=== PATIENT | female | born 1960 | race Caucasian/White ===

== ENCOUNTER → 2024-02-26 | Outpatient (CLI) | payer OTHER, SELFPAY ==
--- NOTE | 2024-02-26 12:34 | RAD_ITS ---
STUDY: X-RAY - RIGHT KNEE REASON FOR EXAM: Female, 63 years old. Pain following a fall. TECHNIQUE: 3 view(s) of the knee. COMPARISON: None. FINDINGS: Normal visualized distal femur. Normal visualized proximal tibia and fibula. Normal proximal tibiofibular articulation. There is moderate degenerative arthrosis of the medial femorotibial compartment with moderate joint space narrowing. Degenerative spurring along the medial femoral condyle and medial tibial plateau. Normal lateral femorotibial compartment. Normal patellofemoral articulation. The soft tissue structures are unremarkable. RAD/Knee 3 Views IMPRESSION: Degenerative arthrosis. Electronically Signed: Mendel Rico MD at 13:37 EDT ,
--- NOTE | 2024-02-26 12:34 | RAD_ITS ---
STUDY: X-RAY - LUMBAR SPINE REASON FOR EXAM: Female, 63 years old. Pain following a fall. TECHNIQUE: 2 view(s) of the lumbar spine were obtained. COMPARISON: Comparison is made with prior study of August 22, 2015. FINDINGS: There is straightening of the normal lumbar lordosis. There is a mild dextroscoliosis of the lumbar spine. There is a normal alignment of the vertebrae. There is multilevel endplate spondylosis of the lumbar vertebrae. There is multi-level degenerative disc disease with multi-level disc space narrowing. Facet joint osteoarthritis. The soft tissue structures are unremarkable. RAD/Lumbar Spine 2 or 3 Views IMPRESSION: Degenerative changes of the spine, as detailed above. Electronically Signed: Mendel Rico MD at 13:36 EDT ,
--- NOTE | 2024-02-26 12:34 | RAD_ITS ---
STUDY: X-RAY - PELVIS AND RIGHT HIP REASON FOR EXAM: Female, 63 years old. Fall TECHNIQUE: 3 views of the pelvis and hip. COMPARISON: None. FINDINGS: There is a non-specific bowel gas pattern. Normal visualized soft tissue structures. Normal bilateral iliac wings, sacroiliac joints and visualized sacrum. Normal bilateral superior and inferior pubic rami. Normal pubic symphysis. Normal bilateral ischial tuberosities. Normal visualized femoral head. Normal acetabulum. Normal hip joint. RAD/HIP, UNI W/ Pelvis 2-3 Views IMPRESSION: Normal x-ray examination of the pelvis and hip. Electronically Signed: Mendel Rico MD at 13:38 EDT ,
== END | disposition home or self-care (01) ==
LOC: MTRAD 12:32
PROVIDERS: Referring Provider Physician Assistant; Visit Provider Physician Assistant
DX: M47.816 Spondylosis without myelopathy or radiculopathy, lumbar region (principal); W19.XXXA Unspecified fall, initial encounter
CPT/HCPCS: 72100; 73502; 73562

== ENCOUNTER 2024-04-15 16:00 | Outpatient (RCR) | payer OTHER, SELFPAY | END 2024-04-15 19:00 | disposition home or self-care (01) | LOC: PT 16:00 | PROVIDERS: Referring Provider Physician Assistant; Visit Provider Physician Assistant | DX: M25.561 Pain in right knee (principal) | CPT/HCPCS: 97110; 97161 ==

== ENCOUNTER → 2024-05-16 | Outpatient (CLI) | payer OTHER, SELFPAY ==
--- OUTSIDE RECORDS SUMMARY | 2024-05-16 08:34 | XMS RPT_ITS | CCD ---
Author Organization [facility] Care Team Providers Care Field Map Editor Name Role Phone Unavailable Unavailable Unavailable Harlan Swann Unavailable Unavailable Caroline Huston Unavailable Unavailable Caroline Huston Primary Care Provider [phone] Caroline Huston Unavailable Caroline Huston Primary Care Provider Caroline Huston Unavailable Unavailable Unavailable Caroline Huston Unavailable Jaylen Ramos Unavailable Unavailabl e Harlan Swann M Unavailable Sav Jane Unavailable Caroline Huston MD Primary Care Provider Benjamin Benton MD Unavailable [phone] No, Physician Primary Care Provider UnavailCAROLINE Brooks Admitting Unavailab le CAROLINE HUSTON Primary Care Unavailab le CAROLINE HUSTON Primary Care Unavailab le BENJAMIN SUAZO Attending Unavailable BENJAMIN SUAZO Referring Unavailable NO, PHYSICIAN Primary Care Unavailable ROSE THOMAS Admitting Unavailable NO, PHYSICIAN Primary Care Unavailable Caroline Huston MD Primary Care Provider Benjamin Benton MD Unavailable Caroline Huston MD Primary Care Provider Mame Gray Unavailable Benjamin Benton MD Unavailable Oberhauser DO, Mame Primary Care Provider [phone] Betzaida, Dr. Caroline Cole Primary Care Unava ilable Oberhauser, Dr. Mame Liu Attending Unava ilable Oberhauser, Dr. Mame Liu Referring Unava ilable OBERHAUSER, MAME Primary Care Unavailable TRUDY JR., FELIPE Attending Unavailable TRUDY JR., FELIPE Referring Unavailable OBERHAUSER, MAME Primary Care Unavailable TRUDY JR., FELIPE Attending Unavailable TRUDY JR., FELIPE Referring Unavailable Oberhauser DO, Mame L Primary Care Provider [phone] Oberhauser DO, Mame L Unavailable Shree, Dr. Harlan Wilson Attending Unav ailable Zumbar, Dr. Harlan Wilson Referring Unav ailable Zumbar, Dr. Harlan Wilson Admitting Unav ailable Oberhauser, Mame Primary Care Unavailable Zumbant, Dr. Harlan Wilson Attending Unav ailable Zumbar, Dr. Harlan Wilson Referring Unav ailable Zumbar, Dr. Harlan Wilson Admitting Unav ailable Oberhauser, Mame Primary Care Unavailable Zumbar, Dr. Harlan Wilson Attending Unav ailable Oberhauser, Mame Primary Care Unavailable Zumbar, Dr. Harlan Wilson Attending Unav ailable Oberhauser, Mame Primary Care Unavailable Zumbar, Dr. Harlan Wilson Attending Unav ailable Oberhauser, Mame Primary Care Unavailable Oberhauser, Mame Primary Care Unavailable Zumbar, Dr. Harlan Wilson Attending Unav ailable Rizvi, Ms. Amy Cole Attending U navailable Oberhauser, Mame Primary Care Unavailable Huston, Dr. Caroline Cole Primary Care Unava ilable Zumbar, Dr. Harlan Wilson Attending Unav ailable Zumbar, Dr. Harlan Wilson Attending Unav ailable Oberhauser, Mame Primary Care Unavailable Zumbar, Dr. Harlan Wilson Referring Unav ailable Zumbar, Dr. Harlan Wilson Admitting Unav ailable Oberhauser, Mame Primary Care Unavailable Zumbar, Dr. Harlan Wilson Attending Unav ailable Trudy Jr, Dr. Wang Attending Unavaila ble Oberhauser, Mame Primary Care Unavailable Zumbar, Dr. Harlan Wilson Attending Unav ailable Zumbar, Dr. Harlan Wilson Referring Unav ailable Oberhauser, Mame Primary Care Unavailable Zumbar, Dr. Harlan Wilson Attending Unav ailable Oberhauser, Mame Primary Care Unavailable Huston, Dr. Caroline Cole Primary Care Unava ilable Zumbar, Dr. Harlan Wilson Attending Unav ailable Oberhauser, Mame Primary Care Unavailable Oberhauser, Mame Attending Unavailable Zumbar, Dr. Harlan Wilson Referring Unav ailable Zumbar, Dr. Harlan Wilson Admitting Unav ailable Zumbar, Dr. Harlan Wilson Attending Unav ailable Oberhauser, Mame Primary Care Unavailable OBERHAUSER, MAME Primary Care Unavailable TRUDY JR., FELIPE Attending Unavailable TRUDY JR., FELIPE Admitting Unavailable OBERHAUSER, MAME Primary Care Unavailable TRUDY JR., FELIPE Referring Unavailable TRUDY JR., FELIPE Attending Unavailable OBERHAUSER, MAME Primary Care Unavailable TRUDY JR., FELIPE Admitting Unavailable OBERHAUSER, MAME Primary Care Unavailable TRUDY JR., FELIPE Referring Unavailable TRUDY JR., FELIPE Attending Unavailable OBERHAUSER, MAME Primary Care Unavailable TRUDY JR., FELIPE Referring Unavailable TRUDY JR., FELIPE Admitting Unavailable OBERHAUSER, MAME Primary Care Unavailable OBERHAUSER, MAME Primary Care Unavailable TRUDY JR., FELIPE Attending Unavailable OBERHAUSER, MAME Primary Care Unavailable TRUDY JR., FELIPE Attending Unavailable TRUDY JR., FELIPE Admitting Unavailable OBERHAUSER, MAME Primary Care Unavailable TRUDY JR., FELIPE Referring Unavailable OBERHAUSER, MAME Primary Care Unavailable TRUDY JR., FELIPE Attending Unavailable TRUDY JR., FELIPE Admitting Unavailable OBERHAUSER, MAME Primary Care Unavailable TRUDY JR., FELIPE Referring Unavailable SANDEEP MILLIGAN Attending Unavailable OBERHAUSER, MAME L Primary Care Unavailable OBERHAUSER, MAME L Attending Unavailable OBERHAUSER, MAME L Referring Unavailable OBERHAUSER, MAME L Primary Care Unavailable OBERHAUSER, MAME L Primary Care Unavailable ARIELLA CAREY Attending Unavailable OBERHAUSER, MAME L Primary Care Unavailable MARISELA CORONADO Attending Unavailable RIZVI, AMY C Referring Unavailable OBERHAUSER, MAME L Primary Care Unavailable RIZVI, AMY C Attending Unavailable OBERHAUSER, MAME L Primary Care Unavailable DAVON KOLB Referring Unavailable OBERHAUSER, MAME L Primary Care Unavailable DAVON KOLB Referring Unavailable OBERHAUSER, MAME L Primary Care Unavailable DAVON KOLB Referring Unavailable OBERHAUSER, MAME L Primary Care Unavailable DAVON KOLB Referring Unavailable OBERHAUSER, MAME L Primary Care Unavailable DAVON KOLB Referring Unavailable OBERHAUSER, MAME L Primary Care Unavailable OBERHAUSER, MAME L Referring Unavailable OBERHAUSER, MAME L Primary Care Unavailable DAVON KOLB Referring Unavailable OBERHAUSER, MAME L Primary Care Unavailable DAVON KOLB Referring Unavailable OBERHAUSER, MAME L Primary Care Unavailable RIZVI, AMY C Attending Unavailable OBERHAUSER, MAME L Referring Unavailable OBERHAUSER, MAME L Primary Care Unavailable RIZVI, AMY C Attending Unavailable OBERHAUSER, MAME L Primary Care Unavailable OBERHAUSER, MAME L Primary Care Unavailable MAME FARIAS Attending Unavailable RIZVI, AMY C Attending Unavailable OBERHAUSER, MAME L Primary Care Unavailable RIZVI, AMY C Referring Unavailable OBERHAUSER, MAME L Primary Care Unavailable RIZVI, AMY C Attending Unavailable OBERHAUSER, MAME L Primary Care Unavailable RIZVI, AMY C Referring Unavailable OBERHAUSER, MAME L Primary Care Unavailable RIZVI, AMY C Referring Unavailable OBERHAUSER, MAME L Primary Care Unavailable RIZVI, AMY C Referring Unavailable OBERHAUSER, MAME L Primary Care Unavailable MARISELA CORONADO Referring Unavailable OBERHAUSER, MAME L Primary Care Unavailable ARIELLA CAREY Referring Unavailable OBERHAUSER, MAME L Primary Care Unavailable OBERHAUSER, MAME L Primary Care Unavailable MAME GRAY Primary Care Unavailable Allergies Allergy Classification Reported Allergen(s) Allergy Type Date of Onset Reaction(s) Facility (20 sources) traMADol; Translations: [TRAMADOL] Drug Allergy 11-09-2022 Nausea and vomiting, Nausea/vomiting [facility] Medications Current Medications Medication Drug Class(es) Dates Sig (Normalized) Sig (Original) acetaminophen 325 mg / HYDROcodone bitartrate 5 mg oral tablet (3 sources) Opioid Agonist Start: 06-01-2019 take 1 tablet by mouth every four hours as needed HYDROcodone-aceta minophen (NORCO) 5-325 mg per tablet Take 1 tablet by mouth every 4 to 6 hours as needed . 0 06/01/2019 Active amLODIPine 5 mg oral tablet (20 sources) Dihydropyridine Calcium Channel [place] Start: 06-19-2017 End: 11-05-2023 take 1 tablet by mouth once daily amLODIPine (Norvasc) 5 mg tablet Indications: Primary hypertension Take 1 tablet (5 mg) by mouth once daily. 90 tablet 3 11/05/2023 Active amoxicillin 875 mg / clavulanate 125 mg oral tablet (2 sources) Penicillin-class Antibacterial Start: 05-02-2023 End: 05-12-2023 take 1 tablet by mouth twice daily amoxicillin-pot clavulanate (Augmentin) 875-125 mg tablet Indications: Non-recurrent acute serous otitis media of right ear Take 1 tablet (875 mg) by mouth 2 times Other ear and sense organ disorders (2 sources) Unspecified acute noninfective otitis externa, right ear; Translations: [Unspecified acute noninfective otitis externa, right ear] Onset: 4 Episodic Other gastrointestinal disorders (2 sources) Full incontinence of feces; Translations: [Full incontinence of feces] Onset: 4 Episodic Other hereditary and degenerative nervous system conditions (20 sources) Restless legs; Translations: [Restless legs syndrome (RLS)] Onset: 3 05-02-2023 Chronic Other hereditary and degenerative nervous system conditions (2 sources) Restless legs syndrome; Translations: [Restless legs syndrome] Onset: 3 Chronic Other injuries and conditions due to external causes (1 source) Cat bite - wound; Translations: [Cat bite of hand, left, initial encounter] Episodic Other injuries and conditions due to external causes (6 sources) Injury of left ankle; Translations: [Unspecified injury of left ankle, initial encounter] Onset: 4 04-20-2024 Episodic Other injuries and conditions due to external causes (4 sources) Unspecified injury of left ankle, sequela; Translations: [Unspecified injury of left ankle, sequela] Onset: 4 Episodic Other injuries and conditions due to external causes (2 sources) Unspecified injury of left ankle, initial encounter; Translations: [Unspecified injury of left ankle, initial encounter] Onset: 4 Episodic Other lower respiratory disease (1 source) Dyspnea 04-07-2021 Episodic Comment on above: SOB Other lower respiratory disease (1 source) Dyspnea at rest; Translations: [Shortness of breath] Onset: 1 04-09-2021 Episodic Other lower respiratory disease (1 source) Dyspnea on exertion; Translations: [Dyspnea, unspecified] Episodic Other nervous system disorders (2 sources) Other chronic pain; Translations: [Other chronic pain] Onset: 3 Chronic Other non-traumatic joint disorders (2 sources) Pain in left ankle and joints of left foot; Translations: [Pain in left ankle and joints of left foot] Onset: 4 Episodic Other nutritional; endocrine; and metabolic disorders (10 sources) Obesity; Translations: [Obesity, unspecified] Chronic Other nutritional; endocrine; and metabolic disorders (10 sources) Body mass index 30+ - obesity; Translations: [Body Mass Index 36.0-36.9, adult] Chronic Otitis media and related conditions (5 sources) Acute non-suppurative otitis media - serous; Translations: [Acute serous otitis media, right ear] Onset: 3 05-02-2023 Episodic Pneumonia (except that caused by tuberculosis or sexually transmitted disease) (1 source) Pneumonia due to other virus not elsewhere classified 04-07-2021 Episodic Pneumonia (except that caused by tuberculosis or sexually transmitted disease) (1 source) Pneumonia (except that caused by tuberculosis or sexually transmitted disease) 04-07-2021 Pulmonary heart disease (20 sources) Pulmonary embolism; Translations: [Other pulmonary embolism and infarction] Onset: 1 04-07-2021 Episodic Comment on above: OTHER PULMONARY EMBO LISM WITHOUT ACUTE COR PULMONALE Diagnosed 04/07/2021 at time of COVID-19 infection.; Residual codes; unclassified (20 sources) Obstructive sleep apnea syndrome; Translations: [Obstructive sleep apnea (adult) (pediatric)] Onset: 6 02-04-2017 Chronic Residual codes; unclassified (20 sources) Sleep apnea; Translations: [Unspecified sleep apnea] Onset: 3 11-06-2022 Chronic Residual codes; unclassified (1 source) Difficulty sleeping ; Translations: [Sleep disorder, unspecified] Episodic Spondylosis; intervertebral disc disorders; other back problems (20 sources) Degeneration of lumbar intervertebral disc; Translations: [Lumbosacral spondylosis] Onset: 0 Resolved: 3 02-04-2017 Chronic Spondylosis; intervertebral disc disorders; other back problems (20 sources) Spinal stenosis of lumbar region; Translations: [Lumbosacral stenosis] Onset: 8 Resolved: 3 02-04-2017 Episodic Thyroid disorders (20 sources) Hypothyroidism; Translations: [Unspecified acquired hypothyroidism] Onset: 8 02-04-2017 Chronic Unclassified (2 sources) Patient encounter status; Translations: [Annual physical exam] Unclassified (1 source) FUV 3 MONTHS 01-16-2021 Comment on above: FUV 3 MONTHS Unclassified (1 source) COVID-19 03-29-2021 Unclassified (1 source) Pulmonary emboli 04-07-2021 Unclassified (1 source) Viremia due to severe acute respiratory syndrome coronavirus 2 (SARS-CoV-2) 04-07-2021 Unclassified (1 source) Multiple pulmonary emboli 04-07-2021 Unclassified (1 source) Shortness of breath at rest 04-09-2021 Unclassified (2 sources) Injury of left ankle 05-06-2024 Unclassified (1 source) Low back pain, unspecified; Translations: [Low back pain, unspecified] Onset: 3 Past or Other Problems Problem Classification Problem Date Documented Date Episodic/Chronic Acquired foot deformities (7 sources) Metatarsophalangeal joint stiff; Translations: [Other deformities of toe(s) (acquired), left foot] Onset: 3 11-09-2022 Episodic Diabetes mellitus without complication (20 sources) Prediabetes; Translations: [Prediabetes] Onset: 1 04-28-2021 Episodic Fracture of lower limb (16 sources) Closed fracture of first metatarsal bone ; Translations: [Nondisplaced fracture of first metatarsal bone, left foot, initial encounter for closed fracture] Onset: 3 02-01-2023 Episodic Malaise and fatigue (20 sources) Tired; Translations: [Fatigue] Onset: 3 Resolved: 3 03-29-2021 Episodic Comment on above: TIRED Nutritional deficiencies (3 sources) Cobalamin deficiency; Translations: [Deficiency of other specified B group vitamins] Onset: 4 11-05-2023 Episodic Osteoarthritis (20 sources) Arthropathy of right knee joint; Translations: [Other specified arthropathy, lower leg] Onset: 2 Resolved: 3 11-09-2022 Chronic Other acquired deformities (20 sources) Spondylolisthesis; Translations: [Acquired spondylolisthesis] Onset: 3 11-06-2022 Episodic Other acquired deformities (4 sources) Spondylolisthesis, lumbosacral region; Translations: [Spondylolisthesis, lumbosacral region] Onset: 3 Episodic Other acquired deformities (1 source) Spondylolisthesis, lumbar region; Translations: [Spondylolisthesis, lumbar region] Onset: 3 Episodic Other acquired deformities (1 source) Spondylolysis, lumbar region; Translations: [Spondylolysis, lumbar region] Onset: 2 Episodic Other connective tissue disease (13 sources) Pain in left foot; Translations: [Pain in left foot] Onset: 3 11-09-2022 Episodic Other connective tissue disease (11 sources) Other symptoms and signs involving the musculoskeletal system; Translations: [Other musculoskeletal symptoms referable to limbs] Onset: 3 Resolved: 3 11-06-2022 Episodic Other connective tissue disease (5 sources) Pain in left foot; Translations: [Pain in left foot] Onset: 3 Episodic Other nervous system disorders (20 sources) Paresthesia of foot ; Translations: [Paresthesia of skin] Onset: 8 04-09-2018 Episodic Other screening for suspected conditions (not mental disorders or infectious disease) (20 sources) Patient encounter status; Translations: [Special screening for malignant neoplasms of colon] Onset: 3 Episodic Residual codes; unclassified (20 sources) Insomnia; Translations: [Insomnia, unspecified] Onset: 8 03-21-2017 Episodic Spondylosis; intervertebral disc disorders; other back problems (1 source) Radiculopathy of lumbosacral spine due to disc disorder; Translations: [Intervertebral disc disorders with radiculopathy, lumbosacral region] Sprains and strains (20 sources) Low back strain; Translations: [Sprain of lumbar] Onset: 3 Resolved: 3 11-06-2022 Episodic Unclassified (11 sources) Onset: 3 Resolved: 3 11-06-2022 Unclassified (1 source) Low back pain, unspecified; Translations: [Low back pain, unspecified] Onset: 3 Viral infection (20 sources) Varicella; Translations: [Disease caused by 2019-nCoV] Onset: 8 02-04-2017 Episodic Results Test Name Value Interpretation Reference Range Facility CT ANGIO CHEST FOR PULMONARY EMBOLISMon 05-07-2024 CT ANGIO CHEST FOR PULMONARY EMBOLISM Interpreted By: Madhavi Keita, STUDY: CT ANGIO CHEST FOR PULMONARY EMBOLISM; 05/07/2024 4:33 pm INDICATION: Signs/Symptoms:history of PE. COMPARISON: 04/07/2021 ACCESSION NUMBER(S): [id number] ORDERING CLINICIAN: ARIELLA CAREY TECHNIQUE: Axial CT images of the chest obtained after intravenous administration of contrast. Maximum intensity projection images were created and reviewed. FINDINGS: VESSELS: No aortic aneurysm. No pulmonary embolism. HEART: Normal size. No pericardial effusion. MEDIASTINUM AND MAG: Stable enlarged left lower paratracheal lymph node measuring 1.2 x 2.1 cm. LUNG, PLEURA, AND LARGE AIRWAYS: No pleural effusion or pneumothorax. No pulmonary consolidation or suspicious pulmonary nodule. CHEST WALL AND LOWER NECK: Within normal limits. UPPER ABDOMEN: No acute abnormality of the visualized abdomen. BONES: No acute osseous abnormality. IMPRESSION: No pulmonary embolism or acute cardiopulmonary process. MACRO: None Signed by: Madhavi Keita 05/07/2024 5:22 PM Dictation workstation: [id number] [facility] CT Chest W contrast IV and C T angiogram Pulmonary arteries for pulmonary embolus W contrast Gray 05-07-2024 No pulmonary embolis m or acute cardiopulmonary process. MACRO: None Signed by: Madhavi Keita 05/07/2024 5:22 PM Dictation workstation: [id number] MMODAL Interpreted By: Madhavi Cortes, STUDY: CT ANGIO CHEST FOR PULMONARY EMBOLISM; 05/07/2024 4:33 pm INDICATION: Signs/Symptoms:history of PE. COMPARISON: 04/07/2021 ACCESSION NUMBER(S): [id number] ORDERING CLINICIAN: ARIELLA CAREY TECHNIQUE: Axial CT images of the chest obtained after intravenous administration of contrast. Maximum intensity projection images were created and reviewed. FINDINGS: VESSELS: No aortic aneurysm. No pulmonary embolism. HEART: Normal size. No pericardial effusion. MEDIASTINUM AND MAG: Stable enlarged left lower paratracheal lymph node measuring 1.2 x 2.1 cm. LUNG, PLEURA, AND LARGE AIRWAYS: No pleural effusion or pneumothorax. No pulmonary consolidation or suspicious pulmonary nodule. CHEST WALL AND LOWER NECK: Within normal limits. UPPER ABDOMEN: No acute abnormality of the visualized abdomen. BONES: No acute osseous abnormality. [facility] MMODAL Madhavi Keita MD - 05/07/2024 Interpreted By: Madhavi Keita, STUDY: CT ANGIO CHEST FOR PULMONARY EMBOLISM; 05/07/2024 4:33 pm INDICATION: Signs/Symptoms:history of PE. COMPARISON: 04/07/2021 ACCESSION NUMBER(S): [id number] ORDERING CLINICIAN: ARIELLA CAREY TECHNIQUE: Axial CT images of the chest obtained after intravenous administration of contrast. Maximum intensity projection images were created and reviewed. FINDINGS: VESSELS: No aortic aneurysm. No pulmonary embolism. HEART: Normal size. No pericardial effusion. MEDIASTINUM AND MAG: Stable enlarged left lower paratracheal lymph node measuring 1.2 x 2.1 cm. LUNG, PLEURA, AND LARGE AIRWAYS: No pleural effusion or pneumothorax. No pulmonary consolidation or suspicious pulmonary nodule. CHEST WALL AND LOWER NECK: Within normal limits. UPPER ABDOMEN: No acute abnormality of the visualized abdomen. BONES: No acute osseous abnormality. IMPRESSION: No pulmonary embolism or acute cardiopulmonary process. MACRO: None Signed by: Madhavi Keita 05/07/2024 5:22 PM Dictation workstation: [id number] [facility] Work Phone: Radiology Study observation (narrative) [facility] Work Phone: CT Chest W contrast IV and C T angiogram Pulmonary arteries for pulmonary embolus W contrast IVOrdered By: Madhavi Keita on 05-07-2024 [facility] Work Phone: Comprehensive metabolic 2000 panelon 05-07-2024 Albumin BCP dye [Mass/Vol] 4.3 g/dL Normal 3.4-5.0 [facility] Comment on above: Performed By: #### 2 4323-8 #### INNA SANDS ([id number]) [facility] ([facility]) [address] [place] [address] 02765 ALP [Catalytic activity/Vol] 115 U/L Normal 33-136 [facility] Comment on above: Performed By: #### 2 4323-8 #### INNA SANDS ([id number]) [facility] ([facility]) [address] [place] [address] 85937 ALT With P-5'-P [Catalytic activity/Vol] 47 U/L High 7-45 [facility] Comment on above: Result Comment: Vangie ents treated with Sulfasalazine may generate falsely decreased results for ALT. Performed By: #### 2 4323-8 #### INNA SANDS ([id number]) [facility] ([facility]) [address] [place] [address] 11021 Anion gap [Moles/Vol] 11 mmol/L Normal 10-20 [facility] Comment on above: Performed By: #### 2 4323-8 #### INNA SANDS ([id number]) [facility] ([facility]) [address] [place] [address] 24208 AST With P-5'-P [Catalytic activity/Vol] 30 U/L Normal 9-39 [facility] Comment on above: Performed By: #### 2 4323-8 #### INNA SANDS ([id number]) [facility] ([facility]) [address] [place] [address] Bilirubin [Mass/Vol] 0.5 mg/dL Normal 0.0-1.2 [facility] Comment on above: Performed By: #### 2 4323-8 #### INNA SANDS ([id number]) [facility] ([facility]) [address] [place] [address] 61743 Calcium [Mass/Vol] 9.0 mg/dL Normal 8.6-10.3 [facility] Comment on above: Performed By: #### 2 4322-8 #### INNA SANDS ([id number]) [facility] ([facility]) [address] [place] [address] 99323 Chloride [Moles/Vol] 105 mmol/L Normal 98-107 [facility] Comment on above: Performed By: #### 2 432-8 #### INNA SANDS ([id number]) [facility] ([facility]) [address] [place] [address] 35771 CO2 [Moles/Vol] 27 mmol/L Normal 21-32 [facility] Comment on above: Performed By: #### 2 4323-8 #### INNA SANDS ([id number]) [facility] ([facility]) [address] [place] [address] 69928 Creatinine [Mass/Vol] 0.85 mg/dL Normal 0.50-1.05 [facility] Comment on above: Performed By: #### 2 4323-8 #### INNA SANDS ([id number]) [facility] ([facility]) [address] [place] [address] 66483 Glomerular filtration rate/1.73 sq M.predicted 76 mL/min/1.73m*2 Normal >60 [facility] Comment on above: Result Comment: Calc ulations of estimated GFR are performed using the 2020 CKD-EPI Study Refit equation without the race variable for the IDMS-Traceable creatinine methods. https://jasn.asnjournals.org/content/early/ASN.25841 17887 Performed By: #### 2 4323-8 #### INNA SANDS ([id number]) [facility] ([facility]) [address] [place] [address] 46258 Glucose [Mass/Vol] 89 mg/dL Normal 74-99 [facility] Comment on above: Performed By: #### 2 4323-8 #### INNA SANDS ([id number]) [facility] ([facility]) [address] [place] [address] 50712 Potassium [Moles/Vol] 3.2 mmol/L Low 3.5-5.3 [facility] Comment on above: Performed By: #### 2 4323-8 #### INNA SANDS ([id number]) [facility] ([facility]) [address] [place] [address] 46753 Protein [Mass/Vol] 6.8 g/dL Normal 6.4-8.2 [facility] Comment on above: Performed By: #### 2 4323-8 #### INNA SANDS ([id number]) [facility] ([facility]) [address] [place] [address] 68796 Sodium [Moles/Vol] 140 mmol/L Normal 136-145 [facility] Comment on above: Performed By: #### 2 4323-8 #### INNA SANDS ([id number]) [facility] ([facility]) [address] [place] [address] 71830 Urea nitrogen [Mass/Vol] 15 mg/dL Normal 6-23 [facility] Comment on above: Performed By: #### 2 4323-8 #### INNA SANDS ([id number]) [facility] ([facility]) [address] [place] [address] 89414 XR Ankle - left 3 Viewson Mild osteoarthritis. Soft tissue edema MACRO: None Signed by: Justyn Mary 05/07/2024 7:55 PM Dictation workstation: [id number] MMODAL Interpreted By: Justyn Palma, STUDY: XR ANKLE LEFT 3+ VIEWS; ; 05/06/2024 4:00 pm INDICATION: Signs/Symptoms:FRACTURE FOLLOW UP. ,S99.912S Unspecified injury of left ankle, sequela COMPARISON: 04/16/2024 ACCESSION NUMBER(S): [id number] ORDERING CLINICIAN: MARISELA CORONADO FINDINGS: Left ankle, three views There is bimalleolar soft tissue edema. There is mild osteophytosis in the ankle without joint space narrowing. There is no fracture or dislocation [facility] MMODAL Justyn Mary MD - 05/07/2024 Interpreted By: Justyn Mary, STUDY: XR ANKLE LEFT 3+ VIEWS; ; 05/06/2024 4:00 pm INDICATION: Signs/Symptoms:FRACTURE FOLLOW UP. ,S99.912S Unspecified injury of left ankle, sequela COMPARISON: 04/16/2024 ACCESSION NUMBER(S): [id number] ORDERING CLINICIAN: MARISELA CORONADO FINDINGS: Left ankle, three views There is bimalleolar soft tissue edema. There is mild osteophytosis in the ankle without joint space narrowing. There is no fracture or dislocation IMPRESSION: Mild osteoarthritis. Soft tissue edema MACRO: None Signed by: Justyn Mary 05/07/2024 7:55 PM Dictation workstation: [id number] [facility] Work Phone: XR Ankle - left 3 ViewsOrder ed By: Justyn Mary on 05-07-2024 [facility] Work Phone: XR ANKLE LEFT 3+ VIEWSon XR ANKLE LEFT 3+ VIEWS Interpreted By: Justyn Hall, STUDY: XR ANKLE LEFT 3+ VIEWS; ; 05/06/2024 4:00 pm INDICATION: Signs/Symptoms:FRACTURE FOLLOW UP. ,S99.912S Unspecified injury of left ankle, sequela COMPARISON: 04/16/2024 ACCESSION NUMBER(S): [id number] ORDERING CLINICIAN: MARISELA CORONADO FINDINGS: Left ankle, three views There is bimalleolar soft tissue edema. There is mild osteophytosis in the ankle without joint space narrowing. There is no fracture or dislocation IMPRESSION: Mild osteoarthritis. Soft tissue edema MACRO: None Signed by: Justyn Mary 05/07/2024 7:55 PM Dictation workstation: [id number] [facility] Comment on above: Order Comment: DATE OF INJURY 04-11-2024. XR Ankle - left 3 Viewson Radiology Study observation (narrative) [facility] Work Phone: XR ANKLE LEFT 3+ VIEWSon XR ANKLE LEFT 3+ VIEWS Interpreted By: Justyn Hall, STUDY: XR ANKLE LEFT 3+ VIEWS; ; 04/16/2024 4:42 pm INDICATION: Signs/Symptoms:s/p fall. left foot pain. ,W19.XXXA Unspecified fall, initial encounter,Y92.[address] in unspecified non-institutional (private) residence as the place of occurrence of the external cause COMPARISON: None. ACCESSION NUMBER(S): [id number] ORDERING CLINICIAN: AMY RIZVI FINDINGS: Left ankle, three views There is a small avulsion fracture at the medial aspect of the talus likely arising from the talar dome. Remote avulsion injury at the tip of the lateral malleolus as well. No other fracture seen. Mild degenerative changes in the ankle. Bimalleolar soft tissue edema. IMPRESSION: Small avulsion fracture at the medial aspect of the talus adjacent to the talar dome. This is of unknown chronicity. Remote avulsion injury of the tip of the lateral malleolus. Mild degenerative changes in the ankle. MACRO: Critical Finding: See findings. Notification was initiated on 04/17/2024 at 7:10 pm by Justyn Mary. (-YCF-) Signed by: Justyn Mary 04/17/2024 7:10 PM Dictation workstation: [id number] [facility] XR FOOT LEFT 3+ VIEWSon 03-23 XR FOOT LEFT 3+ VIEWS Interpreted By: Justyn Euceda, STUDY: XR FOOT LEFT 3+ VIEWS; ; 04/16/2024 4:41 pm INDICATION: Signs/Symptoms:s/p fall. left foot pain. ,W19.XXXA Unspecified fall, initial encounter,Y92.[address] in unspecified non-institutional (private) residence as the place of occurrence of the external cause COMPARISON: 11/06/2022 ACCESSION NUMBER(S): [id number] ORDERING CLINICIAN: AMY RIZVI FINDINGS: Left foot, three views There is severe joint space narrowing with advanced 1st MTP joint. The remaining articulations are within normal limits. There is a remote healed fracture through the 2nd and 3rd metatarsal diaphysis. 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 No acute abnormality seen. MACRO: None Signed by: Justyn Mary 04/17/2024 7:07 PM Dictation workstation: [id number] [facility] XR THORACIC SPINE 3 VIEWSon 04-16-2024 XR THORACIC SPINE 3 VIEWS Interpreted By: Justyn Mary, STUDY: XR THORACIC SPINE 3 VIEWS; ; 04/16/2024 4:41 pm INDICATION: Signs/Symptoms:S/P fall. upper back pain. ,W19.XXXA Unspecified fall, initial encounter,Y92.[address] in unspecified non-institutional (private) residence as the place of occurrence of the external cause COMPARISON: None. ACCESSION NUMBER(S): [id number] ORDERING CLINICIAN: AMY RIZVI FINDINGS: Thoracic spine, three views There is mild scoliosis of the thoracolumbar spine. There is no fracture. There is no spondylolisthesis. There is no disc space narrowing or osteophytosis. The prevertebral soft tissues are within normal limits. IMPRESSION: Mild scoliosis. No other abnormality MACRO: None Signed by: Justyn Mary 04/17/2024 7:02 PM Dictation workstation: [id number] [facility] MR LUMBAR SPINE WO IV CONTRA STon 03-19-2024 MR LUMBAR SPINE WO IV CONTRAST Interpreted By: Young Sotelo, STUDY: MR LUMBAR SPINE WO IV CONTRAST performed 03/19/2024 4:23 pm INDICATION: Signs/Symptoms:lower back and leg paim, bowel leakage. ,M48.062 Spinal stenosis, lumbar region with neurogenic claudication,M43.17 Spondylolisthesis, lumbosacral region,M54.17 Radiculopathy, lumbosacral region,M51.17 Intervertebral disc disorders with radiculopathy, lumbosacral region,R15.9 Full incontinence of feces COMPARISON: MRI lumbar spine dated 02/11/2023. ACCESSION NUMBER(S): [id number] ORDERING CLINICIAN: AMY RIZVI TECHNIQUE: Multiplanar multisequence MR imaging of the lumbar spine performed without intravenous contrast. Sagittal T1, T2, STIR, axial T1 and T2 weighted images of the lumbar spine were acquired. FINDINGS: Segmentation: Normal. Conus: The lower thoracic cord appears unremarkable. The conus terminates at the L1-L2 interspace level. Cauda equina are unremarkable. Epidural fluid: None. Alignment: Dextroscoliosis of the thoracolumbar region. Estimated 4 mm anterolisthesis of L5 on S1. Vertebral bodies: Trace anterior wedging of L1 and trace posterior wedging of the L5. Lumbar vertebral body heights are otherwise maintained. Marrow signal: Multilevel type 1 Modic endplate signal change, most pronounced at L2-L3 and L4-L5 and worsened in the interim. There is also multilevel type 2 Modic endplate signal change such as at L1-L2 and L5-S1. Intervertebral discs: Moderate multilevel degenerative disc height loss, unchanged in the interim. Degenerative change: T12-L1: Mild bilateral facet arthropathy and ligamentum flavum hypertrophy. No spinal canal stenosis or neural foraminal narrowing. L1-2: Disc bulge and hypertrophic endplate spurring, worse along the leftward aspect. There is jjzd-altdfdo-husc-right lateral recess narrowing and ventral thecal sac indentation with no additional spinal canal stenosis. Minimal right and tdmg-qp-ddkxrstk left neural foraminal narrowing. L2-3: Mild ligamentum flavum hypertrophy. Mild disc bulge and hypertrophic endplate spurring. As compared with previous examination the central disc extrusion component has significantly decreased in size with small residual components extending 8 mm caudally from the superior endplate of L3. Narrowing of the lateral recesses with no additional spinal canal stenosis. No substantial right and mild left neural foraminal narrowing. L3-4: Slight ligamentum flavum hypertrophy. Mild disc bulge and hypertrophic endplate spurring, slightly worse along the rightward aspect. Previous disc protrusion component has largely resolved in the interim. Narrowing of the lzrct-qahkjdh-hgfu-left lateral recesses with ventral thecal sac indentation and no additional spinal canal stenosis. Minimal neural foraminal narrowing. L4-5: Mild bilateral facet arthropathy with ligamentum flavum hypertrophy. Disc bulge and hypertrophic endplate spurring, worse along the rightward aspect. Mild central posterior fissuring of the disc. There is narrowing of the lateral recesses with ventral thecal sac indentation no additional spinal canal stenosis. Moderate right and mild left neural foraminal narrowing. L5-S1: Bilateral L5 spondylolysis. Additional mild bilateral facet arthropathy. Disc bulge/uncovering with hypertrophic endplate spurring. No spinal canal stenosis. Severe bilateral neural foraminal narrowing, right worse than left. Soft tissues: Mild fatty atrophy/infiltration of the inferior posterior paraspinal musculature. Incompletely visualized exophytic cystic appearing lesion arising from the superior pole of the right kidney. IMPRESSION: As compared with previous MRI examination the L2-L3 disc extrusion and the L3-L4 disc protrusion have decreased in size/partially resorbed. Previous spinal canal stenosis at these levels has essentially resolved with residual lateral recess narrowing and ventral thecal sac indentation. Remaining degenerative change is otherwise similar in appearance with L5 spondylolysis and grade 1 anterolisthesis with severe mspto-xayuexj-tfed-left L5 neural foraminal narrowing at this level. MACRO: None Signed by: Young Sotelo 03/20/2024 11:04 AM Dictation workstation: [id number] [facility] XR ANKLE LEFT 3+ VIEWS (ZEE DARD)on 01-15-2024 XR ANKLE LEFT 3+ VIEWS (STANDARD) Mild anterior ankle joint space loss and lateral joint space loss. No new fractures dislocations or subluxations appreciated. Dictated by: FELIPE YATES on SatJan 15, 2024 11:52:18 AM EDT Transcribed by: FELIPE YATES on SatJan 15, 2024 11:52:18 AM EDT Finalized by: FELIPE YATES on SatJan 15, 2024 11:52:18 AM EDT Normal [facility] Comment on above: Order Comment: Injur y/Trauma or Illness?:Illness/Other How long have you had these symptoms (acute/chronic)?:Chronic Reason for exam?:instability History of cancer?:unknown Surgeries, chemotherapy, or radiation?:unknown Type of Exam?:Initial Additional signs and symptoms?:no Cobalaminson 11-01-2023 Cobalamin (Vitamin B12) [Mass/Vol] 637 pg/mL Normal 211-911 [facility] Comment on above: Performed By: #### 2 132-9 #### INNA SANDS ([id number]) [facility] ([facility]) [address] [place] [address] Comprehensive metabolic 2000 panelon 11-01-2023 Albumin BCP dye [Mass/Vol] 4.2 g/dL Normal 3.4-5.0 [facility] Comment on above: Performed By: #### 2 4323-8 #### INNA SANDS ([id number]) [facility] ([facility]) [address] [place] [address]607 ALP [Catalytic activity/Vol] 102 U/L Normal 33-136 [facility] Comment on above: Performed By: #### 2 4323-8 #### INNA SANDS ([id number]) [facility] ([facility]) [address] [place] [address] 57964 ALT With P-5'-P [Catalytic activity/Vol] 23 U/L Normal 7-45 [facility] Comment on above: Result Comment: Vangie ents treated with Sulfasalazine may generate falsely decreased results for ALT. Performed By: #### 2 4323-8 #### INNA SANDS ([id number]) [facility] ([facility]) [address] [place] [address] Anion gap [Moles/Vol] 11 mmol/L Normal 10-20 [facility] Comment on above: Performed By: #### 2 4323-8 #### INNA SANDS ([id number]) [facility] ([facility]) [address] [place] [address] AST With P-5'-P [Catalytic activity/Vol] 24 U/L Normal 9-39 [facility] Comment on above: Performed By: #### 2 4323-8 #### INNA SANDS ([id number]) [facility] ([facility]) [facility] [place] [address] Bilirubin [Mass/Vol] 0.5 mg/dL Normal 0.0-1.2 [facility] Comment on above: Performed By: #### 2 4323-8 #### INNA SANDS ([id number]) [facility] ([facility]) [facility] [place] [address] Calcium [Mass/Vol] 9.0 mg/dL Normal 8.6-10.3 [facility] Comment on above: Performed By: #### 2 4323-8 #### INNA SANDS ([id number]) [facility] ([facility]) [address] [place] [address]990 Chloride [Moles/Vol] 108 mmol/L High 98-107 [facility] Comment on above: Performed By: #### 2 4323-8 #### INNA SANDS ([id number]) [facility] ([facility]) [address] [place] [address] 09422 CO2 [Moles/Vol] 27 mmol/L Normal 21-32 [facility] Comment on above: Performed By: #### 2 4323-8 #### INNA SANDS ([id number]) [facility] ([facility]) [facility] [place] [address] Creatinine [Mass/Vol] 0.75 mg/dL Normal 0.50-1.05 [facility] Comment on above: Performed By: #### 2 4323-8 #### INNA SANDS ([id number]) [facility] ([facility]) [address] [place] [address]250 Glomerular filtration rate/1.73 sq M.predicted 89 mL/min/1.73m*2 Normal >60 [facility] Comment on above: Result Comment: Calc ulations of estimated GFR are performed using the 2020 CKD-EPI Study Refit equation without the race variable for the IDMS-Traceable creatinine methods. https://jasn.asnjournals.org/content/early//ASN.40176 53970 Performed By: #### 2 4323-8 #### INNA SANDS ([id number]) [facility] ([facility]) [facility] [place] [address] Glucose [Mass/Vol] 101 mg/dL High 74-99 [facility] Comment on above: Performed By: #### 2 4323-8 #### INNA SANDS ([id number]) [facility] ([facility]) [address] [place] [address] Potassium [Moles/Vol] 4.3 mmol/L Normal 3.5-5.3 [facility] Comment on above: Performed By: #### 2 4323-8 #### INNA SANDS ([id number]) [facility] ([facility]) [address] [place] [address] Protein [Mass/Vol] 6.3 g/dL Low 6.4-8.2 [facility] Comment on above: Performed By: #### 2 4323-8 #### INNA SANDS ([id number]) [facility] ([facility]) [address] [place] [address] 68626 Sodium [Moles/Vol] 142 mmol/L Normal 136-145 [facility] Comment on above: Performed By: #### 2 4323-8 #### INNA SANDS ([id number]) [facility] ([facility]) [address] [place] [address] 23447 Urea nitrogen [Mass/Vol] 16 mg/dL Normal 6-23 [facility] Comment on above: Performed By: #### 2 4323-8 #### INNA SANDS ([id number]) [facility] ([facility]) [address] [place] [address] 17960 Lipid 1996 panelon 4 Cholesterol [Mass/Vol] 188 mg/dL Normal 0-199 [facility] Comment on above: Result Comment: Age Desirable Borderline High High 0-19 Y 0 - 169 170 - 199 >/= 200 20-24 Y 0 - 189 190 - 224 >/= 225 >24 Y 0 - 199 200 - 239 >/= 240 All ranges are based on fasting samples. Specific therapeutic targets will vary based on patient-specific cardiac risk. Pediatric guidelines reference:Pediatrics 2011, 128(S5).Adult guidelines reference: NCEP ATPIII Guidelines,AFSHAN 2001, 258:2486-97 Venipuncture immediately after or during the administration of Metamizole may lead to falsely low results. Testing should be performed immediately prior to Metamizole dosing. Performed By: #### 2 4331-1 #### INNA SANDS ([id number]) [facility] ([facility]) [facility] [place] [address] Cholesterol in HDL [Mass/Vol] 54.0 mg/dL Normal [facility] Comment on above: Result Comment: Age Very Low Low Normal High 0-19 Y < 35 < 40 40-45 ---- 20-24 Y ---- < 40 >45 ---- >24 Y ---- < 40 40-60 >60 Performed By: #### 2 4331-1 #### INNA SANDS ([id number]) [facility] ([facility]) [address] [place] [address] 58933 Cholesterol in LDL [Mass/Vol] 113 mg/dL High <=99 [facility] Comment on above: Result Comment: Near Borderline AGE Desirable Optimal High High Very High 0-19 Y 0 - 109 --- 110-129 >/= 130 ---- 20-24 Y 0 - 119 --- 120-159 >/= 160 ---- >24 Y 0 - 99 100-129 130-159 160-189 >/=190 Performed By: #### 2 4331-1 #### INNA SANDS ([id number]) [facility] ([facility]) [address] [place] [address]3541 Cholesterol in VLDL [Mass/Vol] 21 mg/dL Normal 0-40 [facility] Comment on above: Performed By: #### 2 4331-1 #### INNA SANDS ([id number]) [facility] ([facility]) [address] [place] [address] 37[address] CHOLESTEROL/HDL RATIO 3.5 Normal [facility] Comment on above: Result Comment: Ref Values Desirable < 3.4 High Risk > 5.0 Performed By: #### 2 4331-1 #### INNA SANDS ([id number]) [facility] ([facility]) [address] [place] [address] 63554 NON HDL CHOLESTEROL 134 mg/dL Normal 0-149 [facility] Comment on above: Result Comment: Age Desirable Borderline High High Very High 0-19 Y 0 - 119 120 - 144 >/= 145 >/= 160 20-24 Y 0 - 149 150 - 189 >/= 190 ---- >24 Y 30 mg/dL above LDL Cholesterol goal Performed By: #### 2 4331-1 #### INNA SANDS ([id number]) [facility] ([facility]) [address] [place], [place] [address] Triglyceride [Mass/Vol] 104 mg/dL Normal 0-149 [facility] Comment on above: Result Comment: Age Desirable Borderline High High Very High 0 D-90 D 19 - 174 ---- ---- ---- 91 D- 9 Y 0 - 74 75 - 99 >/= 100 ---- 10-19 Y 0 - 89 90 - 129 >/= 130 ---- 20-24 Y 0 - 114 115 - 149 >/= 150 ---- >24 Y 0 - 149 150 - 199 200- 499 >/= 500 Venipuncture immediately after or during the administration of Metamizole may lead to falsely low results. Testing should be performed immediately prior to Metamizole dosing. Performed By: #### 2 4331-1 #### INNA SANDS ([id number]) [facility] ([facility]) [address] [place], [place] [address] TSH WITH REFLEX TO FREE T4 I F ABNORMALon 11-01-2023 TSH Qn 1.80 m[IU]/L Normal 0.44-3.98 [facility] Comment on above: Order Comment: TSH t esting is performed using different testing methodology at [facility] than at other [facility]. Direct result comparisons should only be made within the same method. Performed By: #### T HYDS #### INNA SANDS ([id number]) [facility] ([facility]) [address] [place], [place] [address] XR FOOT LEFT 3+ VIEWS (STAND MARTHA)on 06-28-2023 XR FOOT LEFT 3+ VIEWS (STANDARD) Improved trabeculation across the third metatarsal stress fracture. First and second at this point appear fully resolved though there is obvious dorsiflexion across the first metatarsal shaft seen. Dictated by: FELIPE YATES on SatJun 28, 2023 11:43:48 AM EST Transcribed by: FELIPE YATES on SatJun 28, 2023 11:43:48 AM EST Finalized by: FELIPE YATES on SatJun 28, 2023 11:43:48 AM EST Normal [facility] Comment on above: Order Comment: Injur y/Trauma or Illness?:Illness/Other How long have you had these symptoms (acute/chronic)?:Acute Reason for exam?:stress fracture History of cancer?:unknown Surgeries, chemotherapy, or radiation?:unknown Type of Exam?:Subsequent/Follow-up Additional signs and symptoms?:no XR FOOT LEFT 3+ VIEWS (STAND MARTHA)on 05-24-2023 XR FOOT LEFT 3+ VIEWS (STANDARD) Appropriate maturation of the first and second metatarsal shaft fractures with remodeling. Since her prior radiographs of March, she is with a new onset stress fracture left third metatarsal with minimal angulation. Dictated by: FELIPE YATES on SatMay 24, 2023 1:06:59 PM EDT Transcribed by: FELIPE YATES on SatMay 24, 2023 1:06:59 PM EDT Finalized by: FELIPE YATES on SatMay 24, 2023 1:06:59 PM EDT [facility] Comment on above: Order Comment: Injur y/Trauma or Illness?:Illness/Other How long have you had these symptoms (acute/chronic)?:Acute Reason for exam?:metatarsal fracture History of cancer?:unknown Surgeries, chemotherapy, or radiation?:unknown Type of Exam?:Subsequent/Follow-up Additional signs and symptoms?:no BI MAMMO BILATERAL SCREENING TOMOSYNTHESISon 05-23-2023 BI MAMMO BILATERAL SCREENING TOMOSYNTHESIS Interpreted By: Bartolome Livingston, STUDY: BI MAMMO BILATERAL SCREENING TOMOSYNTHESIS; 05/23/2023 3:12 pm ACCESSION NUMBER(S): [id number] ORDERING CLINICIAN: MAME GRAY INDICATION: Screening. COMPARISON: Digital mammograms dated 05/08/2021 FINDINGS: CC and MLO 2D digital mammograms and digital breast tomosynthesis images were obtained of the bilateral breasts. 3-D volume images were reconstructed in 4 views at an independent workstation as 1 mm slices through the breasts in both the CC and MLO projections. Density: There are areas of scattered fibroglandular tissue. Mild architectural distortion is seen in the lateral aspect of the right breast, similar to the prior study, consistent with scarring. No discrete mass or focal asymmetry is identified. No suspicious microcalcifications or new foci of architectural distortion are seen. There has been no significant change. This study was interpreted with CAD. IMPRESSION: No mammographic evidence of malignancy. BI-RADS CATEGORY: BI-RADS Category: 2 Benign. Recommendation: Routine Screening Mammogram in 1 Year. Recommended Date: 1 Year. Laterality: Bilateral. MACRO: None Signed by: Bartolome Livingston 05/24/2023 9:57 AM Dictation workstation: [id number] [facility] Established Visit (Pain Medi cine)on 04-02-2023 Established Visit (Pain Medicine) Diagnoses/Problems Lumbosacral radiculitis (724.4) (M54.17) Lumbosacral spondylolysis (738.4) (M43.07) Lumbosacral spondylosis (721.3) (M47.817) Neurogenic claudication due to lumbar spinal stenosis (724.03) (M48.062) NSAID long-term use (V58.64) (Z79.1) Spondylolisthesis, lumbosacral region (738.4) (M43.17) Orders Lumbosacral radiculitis, Lumbosacral spondylosis Renew: Pregabalin 200 MG Oral Capsule; TAKE 1 CAPSULE 3 times daily Renew: Zonisamide 50 MG Oral Capsule; TAKE 2 CAPSULE Twice daily Lumbosacral radiculitis, Sacroiliitis Renew: Diclofenac Sodium 25 MG Oral Tablet Delayed Release; Take 1 tablet po five times daily prn Lumbosacral radiculitis, Sacroiliitis, Spondylolisthesis, lumbosacral region Renew: Baclofen 10 MG Oral Tablet; take 1-2 tablets three times daily prn Provider Impressions Patient is a 62-year-old female with a past medical history significant for lumbar stenosis, lumbar neuritis, lumbar spondylosis, lumbar spondylolisthesis, and lumbar spondylolysis. Recent injection did give her some improvement. Not quite enough but it did help her. She has a spine surgeon appointment next month. She is eager to see what her options are. In regards to her medication she is going to continue on her baclofen?10 mg 1 to 2 tablets 3 times a day as needed pain, pregabalin 200 mg 3 times a day and Zonegran 50 mg twice daily but due to her high kidney function and the recent high kidney function she had at work I would recommend her to discontinue the diclofenac. We had a long discussion about this. She is going to try the other medications and see how she does with pain control. At this time, she is going to follow-up in 3 months for reevaluation of her medications and discussion of repeating an injection should it be necessary. She will call our office sooner if necessary. OARRS reviewed Chief Complaint Pain FUV for L4-5 DEMI 03-08-2023; 75% relief. Patient states the numbness in R upper leg has improved. daniel low back pain 09/28 today. Refill for baclofen, diclofenac, pregabalin needed. Patient would like to know if she can get a 90 day refill of the zonisamide. Depression, smoking screening negative; BMI education provided; 04-02-23 Adult Risk Screening Living Will. Living Will: No living will on file. Healthcare POA: No healthcare proxy on file. Tobacco Screening: Has not used tobacco in the past 6 months. Domestic Violence Screen: Does not feel threatened or abused physically, emotionally or sexually. Do you feel UNSAFE? The patient feels safe in the home. Depression/Suicide Screening: During the past 2 weeks, the patient has not felt down, depressed or hopeless. During the past 2 weeks, the patient has not felt little interest or pleasure in doing things. She does not have a risk of suicide. She has not had thoughts of harming others. History of Present Illness On a scale of 0 to 10, the patient rates the pain at 3. Pain Location: Low Back Pain. Pain Quality: Aching. Sensory/ Motor: Numbness, Pins and [place] and R upper leg;. Timing/Duration: Constant and > 12 weeks duration. Goals for Pain Management: Oswestry Disability Index = 20. Patient is a 62-year-old female. She has a past medical history significant for lumbar stenosis, lumbar neuritis, lumbar spondylosis, lumbar spondylolisthesis and lumbar spondylolisthesis. She presents today for follow-up after undergoing an L4-5 epidural steroid injection. This was done on 03/08/2023 that has given her 75% relief. At this time, she feels that this has helped her but she is still noticing lower back pain with some leg discomfort that she rates a 3/10. In regards to her medications she is using baclofen 10 mg 1 to 2 tablets 3 times a day, diclofenac 25 mg 1 tablet up to 5 times daily as needed pain, pregabalin 200 mg 3 times a day and Zonegran 50 mg twice daily. She is tolerating these well. She did share with me that she had recent blood work through work that showed a high kidney function and upon review of her records she had 1 done in December that showed a high kidney function. Otherwise, she tolerates the medications well. No side effects when she takes as prescribed. She is requesting refills. She would like 90-day supplies to be sent to her pharmacy. Review of Systems 13 systems all normal except noted in HP. Active Problems Arthropathy of right knee (716.86) (M17.11) BMI 36.0-36.9,adult (V85.36) (Z68.36) Class 2 obesity with body mass index (BMI) of 36.0 to 36.9 in adult (278.00,V85.36) (E66.9,Z68.36) Colon cancer screening (V76.51) (Z12.11) Depression (311) (F32.A) Fatigue (780.79) (R53.83) Foraminal stenosis of lumbosacral region (724.02) (M48.07) GERD (gastroesophageal reflux disease) (530.81) (K21.9) HTN (hypertension) (401.9) (I10) Hypothyroid (244.9) (E03.9) Insomnia (780.52) (G47.00) Intervertebral disc disorders with radiculopathy, lumbosacral region (724.4) (M51.17) Lumbar strain (847.2) (S39.012A) Lumbosacral (more content not included)... Normal [facility] XR FOOT LEFT 3+ VIEWS (STAND MARTHA)on 03-22-2023 XR FOOT LEFT 3+ VIEWS (STANDARD) Appropriate trabeculation across the first and second metatarsal shaft fractures with maturation. Additionally both are extra-articular fractures. Dictated by: FELIPE YATES on SatMar 22, 2023 9:02:11 AM EDT Transcribed by: FELIPE YATES on SatMar 22, 2023 9:02:11 AM EDT Finalized by: FELIPE YATES on SatMar 22, 2023 9:02:11 AM EDT Normal [facility] Ambulatory Comment on above: Order Comment: Injur y/Trauma or Illness?:Illness/Other How long have you had these symptoms (acute/chronic)?:Chronic Reason for exam?:metatarsal fractures History of cancer?:unknown Surgeries, chemotherapy, or radiation?:unknown Type of Exam?:Subsequent/Follow-up Additional signs and symptoms?:no No Panel Informationon 03-08 Please click on the link to view the study images Normal [facility] Work Phone: RFA Unspecified body region Limited Views for therapy or embolization or infusion W contrast via existing catheteron 03-08-2023 [employer] Conversion, [employer] - 04/19/2023 [facility] Work Phone: Radiology Study observation (narrative) [facility] Work Phone: RFA Unspecified body region Limited Views for therapy or embolization or infusion W contrast via existing catheterOrdered By: Ge Conversion on 03-08-2023 [facility] XR FOOT LEFT 3+ VIEWS (STAND MARTHA)on 03-01-2023 XR FOOT LEFT 3+ VIEWS (STANDARD) Appropriate bone callus and trabeculation across the first and second metatarsal fractures. Generally good alignment without any widening or gapping. Still consistent with first MPJ osteoarthritis and joint space loss with enthesophytes. Dictated by: FELIPE YATES on SatMar 01, 2023 3:54:35 PM EDT Transcribed by: FELIPE YATES on SatMar 01, 2023 3:54:35 PM EDT Finalized by: FELIPE YATES on SatMar 01, 2023 3:54:35 PM EDT Normal [facility] Ambulatory Comment on above: Order Comment: Injur y/Trauma or Illness?:Injury/Trauma How long have you had these symptoms (acute/chronic)?:Chronic Reason for exam?:pain to left foot History of cancer?:unknown Surgeries, chemotherapy, or radiation?:unknown Type of Exam?:Subsequent/Follow-up Mechanism of injury?:pain to left foot Established Visit (Pain Medi cine)on 02-26-2023 Established Visit (Pain Medicine) Diagnoses/Problems Lumbosacral radiculitis (724.4) (M54.17) Lumbosacral spondylolysis (738.4) (M43.07) Lumbosacral spondylosis (721.3) (M47.817) Spondylolisthesis, lumbosacral region (738.4) (M43.17) Neurogenic claudication due to lumbar spinal stenosis (724.03) (M48.062) Orders Lumbosacral radiculitis, Lumbosacral spondylolysis Neurosurgery Referral Evaluation and Treatment Evaluate AND Treat Status: Hold For - Scheduling Requested for: [id number] Lumbosacral radiculitis, Lumbosacral spondylosis Renew: Zonisamide 50 MG Oral Capsule; start 1 cap PO QHS, increase by 1 cap q5days till dose is 2 caps BID Patient Discussion/Summary I discussed with the patient the likely etiology of her symptoms, as well as potential treatment options We reviewed her MRI. She has a persistent grade 1 anterolisthesis of L5 on S1 due to bilateral pars fractures with right greater than left neuroforaminal stenosis. What is new is that she has worsening central spinal stenosis at L3-L4 and a right-sided herniation at L1-L2 resulting in recess stenosis. I think these latter 2 lesions are the cause of her current symptoms. We discussed options and since she has not had sufficient benefit with exercise therapy and is having pain that is significantly limiting her function we will proceed with an L4-L5 interlaminar epidural steroid injection under fluoroscopy at her next visit. At the same time, given the weakness in her right leg I am going to refer her for surgical consultation. We discussed the potential risks and benefits of this plan and she was in agreement to proceed. I instructed her to continue with her home exercises and I will continue the diclofenac, baclofen, and Lyrica but we will also add Zonegran back in to be titrated to 100 mg twice a day. She will follow-up 3 to 4 weeks after the procedure for a repeat evaluation or sooner if needed. Chief Complaint FUV MRI results. Today she reports her back pain is not too bad but yesterday her bilat lower back rated 6/10 with bending and standing too long, describes as sharp and stabbing and numbness in her rt lateral thigh front and back. She reports the pain affects her ADLs including lifting, sleeping, sex and social life, traveling, sitting, she can stand as long as she wants and walking 1/2 mile all cause increased pain. Oswestry Disability Index evaluation tool completed by patient score 22/100 This is a 62-year-old female here for a follow-up appointment for chief complaint of right-sided low back and leg pain. She reports that since her last visit her symptoms have been persistent and largely unchanged. She reports that it will start in the right side of her lower back and radiate into the right thigh. The pain does not go past her knee. She denies any significant left-sided pain. She is using Lyrica, baclofen, and diclofenac. She reports medications are helpful to an extent but the pain is limiting her function at home and at work. Her right leg still feels weak. She denies any new neurologic symptoms. She got the imaging we had ordered and is here to go over the results. The patient denies any additional numbness, tingling, weakness, or any loss of bladder or bowel control. The patient's past medical, social, and family history along with medications and allergies are available and were reviewed. Adult Risk Screening Living Will. Living Will: No living will on file. Healthcare POA: No healthcare proxy on file. Domestic Violence Screen: Does not feel threatened or abused physically, emotionally or sexually. Do you feel UNSAFE? The patient feels safe in the home. Depression/Suicide Screening: She does not have a risk of suicide. She has not had thoughts of harming others. Reference Documentation See scanned note Oswestry Disability Index evaluation tool completed by patient . History of Present Illness On a scale of 0 to 10, the patient rates the pain at not bad today yesterday 6/10. Pain Location: Low Back Pain and bilat lower back. Pain Quality: Sharp and Stabbing. Sensory/ Motor: Numbness and rt lateral thigh front and back. Timing/Duration: Constant and > 12 weeks duration. Controlled Substance: I have personally reviewed the OARRS report for PALMER JIN. I have considered the risks of abuse, dependence, addiction and diversion. Exacerbating Factors: motion, lifting, repetitive motion, sitting, standing, stairs, walking and benign over . Alleviating Factors: Exercise, Medications, Repositioning. Review of Systems 13 systems all normal except noted in HP. Active Problems Arthropathy of right knee (716.86) (M17.11) BMI 36.0-36.9,adult (V85.36) (Z68.36) Class 2 obesity with body mass index (BMI) of 36.0 to 36.9 in adult (278.00,V85.36) (E66.9,Z68.36) Colon cancer screening (V76.51) (Z12.11) Depression (311) (F32.A) Fatigue (780.79) (R53.83) Foraminal stenosis of lumbosacral region (724.02) (M48.07) GERD (gastroesophageal reflux disease) (530.81) (K2 (more content not included)... Normal [facility] MRI L Spine without Contrast on 02-11-2023 MR Lumbar spine WO contrast Normal [facility] Work Phone: NR MRI L-SPINE WOon 02-12-20 23 NR MRI L-SPINE WO Patient Name: PALMER JIN STUDY: MRI L-SPINE WO; 02/11/2023 6:50 pm INDICATION: pain M48.07: Foraminal stenosis of lumbosacral region M43.17: Spondylolisthesis, lumbosacral region M43.07: Lumbosacral spondylolysis. COMPARISON: 03/21/2020 ACCESSION NUMBER(S): [id number] ORDERING CLINICIAN: HARLAN SWANN TECHNIQUE: Sagittal T1, T2, STIR, axial T1 and T2 weighted images of the lumbar spine were acquired. FINDINGS: Alignment: There is again grade 1 anterolisthesis of L5 on S1. There is also again grade 1 retrolisthesis of L1 on L2 and to a lesser extent of L2 on L3. Vertebrae/Intervertebral Discs: There are again Schmorl's nodes along the endplates most prominent at L3 and L4, similar from the previous examination. The lumbar vertebral body heights are otherwise preserved. There is again loss of disc height and endplate spurring most severe at L5-S1 and L1-2. There is multilevel disc desiccation and degenerative endplate signal change. Conus: The lower thoracic cord appears unremarkable. The conus terminates at L2. T12-L1: Minimal disc bulging and degenerative facet arthropathy do not narrow the central canal or neuroforamina. L1-2: There is again circumferential disc bulging and endplate spurring asymmetrically worse to the left with flattening of the ventral thecal sac and narrowing of the left lateral recess. There is mild, left greater than right facet and ligamentum flavum hypertrophy. Small amount of fluid in the facets, left greater than right is nonspecific but favored to be degenerative in nature. There is no significant overall central canal stenosis. There is at least moderate left and minimal right-sided neuroforaminal stenosis due to asymmetric endplate spurring and disc on the left. These findings are similar from the prior exam. L2-3: Facet and ligamentum flavum hypertrophy and mildly prominent posterior epidural fat are again seen impressing on the dorsal thecal sac. There is circumferential disc bulging and endplate spurring with new superimposed central inferior disc extrusion measuring approximately 5 mm in AP dimension by 2 cm in craniocaudal dimension. There is mass effect on the ventral thecal sac with narrowing of the lateral recesses. There is at least moderate overall narrowing of the thecal sac with crowding of nerve roots of the cauda equina. There is mild neuroforaminal narrowing, left greater than right. L3-4: Facet and ligamentum flavum hypertrophy and mildly prominent posterior epidural fat are again seen impressing on the dorsal thecal sac. There is circumferential disc bulging and endplate spurring with superimposed central disc protrusion which is more pronounced than seen previously currently measuring 7 mm in AP dimension. There is mass effect on the ventral thecal sac and effacement of the lateral recesses. There is at least moderate narrowing of the spinal canal and crowding of nerve roots of the cauda equina. There is at most minimal neuroforaminal encroachment. L4-5: Facet and ligamentum flavum hypertrophy are again demonstrated, right greater than left. There is circumferential disc bulging and endplate spurring with small superimposed central disc protrusion contributing to effacement of the lateral recesses and impression on the ventral thecal sac with mild overall narrowing of the spinal canal. There is moderate right and mild left-sided neuroforaminal stenosis. The findings are relatively similar from the previous exam. L5-S1: There is again left greater than right degenerative facet arthropathy. Circumferential disc bulging and endplate spurring remain and contribute to narrowing of the lateral recesses, left greater than right with flattening of the ventral thecal sac but no significant overall central canal stenosis. There is severe right and moderate left-sided neuroforaminal stenosis with mass effect on the exiting L5 nerve roots. These findings are similar from the previous examination. There is again abnormal linear hypointense signal projecting across the pars interarticularis of L5 suggestive of spondylolysis. There are degenerative changes of the sacroiliac joints. There is again a lesion arising from the upper pole of the right kidney which is incompletely evaluated but favored to represent a cyst, similar from the previous exam. IMPRESSION: 1. New inferior disc extrusion at L2-3 contributing to at least moderate spinal canal stenosis and crowding of nerve roots of the cauda equina within the thecal sac. 2. Interval increase in size of central disc protrusion at L3-4 with increased central canal stenosis and mass effect on the thecal sac. 3. Grade 1 anterolisthesis of L5 on S1 with suspected spondylolysis of L5, similar from the previous study. Degenerative changes and associated neuroforaminal and lateral recess stenosis at this level a (more content not included)... Normal [facility] Established Visit (Pain Medi cine)on 02-04-2023 Established Visit (Pain Medicine) Diagnoses/Problems Lumbosacral spondylolysis (738.4) (M43.07) Foraminal stenosis of lumbosacral region (724.02) (M48.07) Lumbosacral radiculitis (724.4) (M54.17) Spondylolisthesis, lumbosacral region (738.4) (M43.17) Orders Foraminal stenosis of lumbosacral region, Lumbosacral radiculitis, Lumbosacral spondylolysis, Spondylolisthesis, lumbosacral region MRI L Spine without Contrast; Status:Hold For - Scheduling; Requested for:[id number]; Radiologist to Determine Optimal Study : Y Does the patient have a Cochlear Implant, Pacemaker, Defibrilator, Pacing Wire, Brain Aneurysm Clip, Implanted Nerve or Bone Graft Simulator, Implanted Breast Tissue Restoration Ecologist, Glucose Monitor, or Neulasta Device? : No Is the patient or breast feeding? : No What are the patient's signs and symptoms? : pain Xray Lumbosacral Spine Complete (Bending); Status:Resulted - Preliminary; Done: [id number] 04:34PM Radiologist to Determine Optimal Study : Y What are the patient's signs and symptoms? : pain Patient Discussion/Summary I discussed with the patient the likely etiology of her symptoms, as well as potential treatment options I addressed options with her. She will continue her current medications as they are with the exception that she will hold the diclofenac while she is on prednisone for her foot. Her radicular pain is improved but she has significant weakness in the legs and warrants a new lumbar MRI to evaluate for worsening stenosis. Her lumbar x-ray from today showed no acute changes. We discussed the pros and cons of this and she was in agreement with it. She will follow-up after the MRI for repeat evaluation. Chief Complaint Back Pain F/U BILATERAL L5 TFESI 50%, SHE HASN'T HAD PAIN DOWN HER LEGS, PAIN ACROSS THE LOWER BACK BURNING, STABBING, ACHING, ALL THE TIME FOR THE PAST WEEKS, SITTING, STANDING, WALKING, BENDING, REST, ADL, SHE IS ON A MEDROL DOSE PACK FOR HER LEFT FOOT SHE WOULD LIKE TO DISCUSS WHAT MEDICATIONS SHE SHOULD BE TAKING, SHE CANNOT DUE VERY MUCH ACTIVITY DUE TO WEARING THE CAMWALKER ON HER LEFT FOOT, SCORE 7/10 OSWESETRY DISABILITY INDEX=18% This is a 62-year-old female here for a follow-up appointment for chief complaint of low back and bilateral leg pain. At her last visit she underwent a bilateral L5 transforaminal epidural steroid injection. She reports about 50% symptom relief overall. In particular the pain going down her legs has improved substantially but she still has significant back pain that limits her function. She is also having weakness in the legs. She states the left is worse than the right. She does have a fracture in a few of the metatarsals on her left foot so she wonders if that might be part of it but her proximal legs do feel weak as well. She denies any arm weakness. She is using Lyrica, diclofenac, and baclofen which have been helpful. She denies side effects. She denies additional neurologic symptoms or issues. The patient denies any additional numbness, tingling, weakness, or any loss of bladder or bowel control. The patient's past medical, social, and family history along with medications and allergies are available and were reviewed. History of Present Illness On a scale of 0 to 10, the patient rates the pain at 7. Controlled Substance: I have personally reviewed the OARRS report for PALMER JIN. I have considered the risks of abuse, dependence, addiction and diversion. Active Problems Arthropathy of right knee (716.86) (M17.11) BMI 36.0-36.9,adult (V85.36) (Z68.36) Class 2 obesity with body mass index (BMI) of 36.0 to 36.9 in adult (278.00,V85.36) (E66.9,Z68.36) Colon cancer screening (V76.51) (Z12.11) Depression (311) (F32.A) Fatigue (780.79) (R53.83) Foraminal stenosis of lumbosacral region (724.02) (M48.07) GERD (gastroesophageal reflux disease) (530.81) (K21.9) HTN (hypertension) (401.9) (I10) Hypothyroid (244.9) (E03.9) Insomnia (780.52) (G47.00) Intervertebral disc disorders with radiculopathy, lumbosacral region (724.4) (M51.17) Lumbar strain (847.2) (S39.012A) Lumbosacral radiculitis (724.4) (M54.17) Lumbosacral spondylosis (721.3) (M47.817) NSAID long-term use (V58.64) (Z79.1) Prolapsed lumbar disc (722.10) (M51.26) RLS (restless legs syndrome) (333.94) (G25.81) Sacroiliitis (720.2) (M46.1) Screening for lipid disorders (V77.91) (Z13.220) Sleep apnea (780.57) (G47.30) Spondylolisthesis, lumbosacral region (738.4) (M43.17) Weakness of right lower extremity (729.89) (R29.898) Past Medical History GERD (gastroesophageal reflux disease) (530.81) (K21.9) History of pulmonary embolism (V12.55) (Z86.711) Diagnosed 04/07/2021 at time of COVID-19 infection. HTN (hypertension) (401.9) (I10) Hypothyroid (244.9) (E03.9) Intervertebral disc disorders with radiculopathy, lumbosacral region (724.4) (M51.17) Sleep apnea (780.57) (G47.30) Surgical History History of Epidural steroid injection Managed By: Harlan Swann (Pain Medicine) (more content not included)... Normal [facility] Panel Informationon 02-04 Please click on the link to view the study images [facility] Work Phone: [phone] Normal [facility] Work Phone: SPINE, LUMBOSACRAL CMPLT(COLLEEN DING)on 02-04-2023 SPINE, LUMBOSACRAL CMPLT(BENDING) Patient Name: PALMER JIN STUDY: SPINE, LUMBOSACRAL CMPLT(BENDING) INDICATION: pain M48.07: Foraminal stenosis of lumbosacral region M43.17: Spondylolisthesis, lumbosacral region M43.07: Lumbosacral spondylolysis. COMPARISON: June 12, 2022 ACCESSION NUMBER(S): [id number] ORDERING CLINICIAN: HARLAN SWANN FINDINGS: Moderate to advanced multilevel diffuse lumbar degenerative changes greatest L4-S1 but involving all levels. Likely bilateral pars defects at L5 with a 8 mm anterolisthesis unchanged Mild scoliosis unchanged. No evidence of subluxation or pathologic motion. IMPRESSION: Moderate to advanced multilevel diffuse lumbar degenerative changes greatest L4-S1 but involving all levels. Likely bilateral pars defects at L5 with a 8 mm anterolisthesis unchanged Mild scoliosis unchanged. Electronically signed by: JOSE ROQUE MD [facility] MRI FOOT W/O CONTRASTon 0 01-29-2023 MRI FOOT W/O CONTRAST Patient Name: PALMER JIN STUDY: MRI of the Left ankle with out IV contrast INDICATION: LEFT FOOT AND ANKLE OSTEOARTHRITIS LEFT FOOT PAIN. COMPARISON: Foot radiographs 11/06/2022. ACCESSION NUMBER(S): [id number] ORDERING CLINICIAN: FELIPE YATES TECHNIQUE: Multiplanar multisequence MRI of the Left foot and ankle was performed with out IV contrast. FINDINGS: Ligaments: There is signal attenuation and indistinctness of the anterior talofibular ligament and calcaneal talofibular ligaments without associated T2 hyperintensity. This is consistent with chronic sprain. The posterior talofibular ligament is intact. Deltoid and spring ligaments are intact. Lisfranc ligament is intact. The anterior, posterior, and transverse tibiofibular ligaments are intact. Tendons: There is moderate tenosynovitis of the flexor hallucis longus tendon. The posterior tibial, and flexor digitorum longus tendons are intact. The tibialis anterior, extensor hallucis longus, and extensor digitorum longus tendons are intact. There is a segmental split tear of the peroneus brevis longus with mild associated tendinitis. The Achilles tendon is intact. Joints: Chronic appearing osteochondral lesion within the medial talar dome, without imaging evidence of instability. [id number] degenerative changes of the tarsometatarsal articulations. There is severe 1st metatarsophalangeal osteoarthrosis. Muscles: Intact. No evidence of muscular atrophy or edema. Bones: A subacute and nondisplaced transverse fracture of the mid 1st metatarsal diaphysis is visualized with surrounding callus formation and associated marrow edema. An acute and nondisplaced transverse fracture is also visualized of the 2nd metatarsal neck, with associated marrow edema and soft tissue swelling. 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 IMPRESSION: 1. Subacute nondisplaced fracture of the 1st metatarsal midshaft with corresponding marrow edema and callus formation. There is a stress fracture of the 2nd metatarsal neck which may be related to altered weight-bearing from the subacute 1st metatarsal fracture. 2. 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 3. [id number] degenerative changes of the ankle and midfoot. 4. Segmental split tear of the peroneus brevis tendon. I personally reviewed the images/study and I agree with the findings as stated. This study was interpreted at [place], [place]. Electronically signed by: SIGRID HAMM MD [facility] MRI Foot without Contraston 01-29-2023 MR Foot WO contrast Normal MP[facility] in [facility] Work Phone: CBC AND DIFFERENTIALon 01-04 % AUTOMATED IMMATURE GRAN 0.3 % Normal 0.0 - 0.9 [facility] Comment on above: Result Comment: Gemini ture Granulocyte Count (IG) includes promyelocytes, myelocytes and metamyelocytes but does not include bands. Percent differential counts (%) should be interpreted in the context of the absolute cell counts (cells/L). Performed By: #### C BCDF #### [address] [address] Basophils (Bld) [#/Vol] 0.05 10*3/uL Normal 0.00 - 0.10 [facility] Comment on above: Performed By: #### C BCDF #### [address] [address] Basophils/100 WBC (Bld) 0.7 % Normal 0.0 - 2.0 [facility] Comment on above: Performed By: #### C BCDF #### [address] [address] Eosinophils (Bld) [#/Vol] 0.29 10*3/uL Normal 0.00 - 0.70 [facility] Comment on above: Performed By: #### C BCDF #### [address] [address] Eosinophils/100 WBC (Bld) 3.8 % Normal 0.0 - 6.0 [facility] Comment on above: Performed By: #### C BCDF #### [address] [address] Erythrocyte distribution width (RBC) [Ratio] 13.2 % Normal 11.5 - 14.5 [facility] Comment on above: Performed By: #### C BCDF #### [address] [address] Hematocrit (Bld) [Volume fraction] 42.9 % Normal 36.0 - 46.0 [facility] Comment on above: Performed By: #### C BCDF #### [address] [address] Hemoglobin (Bld) [Mass/Vol] 13.9 g/dL Normal 12.0 - 16.0 [facility] Comment on above: Performed By: #### C BCDF #### [address] [address] Lymphocytes (Bld) [#/Vol] 1.58 10*3/uL Normal 1.20 - 4.80 [facility] Comment on above: Performed By: #### C BCDF #### [address] [address] Lymphocytes/100 WBC (Bld) 20.8 % Normal 13.0 - 44.0 [facility] Comment on above: Performed By: #### C BCDF #### [address] [address] MCHC (RBC) [Mass/Vol] 32.4 g/dL Normal 32.0 - 36.0 [facility] Comment on above: Performed By: #### C BCDF #### [address] [address] MCV (RBC) [Entitic vol] 89 fL Normal 80 - 100 [facility] Comment on above: Performed By: #### C BCDF #### [address] [address] Monocytes (Bld) [#/Vol] 0.70 10*3/uL Normal 0.10 - 1.00 [facility] Comment on above: Performed By: #### C BCDF #### [address] [address] Monocytes/100 WBC (Bld) 9.2 % Normal 2.0 - 10.0 [facility] Comment on above: Performed By: #### C BCDF #### [address] [address] Neutrophils (Bld) [#/Vol] 4.94 10*3/uL Normal 1.20 - 7.70 [facility] Comment on above: Result Comment: Perc ent differential counts (%) should be interpreted in the context of the absolute cell counts (cells/L). Performed By: #### C BCDF #### [address] [address] Neutrophils/100 WBC (Bld) 65.2 % Normal 40.0 - 80.0 [facility] Comment on above: Performed By: #### C BCDF #### [address] [address] Platelets (Bld) [#/Vol] 298 10*3/uL Normal 150 - 450 [facility] Comment on above: Performed By: #### C BCDF #### [address] [address] RBC 4.83 x10E12/L Normal 4.00 - 5.20 [facility] Comment on above: Performed By: #### C BCDF #### [address] [address] WBC (Bld) [#/Vol] 7.6 10*3/uL Normal 4.4 - 11.3 [facility] Comment on above: Performed By: #### C BCDF #### [address] [address] COMPREHENSIVE PANELon 2022 Albumin [Mass/Vol] 4.3 g/dL Normal 3.4 - 5.0 [facility] Comment on above: Performed By: #### C MP #### [address] [address] ALP [Catalytic activity/Vol] 110 U/L Normal 33 - 136 [facility] Comment on above: Performed By: #### C MP #### [address] [address] ALT [Catalytic activity/Vol] 36 U/L Normal 7 - 45 [facility] Comment on above: Result Comment: Vangie ents treated with Sulfasalazine may generate falsely decreased results for ALT. Performed By: #### C MP #### [address] [address] Anion gap [Moles/Vol] 9 mmol/L Low 10 - 20 [facility] Comment on above: Performed By: #### C MP #### [address] [address] AST [Catalytic activity/Vol] 22 U/L Normal 9 - 39 [facility] Comment on above: Performed By: #### C MP #### [address] [address] Bilirubin [Mass/Vol] 0.5 mg/dL Normal 0.0 - 1.2 [facility] Comment on above: Performed By: #### C MP #### [address] [address] Calcium [Mass/Vol] 9.1 mg/dL Normal 8.6 - 10.3 [facility] Comment on above: Performed By: #### C MP #### [address] [address] Chloride [Moles/Vol] 107 mmol/L Normal 98 - 107 [facility] Comment on above: Performed By: #### C MP #### [address] [address] Creatinine [Mass/Vol] 1.11 mg/dL High 0.50 - 1.05 [facility] Comment on above: Performed By: #### C MP #### [address] [address] GFR/1.73 sq M.predicted among non-blacks MDRD (S/P/Bld) [Vol rate/Area] 56 mL/min/{1.73_m2} Abnormal >90 [facility] Comment on above: Result Comment: CALC ULATIONS OF ESTIMATED GFR ARE PERFORMED USING THE 2020 CKD-EPI STUDY REFIT EQUATION WITHOUT THE RACE VARIABLE FOR THE IDMS-TRACEABLE CREATININE METHODS. https://jasn.asnjournals.org/content/early//ASN.55077 20898 Performed By: #### C MP #### [address] [address] Glucose [Mass/Vol] 91 mg/dL Normal 74 - 99 [facility] Comment on above: Performed By: #### C MP #### [address] [address] HCO3 (Bld) [Moles/Vol] 29 mmol/L Normal 21 - 32 [facility] Comment on above: Performed By: #### C MP #### [address] [address] Potassium [Moles/Vol] 4.1 mmol/L Normal 3.5 - 5.3 [facility] Comment on above: Performed By: #### C MP #### [address] [address] Protein [Mass/Vol] 6.9 g/dL Normal 6.4 - 8.2 [facility] Comment on above: Performed By: #### C MP #### [address] [address] Sodium [Moles/Vol] 141 mmol/L Normal 136 - 145 [facility] Comment on above: Performed By: #### C MP #### [address] [address] Urea nitrogen [Mass/Vol] 28 mg/dL High 6 - 23 [facility] Comment on above: Performed By: #### C MP #### [address] [address] LIPID PANEL (CORONARY RISK 2 )on 01-04-2023 Cholesterol [Mass/Vol] 209 mg/dL High 0 - 199 [facility] Comment on above: Result Comment: . AGE DESIRABLE BORDERLINE HIGH HIGH 0-19 Y 0 - 169 170 - 199 >/= 200 20-24 Y 0 - 189 190 - 224 >/= 225 >24 Y 0 - 199 200 - 239 >/= 240 All ranges are based on fasting samples. Specific therapeutic targets will vary based on patient-specific cardiac risk. . Pediatric guidelines reference:Pediatrics 2011, 128(S5). Adult guidelines reference: NCEP ATPIII Guidelines, AFSHAN 2001, 258:2486-97 . Venipuncture immediately after or during the administration of Metamizole may lead to falsely low results. Testing should be performed immediately prior to Metamizole dosing. Performed By: #### L IPID #### [address] [address] Cholesterol in HDL [Mass/Vol] 50.0 mg/dL Normal [facility] Comment on above: Result Comment: . AGE VERY LOW LOW NORMAL HIGH 0-19 Y < 35 < 40 40-45 ---- 20-24 Y ---- < 40 >45 ---- >24 Y ---- < 40 40-60 >60 . Performed By: #### L IPID #### [address] [address] Cholesterol in LDL [Mass/Vol] 131 mg/dL High 0 - 99 [facility] Comment on above: Result Comment: . NEAR BORD AGE DESIRABLE OPTIMAL HIGH HIGH VERY HIGH 0-19 Y 0 - 109 --- 110-129 >/= 130 ---- 20-24 Y 0 - 119 --- 120-159 >/= 160 ---- >24 Y 0 - 99 100-129 130-159 160-189 >/=190 . Performed By: #### L IPID #### [address] [address] Cholesterol in VLDL [Mass/Vol] 28 mg/dL Normal 0 - 40 [facility] Comment on above: Performed By: #### L IPID #### [address] [address] Cholesterol.total/Chol esterol in HDL [Mass ratio] 4.2 {ratio} Normal [facility] Comment on above: Result Comment: REF VALUES DESIRABLE < 3.4 HIGH RISK > 5.0 Performed By: #### L IPID #### [address] [address] Triglyceride [Mass/Vol] 141 mg/dL Normal 0 - 149 [facility] Comment on above: Result Comment: . AGE DESIRABLE BORDERLINE HIGH HIGH VERY HIGH 0 D-90 D 19 - 174 ---- ---- ---- 91 D- 9 Y 0 - 74 75 - 99 >/= 100 ---- 10-19 Y 0 - 89 90 - 129 >/= 130 ---- 20-24 Y 0 - 114 115 - 149 >/= 150 ---- >24 Y 0 - 149 150 - 199 200- 499 >/= 500 . Venipuncture immediately after or during the administration of Metamizole may lead to falsely low results. Testing should be performed immediately prior to Metamizole dosing. Performed By: #### L IPID #### [address] [address] RFA Unspecified body region Limited Views for therapy or embolization or infusion W contrast via existing catheteron 01-04-2023 [employer] Conversion, [employer] - 03/20/2023 [facility] Work Phone: Radiology Study observation (narrative) [facility] Work Phone: RFA Unspecified body region Limited Views for therapy or embolization or infusion W contrast via existing catheterOrdered By: [employer] Conversion on 01-04-2023 [facility] TSH WITH REFLEX TO FREE T4 I F ABNORMALon 01-04-2023 TSH Qn 2.56 m[IU]/L Normal 0.44 - 3.98 [facility] Comment on above: Result Comment: TSH testing is performed using different testing methodology at [facility] than at other [facility]. Direct result comparisons should only be made within the same method. Performed By: #### T HYDS #### [address] [address] VITAMIN B12on 01-04-2023 Cobalamin (Vitamin B12) [Mass/Vol] 361 pg/mL Normal 211 - 911 [facility] Comment on above: Performed By: #### V TB12 #### [address] [address] Established Visit (Pain Medi cine)on 12-24-2022 Established Visit (Pain Medicine) Diagnoses/Problems Lumbosacral radiculitis (724.4) (M54.17) Lumbosacral spondylosis (721.3) (M47.817) Prolapsed lumbar disc (722.10) (M51.26) Spondylolisthesis, lumbosacral region (738.4) (M43.17) Orders Lumbosacral radiculitis, Lumbosacral spondylosis Renew: Pregabalin 200 MG Oral Capsule; TAKE 1 CAPSULE 3 times daily Lumbosacral radiculitis, Sacroiliitis Renew: Diclofenac Sodium 25 MG Oral Tablet Delayed Release; Take 1 tablet po five times daily prn Lumbosacral radiculitis, Sacroiliitis, Spondylolisthesis, lumbosacral region Renew: Baclofen 10 MG Oral Tablet; take 1-2 tablets three times daily prn Patient Discussion/Summary I discussed with the patient the likely etiology of her symptoms, as well as potential treatment options I reviewed her imaging again which is notable for bilateral L5 pars fractures with a significant anterior listhesis at the L5-S1 level which in conjunction with unroofing of the disc is resulting in severe bilateral neuroforaminal stenosis with compression of both L5 nerve roots which correlates very well with her symptoms. I addressed options with her. Since she has had a recurrence of the severe radicular pain over the past 6 weeks and obtained over 4 months of greater than 60% pain relief and functional improvement following the previous injection we will proceed with a bilateral L5 transforaminal epidural steroid injection under fluoroscopy at her next visit. I went over the potential risks and benefits of this procedure and she would like to proceed. With regard to her medications I will continue them at their current doses although instructed her to hold the diclofenac while she is using meloxicam. I advised her to continue with her home exercises for her back and legs and I will see her for follow-up 4 weeks after the procedure Chief Complaint Pain F/U LOWER BACK PAIN WITH THROBBING BURNING PAIN DOWN THE RIGHT LEG TO HER KNEE, IT COMES AND GOES, SHE REPOSITIONS FOR RELIEF, TAKING MEDICATIONS DIRECTED, HOME EXERCISES/STRETCHING, PAIN INCREASED THROUGHOUT TH DAY WITH ACTIVITY, GETS RELIEF WITH REST BUT STILL HAS TO REPOSITION, SCORE 6/10 OSWESETRY DISABILITY INDEX=48% SHE CAN WALK 1 BLOCK, STANDING UP TO 2 HRS, SHE CAN SIT LESS THAN 5 MIN This is a 62-year-old female here for a follow-up appointment for chief complaint of bilateral lower back pain. She reports that following the last injection in July she continued to do well up until about a month ago. Around that time she started having more severe pain starting in the middle of her lumbar spine that would radiate outward and go down the outside of both legs. She states that will go down all the way to the outsides of the feet but on the right side she notices more pain proximally and on the left side the distal leg is the more painful issue. She states the pain is constant to an extent but it is worst with prolonged sitting. She can sit less than 5 minutes before she gets significant pain and cannot sit for 60 minutes before she has to get up. She also reports that she cannot walk 1/4 mile or stand for an hour due to the pain. The pain also keeps her from sleeping longer than 6 hours.. She reports that she had followed with Dr. Yates and he did a cortisone injection in her left foot which helped part of the issue but not all of it. She has been wearing a boot on the foot as well and wonders if her abnormal gait is setting things off. She has maintained the home exercises for her spine and they do help to an extent. She still using Lyrica, diclofenac, and baclofen. She reports Dr. Yates also put her on meloxicam. She denies new neurologic symptoms or issues with bladder or bowel control. The patient denies any additional numbness, tingling, weakness, or any loss of bladder or bowel control. The patient's past medical, social, and family history along with medications and allergies are available and were reviewed. Adult Risk Screening Living Will. Living Will: Living will on file. Healthcare POA: Health care proxy on file. Domestic Violence Screen: Does not feel threatened or abused physically, emotionally or sexually. Do you feel UNSAFE? The patient feels safe in the home. Depression/Suicide Screening: During the past 2 weeks, the patient has not felt down, depressed or hopeless. During the past 2 weeks, the patient has not felt little interest or pleasure in doing things. She does not have a risk of suicide. She has not had thoughts of harming others. History of Present Illness On a scale of 0 to 10, the patient rates the pain at 6. Pain Location: Low Back Pain. Pain Quality: Burning and Throbbing. Sensory/ Motor: RIGHT LEG. Timing/Duration: Intermittent and > 12 weeks duration. Exacerbating Factors: motion, standing, stairs, walking and ADL. Alleviating Factors: Exercise, Medications, Repositioning. 24 Hour Behavior: Symptoms are the same in the am. Symptoms are worse as the day progresses. Symptoms are worse in the (more content not included)... [facility] Nursing communicationon 10-21 Rafaela fitted patient with medium short boot [facility] Nursing communicationOrdered By: Viji Ramires on 11-09-2022 [facility] FOOT COMPLETE, MIN 3 VIEWSon 11-06-2022 FOOT COMPLETE, MIN 3 VIEWS Patient Name: PALMER JIN STUDY: FOOT; COMPLETE, MIN 3 VIEWS INDICATION: foot pain. 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 Electronically signed by: JOSE ROQUE MD [facility] Established Visit (Pain Medi cine)on 09-24-2022 Established Visit (Pain Medicine) Diagnoses/Problems Lumbosacral radiculitis (724.4) (M54.17) Lumbosacral spondylosis (721.3) (M47.817) Lumbar strain (847.2) (S39.012A) Orders Lumbar strain Start: Diclofenac Epolamine 1.3 % External Patch; APPLY PATCH TO AFFECTED AREA TWICE DAILY as needed Lumbosacral radiculitis, Lumbosacral spondylosis Start: Zonisamide 50 MG Oral Capsule; start 1 cap PO QHS, increase by 1 cap q5days till dose is 2 caps BID Renew: Pregabalin 200 MG Oral Capsule; TAKE 1 CAPSULE 3 times daily Lumbosacral radiculitis, Sacroiliitis Renew: Diclofenac Sodium 25 MG Oral Tablet Delayed Release; Take 1 tablet po five times daily prn Lumbosacral radiculitis, Sacroiliitis, Spondylolisthesis, lumbosacral region Renew: Baclofen 10 MG Oral Tablet; take 1-2 tablets three times daily prn Patient Discussion/Summary I discussed with the patient the likely etiology of her symptoms, as well as potential treatment options I addressed options with her. She is doing much better in terms of reduced pain and improved function following the injection. I advised her that if needed we can repeat on an every 3 months. At the same time if we can push them further apart that would not be a bad thing either. I will continue the oral diclofenac along with the Lyrica and baclofen and we will have her retry the diclofenac patches and I will also retry her on Zonegran to be titrated to 100 mg twice a day. I advised her to continue with her home exercises for her back and legs and I will see her for follow-up in 3 months or sooner if needed. Chief Complaint Back Pain F/U BILATERAL L5 TFESI 80% RELIEF, THE SPASMS WENT AWAY AFTER THE INJECTION,SHE STATES SHE IS ON HER FEET ALL THE TIME AND IT IS BETTER TO STAY MOVING, HER PAIN RETURNED THE DAY BEFORE HER FALL ON Saturday09/21/22 GOING DOWN THE STAIRS HAD PAIN AFTER STAYED HOME FROM WORK , SHE HAS THE MOST DISCOMFORT NOW WITH WALKING ,SHE HAS A BURNING DISCOMFORT WITH SITTING, ACHING PAIN WITH LIFTING, BENDING CAUSES DISCOMFORT, TAKING HER MEDICATIONS DIRECTED, REPOSITIONING,HOME STRETCHES FOR RELIEF FROM PHYSICAL THERAPY, USED THE DICLOFENAC PATCH THE SATURDAY BEFORE HER FALL FOR RELIEF, HEAT PRN FOR RELIEF, This is a 62-year-old female here for a follow-up appointment for chief complaint of low back and leg pain. At her last visit she underwent a bilateral L5 transforaminal epidural steroid injection. She reports 80% pain relief and functional improvement. She reports that for the first 2 months her symptoms were basically gone but over the past week she has had some recurrence of pain. She reports things are still manageable. She notes that the diclofenac patches were helpful while she was on them and she wonders if those could be used in conjunction with her other medications. She also asked if there is anything else she can try for the leg pain to try and put off her next injection as long as she can. She denies new neurologic symptoms or issues with bladder or bowel control. She does not want to have back surgery if she can help it. The patient's past medical, social, and family history along with medications and allergies are available and were reviewed. Adult Risk Screening Living Will. Living Will: Living will on file. Healthcare POA: Health care proxy on file. Domestic Violence Screen: Does not feel threatened or abused physically, emotionally or sexually. Do you feel UNSAFE? The patient feels safe in the home. Depression/Suicide Screening: During the past 2 weeks, the patient has not felt down, depressed or hopeless. During the past 2 weeks, the patient has not felt little interest or pleasure in doing things. History of Present Illness On a scale of 0 to 10, the patient rates the pain at 4. Pain Location: Low Back Pain. Pain Quality: Aching and Burning. Timing/Duration: > 12 weeks duration . BUT THEN FELL ON 09/21/22. Improved Controlled Substance: I have personally reviewed the [place] report for PALMER JIN. I have considered the risks of abuse, dependence, addiction and diversion. Exacerbating Factors: motion, lifting, repetitive motion, sitting, standing, stairs, walking and ADL. Alleviating Factors: Exercise, Medications, Moist Heat. 24 Hour Behavior: Symptoms are the same in the am. Symptoms are the same as the day progresses. Symptoms are the same in the pm. Symptoms are the same when lying down. Goals for Pain Management: OSWESETRY DISABILITY INDEX=18. Review of Systems 13 systems all normal except noted in HP. Active Problems Arthropathy of right knee (716.86) (M17.11) BMI 36.0-36.9,adult (V85.36) (Z68.36) Class 2 obesity with body mass index (BMI) of 36.0 to 36.9 in adult (278.00,V85.36) (E66.9,Z68.36) Colon cancer screening (V76.51) (Z12.11) Depression (311) (F32.A) Fatigue (780.79) (R53.83) Foraminal stenosis of lumbosacral region (724.02) (M48.07) GERD (gastroesophageal reflux disease) (530.81) (K21.9) HTN (hypertension) (401.9) (I10) Hypothyroid (more content not included)... Normal [employer] No Panel Informationon 08-03 Please click on the link to view the study images [facility] [place] Work Phone: Established Visit (Pain Medi cine)on 07-31-2022 Established Visit (Pain Medicine) Diagnoses/Problems Lumbosacral radiculitis (724.4) (M54.17) Lumbosacral spondylosis (721.3) (M47.817) Prolapsed lumbar disc (722.10) (M51.26) Patient Discussion/Summary I discussed with the patient the likely etiology of her symptoms, as well as potential treatment options I reviewed her most recent imaging. She has bilateral L5 pars fractures with an anterior listhesis of L5 on S1 with severe narrowing of the disc space as well. On MRI there is significant compression of both L5 nerve roots at the L5-S1 foramen. This correlates well with her symptoms. Looking back she last underwent a bilateral L5 transforaminal epidural steroid injection almost 2 years ago and has obtained over 12 months of greater than 60% pain relief and functional improvement up until now. We discussed options and since his symptoms are exactly the same and she does not have any severe weakness we will proceed with a bilateral L5 transforaminal epidural steroid injection under fluoroscopy at her next visit. I went over the pros and cons of this plan and she was in agreement proceed. I advised her to continue with her home exercise program for her back in the interim and I will continue her current medication regimen as it is since it is providing her with some additional relief. I will see her for follow-up 4 weeks after the procedure for repeat evaluation. Chief Complaint FUV for Bilat SIJ on 07-06-22. reports having pain in her lower back across both sides and will get radiation up her back mostly on the Rt side when she is at work she is slightly bent over, standing and twisting her entire shift rates 5/10 now and 7-8/10 at work or with activity, describes as dull nagging pain. when the pain shoots u her back it feels like a spasm. This is a 62-year-old female here for a follow-up for chief complaint of low back and bilateral leg pain. At her last visit she underwent a bilateral sacroiliac injection. She reports that the sacral pain has improved significantly but she is now having radiating pain from the lower back down both extremities. This is similar to previous episodes of radiculopathy. She states this has been going on for over 6 weeks. She is using Lyrica, diclofenac, and baclofen which do help moderately but the pain is interrupting her function during the day and her sleep at night. She reports the pain will radiate down the sides of both legs past the knee. She will get cramping in the legs at night. She reports the pain is interrupting her function at work. She does not want to have surgery unless there is no other choice. She denies new neurologic symptoms or issues with bladder or bowel control. She does have some numbness in the side of the right leg. The patient's past medical, social, and family history along with medications and allergies are available and were reviewed. Adult Risk Screening Living Will. Living Will: Living will on file. Healthcare POA: No healthcare proxy on file. Domestic Violence Screen: Does not feel threatened or abused physically, emotionally or sexually. Do you feel UNSAFE? The patient feels safe in the home. Depression/Suicide Screening: She does not have a risk of suicide. She has not had thoughts of harming others. Reference Documentation See scanned note MAYI evaluation tool completed by patient . History of Present Illness On a scale of 0 to 10, the patient rates the pain at 5. now and 7-8/10 worst. Pain Location: Low Back Pain and across both sides. Pain Quality: Dull, Spasm and nagging pain. Pain Radiation: up rt side of her back. Sensory/ Motor: Numbness and rt lateral thigh intermittently. Timing/Duration: Constant and > 12 weeks duration. Controlled Substance: I have personally reviewed the OARRS report for PALMER JIN. I have considered the risks of abuse, dependence, addiction and diversion. Exacerbating Factors: motion, lifting, standing and twisting, or bent over . Alleviating Factors: Medications, Repositioning, Other: ___. Goals for Pain Management: MAYI evaluation tool completed by patient score 18. Review of Systems 13 systems all normal except noted in HP. Active Problems Arthropathy of right knee (716.86) (M17.11) BMI 36.0-36.9,adult (V85.36) (Z68.36) Class 2 obesity with body mass index (BMI) of 36.0 to 36.9 in adult (278.00,V85.36) (E66.9,Z68.36) Colon cancer screening (V76.51) (Z12.11) Depression (311) (F32.A) Fatigue (780.79) (R53.83) Foraminal stenosis of lumbosacral region (724.02) (M48.07) GERD (gastroesophageal reflux disease) (530.81) (K21.9) HTN (hypertension) (401.9) (I10) Hypothyroid (244.9) (E03.9) Insomnia (780.52) (G47.00) Intervertebral disc disorders with radiculopathy, lumbosacral region (724.4) (M51.17) Lumbar strain (847.2) (S39.012A) Lumbosacral radiculitis (724.4) (M54.17) Lumbosacral spondylosis (721.3) (M47.817) NSAID long-term use (V58.64) (Z79.1) Prolapsed lumbar disc (722.10) (M51.26) RLS (restless legs syndrome) (333. (more content not included)... Normal [employer] Established Visit (Pain Medicine) No report was sent Normal [employer] No Panel Informationon 07-06 Please click on the link to view the study images Normal [facility] Work Phone: Blood Pressure Cuff Sizeon 1 09-03-2021 Adult depression screening assessment No [facility] Work Phone: Fall risk assessment a) No falls within the last year [facility] Work Phone: Tobacco use status [facility] b) No [facility] Work Phone: Blood Pressure Cuff Size Adult [facility] Work Phone: Office Visit (Internal Medic ine)on 07-03-2022 Follow-up visit Diagnoses/Problems Health Maintenance/Risks Encounter for preventive health examination (V70.0) (Z00.00) Assessed Screening for lipid disorders (V77.91) (Z13.220) Hypothyroid (244.9) (E03.9) Fatigue (780.79) (R53.83) Class 2 obesity with body mass index (BMI) of 36.0 to 36.9 in adult (278.00,V85.36) (E66.9,Z68.36) BMI 36.0-36.9,adult (V85.36) (Z68.36) Depression (311) (F32.A) GERD (gastroesophageal reflux disease) (530.81) (K21.9) HTN (hypertension) (401.9) (I10) RLS (restless legs syndrome) (333.94) (G25.81) Lumbosacral spondylosis (721.3) (M47.817) Orders Fatigue Vitamin B12, Serum; Status:Active; Requested for:[id number]; Perform:Lab Services - Lab To Draw (Blood Test); Due:01Oct2022;Ordered; For:Fatigue; Ordered By:Mame Gray; Health Maintenance Complete Blood Count + Differential; Status:Active; Requested for:[id number]; Perform:Lab Services - Lab To Draw (Blood Test); Due:01Oct2022;Ordered; For:Health Maintenance; Ordered By:Mame Gray; Comprehensive Metabolic Panel; Status:Active; Requested for:[id number]; Perform:Lab Services - Lab To Draw (Blood Test); Due:01Oct2022;Ordered; For:Health Maintenance; Ordered By:Mame Gray; HTN (hypertension) Renew: amLODIPine Besylate 5 MG Oral Tablet; TAKE 1 TABLET DAILY Rx By: Mame Gray; Dispense: 90 Days ; #:90 Tablet; Refill: 3;For: HTN (hypertension); GIANNI = N; Verified Transmission to [facility]; Last Updated By: Process Data Control; 07/03/2022 3:15:59 PM Hypothyroid Renew: Levothyroxine Sodium 125 MCG Oral Tablet; TAKE 1 TABLET DAILY Rx By: Mame Gray; Dispense: 90 Days ; #:90 Tablet; Refill: 3;For: Hypothyroid; GIANNI = N; Verified Transmission to [facility]; Last Updated By: Process Data Control; 07/03/2022 3:16:01 PM TSH WITH REFLEX TO FREE T4 IF ABNORMAL; Status:Active; Requested for:[id number]; Perform:Lab Services - Lab To Draw (Blood Test); Due:01Oct2022;Ordered; For:Hypothyroid; Ordered By:Mame Gray; Screening for lipid disorders Lipid Panel; Status:Active; Requested for:[id number]; Perform:Lab Services - Lab To Draw (Blood Test); Due:01Oct2022;Ordered; For:Screening for lipid disorders; Ordered By:Mame Gray; Provider Impressions Immunizations: Influenza Vaccine: 2020 Prevnar 13 Vaccine -- Pneumovax 23 Vaccine -- Shingrix Vaccine: received COVID: lara Health Maintenance: Breast Cancer screenin04/2021 Bone Density: -- Cervical Cancer Screenin Colon Cancer Screening 2012, will be due to in 2022 1. HTN , controlled - continue Norvasc 5mg po daily 2. Chronic back pain - follows with Dr swann, gets injections - on Lyrica 200mg po tid - on diclofenac 25mg 5x a day - on baclofen 10mg po tid 3. Depression, stable - continue Lexapro 20mg po daily - continue trazodone 100mg po daily 4. Hypothyroidism - on Synthroid (has been off for a month) - will check tsh 5. Will check cbc, cmp, lipid 6. 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 female Patient who is here to today to establish care. Patient has a PMHx of of htn, depression, RLS, chronic back pain, hypothyroidism, gerd. Chronic back pain, sees Dr Swann, gets injections, has once scheduled for this Saturday, on Lyrica 200mg po tid, diclofenac 25mg po 5x daily. HTN -on Norvasc Depression - stable on Lexapro, trazodone GERD - on omeprazole daily Review of Systems Constitutional: not feeling poorly, no fever, no recent weight gain and no recent weight loss. Eyes: no blurred vision and no diplopia. ENT: no hearing loss, no tinnitus, no earache, no sore throat, no hoarseness and no swollen glands in the neck. Cardiovascular: no chest pain, no tightness or heavy pressure, no shortness of breath, no palpitations and no lower extremity edema. Respiratory: no cough, not coughing up sputum and no wheezing that is consistent with asthma. Gastrointestinal: no change in bowel habits, no diarrhea, no constipation, no bloody stools, no nausea, no vomiting, no abdominal pain, no signs and symptoms of ulcer disease, no steven colored stools and no intolerance to fatty foods. Genitourinary: no urinary frequency, no dysuria, no burning sensation during urination and no hematuria. Musculoskeletal: no arthralgias, no joint stiffness, no muscle weakness, no back pain and no difficulty walking. Skin: no rashes, no change in skin color and pigmentation, no skin lesions and no skin lumps. Neurological: no headaches, no dizziness, no seizures, no tingling, no numbness, no signs and symptoms of stroke and no limb weakness. Psychiatric: no confusion, no memory lapses or loss, no depression and no sleep disturbances. Endocrine: no goiter, no thyroid disorder, no diabetes mellitus, no excessive thirst, no dry skin, no cold intolerance, no heat intolerance and no increased urinary frequency (more content not included)... Normal [facility] Established Visit (Pain Medi cine)on 06-12-2022 Established Visit (Pain Medicine) Diagnoses/Problems Lumbosacral radiculitis (724.4) (M54.17) Spondylolisthesis, lumbosacral region (738.4) (M43.17) Sacroiliitis (720.2) (M46.1) Arthropathy of right knee (716.86) (M17.11) Lumbosacral spondylosis (721.3) (M47.817) Orders Lumbosacral radiculitis, Lumbosacral spondylosis Renew: Pregabalin 200 MG Oral Capsule; TAKE 1 CAPSULE 3 times daily Lumbosacral radiculitis, Sacroiliitis Renew: Diclofenac Sodium 25 MG Oral Tablet Delayed Release; Take 1 tablet po five times daily prn Lumbosacral radiculitis, Sacroiliitis, Spondylolisthesis, lumbosacral region Renew: Baclofen 10 MG Oral Tablet; take 1-2 tablets three times daily prn Lumbosacral radiculitis, Spondylolisthesis, lumbosacral region Xray Lumbosacral Spine Complete (Bending); Status:Resulted - Preliminary; Done: 12Jun2022 05:13PM Radiologist to Determine Optimal Study : Y What are the patient's signs and symptoms? : pain Patient Discussion/Summary I discussed with the patient the likely etiology of her symptoms, as well as potential treatment options I addressed options with her and since she had long-term relief from the previous injections and the symptoms have returned in the same manner and are significantly impacting her physical function we will r proceed with a set of bilateral sacroiliac injections. I advised her to continue with her home exercises. I will continue her current medication regimen since it has provided her with significant symptom relief without side effects. With regard to her right knee we reviewed her x-ray which showed some moderate degenerative changes particularly in the medial compartment. Since that issue is manageable we will just monitor it for now. I will see her for follow-up 4 weeks after her procedure for repeat evaluation. Chief Complaint FUV meds and xray. today reports she is having stiffness across her lower back both sides rates 2/10 now. she needs a RF on Lyrica 200mg TID, Diclofenac 25mg, Baclofen 10mg 1-2 tabs send to [facility]. This is a 62-year-old female here for a follow-up appointment for chief complaint of low back and leg pain. She reports that since her last visit her symptoms have been more intense. The combination of baclofen, diclofenac, and Lyrica has remained helpful and she denies side effects, but she reports that her back and bilateral hip pain has gotten worse over the past 2 months and is impacting her function. The 2 sides are equal. She underwent bilateral sacroiliac injection 7 months ago and had 5 months of greater than 60% pain relief and functional improvement. She would like to repeat that procedure. She has maintain her home exercises and stretching. She still has some right knee pain but its been intermittent and typically not that bothersome. The back pain is what impacts her function at work. She denies radicular pain down the legs. She denies new neurologic symptoms or issues with bladder or bowel control. The patient's past medical, social, and family history along with medications and allergies are available and were reviewed. Adult Risk Screening Living Will. Living Will: No living will on file. Healthcare POA: No healthcare proxy on file. Domestic Violence Screen: Does not feel threatened or abused physically, emotionally or sexually. Do you feel UNSAFE? The patient feels safe in the home. Depression/Suicide Screening: She does not have a risk of suicide. She has not had thoughts of harming others. Reference Documentation See scanned note Opioid Risk Tool . History of Present Illness On a scale of 0 to 10, the patient rates the pain at 2. Pain Location: Low Back Pain and bilat lower back. Pain Quality: stiffness. Timing/Duration: Constant and > 12 weeks duration. Controlled Substance: I have personally reviewed the OARRS report for PALMER JIN. I have considered the risks of abuse, dependence, addiction and diversion. Exacerbating Factors: rest, lifting, repetitive motion, sitting and working bending and pulling . Alleviating Factors: Exercise, Medications, Repositioning. Goals for Pain Management: Opioid Risk score 1. Review of Systems 13 systems all normal except noted in HP. Active Problems Arthropathy of right knee (716.86) (M17.11) Colon cancer screening (V76.51) (Z12.11) Foraminal stenosis of lumbosacral region (724.02) (M48.07) GERD (gastroesophageal reflux disease) (530.81) (K21.9) HTN (hypertension) (401.9) (I10) Hypothyroid (244.9) (E03.9) Intervertebral disc disorders with radiculopathy, lumbosacral region (724.4) (M51.17) Lumbar strain (847.2) (S39.012A) Lumbosacral radiculitis (724.4) (M54.17) Lumbosacral spondylosis (721.3) (M47.817) NSAID long-term use (V58.64) (Z79.1) Prolapsed lumbar disc (722.10) (M51.26) Sacroiliitis (720.2) (M46.1) Sleep apnea (780.57) (G47.30) Spondylolisthesis, lumbosacral region (738.4) (M43.17) Weakness of right lower extremity (729.89) (R29.898) Past Medical History GERD (gastro (more content not included)... Normal [facility] Panel Informationon 06-12 Please click on the link to view the study images Normal [facility] Work Phone: [phone] Normal [facility] Work Phone: [phone] SPINE, LUMBOSACRAL CMPLT(COLLEEN DING)on 06-12-2022 SPINE, LUMBOSACRAL CMPLT(BENDING) Patient Name: PALMER JIN STUDY: SPINE, LUMBOSACRAL CMPLT(BENDING) INDICATION: pain M43.17: Spondylolisthesis, lumbosacral region M54.17: Lumbosacral radiculitis. COMPARISON: June 05, 2021 ACCESSION NUMBER(S): [id number] ORDERING CLINICIAN: HARLAN SWANN FINDINGS: Bilateral pars defects at L5 with a mild anterolisthesis of L5 on S1 similar prior exam. Fairly advanced diffuse lumbar degenerative change at all levels with a mild scoliosis unchanged. No evidence of fracture or lesion. No pathologic motion. IMPRESSION: Bilateral pars defects at L5 with a mild anterolisthesis of L5 on S1 similar prior exam. Fairly advanced diffuse lumbar degenerative change at all levels with a mild scoliosis unchanged. Electronically signed by: JOSE ROQUE MD [facility] Radiologyon 04-02-2022 XR Knee 3 Views Normal [facility] Work Phone: [phone] Blood Urea Nitrogen, Serumon 01-01-2022 Urea nitrogen [Mass/Vol] 10 mg/dL 6 - 23 [facility] Work Phone: [phone] Creatinine, Serumon 01-02-20 Creatinine [Mass/Vol] 0.69 mg/dL See Below [facility] Work Phone: [phone] Comment on above: Reference Range: 0.5 0 - 1.05 Creatinine, Serum >90 >90 [facility] Work Phone: [phone] Comment on above: CALCULATIONS OF ADRIENNE MATED GFR ARE PERFORMED USING THE 2020 CKD-EPI STUDY REFIT EQUATION WITHOUT THE RACE VARIABLE FOR THE IDMS-TRACEABLE CREATININE METHODS.https://jasn.asnjournals.org/content/early/A SN.9861956415 No Panel Informationon 06-19 Please click on the link to view the study images Normal [facility] Work Phone: Tobacco Screening.on 021 Fall risk assessment a) No falls within the last year -[facility] Work Phone: Tobacco use status CP b) No -[facility] Work Phone: No Panel Informationon 06-05 Normal [facility] Work Phone: [phone] Please click on the link to view the study images Normal [facility] Work Phone: [phone] MINUTE WALKon 05-15-2021 6 minute walk test performed. Patients beginning heart rate was 72 and beginning pulse ox was 96%. At 3 minutes heart rate was 85 and pulse ox at 95%. At the end of the 6 min walk with 0L of o2 her heart rate was 94 with a pulse ox of 93%. 30 seconds of rest and her pulse ox was at 96%. Patient did note a little out of breath, but stated she could breathe and was ok. No noted wheezing or gasping. CAREFUSION PFT LAB 6 MINUTE WALKOrdered By: Leandro Gibbons on 05-15-2021 [facility] Mamm - Screening Mammogram w / Tomosynthesison 05-08-2021 MG Breast Screening Normal [facility] Work Phone: [phone] Laboratory - Hematology and Cell countson 04-10-2021 Erythrocyte distribution width (RBC) [Ratio] 13.4 % See Below [facility] Work Phone: [phone] Comment on above: Reference Range: 11. 5 - 14.5 Hematocrit (Bld) [Volume fraction] 35.1 % below low threshold See Below [facility] Work Phone: [phone] Comment on above: Reference Range: 36. 0 - 46.0 Hemoglobin (Bld) [Mass/Vol] 11.3 g/dL below low threshold See Below [facility] Work Phone: [phone] Comment on above: Reference Range: 12. 0 - 16.0 MCHC (RBC) [Mass/Vol] 32.1 g/dL See Below [facility] Work Phone: [phone] Comment on above: Reference Range: 32. 0 - 36.0 MCV (RBC) [Entitic vol] 89 fL 80 - 100 [facility] Work Phone: [phone] Platelets (Bld) [#/Vol] 668 10*3/uL above high threshold 150 - 450 [facility] Work Phone: [phone] RBC (Bld) [#/Vol] 3.97 {x10E12/L} below low threshold See Below [facility] Work Phone: [phone] Comment on above: Reference Range: 4.0 0 - 5.20 WBC (Bld) [#/Vol] 24.6 10*3/uL above high threshold 4.4 - 11.3 [facility] Work Phone: [phone] Complete Blood Count + Diffe alejandroon 04-09-2021 Erythrocyte distribution width (RBC) [Ratio] 13.3 % See Below [facility] Work Phone: [phone] Comment on above: Reference Range: 11. 5 - 14.5 Hematocrit (Bld) [Volume fraction] 35.8 % below low threshold See Below [facility] Work Phone: [phone] Comment on above: Reference Range: 36. 0 - 46.0 Hemoglobin (Bld) [Mass/Vol] 11.5 g/dL below low threshold See Below [facility] Work Phone: [phone] Comment on above: Reference Range: 12. 0 - 16.0 MCHC (RBC) [Mass/Vol] 32.1 g/dL See Below [facility] Work Phone: [phone] Comment on above: Reference Range: 32. 0 - 36.0 MCV (RBC) [Entitic vol] 89 fL 80 - 100 [facility] Work Phone: Platelets (Bld) [#/Vol] 706 10*3/uL above high threshold 150 - 450 [facility] Work Phone: [phone] RBC (Bld) [#/Vol] 4.03 {x10E12/L} See Below [facility] Work Phone: [phone] Comment on above: Reference Range: 4.0 0 - 5.20 WBC (Bld) [#/Vol] 27.4 10*3/uL above high threshold 4.4 - 11.3 [facility] Work Phone: [phone] Complete Blood Count + Differential SEE MANUAL DIFF [facility] Work Phone: [phone] Laboratory - Chemistry and C hemistry - challengeon 04-09-2021 Anion gap [Moles/Vol] 13 mmol/L 10 - 20 [facility] Work Phone: [phone] Calcium [Mass/Vol] 9.4 mg/dL 8.6 - 10.3 [facility] Work Phone: [phone] Chloride [Moles/Vol] 104 mmol/L 98 - 107 [facility] Work Phone: [phone] CO2 [Moles/Vol] 25 mmol/L 21 - 32 [facility] Work Phone: [phone] Creatinine [Mass/Vol] 0.69 mg/dL See Below [facility] Work Phone: [phone] Comment on above: Reference Range: 0.5 0 - 1.05 Glucose [Mass/Vol] 171 mg/dL above high threshold 74 - 99 [facility] Work Phone: [phone] Potassium [Moles/Vol] 4.5 mmol/L 3.5 - 5.3 [facility] Work Phone: [phone] Sodium [Moles/Vol] 137 mmol/L 136 - 145 [facility] Work Phone: Urea nitrogen [Mass/Vol] 14 mg/dL 6 - 23 [facility] Work Phone: [phone] Laboratory - Hematology and Cell countson 04-09-2021 Basophils/100 WBC (Bld) 0.0 % 0.0 - 2.0 [facility] Work Phone: [phone] Lymphocytes/100 WBC (Bld) 5.0 % See Below [facility] Work Phone: [phone] Comment on above: Reference Range: 13. 0 - 44.0 Monocytes/100 WBC (Bld) 3.0 % 2.0 - 10.0 [facility] Work Phone: [phone] Panel Informationon 04-09 0.00 {x10E9/L} See Below [facility] Work Phone: [phone] Comment on above: Reference Range: 0.0 0 - 0.10 Reference Range: 0.0 0 - 0.70 0.82 {x10E9/L} See Below [facility] Work Phone: [phone] Comment on above: Reference Range: 0.1 0 - 1.00 1.37 {x10E9/L} See Below [facility] Work Phone: [phone] Comment on above: Reference Range: 1.2 0 - 4.80 25.21 {x10E9/L} above high threshold See Below [facility] Work Phone: [phone] Comment on above: Reference Range: 1.2 0 - 7.00 Reference Range: 1.2 0 - 7.70 0.0 % 0.0 - 6.0 [facility] Work Phone: [phone] 92.0 % See Below [facility] Work Phone: [phone] Comment on above: Reference Range: 40. 0 - 80.0 Percent differential counts (%) should be interpreted in the context of the absolute cell counts (cells/L). NORMAL [facility] Work Phone: [phone] 21 >60 >60 [facility] Work Phone: [phone] Comment on above: CALCULATIONS OF ADRIENNE MATED GFR ARE PERFORMED USING THE MDRD STUDY EQUATION FOR THE IDMS-TRACEABLE CREATININE METHODS. CLIN CHEM 2007;53:766-72 Complete Blood Count + Diffe alejandroon 04-08-2021 Erythrocyte distribution width (RBC) [Ratio] 13.3 % See Below [facility] Work Phone: [phone] Comment on above: Reference Range: 11. 5 - 14.5 Hematocrit (Bld) [Volume fraction] 38.9 % See Below [facility] Work Phone: [phone] Comment on above: Reference Range: 36. 0 - 46.0 Hemoglobin (Bld) [Mass/Vol] 12.8 g/dL See Below [facility] Work Phone: [phone] Comment on above: Reference Range: 12. 0 - 16.0 MCHC (RBC) [Mass/Vol] 32.9 g/dL See Below [facility] Work Phone: [phone] Comment on above: Reference Range: 32. 0 - 36.0 MCV (RBC) [Entitic vol] 88 fL 80 - 100 [facility] Work Phone: [phone] Platelets (Bld) [#/Vol] 750 10*3/uL above high threshold 150 - 450 [facility] Work Phone: [phone] RBC (Bld) [#/Vol] 4.41 {x10E12/L} See Below [facility] Work Phone: [phone] Comment on above: Reference Range: 4.0 0 - 5.20 WBC (Bld) [#/Vol] 16.7 10*3/uL above high threshold 4.4 - 11.3 [facility] Work Phone: [phone] Complete Blood Count + Differential SEE MANUAL DIFF [facility] Work Phone: [phone] Complete Blood Count + Differential 0.1 {/100_WBC} [facility] Work Phone: [phone] Laboratory - Chemistry and C hemistry - challengeon 04-08-2021 Anion gap [Moles/Vol] 12 mmol/L 10 - 20 [facility] Work Phone: [phone] Calcium [Mass/Vol] 9.1 mg/dL 8.6 - 10.3 [facility] Work Phone: [phone] Chloride [Moles/Vol] 107 mmol/L 98 - 107 [facility] Work Phone: [phone] CO2 [Moles/Vol] 24 mmol/L 21 - 32 [facility] Work Phone: [phone] Creatinine [Mass/Vol] 0.72 mg/dL See Below [facility] Work Phone: [phone] Comment on above: Reference Range: 0.5 0 - 1.05 Glucose [Mass/Vol] 205 mg/dL above high threshold 74 - 99 [facility] Work Phone: [phone] Potassium [Moles/Vol] 4.2 mmol/L 3.5 - 5.3 [facility] Work Phone: [phone] Sodium [Moles/Vol] 139 mmol/L 136 - 145 [facility] Work Phone: [phone] Urea nitrogen [Mass/Vol] 13 mg/dL 6 - 23 [facility] Work Phone: [phone] Laboratory - Hematology and Cell countson 04-08-2021 Band form neutrophils/100 WBC (Bld) 1.0 % 0.0 - 5.0 [facility] Work Phone: [phone] Basophils/100 WBC (Bld) 0.0 % 0.0 - 2.0 [facility] Work Phone: [phone] Lymphocytes/100 WBC (Bld) 5.0 % See Below [facility] Work Phone: [phone] Comment on above: Reference Range: 13. 0 - 44.0 Monocytes/100 WBC (Bld) 2.0 % 2.0 - 10.0 [facility] Work Phone: [phone] Magnesium, Serumon Magnesium [Mass/Vol] 1.75 mg/dL See Below [facility] Work Phone: [phone] Comment on above: Reference Range: 1.6 0 - 2.40 No Panel Informationon 04-08 >60 >60 [facility] Work Phone: [phone] Comment on above: CALCULATIONS OF ADRIENNE MATED GFR ARE PERFORMED USING THE MDRD STUDY EQUATION FOR THE IDMS-TRACEABLE CREATININE METHODS. CLIN CHEM 2007;53:766-72 0.00 {x10E9/L} See Below [facility] Work Phone: [phone] Comment on above: Reference Range: 0.0 0 - 0.10 Reference Range: 0.0 0 - 0.70 0.33 {x10E9/L} See Below [facility] Work Phone: [phone] Comment on above: Reference Range: 0.1 0 - 1.00 0.84 {x10E9/L} below low threshold See Below [facility] Work Phone: [phone] Comment on above: Reference Range: 1.2 0 - 4.80 0.17 {x10E9/L} See Below [facility] Work Phone: [phone] Comment on above: Reference Range: 0.0 0 - 0.70 15.36 {x10E9/L} above high threshold See Below [facility] Work Phone: [phone] Comment on above: Reference Range: 1.2 0 - 7.00 15.53 {x10E9/L} above high threshold See Below [facility] Work Phone: [phone] Comment on above: Reference Range: 1.2 0 - 7.70 0.0 % 0.0 - 6.0 [facility] [facility] Work Phone: [phone] See Below [facility] Work Phone: [phone] Comment on above: Reference Range: 40. 0 - 80.0 Percent differential counts (%) should be interpreted in the context of the absolute cell counts (cells/L). NORMAL [facility] Work Phone: [phone] Activated Partial Thrombopla stin Timeon 04-07-2021 aPTT Coag (PPP) [Time] 122 s Critically high 25 - 35 [facility] Work Phone: [phone] Comment on above: THE APTT IS NO LONGE R USED FOR MONITORING UNFRACTIONATED HEPARIN THERAPY. FOR MONITORING HEPARIN THERAPY, USE THE HEPARIN ASSAY..Patient is on Heparin drip per Annie in ERM. Called- RB to Annie Salgado, 04/07/2021 16:30 Called- RB to Annie Salgado, 04/07/2021 15:22 Complete Blood Count + Diffe rentialon 04-07-2021 Basophils/100 WBC (Bld) 0.7 % 0.0 - 2.0 [facility] Work Phone: [phone] Erythrocyte distribution width (RBC) [Ratio] 13.3 % See Below [facility] Work Phone: [phone] Comment on above: Reference Range: 11. 5 - 14.5 Hematocrit (Bld) [Volume fraction] 38.4 % See Below [facility] Work Phone: [phone] Comment on above: Reference Range: 36. 0 - 46.0 Hemoglobin (Bld) [Mass/Vol] 12.7 g/dL See Below [facility] Work Phone: [phone] Comment on above: Reference Range: 12. 0 - 16.0 Lymphocytes/100 WBC (Bld) 8.2 % See Below [facility] Work Phone: [phone] Comment on above: Reference Range: 13. 0 - 44.0 MCHC (RBC) [Mass/Vol] 33.1 g/dL See Below [facility] Work Phone: [phone] Comment on above: Reference Range: 32. 0 - 36.0 MCV (RBC) [Entitic vol] 88 fL 80 - 100 [facility] Work Phone: [phone] Monocytes/100 WBC (Bld) 9.0 % 2.0 - 10.0 [facility] Work Phone: [phone] Neutrophils/100 WBC (Bld) 81.4 % See Below [facility] Work Phone: [phone] Comment on above: Reference Range: 40. 0 - 80.0 Platelets (Bld) [#/Vol] 706 10*3/uL above high threshold 150 - 450 [facility] Work Phone: [phone] RBC (Bld) [#/Vol] 4.38 {x10E12/L} See Below [facility] Work Phone: [phone] Comment on above: Reference Range: 4.0 0 - 5.20 WBC (Bld) [#/Vol] 15.9 10*3/uL above high threshold 4.4 - 11.3 [facility] Work Phone: [phone] Complete Blood Count + Differential 0.10 {x10E9/L} See Below [facility] Work Phone: [phone] Comment on above: Reference Range: 0.0 0 - 0.10 Reference Range: 0.0 0 - 0.70 Complete Blood Count + Differential 1.40 {x10E9/L} above high threshold See Below [facility] Work Phone: [phone] Comment on above: Reference Range: 0.1 0 - 1.00 Complete Blood Count + Differential 1.30 {x10E9/L} See Below [facility] Work Phone: [phone] Comment on above: Reference Range: 1.2 0 - 4.80 Complete Blood Count + Differential 12.90 {x10E9/L} above high threshold See Below [facility] Work Phone: [phone] Comment on above: Reference Range: 1.2 0 - 7.70 Percent differential counts (%) should be interpreted in the context of the absolute cell counts (cells/L). Complete Blood Count + Differential 0.7 % 0.0 - 6.0 [facility] Work Phone: [phone] Complete Blood Count + Differential 0.1 {/100_WBC} [facility] Work Phone: [phone] Cult, Bloodon 04-07-2021 Bacteria identified Cx Nom (Bld) [facility] Work Phone: [phone] Laboratory - Chemistry and C hemistry - challengeon 04-07-2021 Albumin BCP dye [Mass/Vol] 3.4 g/dL 3.4 - 5.0 [facility] Work Phone: [phone] ALP [Catalytic activity/Vol] 78 U/L 33 - 136 [facility] Work Phone: [phone] ALT With P-5'-P [Catalytic activity/Vol] 56 U/L above high threshold 7 - 45 [facility] Work Phone: [phone] Comment on above: Patients treated wit h Sulfasalazine may generate falsely decreased results for ALT. Anion gap [Moles/Vol] 13 mmol/L 10 - 20 [facility] Work Phone: [phone] AST With P-5'-P [Catalytic activity/Vol] 42 U/L above high threshold 9 - 39 [facility] Work Phone: [phone] Bilirubin [Mass/Vol] 0.6 mg/dL 0.0 - 1.2 [facility] Work Phone: [phone] Calcium [Mass/Vol] 9.1 mg/dL 8.6 - 10.3 [facility] Work Phone: [phone] Chloride [Moles/Vol] 104 mmol/L 98 - 107 [facility] Work Phone: [phone] CO2 [Moles/Vol] 26 mmol/L 21 - 32 [facility] Work Phone: [phone] Creatinine [Mass/Vol] 0.68 mg/dL See Below [facility] Work Phone: [phone] Comment on above: Reference Range: 0.5 0 - 1.05 Glucose [Mass/Vol] 112 mg/dL above high threshold 74 - 99 [facility] Work Phone: [phone] Potassium [Moles/Vol] 2.9 mmol/L Critically low 3.5 - 5.3 [facility] Work Phone: [phone] Comment on above: repeated and verifie d Called- RB toTim in ERM, 04/07/2021 11:07 Protein [Mass/Vol] 7.4 g/dL 6.4 - 8.2 [facility] Work Phone: [phone]) Sodium [Moles/Vol] 140 mmol/L 136 - 145 [facility] Work Phone: [phone] Urea nitrogen [Mass/Vol] 9 mg/dL 6 - 23 [facility] Work Phone: [phone] Laboratory - Coagulationon 0 04-07-2021 INR Coag (PPP) [Relative time] 1.3 {INR} above high threshold 0.9 - 1.1 [facility] Work Phone: [phone] PT Coag (PPP) [Time] 15.6 s above high threshold See Below [facility] Work Phone: [phone] Comment on above: Reference Range: 10. 1 - 13.3 Lactate, Levelon 04-07-2021 Lactate [Moles/Vol] 1.3 mmol/L 0.4 - 2.0 [facility] Work Phone: [phone] Comment on above: Venipuncture immedia tely after or during the administration of Metamizole may lead to falsely low results. Testing should be performed immediately prior to Metamizole dosing. No Panel Informationon 04-07 1830 {ng/mL_FEU} Abnormal < or = 500 [facility] Work Phone: [phone] Comment on above: The VTE Exclusion D- Dimer assay is reported in ng/mL Fibrinogen Equivalent Units (FEU). Per manufacturers instructions for use, a value of less than 500 ng/mL (FEU) may help to exclude DVT or PE in outpatients when the assay is used with a clinical pretest probability assessment. ([facility] must utilize and document eCalc Wells Score Deep Vein Thrombosis Risk for DVT exclusion only; Emergency Department should utilize Guidelines for Emergency Department Use of the VTE Exclusion D-Dimer and Clinical Pretest probability assessment model for DVT or PE exclusion.) >60 >60 [facility] Work Phone: [phone] Comment on above: CALCULATIONS OF ADRIENNE MATED GFR ARE PERFORMED USING THE MDRD STUDY EQUATION FOR THE IDMS-TRACEABLE CREATININE METHODS. CLIN CHEM 2007;53:766-72 [email or web address] [email or web address] ?RetrieveTestByDateTime?P okyfltYW=[id number]&Date=01-27-2021&Time=09%3a25%3a 46%3a00&TestType=ECG&Site =14&OutputType=PDF&Ext=PD F [facility] Work Phone: [phone] Please see physicia n note for formal interpretation confirmed by Scribe [facility] Work Phone: [phone] Normal [facility] Work Phone: [phone] [facility] Work Phone: [phone] 1 [facility] Work Phone: [phone] 21 198 1 [facility] Work Phone: [phone] 21 140 1 [facility] Work Phone: [phone] 1 [facility] Work Phone: [phone] 13 1 [facility] Work Phone: [phone] 21 1 [facility] Work Phone: [phone] 21 -5 1 [facility] Work Phone: [phone] 21 27 1 [facility] Work Phone: [phone] 1 [facility] Work Phone: [phone] 21 374 1 [facility] Work Phone: [phone] 21 94 1 [facility] Work Phone: [phone] 21 152 1 [facility] Work Phone: [phone] 1 [facility] Work Phone: [phone] Radiologyon 04-07-2021 XR Chest Single view Normal [facility] Work Phone: [phone] CT Angio Chest For PEon 0 04-07-[address] Angio Chest For PE Normal [facility] Work Phone: [phone] Coronavirus 2019 RNA by PCR, Symptomaticon 03-29-2021 Date and time of symptom onset [id number] [facility] Work Phone: [phone] Coronavirus 2019 RNA by PCR, Symptomatic Detected Abnormal See Below [facility] Work Phone: [phone] Comment on above: SOURCE: Nasal, Nasop haryngealReference Range: Not Detected.This test has received FDA Emergency Use Authorization (EUA) and has been verified by [facility]. This test is only authorized for the duration of time that circumstances exist to justify the authorization of the emergency use of in vitro diagnostic tests for the detection of SARS-CoV-2 virus and/or diagnosis of COVID-19 infection under section 564(b)(1) of the Act, 21 U.S.C. 360bbb-3(b)(1), unless the authorization is terminated or revoked sooner. [facility] is certified under CLIA-88 as qualified to perform high complexity testing. Testing is performed in the [facility] laboratory located at [address] [place] [address].SARS-CoV-2/Flu/RSV Multiplex Test: Fact sheet for providers: https://www.fda.gov/media/949864/downloadFact sheet for patients: https://www.fda.gov/media/679444/download Called- RB el evans, 03/29/2021 15:36 Laboratory - Chemistry and C hemistry - challengeon 03-29-2021 Anion gap [Moles/Vol] 12 mmol/L 10 - 20 [facility] Work Phone: [phone] Calcium [Mass/Vol] 8.5 mg/dL below low threshold 8.6 - 10.3 [facility] Work Phone: [phone] Chloride [Moles/Vol] 104 mmol/L 98 - 107 [facility] Work Phone: [phone] CO2 [Moles/Vol] 26 mmol/L 21 - 32 [facility] Work Phone: [phone] Creatinine [Mass/Vol] 1.04 mg/dL See Below [facility] Work Phone: [phone] Comment on above: Reference Range: 0.5 0 - 1.05 Glucose [Mass/Vol] 108 mg/dL above high threshold 74 - 99 [facility] Work Phone: [phone] Potassium [Moles/Vol] 3.8 mmol/L 3.5 - 5.3 [facility] Work Phone: [phone] Sodium [Moles/Vol] 138 mmol/L 136 - 145 [facility] Work Phone: [phone] Urea nitrogen [Mass/Vol] 17 mg/dL 6 - 23 [facility] Work Phone: No Panel Informationon 03-29 65 {mL/min/1.73m2} >60 [facility] Work Phone: Comment on above: CALCULATIONS OF ADRIENNE MATED GFR ARE PERFORMED USING THE MDRD STUDY EQUATION FOR THE IDMS-TRACEABLE CREATININE METHODS. CLIN CHEM 2007;53:766-72 54 {mL/min/1.73m2} Abnormal >60 [facility] Work Phone: XR LUMBAR SPINE LESS THAN 4 VWSon 01-10-2021 XR LUMBAR SPINE LESS THAN 4 VWS XR LUMBAR SPINE 5 VIEWS CLINICAL STATEMENT: BACK PAIN. TECHNOLOGIST NOTES: WHAT SYMPTOMS ARE YOU EXPERIENCING? - LOWER BACK PAIN FOR YEARS WITH THE PAIN GOING DOWN BOTH OF HER LEGS COMPARISON: None FINDINGS: There are five lumbar type vertebral bodies with a S-shaped curvature. Dextrocurvature centered at L1-L2 and compensatory levocurvature centered at L4-L5. Mild grade 1 anterolisthesis L5 on S1 with mild accentuation on flexion and decreases on extension. Mild retrolisthesis L1 on L2 does not change between flexion and extension. Multilevel disc height loss with osteophyte formation and facet arthropathy. Vertebral body heights are maintained. IMPRESSION: 1. Multilevel degenerative changes. 2. Mild change in alignment at L5-S1 on flexion/extension imaging may be projectional or related to mild instability. Electronically signed by: Tami Gambino MD 01/10/2021 4:17 PM CDT Technologist: MS Dictated By: TAMI GAMBINO MD Signed By: TAMI GAMBINO MD Signed Out: 01/10/21 17:17:34 Normal [facility] Tobacco Screening.on 021 Fall risk assessment a) No falls within the last year [facility] Work Phone: Tobacco use status CPHS b) No [facility] Work Phone: [phone] VITAMIN D LEVELon 02-20 25 0H VITAMIN D LEVEL 49.7 NG/ML Normal >30 [facility] Comment on above: Result Comment: DEFICIENT <20 NG/ML INSUFFICIENT 20-<30 NG/ML SUFFICIENT 30-100 NG/ML POTENTIAL TOXICITY >100 NG/ML Performed By: #### C MPF, LIP2, TSH2, T42, VITD #### Testing performed at [address] [address] CMP FASTINGon 03-18-2020 A:G RATIO 1.2 RATIO Low 1.3-2.2 [facility] Comment on above: Performed By: #### C MPF, LIP2, TSH2, T42, VITD #### Testing performed at [address] [address] Albumin [Mass/Vol] 3.9 G/dl Normal 3.5-5.0 [facility] Comment on above: Performed By: #### C MPF, LIP2, TSH2, T42, VITD #### Testing performed at [address] [address] ALP [Catalytic activity/Vol] 84 U/L Normal 38-126 [facility] Comment on above: Performed By: #### C MPF, LIP2, TSH2, T42, VITD #### Testing performed at [address] [address] ALT [Catalytic activity/Vol] 23 U/L Normal 14-54 [facility] Comment on above: Performed By: #### C MPF, LIP2, TSH2, T42, VITD #### Testing performed at [address] [address] AST [Catalytic activity/Vol] 21 U/L Normal 15-41 [facility] Comment on above: Performed By: #### C MPF, LIP2, TSH2, T42, VITD #### Testing performed at [address] [address] Bilirubin [Mass/Vol] 0.7 mg/dL Normal 0.2-1.2 [facility] Comment on above: Performed By: #### C MPF, LIP2, TSH2, T42, VITD #### Testing performed at [address] [address] Creatinine [Mass/Vol] 0.65 mg/dL Normal 0.52-1.04 [facility] Comment on above: Performed By: #### C MPF, LIP2, TSH2, T42, VITD #### Testing performed at [address] [address] EST. GFR, >60 Normal [facility] Comment on above: Performed By: #### C MPF, LIP2, TSH2, T42, VITD #### Testing performed at [address] [address] EST. GFR,Non >60 Normal [facility] Comment on above: Performed By: #### C MPF, LIP2, TSH2, T42, VITD #### Testing performed at [address] [address] GFR/1.73 sq M predicted among non-blacks MDRD (S/P/Bld) [Vol rate/Area] Average GFR for 60-69 years old = 85. 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 Kidney failure, GFR = <15. The GFR estimate is not adjusted for extreme body surface area or acute process, nor has it been validated for women or ethnic groups other than and . Performed By: #### C MPF, LIP2, TSH2, T42, VITD #### Testing performed at [address] [address] Protein [Mass/Vol] 7.2 g/dL Normal 6.3-8.2 [facility] Comment on above: Performed By: #### C MPF, LIP2, TSH2, T42, VITD #### Testing performed at [address] [address] Urea nitrogen [Mass/Vol] 16 mg/dL Normal 7-20 [facility] Comment on above: Performed By: #### C MPF, LIP2, TSH2, T42, VITD #### Testing performed at [address] [address] Calcium [Mass/Vol] 8.9 mg/dL Normal 8.4-10.2 [facility] Comment on above: Performed By: #### C MPF, LIP2, TSH2, T42, VITD #### Testing performed at [address] [address] Chloride [Moles/Vol] 103 mmol/L Normal 98-107 [facility] Comment on above: Performed By: #### C MPF, LIP2, TSH2, T42, VITD #### Testing performed at [address] [address] CO2 [Moles/Vol] 28 mmol/L Normal 22-30 [facility] Comment on above: Performed By: #### C MPF, LIP2, TSH2, T42, VITD #### Testing performed at [address] [address] Glucose [Mass/Vol] 93 mg/dL Normal 70-100 [facility] Comment on above: Result Comment: NORMAL <100 mg/dL PREDIABETES 101-126 mg/dL DIABETES 126 mg/dL or higher Performed By: #### C MPF, LIP2, TSH2, T42, VITD #### Testing performed at [address] [address] Potassium [Moles/Vol] 4.0 mmol/L Normal 3.5-5.1 [facility] Comment on above: Performed By: #### C MPF, LIP2, TSH2, T42, VITD #### Testing performed at [address] [address] Sodium [Moles/Vol] 139 mmol/L Normal 136-145 [facility] Comment on above: Performed By: #### C MPF, LIP2, TSH2, T42, VITD #### Testing performed at [address] [address] FREE T4on 03-18-2020 Free T4 [Mass/Vol] 1.23 ng/dL High 0.61-1.12 [facility] Comment on above: Performed By: #### C MPF, LIP2, TSH2, T42, VITD #### Testing performed at [address] [place] [address] LIPID PROFILEon 03-18-2020 Cholesterol [Mass/Vol] 207 mg/dL High 100-199 [facility] Comment on above: Performed By: #### C MPF, LIP2, TSH2, T42, VITD #### Testing performed at [address] [address] Cholesterol in HDL [Mass/Vol] 61 mg/dL High 40-60 [facility] Comment on above: Performed By: #### C MPF, LIP2, TSH2, T42, VITD #### Testing performed at [address] [address] Cholesterol in LDL [Mass/Vol] 132 mg/dL High 0-100 [facility] Comment on above: Performed By: #### C MPF, LIP2, TSH2, T42, VITD #### Testing performed at [address] [address] Cholesterol in VLDL [Mass/Vol] 14 mg/dL Normal 5.0-25.0 [facility] Comment on above: Performed By: #### C MPF, LIP2, TSH2, T42, VITD #### Testing performed at [address] [address] Cholesterol.total/Chol esterol in HDL [Mass ratio] 3.39 {ratio} Normal [facility] Comment on above: Result Comment: RISK TOTAL/HDL RATIO MEN WOMEN 1/2 AVERAGE 3.43 3.27 AVERAGE 4.97 4.44 2X AVERAGE 9.55 7.05 3X AVERAGE 23.99 11.04 Performed By: #### C MPF, LIP2, TSH2, T42, VITD #### Testing performed at [address] [address] Triglyceride [Mass/Vol] 70 mg/dL Normal [facility] Comment on above: Performed By: #### C MPF, LIP2, TSH2, T42, VITD #### Testing performed at [address] [address] TSHon 03-18-2020 TSH Qn 1.315 uIU/ML Normal 0.45-5.33 [facility] Comment on above: Performed By: #### C MPF, LIP2, TSH2, T42, VITD #### Testing performed at [address] [place] [address] [place] Mamm Screen w/CAD if perf ormed bilaton 01-05-2019 MA Mamm Screen w/CAD if performed bilat Exam Date/Time: 01/05/2019 08:51 EDT Reason for Exam: SCREENING Report STUDY: Digital mammography screening; 01/05/2019 8:51 am ACCESSION NUMBER(S): [id number] ORDERING CLINICIAN: Caroline Huston INDICATION: Screening. COMPARISON: Comparison is made to prior digital mammograms dated 07/12/2017 and 06/25/2016 FINDINGS: CC and MLO 2D digital mammographic images of the bilateral breasts were obtained. There are areas of scattered fibroglandular tissue. Mild architectural distortion is seen in the 11 o'clock position of the right breast, unchanged from prior studies, consistent with scarring.No discrete mass or focal asymmetry is identified. No suspicious microcalcifications or new foci of architectural distortion are seen. There has been no significant change. This study was interpreted with CAD. IMPRESSION: No mammographic evidence of malignancy. BI-RADS CATEGORY: Category: 2 - Benign Finding. Recommendation: Normal Interval Follow-up, Over Age 40. Recall Interval: 12 Months. Breast Density: Scattered Fibroglandular Density. FINAL REPORT Dictated: 01/05/2019 11:41 am Bartolome Livingston MD Signed (Electronic Signature): 01/05/2019 11:41 am Signed by: Bartolome Livingston MD Technologist: KDRianna Assessment: BI-RADS Category 2-Benign finding Recommendation: Normal interval follow-up Normal [facility] CMPon 11-28-2018 Albumin [Mass/Vol] 4.1 g/dL Normal 3.4-5.0 [facility] Comment on above: Performed By: #### 2 [id number] #### LOUISA RemHemo [facility] [place] [address] Albumin/Globulin [Mass ratio] 1.5 {ratio} Normal 1.1-1.9 [facility] Comment on above: Performed By: #### 2 [id number] #### LOUISA RemHemo [address] [place] [address] Alk Phos 90 Int._Unit/L Normal 33-110 [facility] Comment on above: Performed By: #### 2 [id number] #### LOUISA RemHemo [address] [place] [address] ALT [Catalytic activity/Vol] 23 Int._Unit/L Normal 7-45 [facility] Comment on above: Performed By: #### 2 [id number] #### LOUISA RemHemo [address] [place] [address] Anion gap [Moles/Vol] 10 mmol/L Normal 10-20 [facility] Comment on above: Performed By: #### 2 [id number] #### LOUISA RemHemo [address] [place] [address] AST [Catalytic activity/Vol] 18 Int._Unit/L Normal 9-39 [facility] Comment on above: Performed By: #### 2 [id number] #### LOUISA RemHemo [address] [place] [address] Bili Total 0.70 mg/dL Normal 0.00-1.20 [facility] Comment on above: Performed By: #### 2 [id number] #### LOUISA RemHemo [address] [place] [address] Calcium [Mass/Vol] 9.4 mg/dL Normal 8.6-10.3 [facility] Comment on above: Performed By: #### 2 213143 #### LOUISA RemHemo [address] [place] [address] Chloride [Moles/Vol] 105 mmol/L Normal 98-107 [facility] Comment on above: Performed By: #### 2 [id number] #### LOUISA RemHemo [address] [place] [address] CO2 [Moles/Vol] 29.0 mmol/L Normal 21.0-32.0 [facility] Comment on above: Performed By: #### 2 [id number] #### LOUISA RemHemo [address] [place] [address] Creatinine [Mass/Vol] 0.7 mg/dL Normal 0.5-1.1 [facility] Comment on above: Performed By: #### 2 [id number] #### LOUISA RemHemo [address] [place] [address] Globulin (S) [Mass/Vol] 3.0 g/dL Normal 2.0-4.0 [facility] Comment on above: Performed By: #### 2 780509 #### LOUISA Pike[employer]emo [address] [place] [address] Glucose [Mass/Vol] 98 mg/dL Normal 70-99 [facility] Comment on above: Performed By: #### 2 [id number] #### LOUISA GlendyHemo [facility] [place] [address] Potassium [Moles/Vol] 4.2 mmol/L Normal 3.5-5.3 [facility] Comment on above: Performed By: #### 2 [id number] #### LOUISA GlendyHemo [facility] [place] [address] Protein [Mass/Vol] 6.8 g/dL Normal 6.4-8.2 [facility] Comment on above: Performed By: #### 2 [id number] #### LOUISA GlendyHemo [facility] [place] [address] Sodium [Moles/Vol] 140 mmol/L Normal 136-145 [facility] Comment on above: Performed By: #### 2 [id number] #### LOUISA GlendyHemo [facility] [place] [address] Urea nitrogen [Mass/Vol] 20 mg/dL Normal 6-23 [facility] Comment on above: Performed By: #### 2 [id number] #### LOUISA GlendyHemo [facility] [place] [address] Urea nitrogen/Creatinine [Mass ratio] 28.6 ratio Normal 5.4-30.0 [facility] Comment on above: Performed By: #### 2 [id number] #### LOUISA GlendyHemo [address] [place] [address] Free T4on 11-28-2018 Free T4 [Mass/Vol] 0.98 ng/dL Normal 0.58-1.64 [facility] Comment on above: Result Comment: Vangie ents receiving more than 5mg/day of biotin may have interference in test results. A sample should be taken no sooner than eight hours after previous dose. Performed By: #### 2 [id number] #### LOUISA [employer] [address] [place] [address] TSHon 11-28-2018 TSH Qn 0.37 mcIU/mL Normal 0.30-5.60 [facility] Comment on above: Performed By: #### 2 [id number] #### LOUISA PikeHemo [address] [place] [address] Vitamin D 25 Hydroxyon 11-28 Vitamin D 25 Hydroxy 55.0 ng/mL Normal 30.0-100.0 [facility] Comment on above: Performed By: #### 2 [id number] #### LOUISA PikeHemo [facility] [place] [address] eGFRon 11-28-2018 GFR/1.73 sq M predicted among non-blacks MDRD (S/P/Bld) [Vol rate/Area] mL/min/{1.73_m2} Normal [facility] Comment on above: Order Comment: Order added by Discern Expert. Performed By: #### 2 [id number] #### LOUISA [address] [address] MRI Spine Lumbar w/o Contras ton 06-24-2018 MRI Spine Lumbar w/o Contrast Exam Date/Time: 06/24/2018 12:10 EST Reason for Exam: LUMBAR RADICULOPATHY Report STUDY: MRI Spine Lumbar w/o Contrast; 06/24/2018 12:10 pm INDICATION: LUMBAR RADICULOPATHY. COMPARISON: None. ACCESSION NUMBER(S): [id number] ORDERING CLINICIAN: Harlan Swann TECHNIQUE: Multiplanar, multisequence imaging of the lumbar spine was performed without intravenous contrast administration. FINDINGS: Conus medullaris terminates at the level of L1 vertebral body, visualized portions of the conus and spinal cord shows normal signal intensity and caliber. Trace retrolisthesis of L1 on L2., bilateral spondylolysis at L5, with 4.5 mm anterolisthesis of L5 on S1. Subacute endplate degenerative changes at L1-L2, L4-L5, L5-S1. Chronic Schmorl's nodule in the superior aspect of the L3 vertebral body, mild endplate changes in the superior aspect of the L4 vertebral body. 1.4 cm cyst in the posterior aspect of the right kidney upper pole, another 4 mm cyst in the right kidney interpolar region. At T12-L1 no disc bulge, spinal canal or neural foramina stenosis. At L1-L2 minimal retrolisthesis, degenerated disc osteophyte noted causing mild indentation of the anterior thecal sac, mild encroachment of the left neural foramina. At L2-L3 mild broad-based disc bulge indenting the anterior thecal sac without any spinal canal or neural foramina stenosis. At L3-L4 focal right paracentral disc herniation noted measuring at least 7 x 4 x 9 mm, abutting the intracanalicular portion of the right L4 nerve root. No neural foramina narrowing. At L4-L5 degenerated disc bulge were noted with central annular tear, minimal facet joint arthropathy in combination noted causing mild bilateral lateral recess stenosis and right neural foraminal encroachment. Exam Date/Time: 06/24/2018 12:10 EST Report At L5-S1 broad-based degenerated disc bulge, mild facet joint arthropathy in combination noted causing ermz-ir-lzjxalql left lateral recess,, mild right lateral recess, moderate bilateral neural foramina narrowing. IMPRESSION: At L3-L4 focal right paracentral disc herniation noted abutting the intracanalicular portion of the right L4 nerve root. There is suggestion of bilateral spondylolysis at L5, with 4.5 mm anterolisthesis of L5 on S1. Degenerative changes at L5-S1 noted causing moderate bilateral neural foramina, ytdy-nz-kwlhxaiz left lateral recess and mild right lateral recess stenosis. Mild other areas of degenerative changes as described above. FINAL REPORT Dictated: 06/24/2018 1:43 pm Donny Sanon MD Signed (Electronic Signature): 06/24/2018 1:43 pm Signed by: Donny Sanon MD Technologist: CFF Normal [facility] Auto Diffon 04-10-2018 Basophils (Bld) [#/Vol] 0.1 E3/mcL Normal 0.0-0.2 [facility] Comment on above: Order Comment: Order Added by Discern Expert. Performed By: #### 2 [id number] #### LOUISA [facility] [address] [place] [address] Basophils/100 WBC (Bld) 1.2 % Normal 0.0-2.0 [facility] Comment on above: Order Comment: Order Added by Discern Expert. Performed By: #### 2 [id number] #### LOUISA [facility] [address] [place] [address] Eos Absolute 0.2 E3/mcL Normal 0.0-0.7 [facility] Comment on above: Order Comment: Order Added by Discern Expert. Performed By: #### 2 [id number] #### LOUISA [facility] [address] [place] [address] Eosinophils/100 WBC (Bld) 3.0 % Normal 0.0-11.0 [facility] Comment on above: Order Comment: Order Added by Discern Expert. Performed By: #### 2 [id number] #### LOUISA [facility] [address] [place] [address] Lymphocytes (Bld) [#/Vol] 1.6 E3/mcL Normal 1.2-3.4 [facility] Comment on above: Order Comment: Order Added by Discern Expert. Performed By: #### 2 [id number] #### LOUISA [facility] [address] [place] [address] Lymphocytes/100 WBC (Bld) 19.9 % Low 20.0-55.0 [facility] Comment on above: Order Comment: Order Added by Discern Expert. Performed By: #### 2 [id number] #### LOUISA [facility] [address] [place] [address] Rock Absolute 0.7 E3/mcL Normal 0.0-0.7 [facility] Comment on above: Order Comment: Order Added by Discern Expert. Performed By: #### 2 [id number] #### LOUISA [facility] [address] [place] [address] Monocytes/100 WBC (Bld) 9.0 % Normal 0.0-10.0 [facility] Comment on above: Order Comment: Order Added by Discern Expert. Performed By: #### 2 [id number] #### LOUISA [facility] [address] [place] [address] Neutro Absolute 5.5 E3/mcL Normal 1.4-6.5 [facility] Comment on above: Order Comment: Order Added by Discern Expert. Performed By: #### 2 [id number] #### LOUISA [facility] [address] [place] [address] Neutro Auto 66.9 % Normal 37.0-75.0 [facility] Comment on above: Order Comment: Order Added by Discern Expert. Performed By: #### 2 [id number] #### LOUISA [facility] [address] [place] [address] CBC w/ Auto Diffon 8 Erythrocyte distribution width (RBC) [Ratio] 13.4 % Normal 11.5-14.5 [facility] Comment on above: Performed By: #### 2 [id number] #### LOUISA [facility] [address] [place] [address] Hematocrit (Bld) [Volume fraction] 41.5 % Normal 36.0-48.0 [facility] Comment on above: Performed By: #### 2 [id number] #### LOUISA [facility] [address] [place] [address] Hemoglobin (Bld) [Mass/Vol] 13.7 g/dL Normal 12.0-16.0 [facility] Comment on above: Performed By: #### 2 [id number] #### LOUISA [facility] [address] [place] [address] MCH (RBC) [Entitic mass] 29.4 pg Normal 27.0-31.0 [facility] Comment on above: Performed By: #### 2 [id number] #### LOUISA [facility] [address] [place] [address] MCHC (RBC) [Mass/Vol] 32.9 g/dL Low 33.0-37.0 [facility] Comment on above: Performed By: #### 2 [id number] #### LOUISA Rem[facility] [address] [place] [address] MCV (RBC) [Entitic vol] 89.4 fL Normal 78.0-100.0 [facility] Comment on above: Performed By: #### 2 [id number] #### LOUISA Rem[facility] [address] [place] [address] Platelet mean volume (Bld) [Entitic vol] 9.4 fL Normal 7.4-11.0 [facility] Comment on above: Performed By: #### 2 [id number] #### LOUISA Rem[facility] [address] [place] [address] Platelets (Bld) [#/Vol] 340 E3/mcL Normal 130-400 [facility] Comment on above: Performed By: #### 2 [id number] #### LOUISA [facility] [address] [place] [address] RBC (Bld) [#/Vol] 4.64 E6/mcL Normal 3.90-5.40 [facility] Comment on above: Performed By: #### 2 [id number] #### LOUISA Rem[facility]emo [address] [place] [address] WBC (Bld) [#/Vol] 8.3 E3/mcL Normal 3.6-11.0 [facility] Comment on above: Performed By: #### 2 [id number] #### LOUISA [facility] [address] [place] [address] CMPon 04-10-2018 Albumin [Mass/Vol] 3.6 g/dL Normal 3.2-5.0 [facility] Comment on above: Performed By: #### 2 [id number] #### LOUISA [facility] [address] [place] [address] Albumin/Globulin [Mass ratio] 1.1 {ratio} Normal 1.1-1.9 [facility] Comment on above: Performed By: #### 2 [id number] #### LOUISA [facility] [address] [place] [address] Alk Phos 83 Int._Unit/L Normal 42-121 [facility] Comment on above: Performed By: #### 2 [id number] #### LOUISA [facility] [address] [place] [address] ALT [Catalytic activity/Vol] 25 Int._Unit/L Normal 10-40 [facility] Comment on above: Performed By: #### 2 [id number] #### LOUISA [facility] [address] [place] [address] AST [Catalytic activity/Vol] 27 Int._Unit/L Normal 10-42 [facility] Comment on above: Performed By: #### 2 [id number] #### LOUISA [facility] [address] [place] [address] Bili Total 0.9 mg/dL Normal 0.2-1.0 [facility] Comment on above: Performed By: #### 2 [id number] #### LOUISA [facility] [address] [place] [address] Calcium [Mass/Vol] 8.9 mg/dL Normal 8.4-10.2 [facility] Comment on above: Performed By: #### 2 [id number] #### LOUISA [facility] [address] [place] [address] Chloride [Moles/Vol] 103 mmol/L Normal 98-107 [facility] Comment on above: Performed By: #### 2 [id number] #### LOUISA [facility] [address] [place] [address] CO2 [Moles/Vol] 26.0 mmol/L Normal 24.0-30.0 [facility] Comment on above: Performed By: #### 2 [id number] #### LOUISA [facility] [address] [place] [address] Creatinine [Mass/Vol] 0.7 mg/dL Normal 0.6-1.3 [facility] Comment on above: Performed By: #### 2 [id number] #### [facility]IS[facility] [address] [place] [address] Globulin (S) [Mass/Vol] 3.2 g/dL Normal 2.0-4.0 [facility] Comment on above: Performed By: #### 2 [id number] #### LOUISA [facility] [address] [place] [address] Glucose [Mass/Vol] 101 mg/dL High 70-99 [facility] Comment on above: Performed By: #### 2 [id number] #### LOUISA [facility] [address] [place] [address] Potassium [Moles/Vol] 4.0 mmol/L Normal 3.5-5.1 [facility] Comment on above: Performed By: #### 2 [id number] #### [facility] [address] [place] [address] Protein [Mass/Vol] 6.8 g/dL Normal 6.4-8.3 [facility] Comment on above: Performed By: #### 2 [id number] #### LOUISA [facility] [place] [address] Sodium [Moles/Vol] 140 mmol/L Normal 136-145 [facility] Comment on above: Performed By: #### 2 750254 #### LOUISA [facility] [address] [place] [address] Urea nitrogen [Mass/Vol] 12 mg/dL Normal 7-18 [facility] Comment on above: Performed By: #### 2 [id number] #### LOUISA [facility] [address] [place] [address] Urea nitrogen/Creatinine [Mass ratio] 17.1 ratio Normal 5.4-30.0 [facility] Comment on above: Performed By: #### 2 [id number] #### LOUISA [facility] [address] [place] [address] Folateon 04-10-2018 Folate Lvl 15.90 ng/mL Normal >=5.00 [facility] Comment on above: Result Comment: The WHO Technical Consultation on folate and vitamin B12 deficiencies has determined that deficient folate concentrations are considered to be less than 4ng/ml. Performed By: #### 2 [id number] #### LOUISA [employer] [address] [place] [address] Free T4on 04-10-2018 Free T4 [Mass/Vol] 1.02 ng/dL Normal 0.58-1.64 [facility] Comment on above: Performed By: #### 2 [id number] #### LOUISA [facility] [address] [place] [address] TSHon 04-10-2018 TSH Qn 0.63 mIU/m Normal 0.30-5.60 [facility] Comment on above: Performed By: #### 2 [id number] #### LOUISA [facility] [address] [place] [address] Vit B12on 04-10-2018 Cobalamin (Vitamin B12) [Mass/Vol] 654 pg/mL Normal 180-914 [facility] Comment on above: Performed By: #### 2 [id number] #### LOUISA [employer] [address] [place] [address] Vitamin D 25 Hydroxyon 04-10 Vitamin D 25 Hydroxy 45.6 ng/mL Normal 30.0-100.0 [facility] Comment on above: Performed By: #### 5 [id number] #### LOUISA [employer] [address] [place] [address] eGFRon 04-10-2018 GFR/1.73 sq M predicted among non-blacks MDRD (S/P/Bld) [Vol rate/Area] mL/min/{1.73_m2} Normal [facility] Comment on above: Order Comment: Order added by Discern Expert. Performed By: #### 1 [id number] #### LOUISA [facility] [address] [place] [address] XR Spine Lumbosacral Complet e w/ Bendingon 04-07-2018 XR Spine Lumbosacral Complete w/ Bending Exam Date/Time: 04/07/2018 12:28 EDT Reason for Exam: LSDD Report STUDY: XR Spine Lumbosacral Complete w/ Bending; 04/07/2018 12:28 pm INDICATION: LSDD. COMPARISON: 06/04/2017 ACCESSION NUMBER(S): [id number] ORDERING CLINICIAN: Harlan Swann FINDINGS: 7 views of the lumbar spine including AP, lateral, lateral cone-down, lateral flexion and extension and bilateral oblique views were obtained. There is no acute fracture identified. Mild S-shaped scoliosis of the thoracolumbar spine is present. There is mild anterolisthesis of L5 on S1 and mild retrolisthesis of L1 on L2. Moderate disc space narrowing and small to moderate marginal osteophytes are present at the L1-2 and L5-S1 levels. Mild discogenic degenerative changes are seen at the L4-5 level. Qskz-vm-tqgoicke facet degenerative changes are seen throughout the lumbar spine. There is no evidence of pars interarticularis defect. No abnormal motion is seen on the flexion and extension views. IMPRESSION: 1. No evidence of acute fracture. 2. Degenerative changes throughout the lumbar spine, as described above. FINAL REPORT Dictated: 04/07/2018 12:56 pm Bartolome Livingston MD Signed (Electronic Signature): 04/07/2018 12:56 pm Signed by: Bartolome Livingston MD Technologist: JOSR [facility] Vital Signs Date Time Vital Sign Value Performing Clinician Facility 05-06-2024 09:52-0400 Body height 170.2 cm Ariella Carey 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 NET MAKING Work Phone: [facility] 05-06-2024 09:52-0400 Body mass index (BMI) [Ratio] 29.44 kg/m2 Ariella Parhamman 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 [employer] MAKING Work Phone: [facility] 05-06-2024 09:52-0400 Body temperature 97.5 [degF] Ariella Parhamman 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 [employer] MAKING Work Phone: [facility] 05-06-2024 09:52-0400 Body weight 85.28 kg Ariella Parhamman 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 [employer] MAKING Work Phone: [facility] 05-06-2024 09:52-0400 Diastolic blood pressure 88 mm[Hg] Ariella Parhamman 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 [employer] MAKING Work Phone: [facility] 05-06-2024 09:52-0400 Heart rate 66 /min Ariella Parhamman 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 [employer] MAKING Work Phone: [facility] 05-06-2024 09:52-0400 Systolic blood pressure 136 mm[Hg] Ariella Aurelio 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 [employer] MAKING Work Phone: [facility] 01-15-2024 08:43-0400 Body temperature 98.4 [degF] Felipe Yates Jr., DPM Work Phone: [facility] 01-15-2024 08:43-0400 Diastolic blood pressure 80 mm[Hg] Felipe Yates Jr., DPM Work Phone: [facility] 01-15-2024 08:43-0400 Heart rate 53 /min Felipe Yates Jr., DPM Work Phone: [facility] 01-15-2024 08:43-0400 Systolic blood pressure 156 mm[Hg] Felipe Yates Jr., DPM Work Phone: [facility] 12-24-2023 07:58-0400 Body mass index (BMI) [Ratio] 30.68 kg/m2 Amy Rizvi PA-C Work Phone: [facility] 12-24-2023 07:58-0400 Body weight 87.54 kg Amy Rizvi PA-C Work Phone: [facility] 12-24-2023 07:58-0400 Diastolic blood pressure 90 mm[Hg] Amy Rizvi PA-C Work Phone: [facility] 12-24-2023 07:58-0400 Heart rate 65 /min Amy Rizvi PA-C Work Phone: [facility] 12-24-2023 07:58-0400 Respiratory rate 14 /min Amy Rizvi PA-C Work Phone: [facility] 12-24-2023 07:58-0400 Systolic blood pressure 142 mm[Hg] Amy Rizvi PA-C Work Phone: [facility] 11-05-2023 16:03-0400 Body height 168.9 cm Mame Oberhauser DO Work Phone: [facility] 11-05-2023 16:03-0400 Body mass index (BMI) [Ratio] 30.84 kg/m2 Mame Oberhauser DO Work Phone: [facility] 11-05-2023 16:03-0400 Body weight 88 kg Mame Oberhauser DO Work Phone: [facility] 10-01-2023 08:19-0400 Body mass index (BMI) [Ratio] 31.96 kg/m2 Amy Rizvi PA-C Work Phone: [facility] 10-01-2023 08:19-0400 Body weight 91.17 kg Amy Rizvi PA-C Work Phone: [facility] 10-01-2023 08:19-0400 Diastolic blood pressure 86 mm[Hg] Amy Rizvi PA-C Work Phone: [facility] 10-01-2023 08:19-0400 Heart rate 60 /min Amy Rizvi PA-C Work Phone: [facility] 10-01-2023 08:19-0400 Respiratory rate 14 /min Amy Rizvi PA-C Work Phone: [facility] 10-01-2023 08:19-0400 Systolic blood pressure 135 mm[Hg] Amy Rizvi PA-C Work Phone: [facility] 07-02-2023 12:43-0500 Body height 168.9 cm Amy Rizvi PA-C Work Phone: [facility] 07-02-2023 12:43-0500 Body mass index (BMI) [Ratio] 31.96 kg/m2 Amy Rizvi PA-C Work Phone: [facility] 07-02-2023 12:43-0500 Body weight 91.17 kg Amy Rizvi PA-C Work Phone: [facility] 07-02-2023 12:43-0500 Diastolic blood pressure 79 mm[Hg] Amy Rizvi PA-C Work Phone: [facility] 07-02-2023 12:43-0500 Heart rate 63 /min Amy Rizvi PA-C Work Phone: [facility] 07-02-2023 12:43-0500 Respiratory rate 16 /min Amy Rizvi PA-C Work Phone: [facility] 07-02-2023 12:43-0500 Systolic blood pressure 129 mm[Hg] Amy Rizvi PA-C Work Phone: [facility] 06-28-2023 08:27-0500 Body temperature 98.2 [degF] Felipe Yates Jr., DPM Work Phone: [facility] 06-28-2023 08:27-0500 Diastolic blood pressure 89 mm[Hg] Felipe Trudy Jr., DPM Work Phone: [facility] 06-28-2023 08:27-0500 Heart rate 71 /min Felipe Trudy Jr., DPM Work Phone: [facility] 06-28-2023 08:27-0500 Systolic blood pressure 131 mm[Hg] Felipe Trudy Jr., DPM Work Phone: [facility] 05-24-2023 08:50-0400 Diastolic blood pressure 89 mm[Hg] Felipe Trudy Jr., DPM Work Phone: [facility] 05-24-2023 08:50-0400 Heart rate 60 /min Felipe Trudy Jr., DPM Work Phone: [facility] 05-24-2023 08:50-0400 Systolic blood pressure 146 mm[Hg] Felipe Trudy Jr., DPM Work Phone: [facility] 05-24-2023 08:45-0400 Body temperature 98.49 [degF] Felipe Trudy Jr., DPM Work Phone: [facility] 05-02-2023 16:11-0400 Body height 170.1 cm Mame Oberhauser DO Work Phone: [facility] 05-02-2023 16:11-0400 Body mass index (BMI) [Ratio] 32.29 kg/m2 Mame Oberhauser DO Work Phone: [facility] 05-02-2023 16:11-0400 Body weight 93.44 kg Mame Oberhauser DO Work Phone: [facility] 05-02-2023 16:11-0400 Diastolic blood pressure 84 mm[Hg] Mame Oberhauser DO Work Phone: [facility] 05-02-2023 16:11-0400 Heart rate 67 /min Mame Oberhauser DO Work Phone: [facility] 05-02-2023 16:11-0400 Systolic blood pressure 139 mm[Hg] Mame Oberhauser DO Work Phone: [facility] 04-02-2023 13:42-0400 Body mass index (BMI) [Ratio] 34.86 kg/m2 Mame L Oberhauser Work Phone: [facility] Work Phone: 04-02-2023 13:42-0400 Body surface area Derived from formula 2.07 m2 Mame L Oberhauser Work Phone: [facility] Work Phone: 04-02-2023 13:42-0400 Body weight 97.98 kg Mame L Oberhauser Work Phone: [facility] Work Phone: 04-02-2023 13:42-0400 Diastolic blood pressure 73 mm[Hg] Mame L Oberhauser Work Phone: [facility] Work Phone: 04-02-2023 13:42-0400 Heart rate 72 /min Mame L Oberhauser Work Phone: [facility] Work Phone: 04-02-2023 13:42-0400 Respiratory rate 16 /min Maem L Oberhauser Work Phone: [facility] Work Phone: 04-02-2023 13:42-0400 Systolic blood pressure 116 mm[Hg] Mame L Oberhauser Work Phone: [facility] Work Phone: 03-22-2023 08:49-0400 Body temperature 97.9 [degF] Felipe Yates Jr., DPM Work Phone: [facility] 03-22-2023 08:49-0400 Diastolic blood pressure 69 mm[Hg] Felipe Trudy Jr., DPM Work Phone: [facility] 03-22-2023 08:49-0400 Heart rate 59 /min Felipe Trudy Jr., DPM Work Phone: [facility] 03-22-2023 08:49-0400 Systolic blood pressure 104 mm[Hg] Felipe Trudy Jr., DPM Work Phone: [facility] 03-08-2023 10:15-0400 Body height 170.1 cm Harlan Swann MD Work Phone: [facility] 03-08-2023 10:15-0400 Body mass index (BMI) [Ratio] 34.8 kg/m2 Harlan Swann MD Work Phone: [facility] 03-08-2023 10:15-0400 Body weight 100.7 kg Harlan Swann MD Work Phone: [facility] 03-01-2023 15:20-0400 Body temperature 98.2 [degF] Felipe Yates Jr., DPM Work Phone: [facility] 03-01-2023 15:20-0400 Diastolic blood pressure 87 mm[Hg] Felipe Yates Jr., DPM Work Phone: [facility] 03-01-2023 15:20-0400 Heart rate 67 /min Felipe Yates Jr., DPM Work Phone: [facility] 03-01-2023 15:20-0400 Systolic blood pressure 135 mm[Hg] Felipe Trudy Jr., DPM Work Phone: [facility] 02-26-2023 09:07-0400 Body mass index (BMI) [Ratio] 35.83 kg/m2 Mame Gray Work Phone: [facility] Work Phone: 02-26-2023 09:07-0400 Body surface area Derived from formula 2.09 m2 Mame L Oberhauser Work Phone: [facility] Work Phone: 02-26-2023 09:07-0400 Body weight 100.7 kg Mame L Oberhauser Work Phone: [facility] Work Phone: 02-26-2023 09:07-0400 Diastolic blood pressure 83 mm[Hg] Mame L Oberhauser Work Phone: [facility] Work Phone: 02-26-2023 09:07-0400 Heart rate 71 /min Mame L Oberhauser Work Phone: [facility] Work Phone: 02-26-2023 09:07-0400 Respiratory rate 16 /min Mame L Oberhauser Work Phone: [facility] Work Phone: 02-26-2023 09:07-0400 Systolic blood pressure 144 mm[Hg] Mame L Oberhauser Work Phone: [facility] Work Phone: 02-04-2023 15:33-0400 Diastolic blood pressure 79 mm[Hg] Mame L Oberhauser Work Phone: [facility] Work Phone: 02-04-2023 15:33-0400 Heart rate 73 /min Mame L Oberhauser Work Phone: [facility] Work Phone: 02-04-2023 15:33-0400 Respiratory rate 16 /min Mame L Oberhauser Work Phone: [facility] Work Phone: 02-04-2023 15:33-0400 Systolic blood pressure 125 mm[Hg] Mame Gray Work Phone: [facility] Work Phone: 02-01-2023 15:09-0400 Body temperature 98.2 [degF] Felipe Trudy Jr., DPM Work Phone: [facility] 02-01-2023 15:09-0400 Diastolic blood pressure 82 mm[Hg] Felipe Trudy Jr., DPM Work Phone: [facility] 02-01-2023 15:09-0400 Heart rate 75 /min Felipe Trudy Jr., DPM Work Phone: [facility] 02-01-2023 15:09-0400 Systolic blood pressure 135 mm[Hg] Felipe Trudy Jr., DPM Work Phone: [facility] 01-11-2023 16:16-0400 Body temperature 98.4 [degF] Felipe Trudy Jr., DPM Work Phone: [facility] 01-11-2023 16:16-0400 Diastolic blood pressure 78 mm[Hg] Felipe Trudy Jr., DPM Work Phone: [facility] 01-11-2023 16:16-0400 Heart rate 60 /min Felipe Trudy Jr., DPM Work Phone: [facility] 01-11-2023 16:16-0400 Systolic blood pressure 136 mm[Hg] Felipe Trudy Jr., DPM Work Phone: [facility] 01-04-2023 11:22-0400 Body height 167.4 cm Harlan Swann MD Work Phone: [facility] 01-04-2023 11:22-0400 Body mass index (BMI) [Ratio] 35.29 kg/m2 Harlan Swann MD Work Phone: [facility] 01-04-2023 11:22-0400 Body weight 98.9 kg Harlan Swann MD Work Phone: [facility] 11-09-2022 15:41-0400 Body temperature 98.4 [degF] Felipe Yates Jr., DPM Work Phone: [facility] 11-09-2022 15:41-0400 Diastolic blood pressure 87 mm[Hg] Felipe Yates Jr., DPM Work Phone: [facility] 11-09-2022 15:41-0400 Heart rate 70 /min eFlipe Yates Jr., DPM Work Phone: [facility] 11-09-2022 15:41-0400 Systolic blood pressure 137 mm[Hg] Felipe Yates Jr., DPM Work Phone: [facility] 09-24-2022 15:29-0500 Body height 167.64 cm Mame L Oberhauser Work Phone: [facility] Work Phone: 09-24-2022 15:29-0500 Body mass index (BMI) [Ratio] 37.45 kg/m2 Mame L Oberhauser Work Phone: [facility] Work Phone: 09-24-2022 15:29-0500 Body surface area Derived from formula 2.13 m2 Mame L Oberhauser Work Phone: [facility] Work Phone: 09-24-2022 15:29-0500 Body weight 105.24 kg Mame L Oberhauser Work Phone: [facility] Work Phone: 09-24-2022 15:29-0500 Diastolic blood pressure 82 mm[Hg] Mame L Oberhauser Work Phone: [facility] Work Phone: 09-24-2022 15:29-0500 Heart rate 76 /min Mame L Oberhauser Work Phone: [facility] Work Phone: 09-24-2022 15:29-0500 Respiratory rate 16 /min Mame L Oberhauser Work Phone: [facility] Work Phone: 09-24-2022 15:29-0500 Systolic blood pressure 160 mm[Hg] Mame L Oberhauser Work Phone: [facility] Work Phone: 07-31-2022 14:45-0500 Body mass index (BMI) [Ratio] 36.32 kg/m2 Mame L Oberhauser Work Phone: [facility] Work Phone: 07-31-2022 14:45-0500 Body surface area Derived from formula 2.1 m2 Mame L Oberhauser Work Phone: [facility] Work Phone: 07-31-2022 14:45-0500 Body weight 102.06 kg Mame L Oberhauser Work Phone: [facility] Work Phone: 07-31-2022 14:45-0500 Diastolic blood pressure 77 mm[Hg] Mame L Oberhauser Work Phone: [facility] Work Phone: 07-31-2022 14:45-0500 Heart rate 73 /min Mame L Oberhauser Work Phone: [facility] Work Phone: 07-31-2022 14:45-0500 Respiratory rate 16 /min Mame L Oberhauser [facility] Phone[facility] Work Phone: 07-31-2022 14:45-0500 Systolic blood pressure 129 mm[Hg] Mame L Oberhauser Work Phone[facility] Work Phone: 07-03-2022 14:57-0500 Body height 167.64 cm Mame L Oberhauser Work Phone: [facility] Work Phone: 07-03-2022 14:57-0500 Body mass index (BMI) [Ratio] 36.64 kg/m2 Mame L Oberhauser Work Phone: [facility] Work Phone: 07-03-2022 14:57-0500 Body surface area Derived from formula 2.11 m2 Mame L Oberhauser Work Phone: [facility] Work Phone: 07-03-2022 14:57-0500 Body weight 102.97 kg Mame L Oberhauser Work Phone: [facility] Work Phone: 07-03-2022 14:57-0500 Diastolic blood pressure 66 mm[Hg] Mame L Oberhauser Work Phone: [facility] Work Phone: 07-03-2022 14:57-0500 Heart rate 65 /min Mame L Oberhauser Work Phone: [facility] Work Phone: 07-03-2022 14:57-0500 Systolic blood pressure 151 mm[Hg] Mame L Oberhauser Work Phone: [facility] Work Phone: 06-12-2022 16:19-0500 Diastolic blood pressure 77 mm[Hg] Caroline Stewardd Work Phone: [facility] Work Phone: 06-12-2022 16:19-0500 Heart rate 73 /min Caroline Cantu H[place]on Work Phone: [facility] Work Phone: 06-12-2022 16:19-0500 Respiratory rate 16 /min Caroline Cantu Huston Work Phone: [facility] Work Phone: 06-12-2022 16:19-0500 Systolic blood pressure 123 mm[Hg] Caroline Stewardd Work Phone: [facility] Work Phone: 04-02-2022 15:39-0400 Body height 167.64 cm Caroline Stewardd Work Phone: [facility] Work Phone: 04-02-2022 15:39-0400 Body mass index (BMI) [Ratio] 37.7 kg/m2 Caroline Stewardd Work Phone: [facility] Work Phone: 04-02-2022 15:39-0400 Body surface area Derived from formula 2.14 m2 Caroline Stewardd Work Phone: [facility] Work Phone: 04-02-2022 15:39-0400 Body weight 105.96 kg Caroline Stewardd Work Phone: [facility] Work Phone: 04-02-2022 15:39-0400 Diastolic blood pressure 87 mm[Hg] Caroline Cantu Huston Work Phone: [facility] Work Phone: 04-02-2022 15:39-0400 Heart rate 74 /min Caroline Stewardd Work Phone: [facility] Work Phone: 04-02-2022 15:39-0400 Respiratory rate 16 /min Caroline C Huston Work Phone: [facility] Work Phone: 04-02-2022 15:39-0400 Systolic blood pressure 158 mm[Hg] Caroline C Huston Work Phone: [facility] Work Phone: 01-01-2022 15:17-0400 Body height 167.64 cm Caroline C Huston Work Phone: [facility] Work Phone: 01-01-2022 15:17-0400 Body mass index (BMI) [Ratio] 36.48 kg/m2 Caroline C Huston Work Phone: [facility] Work Phone: 01-01-2022 15:17-0400 Body surface area Derived from formula 2.11 m2 Caroline C Huston Work Phone: [facility] Work Phone: 01-01-2022 15:17-0400 Body weight 102.51 kg Caroline Cantu Huston Work Phone: [facility] Work Phone: 01-01-2022 15:17-0400 Diastolic blood pressure 90 mm[Hg] Caroline C Huston Work Phone: [facility] Work Phone: 01-01-2022 15:17-0400 Heart rate 56 /min Caroline C Huston Work Phone: [facility] Work Phone: 01-01-2022 15:17-0400 Respiratory rate 16 /min Caroline Huston Work Phone: [facility] Work Phone: 01-01-2022 15:17-0400 Systolic blood pressure 156 mm[Hg] Caroline Huston Work Phone: [facility] Work Phone: 12-11-2021 07:11-0400 Body height 168.3 cm Caroline Huston MD Work Phone: [facility] 12-11-2021 07:11-0400 Body mass index (BMI) [Ratio] 36.22 kg/m2 Caroline Huston MD Work Phone: [facility] 12-11-2021 07:11-0400 Body temperature 97.3 [degF] Caroline Huston MD Work Phone: [facility] 12-11-2021 07:11-0400 Body weight 102.56 kg Caroline Huston MD Work Phone: [facility] 12-11-2021 07:11-0400 Diastolic blood pressure 84 mm[Hg] Caroline Hutson MD Work Phone: [facility] 12-11-2021 07:11-0400 Heart rate 64 /min Caroline Huston MD Work Phone: [facility] 12-11-2021 07:11-0400 Respiratory rate 16 /min Caroline Huston MD Work Phone: [facility] 12-11-2021 07:11-0400 SaO2% (BldA) [Mass fraction] 95 % Caroline Huston MD Work Phone: [facility] 12-11-2021 07:11-0400 Systolic blood pressure 134 mm[Hg] Caroline Huston MD Work Phone: [facility] 10-02-2021 15:59-0400 Body mass index (BMI) [Ratio] 37.61 kg/m2 Caroline Stewardd Work Phone: [facility] Work Phone: 10-02-2021 15:59-0400 Body surface area Derived from formula 2.13 m2 Caroline Stewardd Work Phone: [facility] Work Phone: 10-02-2021 15:59-0400 Body weight 105.69 kg Caroline Stewardd Work Phone: [facility] Work Phone: 10-02-2021 15:59-0400 Diastolic blood pressure 79 mm[Hg] Caroline Stewardd Work Phone: [facility] Work Phone: 10-02-2021 15:59-0400 Heart rate 53 /min Caroline Stewardd Work Phone: [facility] Work Phone: 10-02-2021 15:59-0400 Respiratory rate 14 /min Caroline Stewardd Work Phone: [facility] Work Phone: 10-02-2021 15:59-0400 Systolic blood pressure 153 mm[Hg] Caroline Stewardd Work Phone: [facility] Work Phone: 09-26-2021 08:50-0500 SaO2% (BldA) [Mass fraction] 95 % Benjamin Benton MD Work Phone: [facility] Comment on above: with rest on room air 09-26-2021 08:47-0500 Body mass index (BMI) [Ratio] 37.13 kg/m2 Benjamin Benton MD Work Phone: [facility] 09-26-2021 08:47-0500 Body temperature 96.3 [degF] Benjamin Benton MD Work Phone: [facility] 09-26-2021 08:47-0500 Body weight 105.14 kg Benjamin Benton MD Work Phone: [facility] 09-26-2021 08:47-0500 Diastolic blood pressure 82 mm[Hg] Benjamin Benton MD Work Phone: [facility] 09-26-2021 08:47-0500 Heart rate 67 /min Benjamin Benton MD Work Phone: [facility] 09-26-2021 08:47-0500 Systolic blood pressure 149 mm[Hg] Benjamin Benton MD Work Phone: [facility] 07-18-2021 10:41-0500 Body height 168.3 cm Rose Thomas MD Work Phone: [facility] 07-18-2021 10:41-0500 Body mass index (BMI) [Ratio] 35.32 kg/m2 Rose Thomas MD Work Phone: [facility] 07-18-2021 10:41-0500 Body temperature 98.29 [degF] Rose Thomas MD Work Phone: [facility] 07-18-2021 10:41-0500 Body weight 100.02 kg Rose Thomas MD Work Phone: [facility] 07-18-2021 10:41-0500 Diastolic blood pressure 93 mm[Hg] Rose Thomas MD Work Phone: [facility] 07-18-2021 10:41-0500 Heart rate 65 /min Rose Thomas MD Work Phone: [facility] 07-18-2021 10:41-0500 SaO2% (BldA) [Mass fraction] 94 % Rose Thomas MD Work Phone: [facility] 07-18-2021 10:41-0500 Systolic blood pressure 156 mm[Hg] Rose Thomas MD Work Phone: [facility] 07-04-2021 08:48-0500 Body mass index (BMI) [Ratio] 35.99 kg/m2 Caroline C Huston Work Phone: [facility] Work Phone: 07-04-2021 08:48-0500 Body surface area Derived from formula 2.09 m2 Caroline C Huston Work Phone: [facility] Work Phone: 07-04-2021 08:48-0500 Body temperature 97.7 [degF] Caroline C Huston Work Phone: [facility] Work Phone: 07-04-2021 08:48-0500 Body weight 101.15 kg Caroline C Huston Work Phone: [facility] Work Phone: 07-04-2021 08:48-0500 Diastolic blood pressure 73 mm[Hg] Caroline C Huston Work Phone: [facility] Work Phone: 07-04-2021 08:48-0500 Heart rate 64 /min Caroline C Huston Work Phone: [facility] Work Phone: 07-04-2021 08:48-0500 Respiratory rate 14 /min Caroline Cantu Huston Work Phone: [facility] Work Phone: 07-04-2021 08:48-0500 Systolic blood pressure 156 mm[Hg] Caroline C Huston Work Phone: [facility] Work Phone: 06-27-2021 09:42-0500 Body mass index (BMI) [Ratio] 34.91 kg/m2 Benjamin Benton MD Work Phone: [facility] 06-27-2021 09:42-0500 Body temperature 98.2 [degF] Benjamin Benton MD Work Phone: [facility] 06-27-2021 09:42-0500 Body weight 98.84 kg Benjamin Benton MD Work Phone: [facility] 06-27-2021 09:42-0500 Diastolic blood pressure 78 mm[Hg] Benjamin Benton MD Work Phone: [facility] 06-27-2021 09:42-0500 Heart rate 71 /min Benjamin Benton MD Work Phone: [facility] 06-27-2021 09:42-0500 SaO2% (BldA) [Mass fraction] 98 % Benjamin Benton MD Work Phone: [facility] Comment on above: room air 06-27-2021 09:42-0500 Systolic blood pressure 126 mm[Hg] Benjamin Benton MD Work Phone: [facility] 06-12-2021 15:04-0500 Body height 168.3 cm Caroline Huston MD Work Phone: [facility] 06-12-2021 15:04-0500 Body mass index (BMI) [Ratio] 35.56 kg/m2 Caroline Huston MD Work Phone: [facility] 06-12-2021 15:04-0500 Body temperature 97.11 [degF] Caroline Huston MD Work Phone: [facility] 06-12-2021 15:04-0500 Body weight 100.7 kg Caroline Huston MD Work Phone: [facility] 06-12-2021 15:04-0500 Diastolic blood pressure 85 mm[Hg] Caroline Huston MD Work Phone: [facility] 06-12-2021 15:04-0500 Heart rate 63 /min Caroline Huston MD Work Phone: [facility] 06-12-2021 15:04-0500 Respiratory rate 16 /min Caroline Huston MD Work Phone: [facility] 06-12-2021 15:04-0500 SaO2% (BldA) [Mass fraction] 95 % Caroline Huston MD Work Phone: [facility] 06-12-2021 15:04-0500 Systolic blood pressure 137 mm[Hg] Caroline Huston MD Work Phone: [facility] 06-08-2021 10:43-0500 Body height 167.64 cm Carolinexavier Huston Work Phone: [facility] Work Phone: 06-08-2021 10:43-0500 Body mass index (BMI) [Ratio] 35.51 kg/m2 Caroline Huston Work Phone: [facility] Work Phone: 06-08-2021 10:43-0500 Body surface area Derived from formula 2.08 m2 Caroline Huston Work Phone: [facility] Work Phone: 06-08-2021 10:43-0500 Body weight 99.79 kg Caroline Huston Work Phone: [facility] Work Phone: 06-08-2021 10:43-0500 Diastolic blood pressure 78 mm[Hg] Carolinexavier Huston Work Phone: [facility] Work Phone: 06-08-2021 10:43-0500 Heart rate 60 /min Caorlinexavier Huston Work Phone: [facility] Work Phone: 06-08-2021 10:43-0500 Systolic blood pressure 130 mm[Hg] Carolinexavier Huston Work Phone: [facility] Work Phone: 06-05-2021 11:29-0500 Body mass index (BMI) [Ratio] 35.61 kg/m2 Caroline Huston Work Phone: [facility] Work Phone: 06-05-2021 11:29-0500 Body surface area Derived from formula 2.09 m2 Caroline Huston Work Phone: [facility] Work Phone: 06-05-2021 11:29-0500 Body temperature 98.1 [degF] Caroline Huston Work Phone: [facility] Work Phone: 06-05-2021 11:29-0500 Body weight 100.06 kg Caroline Huston Work Phone: [facility] Work Phone: 06-05-2021 11:29-0500 Diastolic blood pressure 83 mm[Hg] Caroline Huston Work Phone: [facility] Work Phone: 06-05-2021 11:29-0500 Heart rate 65 /min Caroline Huston Work Phone: [facility] Work Phone: 06-05-2021 11:29-0500 Respiratory rate 16 /min Caroline Huston Work Phone: [facility] Work Phone: 06-05-2021 11:29-0500 Systolic blood pressure 144 mm[Hg] Caroline Huston Work Phone: [facility] Work Phone: 05-31-2021 08:35-0500 Body height 168.3 cm Maximus Westbrook MD Work Phone: [facility] 05-31-2021 08:35-0500 Body mass index (BMI) [Ratio] 35.53 kg/m2 Maximus Westbrook MD Work Phone: [facility] 05-31-2021 08:35-0500 Body weight 100.61 kg Maximus Westbrook MD Work Phone: [facility] 05-31-2021 08:35-0500 Diastolic blood pressure 78 mm[Hg] Maximus Westbrook MD Work Phone: [facility] 05-31-2021 08:35-0500 Heart rate 69 /min Maximus Westbrook MD Work Phone: [facility] 05-31-2021 08:35-0500 Systolic blood pressure 124 mm[Hg] Maximus Westbrook MD Work Phone: [facility] 05-23-2021 09:40-0400 Body mass index (BMI) [Ratio] 35.29 kg/m2 Maximus Westbrook MD Work Phone: [facility] 05-23-2021 09:40-0400 Body weight 99.93 kg Maximus Westbrook MD Work Phone: [facility] 05-23-2021 09:40-0400 Diastolic blood pressure 84 mm[Hg] Maximus Westbrook MD Work Phone: [facility] 05-23-2021 09:40-0400 Heart rate 65 /min Maximus Westbrook MD Work Phone: [facility] 05-23-2021 09:40-0400 Systolic blood pressure 134 mm[Hg] Maximus Westbrook MD Work Phone: [facility] 05-15-2021 12:52-0400 Body height 168.3 cm Benjamin Benton MD Work Phone: [facility] 05-15-2021 12:52-0400 Body mass index (BMI) [Ratio] 35.88 kg/m2 Benjamin Benton MD Work Phone: [facility] 05-15-2021 12:52-0400 Body temperature 98.91 [degF] Benjamin Benton MD Work Phone: [facility] 05-15-2021 12:52-0400 Body weight 101.61 kg Benjamin Benton MD Work Phone: [facility] 05-15-2021 12:52-0400 Diastolic blood pressure 82 mm[Hg] Benjamin Benton MD Work Phone: [facility] 05-15-2021 12:52-0400 Heart rate 72 /min Benjamin Benton MD Work Phone: [facility] 05-15-2021 12:52-0400 SaO2% (BldA) [Mass fraction] 94 % Benjamin Benton MD Work Phone: [facility] 05-15-2021 12:52-0400 Systolic blood pressure 127 mm[Hg] Benjamin Benton MD Work Phone: [facility] 04-24-2021 15:04-0400 Body temperature 98.6 [degF] Caroline C Huston Work Phone: [facility] Work Phone: 04-24-2021 15:04-0400 Diastolic blood pressure 80 mm[Hg] Caroline C Huston Work Phone: [facility] Work Phone: 04-24-2021 15:04-0400 Heart rate 82 /min Caroline C Hustno Work Phone: [facility] Work Phone: 04-24-2021 15:04-0400 Respiratory rate 20 /min Caroline C Huston Work Phone: [facility] Work Phone: 04-24-2021 15:04-0400 Systolic blood pressure 143 mm[Hg] Caroline C Huston Work Phone: [facility] Work Phone: 04-10-2021 18:51-0400 Body temperature 97.16 [degF] Caroline Huston Other Phone: [facility] 04-10-2021 18:51-0400 Diastolic blood pressure 80 mm[Hg] Caroline Huston Other Phone: [facility] 04-10-2021 18:51-0400 Heart rate 70 /min Caroline Huston Other Phone: [facility] 04-10-2021 18:51-0400 Respiratory rate 18 /min Caroline Huston Other Phone: [facility] 04-10-2021 18:51-0400 SaO2% (BldA) [Mass fraction] 93 % Caroline Huston Other Phone: [facility] 04-10-2021 18:51-0400 Systolic blood pressure 130 mm[Hg] Caroline Huston Other Phone: [facility] 03-29-2021 18:00-0400 Body temperature 98.96 [degF] Caroline Huston Other Phone: [facility] 03-29-2021 18:00-0400 Diastolic blood pressure 72 mm[Hg] Caroline Huston Other Phone: [facility] 03-29-2021 18:00-0400 Heart rate 75 /min Caroline Huston Other Phone: [facility] 03-29-2021 18:00-0400 Respiratory rate 18 /min Caroline Huston Other Phone: [facility] 03-29-2021 18:00-0400 SaO2% (BldA) [Mass fraction] 94 % Caroline Huston Other Phone: [facility] 03-29-2021 18:00-0400 Systolic blood pressure 124 mm[Hg] Caroline Huston Other Phone: [facility] 03-29-2021 16:38-0400 Body height 170.1 cm Caroline Huston Other Phone: [facility] 03-29-2021 16:38-0400 Body weight 100 kg Caroline Stewardd Other Phone: [facility] 01-16-2021 15:16-0400 Body mass index (BMI) [Ratio] 35.86 kg/m2 Caroline C Huston Work Phone: [facility] Work Phone: 01-16-2021 15:16-0400 Body surface area Derived from formula 2.09 m2 Caroline C Huston Work Phone: [facility] Work Phone: 01-16-2021 15:16-0400 Body temperature 98.3 [degF] Caroline Cantu Huston Work Phone: [facility] [employer] Work Phone: 01-16-2021 15:16-0400 Body weight 100.79 kg Caroline Cantu Huston Work Phone: [facility] [employer] Work Phone: 01-16-2021 15:16-0400 Diastolic blood pressure 79 mm[Hg] Caroline C Huston Work Phone: [facility] Work Phone: 01-16-2021 15:16-0400 Heart rate 65 /min Caroline C Huston Work Phone: [facility] Work Phone: 01-16-2021 15:16-0400 Respiratory rate 16 /min Caroline C Huston Work Phone: [facility] Work Phone: 01-16-2021 15:16-0400 Systolic blood pressure 130 mm[Hg] Caroline C Huston Work Phone: [facility] Work Phone: 01-09-2021 11:02-0400 Body height 167.64 cm Caroline C Huston Work Phone: [facility] Work Phone: 01-09-2021 11:02-0400 Body mass index (BMI) [Ratio] 35.39 kg/m2 Caroline Huston Work Phone: [facility] Work Phone: 01-09-2021 11:02-0400 Body surface area Derived from formula 2.08 m2 Caroline Huston Work Phone: [facility] Work Phone: 01-09-2021 11:02-0400 Body temperature 98.6 [degF] Caroline Huston Work Phone: [facility] Work Phone: 01-09-2021 11:02-0400 Body weight 99.45 kg Caroline Huston Work Phone: [facility] Work Phone: 01-09-2021 11:02-0400 3.5 1 Caroline Huston Work Phone: [facility] [facility] [address] Work Phone: Comment on above: [facility] 03-18-2020 07:11-0400 BMI (Body Mass Index) 33.96 kg/m2 Caroline Huston [facility] 03-18-2020 07:11-0400 Body Temperature 97.81 [degF] Caroline Huston [facility] 03-18-2020 07:11-0400 Body weight 96.16 kg Caroline Huston [facility] 03-18-2020 07:11-0400 BP Diastolic 84 mm[Hg] Caroline Huston [facility] 03-18-2020 07:11-0400 BP Systolic 128 mm[Hg] Caroline Huston [facility] 03-18-2020 07:11-0400 Height 168.3 cm Caroline Huston [facility] 03-18-2020 07:11-0400 Pulse (Heart Rate) 61 /min Carolinexavier Huston [facility] 03-18-2020 07:11-0400 Pulse Oximetry 97 % Caroline Huston [facility] 03-18-2020 07:11-0400 Respiratory Rate 14 /min Carolinexavier Huston [facility] 10-05-2019 13:56-0400 BMI (Body Mass Index) 35.72 kg/m2 Carolinexavier Huston [facility] 10-05-2019 13:56-0400 Body Temperature 97.81 [degF] Carolinexavier Huston [facility] 10-05-2019 13:56-0400 Body weight 101.15 kg Carolinexavier Huston [facility] 10-05-2019 13:56-0400 BP Diastolic 81 mm[Hg] Carolinexavier Huston [facility] 10-05-2019 13:56-0400 BP Systolic 150 mm[Hg] Caroline Huston [facility] 10-05-2019 13:56-0400 Height 168.3 cm [facility] 10-05-2019 13:56-0400 Pulse (Heart Rate) 64 /min Carolinexavier Huston [facility] 10-05-2019 13:56-0400 Pulse Oximetry 98 % Carolinexavier Huston [facility] 10-05-2019 13:56-0400 Respiratory Rate 16 /min Carolinexavier Huston [facility] 07-07-2019 10:16-0500 BMI (Body Mass Index) 34.78 kg/m2 Harlan Swann [facility] Work Phone: 07-07-2019 10:16-0500 Body weight 97.75 kg Harlan Swann [facility] Work Phone: 07-07-2019 10:16-0500 BP Diastolic 83 mm[Hg] Harlan Lambertumbar [facility] Work Phone: 07-07-2019 10:16-0500 BP Systolic 120 mm[Hg] Harlan Lambertumbar [facility] Work Phone: 07-07-2019 10:16-0500 BSA (Body Surface Area) 2.06 m2 Harlan Bansalar [facility] Work Phone: 07-07-2019 10:16-0500 Height 167.64 cm Harlan Lambertumbar [facility] Work Phone: 07-07-2019 10:16-0500 Pulse (Heart Rate) 80 /min Harlan Lambertumbar [facility] Work Phone: 07-07-2019 10:16-0500 Respiratory Rate 16 /min Harlan Lambertumbar [facility] Work Phone: 11-28-2018 07:47-0400 BMI (Body Mass Index) 35.63 kg/m2 Carolinexavier Huston [facility] 11-28-2018 07:47-0400 Body Temperature 97.9 [degF] Carolinexavier Huston [facility] 11-28-2018 07:47-0400 Body weight 100.88 kg Carolinexavier Huston [facility] 11-28-2018 07:47-0400 BP Diastolic 80 mm[Hg] Caroline Huston [facility] 11-28-2018 07:47-0400 BP Systolic 123 mm[Hg] Carolinexavier Huston [facility] 11-28-2018 07:47-0400 Height 168.3 cm Caroline Huston [facility] 11-28-2018 07:47-0400 Pulse (Heart Rate) 67 /min Caroline Huston [facility] 11-28-2018 07:47-0400 Pulse Oximetry 93 % Carolinexavier Huston [facility] 11-28-2018 07:47-0400 Respiratory Rate 16 /min Caroline Huston [facility] Encounters Encounter Date Encounter Type Care Provider Facility Start: 05-07-2024 End: 05-07-2024 Subsequent hospital visit by physician [address] Comment on above: History of pulmonary embolus (PE) Start: 05-07-2024 End: 05-07-2024 ambulatory ARIELLA B [facility] Start: 05-06-2024 End: 05-06-2024 Office outpatient visit 15 minutes 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 APRN-SUPERVISOR [employer] Work Phone: [facility] Comment on above: Ankle injury, left, sequela; Neurogenic claudication due to lumbar spinal stenosis Start: 05-06-2024 End: 05-06-2024 Subsequent hospital visit by physician Victoriano [id number] [facility] Comment on above: Ankle injury, left, sequela Start: 05-06-2024 End: 05-06-2024 ambulatory MARISELA M [facility] Start: 05-06-2024 End: 05-06-2024 Office outpatient visit 25 minutes Ariella Parhamman 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 [employer] Work Phone: [facility] Comment on above: Intercostal pain (Pr imary Dx); History of pulmonary embolus (PE) Start: 05-06-2024 End: 05-06-2024 ambulatory [facility] Start: 04-20-[address] [facility] Start: 04-16-2024 End: 04-16-2024 ambulatory AMY Cantu [facility] Start: 04-14-2024 End: 04-14-2024 ambulatory AMY Cantu [facility] Start: 03-19-2024 End: 03-19-2024 ambulatory AMY C [facility] Start: 03-17-2024 End: 03-17-2024 ambulatory AMY C [facility] Start: 03-07-2024 End: 03-07-2024 ambulatory MAME [facility] Start: 01-15-2024 End: 01-15-2024 Office outpatient visit 15 minutes Felipe Yates DPM Work Phone: [facility] Comment on above: Primary osteoarthrit is of left foot (Primary Dx) Start: 01-15-2024 End: 01-19-2024 ambulatory [facility] Start: 12-24-2023 End: 12-24-2023 Office outpatient visit 15 minutes Amy Rizvi PA-C Work Phone: [facility] Comment on above: Neurogenic claudicat ion due to lumbar spinal stenosis (Primary Dx); Chronic bilateral low back pain without sciatica; Spondylolisthesis, lumbosacral region; Lumbosacral radiculitis; Intervertebral disc disorders with radiculopathy, lumbosacral region Start: 12-24-2023 End: 12-24-2023 ambulatory AMY Cantu [facility] Start: 11-05-2023 End: 11-05-2023 Office outpatient visit 25 minutes Mame Gray Work Phone: [facility] Comment on above: B12 deficiency (Prim abby Dx); Acquired hypothyroidism; Primary hypertension; Gastroesophageal reflux disease without esophagitis; RLS (restless legs syndrome); Elevated blood sugar Start: 11-05-2023 End: 11-05-2023 ambulatory [facility] Ambulatory Start: 11-01-2023 End: 11-01-[address] [facility] Start: 10-01-2023 End: 10-01-2023 Office outpatient visit 15 minutes Amy Rizvi PA-C Work Phone: [facility] Comment on above: Neurogenic claudicat ion due to lumbar spinal stenosis; Spondylolisthesis, lumbosacral region; Intervertebral disc disorders with radiculopathy, lumbosacral region; Lumbosacral radiculitis Start: 10-01-2023 End: 10-01-2023 ambulatory AMY Cantu [facility] Start: 09-24-2023 End: 09-24-2023 ambulatory DAVON Jo [facility] Start: 09-10-2023 End: 09-10-2023 ambulatory DAVON A [facility] Start: 09-03-2023 End: 09-03-2023 ambulatory DAVON A [facility] Start: 08-27-2023 End: 08-27-2023 ambulatory DAVON A [facility] Start: 08-20-2023 End: 08-20-2023 ambulatory DAVON A [facility] Start: 08-06-2023 End: 08-06-2023 ambulatory DAVON A [facility] Start: 07-18-2023 End: 07-18-2023 ambulatory DAVON KOLB [facility] Start: 07-02-2023 End: 07-02-2023 Office outpatient visit 15 minutes Amy Rizvi PA-C Work Phone: [facility] Comment on above: Neurogenic claudicat ion due to lumbar spinal stenosis (Primary Dx); Spondylolisthesis, lumbosacral region; Intervertebral disc disorders with radiculopathy, lumbosacral region; Lumbosacral radiculitis Start: 07-02-2023 End: 07-02-2023 ambulatory AMY RIZVI [facility] Start: 06-28-2023 End: 06-28-2023 Office outpatient visit 25 minutes Felipe Yates DPM Work Phone: [facility] Comment on above: Hallux limitus of le ft foot (Primary Dx); Pes valgus of left foot Start: 06-28-2023 End: 07-02-2023 ambulatory FELIPE YATES JR[facility] Ambulatory Start: 06-04-2023 End: 06-04-2023 ambulatory [facility] Ambulatory Start: 05-24-2023 End: 05-24-2023 Office outpatient visit 15 minutes Felipe Yates DPM Work Phone: [facility] Comment on above: Hallux limitus of le ft foot (Primary Dx); Stress fracture of left foot, initial encounter Start: 05-24-2023 End: 05-28-2023 ambulatory FELIPE YATES JR. [facility] Ambulatory Start: 05-23-2023 End: 05-23-2023 ambulatory MAME GRAY [facility] Start: 05-02-2023 End: 05-02-2023 Office outpatient visit 25 minutes Mame Gray DO Work Phone: [facility] Comment on above: Gastroesophageal ref lux disease without esophagitis (Primary Dx); RLS (restless legs syndrome); Primary hypertension; Non-recurrent acute serous otitis media of right ear; Vitamin D deficiency; Diarrhea of infectious origin; Screening mammogram for breast cancer Start: 04-25-2023 Documentation procedure Carmen polk MA [facility] Start: 04-02-2023 Patient encounter procedure viky Gray Work Phone: [facility] Work Phone: Start: 04-02-2023 ambulatory Ms. Amy Rizvi Facility:[id number] Start: 03-22-2023 End: 03-22-2023 Office outpatient visit 15 minutes Felipe Yates DPM Work Phone: [facility] Comment on above: Closed nondisplaced fracture of first metatarsal bone of left foot, initial encounter (Primary Dx); Closed nondisplaced fracture of second metatarsal bone of left foot, initial encounter Start: 03-22-2023 End: 03-26-2023 ambulatory FELIPE YATES JR. [facility] Ambulatory Start: 03-08-2023 End: 03-08-[address] Harlan Swann Facility:[id number] Start: 03-08-2023 End: 03-08-2023 Subsequent hospital visit by physician Harlan Swann MD Work Phone: [facility] Comment on above: Spinal stenosis, lum bar region with neurogenic claudication Start: 03-01-2023 End: 03-01-2023 Office outpatient visit 15 minutes Felipe Yates DPM Work Phone: [facility] Comment on above: Closed nondisplaced fracture of first metatarsal bone of left foot, initial encounter (Primary Dx); Closed nondisplaced fracture of second metatarsal bone of left foot, initial encounter Start: 03-01-2023 End: 03-05-2023 ambulatory FELIPE YATES JR[facility] Ambulatory Start: 02-26-2023 Patient encounter procedure Me salmon Skyler Gray Work Phone: [facility] Work Phone: Start: 02-26-2023 ambulatory Mame Gray Facili ty:[id number] Start: 02-11-[address] Harlan Swann Facility:[id number] Start: 02-06-2023 Chart Update Mame Singh user Work Phone: [facility] Work Phone: Start: 02-04-[address] Harlan Swann Facility:[id number] Start: 02-04-2023 Patient encounter procedure Me viky Gray Work Phone: [facility] Work Phone: Start: 02-04-[address] Harlan Swann Facility:[id number] Start: 02-01-2023 End: 02-01-2023 Office outpatient visit 15 minutes Felipe Yates DPM Work Phone: [facility] Comment on above: Closed nondisplaced fracture of first metatarsal bone of left foot, initial encounter (Primary Dx); Closed nondisplaced fracture of second metatarsal bone of left foot, initial encounter Start: 02-01-2023 End: 02-01-2023 ambulatory MAMEJenna GRAY [facility] Ambulatory Start: 02-01-2023 End: 02-02-2023 ambulatory MAMEJenna GRAY [facility] Start: 01-29-[address] Felipe gaitan Jr Facility:[id number] Start: 01-11-2023 End: 01-11-2023 Office outpatient visit 15 minutes Felipe Yates DPM Work Phone: [facility] Comment on above: Hallux limitus of le ft foot (Primary Dx); Left foot pain; Primary osteoarthritis of left foot Start: 01-04-2023 End: 01-04-[address] Harlan Swann Facility:[id number] Start: 01-04-2023 End: 01-04-2023 Subsequent hospital visit by physician Harlan Swann MD Work Phone: [facility] Comment on above: Radiculopathy, lumbo sacral region; Spinal stenosis, lumbosacral region Start: 12-24-2022 Patient encounter procedure Me viky Gray Work Phone: [facility] Work Phone: Start: 12-24-[address] Harlan Swann Facility:[id number] Start: 11-09-2022 End: 11-10-2022 ambulatory MAME GRAY [facility] Start: 11-09-2022 End: 11-09-2022 Office outpatient new 30 minutes Felipe Yates DPM Work Phone: [facility] Comment on above: Hallux limitus of le ft foot (Primary Dx); Left foot pain; Primary osteoarthritis of left foot Start: 11-06-2022 ambulatory Mame Gray [facility] ty:[id number] Start: 09-28-2022 AUDIT Mame Whitneycornel user Work Phone: [facility] Work Phone: Start: 09-24-[address] Harlan Swann Facility:[id number] Start: 08-20-2022 AUDIT Mame Singh user Work Phone: [facility] Work Phone: Start: 08-03-2022 End: 08-03-[address] Harlan Swann Facility:[id number] Start: 07-31-2022 Patient encounter procedure Me viky Holland Donalbarbara Work Phone: [facility] Work Phone: Start: 07-31-[address] Harlan Swann Facility:[id number] Start: 07-06-2022 End: 07-06-[address] Harlan Swann Facility:[id number] Start: 07-03-2022 Office outpatient ne w 45 minutes Mame Gray Work Phone: [facility] Work Phone: Start: 07-03-[address] Caroline Huston Facility:[id number] Start: 06-15-2022 Chart Update Caroline Huston Work Phone: [facility] Work Phone: Start: 06-12-[address] Caroline Huston Facility:[id number] Start: 06-12-2022 Patient encounter procedure Shanika Huston Work Phone: [facility] Work Phone: Start: 06-12-[address] Caroline Huston Facility:[id number] Start: 2022 Chart Update Caroline Huston Work Phone: [facility] Work Phone: Start: 01-30-2022 AUDIT Caroline Huston Work Phone: [facility] Work Phone: Start: 01-01-2022 Patient encounter procedure Shanika Huston Work Phone: [facility] Work Phone: Start: 12-11-2021 End: 12-11-2021 Office outpatient visit 25 minutes Caroline Huston MD Work Phone: [facility] Comment on above: Hypothyroidism, unsp ecified type (Primary Dx); Depression, unspecified depression type; Hypertension, essential, benign; Encounter for administration of vaccine Start: 10-03-2021 AUDIT Caroline Huston Work Phone: [facility] Work Phone: Start: 10-02-2021 Patient encounter procedure Shanika wilder Pepe Huston Work Phone: [facility] Work Phone: Start: 09-26-2021 End: 09-26-2021 Office outpatient visit 10 minutes Benjamin Benton MD Work Phone: [facility] Comment on above: PE (physical exam), annual (Primary Dx); Pulmonary embolism, unspecified chronicity, unspecified pulmonary embolism type, unspecified whether acute cor pulmonale present (HCC) Start: 09-26-2021 End: 09-26-2021 Patient encounter procedure Benjamin Benton MD Work Phone: [facility] Start: 08-30-2021 Documentation procedure Caroline Huston MD Work Phone: [facility] Start: 07-19-2021 AUDIT Caroline Huston Work Phone: [facility] Work Phone: Start: 07-18-2021 End: 07-18-2021 Office outpatient visit 25 minutes Rose Thomas MD Work Phone: [facility] Comment on above: Bilateral pulmonary embolism (HCC) (Primary Dx); 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 Start: 07-10-2021 End: 07-14-2021 ambulatory [facility] Start: 07-04-2021 Patient encounter procedure Shanika Huston Work Phone: [facility] Work Phone: Start: 06-29-2021 End: 06-30-2021 ambulatory [facility] Start: 06-27-2021 End: 06-27-2021 Office outpatient visit 10 minutes Benjamin Benton MD Work Phone: [facility] Comment on above: Dyspnea on exertion (Primary Dx) Start: 06-12-2021 End: 06-12-2021 Office outpatient visit 25 minutes Caroline Huston MD Work Phone: [facility] Comment on above: Hypothyroidism, unsp ecified type (Primary Dx); Gastroesophageal reflux disease; Sleep difficulties Start: 06-08-2021 NPV, Provider: Mame Cooley, Status: Pen, Time: 10:30 AM Caroline Huston Work Phone: [facility] Work Phone: Start: 06-08-2021 Office consultation new/estab patient 40 min Caroline Huston Work Phone: [facility] Work Phone: Start: 06-08-2021 Patient encounter procedure Shanika Huston Work Phone: [facility] Work Phone: Start: 06-05-2021 Chart Update Caroline Huston Work Phone: [facility] Work Phone: Start: 06-05-2021 Patient encounter procedure Shanika Huston Work Phone: [facility] Work Phone: Start: 05-31-2021 End: 05-31-2021 Office outpatient visit 15 minutes Maximus Westbrook MD Work Phone: [facility] Comment on above: Female stress incont inence (Primary Dx) Start: 05-30-2021 AUDIT Caroline Huston Work Phone: [facility] Work Phone: Start: 05-30-2021 [facility]ation [facility] Start: 05-23-2021 End: 05-23-2021 Office outpatient new 30 minutes Maximus Westbrook MD Work Phone: [facility] Comment on above: Stress incontinence in female Start: 05-15-2021 End: 05-19-2021 ambulatory CAROLINE [facility] Start: 05-15-2021 End: 05-15-2021 Office outpatient new 45 minutes Benjamin Benton MD Work Phone: [facility] Comment on above: Bilateral pulmonary embolism (HCC) Start: 04-27-2021 End: 05-01-2021 ambulatory CAROLINE HUSTON [facility] Start: 04-24-2021 Patient encounter procedure Shanika Huston Work Phone: [facility] Work Phone: Start: 04-18-2021 AUDIT Caroline Huston Work Phone: [facility] Work Phone: Start: 04-10-2021 AUDIT Caroline Huston Work Phone: [facility] Work Phone: Start: 04-07-2021 End: 04-10-2021 Evaluation and management of inpatient Sav Mezachem [facility] 3 Med Surg [place] [id number] 01 Start: 03-29-2021 End: 03-29-2021 Emergency department patient visit Jaylen Ramos [facility] Emergency 06 Start: 01-09-2021 Office outpatient ne w 60 minutes Caroline Stewardd Work Phone: [facility] [place] [facility] Work Phone: Start: 01-09-2021 Patient encounter procedure Shanika Huston Work Phone: [facility] [facility] Work Phone: Start: 09-22-2020 End: 09-22-2020 Orders Only Bettie Fong Work Phone: [facility] Start: 03-18-2020 End: 03-18-2020 Periodic preventive med est patient 40-64yrs Caroline Huston Work Phone: [facility] Comment on above: Annual physical exam (Primary Dx); Hypothyroidism, unspecified type; Hypertension, essential, benign; Insomnia, unspecified type; Depression, unspecified depression type; Gastroesophageal reflux disease, esophagitis presence not specified; Vitamin D deficiency Start: 10-05-2019 End: 10-05-2019 Office outpatient visit 15 minutes Caroline Huston Work Phone: [facility] Comment on above: Cat bite of hand, le ft, initial encounter (Primary Dx) Start: 11-28-2018 End: 11-28-2018 Periodic preventive med est patient 40-64yrs Caroline Huston Work Phone: [facility] Comment on above: Annual physical exam (Primary Dx); Hypertension, essential, benign; Hypothyroidism, unspecified type; Vitamin D deficiency; Depression, unspecified depression type; Insomnia, unspecified type Start: 06-27-2018 End: 06-27-2018 Refill Caroline Huston Work Phone: [facility] Medicine Procedures Date Procedure Procedure Detail Performing Clinician Start: 05-07-2024 Ct angiography chest w/contrast/noncontrast Ariella COLORADO Work Phone: Start: 11-05-2023 FOLLOW UP IN FAMILY MEDICINE SANDEEP MILLIGAN Start: 11-01-2023 Comprehensive metabo lic 2000 panel - Serum or Plasma MAME GRAY Start: 11-01-2023 Cyanocobalamin vitamin b-12 MAME ELISA Start: 11-01-2023 Lipid panel MAME DEVONTE MALGORZATA Start: 11-01-2023 TSH WITH REFLEX TO F REE T4 IF ABNORMAL MAME GRAY Start: 11-01-2023 Lipid 1996 panel - S eli or Plasma Mame Gray DO Work Phone: Start: 11-01-2023 Thyrotropin [Units/v olume] in Serum or Plasma Mame Gray DO Work Phone: Start: 10-01-2023 DISABILITY JUSTYNA BERMUDEZ Start: 09-24-2023 FOLLOW UP IN PHYSICA L THERAPY AMY RIZVI Start: 09-10-2023 FOLLOW UP IN PHYSICA L THERAPY AMY RIZVI Start: 09-03-2023 FOLLOW UP IN PHYSICA L THERAPY AMY RIZVI Start: 08-27-2023 FOLLOW UP IN PHYSICA L THERAPY AMY RIZVI Start: 08-20-2023 FOLLOW UP IN PHYSICA L THERAPY AMY RIZVI Start: 08-06-2023 FOLLOW UP IN PHYSICA L THERAPY AMY RIZVI Start: 07-18-2023 AMB REFERRAL TO PHYS ICAL THERAPY AMY RIZVI Start: 06-28-2023 Follow-up visit Follow-up MAYANK YATES JR. Start: 05-23-2023 BI MAMMO BILATERAL S CREENING TOMOSYNTHESIS AMY RIZVI Start: 05-23-2023 Mammography Harlan Novak MD Work Phone: Start: 03-08-2023 Fluor needle/cath spine/paraspinal dx/ther addon Harlan Swann MD Work Phone: Start: 03-08-2023 Epidural steroid injection Mame L Oberhauser Work Phone: Comment on above: L4-5 DEMI; Start: 01-04-2023 RFA Unspecified body region Limited Views for therapy or embolization or infusion W contrast via existing catheter Harlan Swann MD Work Phone: Start: 01-04-2023 Lipid 1996 panel - S eli or Plasma Mame Oberhauser DO Work Phone: Start: 01-04-2023 Thyrotropin [Units/v olume] in Serum or Plasma Mame Oberhauser DO Work Phone: Start: 01-04-2023 Epidural steroid injection Mame L Oberhauser Work Phone: Comment on above: Bilat L5 TFESI; Start: 11-09-2022 NURSING COMMUNICATIO N - DO NOT USE IN ORDER SETS Felipe Yates DPM Work Phone: Start: 07-06-2022 Injection of steroid into joint Mame L Oberhauser Work Phone: Comment on above: Bilat SIJ; Start: 11-03-2021 Intra-articular injection Caroline C Huston Work Phone: Comment on above: Bilat SIJ Injection; Start: 06-19-2021 Injection of steroid into joint Caroline C Huston Work Phone: Comment on above: Bilat SIJ; Start: 06-08-2021 Colonoscopy Mame Devonte malgorzata DO Work Phone: Start: 05-15-2021 6-minute walk test Yanni Benton MD Work Phone: Start: 05-08-2021 Mammography Mame ferrell DO Work Phone: Start: 04-10-2021 Echocardiography Caroline Huston Work Phone: Start: 04-07-2021 aPTT in Platelet poo r plasma by Coagulation assay Akira Rodríguez Start: 04-07-2021 Blood coagulation panel Akira Rodríguez Start: 04-07-2021 End: 04-07-2021 EKG impression Akira Rodríguez Start: 10-21-2020 Epidural steroid injection Caroline Huston Work Phone: Comment on above: Bilat L5 TFESI; Start: 04-01-2020 Mammography Caroline polk MD Work Phone: Start: 03-18-2020 Microscopic observat ion [Identifier] in Cervix by Cyto stain Bettie Robertsonana Start: 02-26-2020 Epidural steroid injection Caroline Huston Work Phone: Comment on above: Bilat L5 TFESI; Start: 07-17-2019 Epidural steroid injection Caroline Huston Work Phone: Comment on above: Bilat L5 TFESI; Start: 01-05-2019 Mammography Caroline polk Start: 07-12-2017 Mammography Caroline polk Start: 01-24-2017 Lipid 1996 panel - S eli or Plasma Caroline Huston Start: 06-19-2016 Microscopic observat ion [Identifier] in Cervix by Cyto stain Caroline Huston Start: 05-27-2013 Colonoscopy Caroline polk Lumpectomy of breast Harlan Swann Comment on above: Breast; Operation on mouth Caroline kimbrough Work Phone: Comment on above: upper and lower impl ants in mouth to hold plates, 03/2019; Procedure on neck Harlan Novak Plan of Treatment Date Care Activity Detail Author Start: 2034 RSV High Risk: (Elde rly (60+) or Population) (1 - 1-dose 75+ series) RSV High Risk: (Elderly (60+) or Population) (1 - 1-dose 75+ series) [facility] Start: 06-08-2031 Screening for malign ant neoplasm of colon [facility] Start: 06-04-2029 DTaP/Tdap/Td Vaccine s (3 - Td or Tdap) DTaP/Tdap/Td Vaccines (3 - Td or Tdap) [facility] Start: 06-04-2029 Tetanus vaccination Tetanus: Every 1 0yrs [facility] Start: 10-31-2028 Lipid panel Lipid Panel [facility] Start: 01-05-2028 Lipid panel Lipid Panel [facility] Start: 03-18-2025 Screening for malign ant neoplasm of cervix [facility] Start: 11-03-2024 End: 11-03-2024 Patient encounter procedure 11/03/2024 4:20 PM EDT [facility] [address] [place] [phone] Mame Gray, [address] [facility] [place] [address] [facility] Start: 11-03-2024 End: 11-03-2024 Patient encounter procedure 11/03/2024 8:20 AM EDT [facility] [address] [place] [address] Mame Gray DO [address] [facility] [place] [address] [facility] Start: 10-31-2024 Thyroid stimulating hormone measurement TSH Level [facility] Start: 05-23-2024 Screening for malign ant neoplasm of breast Mammogram [facility] Start: 05-20-2024 End: 05-20-2024 Patient encounter procedure 05/20/2024 4:30 PM EDT Office Visit [facility] [address] [place] [phone] 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, 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 [employer] [address] [facility], [address] [place] [address] [facility] Start: 05-19-2024 End: 05-19-2024 Patient encounter procedure 05/19/2024 9:15 AM EDT Appointment [place] [id number] [place] [phone] [facility] Start: 05-07-2024 Subsequent hospital visit by physician 05/07/2024 3:30 PM EDT Hospital Encounter [address] [phone] [facility] Start: 05-06-2024 End: 05-06-2024 Patient encounter procedure 05/06/2024 4:30 PM EDT Office Visit [facility] [address] [place] [phone] 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, 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 [employer] [address] [facility], [address] [place] [id number] Ankle injury, left, sequela [facility] Comment on above: Ankle injury, left, sequela Start: 05-06-2024 End: 05-06-2025 CTA Chest vessels WO and W contrast IV CT angio chest w and wo IV contrast Imaging Routine Intercostal pain History of pulmonary embolus (PE) Expected: 05/06/2024, Expires: 05/06/2025 [facility] Service Area Work Phone: Comment on above: Expected: 05/06/2024 , Expires: 05/06/2025 Start: 04-27-2024 Diabetes mellitus screening Diabetes Screening [facility] Start: 2024 Pneumococcal Vaccine : 65+ Years (1 - PCV) Pneumococcal Vaccine: 65+ Years (1 - PCV) [facility] Start: 2024 Pneumococcal Vaccine : 65+ Years (1 of 1 - PCV) Pneumococcal Vaccine: 65+ Years (1 of 1 - PCV) [facility] Start: 03-22-2024 COVID-19 Vaccine ( season) COVID-19 Vaccine () [facility] Start: 03-22-2024 Influenza vaccination [facility] Start: 03-17-2024 End: 03-17-2024 Patient encounter procedure 03/17/2024 8:15 AM EDT Office Visit [facility] [place] [address] [address] [place] [phone] Amy Rizvi PA-C [address] [place], [place] [address] [place] [phone] [facility] Office [facility] Start: 01-05-2024 Thyroid stimulating hormone measurement TSH Level [facility] Start: 12-24-2023 End: 12-24-2023 Patient encounter procedure 12/24/2023 8:15 AM EDT Office Visit [facility] [address] [place] [phone] Amy Rizvi PALeC [address] [place] [address] [place] [address] [facility] Start: 11-05-2023 End: 11-05-2023 Patient encounter procedure 11/05/2023 4:20 PM EDT Office Visit [facility] [address] [place] [phone] Mame Gray DO [address] [facility] [place] [address] [facility] Start: 11-05-2023 End: 11-04-2024 Cobalamin (Vitamin B12) [Mass/volume] in Serum or Plasma Vitamin B12 Lab Routine B12 deficiency Expected: 11/05/2023 (Approximate), Expires: 11/04/2024 [facility] Work Phone: Comment on above: Expected: 11/05/2023 (Approximate), Expires: 11/04/2024 Start: 11-05-2023 End: 11-04-2024 Comprehensive metabolic 2000 panel - Serum or Plasma Comprehensive Metabolic Panel Lab Routine Primary hypertension Expected: 11/05/2023 (Approximate), Expires: 11/04/2024 [facility] Work Phone: Comment on above: Expected: 11/05/2023 (Approximate), Expires: 11/04/2024 Start: 11-05-2023 End: 11-04-2024 Hemoglobin A1c/Hemoglobin.total in Blood Hemoglobin A1C Lab Routine Elevated blood sugar Expected: 11/05/2023 (Approximate), Expires: 11/04/2024 [facility] Work Phone: Comment on above: Expected: 11/05/2023 (Approximate), Expires: 11/04/2024 Start: 11-05-2023 End: 11-04-2024 Lipid 1996 panel - Serum or Plasma Lipid Panel Lab Routine Primary hypertension Expected: 11/05/2023 (Approximate), Expires: 11/04/2024 [facility] Work Phone: Comment on above: Expected: 11/05/2023 (Approximate), Expires: 11/04/2024 Start: 11-05-2023 End: 11-04-2024 TSH with reflex to Free T4 if abnormal TSH with reflex to Free T4 if abnormal Lab Routine Acquired hypothyroidism Expected: 11/05/2023 (Approximate), Expires: 11/04/2024 [facility] Service Area Work Phone: Comment on above: Expected: 11/05/2023 (Approximate), Expires: 11/04/2024 Start: 10-01-2023 End: 10-01-2023 Patient encounter procedure 10/01/2023 8:30 AM EDT Office Visit [facility] Medical Office Building [address] [place] [address] Amy Rizvi, PA-C [address] [place] [address] [facility] Office [facility] Start: 07-18-2023 End: 07-18-2023 ambulatory 07/18/2023 4:15 PM EST Evaluation [facility] [address] [facility] [place] [address] Josette Odell, PT [address] [facility] [place] [address] [facility] Start: 07-02-2023 FUV, Provider: Amy Rizvi, Status: Pen, Time: 3:00 PM FUV, Provider: Amy Rizvi, Status: Pen, Time: 3:00 PM [facility] Work [facility]: Start: 07-02-2023 End: 07-02-2023 Patient encounter procedure 07/02/2023 3:00 PM EST Office Visit [facility] [address] [place] [address] Amy Rizvi, PA-C [address] [place] [address] [place] [address] [facility] Start: 06-28-2023 End: 06-28-2023 Patient encounter procedure 06/28/2023 8:30 AM EST Office Visit [facility] [address] [place] [phone] Felipe Yates Jr., DPM [address] [place] [address] [facility] Start: 05-27-2023 Colonoscopy COLONOSCOPY [facility] Work Phone: Start: 05-24-2023 End: 05-24-2023 Patient encounter procedure 05/24/2023 8:45 AM EDT Office Visit [facility] [address] [place] [phone] Felipe Yates Jr., DPM [address] [place] [address] [facility] Start: 05-06-2023 NPV, Provider: Davon Kolb, Status: Pen, Time: 11:40 AM NPV, Provider: Davon Kolb, Status: Pen, Time: 11:40 AM [facility] Work Phone: Start: 05-06-2023 End: 05-06-2023 Patient encounter procedure 05/06/2023 11:40 AM EDT Office Visit [facility] [address] [facility] [address] [place] [address] [place] [address] [facility] [facility], [address] [place], [place] [id number] [facility] Start: 05-02-2023 End: 07-02-2024 DBT Breast - bilateral BI mammo bilateral screening tomosynthesis Imaging Routine Screening mammogram for breast cancer Expected: 05/02/2023, Expires: 07/02/2024 [facility] Service Area Work Phone: Comment on above: Expected: 05/02/2023 , Expires: 07/02/2024 Start: 04-02-2023 FUV, Provider: Amy Rizvi, Status: Pen, Time: 2:00 PM FUV, Provider: Amy Rizvi, Status: Pen, Time: 2:00 PM [facility] Work Phone: Start: 03-22-2023 COVID-19 Vaccine ( season) COVID-19 Vaccine ( season) [facility] Start: 03-22-2023 Influenza vaccination [facility] Start: 03-22-2023 End: 03-22-2023 Patient encounter procedure 03/22/2023 8:45 AM EDT Office Visit [facility] [address] [place] [phone] Felipe Yates Jr., DPM [address] [facility] [place] [address] [facility] Start: 03-18-2023 Screening for malign ant neoplasm of cervix [facility] Start: 03-08-2023 [facility], Provider: Harlan Swann, Status: Pen, Time: 9:30 AM [facility], Provider: Harlan Swann, Status: Pen, Time: 9:30 AM [facility] Work Phone: Start: 03-01-2023 End: 03-01-2023 Patient encounter procedure 03/01/2023 3:30 PM EDT Office Visit [facility] [address] [facility] [place] [address] Felipe Yates Jr., DPM [address] [address] [facility] Start: 02-04-2023 FUV, Provider: Harlan Swann, Status: Pen, Time: 3:15 PM [facility]UV, Provider: Harlan Swann, Status: Pen, Time: 3:15 PM [facility] Work Phone: Start: 01-01-2023 FUV, Provider: Mame Gray, Status: Pen, Time: 4:20 PM FUV, Provider: Mame Gray, Status: Pen, Time: 4:20 PM [facility] Work Phone: Start: 12-24-2022 FUV, Provider: Harlan Swann, Status: Pen, Time: 3:30 PM [facility]UV, Provider: Harlan Swann, Status: Pen, Time: 3:30 PM [facility] Work Phone: Start: 12-12-2022 End: 12-12-2022 Patient encounter procedure 12/12/2022 4:15 PM EDT Office Visit [facility] [address] [place] [phone] Felipe Yates Jr., DPM [address] [place] [address] [facility] Start: 09-24-2022 FUV, Provider: Harlan Swann, Status: Pen, Time: 3:15 PM [facility]UV, Provider: Harlan Swann, Status: Pen, Time: 3:15 PM [facility] Work Phone: Start: 07-31-2022 FUV, Provider: Harlan Swann, Status: Pen, Time: 2:45 PM [facility]UV, Provider: Harlan Swann, Status: Pen, Time: 2:45 PM [facility] Work Phone: Start: 07-06-2022 [facility], Provider: Harlan Swann, Status: Pen, Time: 3:00 PM [facility], Provider: Harlan Swann, Status: Pen, Time: 3:00 PM [facility] Work Phone: Start: 07-02-2022 FUV, Provider: Harlan Swann, Status: Pen, Time: 3:00 PM [facility]UV, Provider: Harlan Swann, Status: Pen, Time: 3:00 PM [facility] Work Phone: Start: 05-08-2022 Screening for malign ant neoplasm of breast Mammogram [facility] Start: 04-02-2022 FUV, Provider: Harlan Swann, Status: Pen, Time: 3:00 PM FUV, Provider: Harlan Swann, Status: Pen, Time: 3:00 PM [facility] Work Phone: Start: 03-22-2022 Influenza vaccination Sequenti al Influenza Vaccine (Season Ended) [facility] Start: 01-24-2022 Fasting lipid profile LIPID SCREENIN G [facility] Work Phone: Start: 01-18-2022 Influenza vaccination Sequenti al Influenza Vaccine (#1) [facility] Comment on above: Postponed from 03/22 (Patient Refused) Start: 01-01-2022 FUV, Provider: Harlan Swann, Status: Pen, Time: 3:30 PM [facility]UV, Provider: Harlan Swann, Status: Pen, Time: 3:30 PM [facility] Work Phone: Start: 12-11-2021 End: 12-11-2021 Patient encounter procedure 12/11/2021 Office Visit [place] [address] [place] [address] [facility] Start: 10-02-2021 FUV, Provider: Harlan Swann, Status: Pen, Time: 3:15 PM [facility], Provider: Harlan Swann, Status: Pen, Time: 3:15 PM [facility] Work Phone: Start: 09-26-2021 End: 09-26-2021 Patient encounter procedure 09/26/2021 Office Visit Pulmonology Benjamin Benton MD [address] [place], [place] [address] [place] [address] [facility] Start: 07-18-2021 End: 07-18-2021 Patient encounter procedure 07/18/2021 Office Visit Oncology Rose Thomas MD [address] [place] [address] [facility] Start: 07-04-2021 FUV, Provider: Harlan Swann, Status: Pen, Time: 8:00 AM [facility]UV, Provider: Harlan Swann, Status: Pen, Time: 8:00 AM [facility] Work Phone: Start: 07-03-2021 End: 07-03-2021 Patient encounter procedure [facility] Start: 06-29-2021 End: 06-29-2021 Patient encounter procedure 06/29/2021 Appointment Pulmonology Benjamin Benton MD [facility] [address] [address] [facility] Start: 06-19-2021 [facility], Provider: Harlan Swann, Status: Pen, Time: 11:00 AM [facility], Provider: Harlan Swann, Status: Pen, Time: 11:00 AM [facility] Work Phone: Start: 06-12-2021 End: 06-12-2021 Patient encounter procedure 06/12/2021 Office Visit Primary Care Caroline Huston MD [address] [place] [address] [facility] Start: 06-08-2021 NPV, Provider: Mame Cooley, Status: Pen, Time: 10:30 AM NPV, Provider: Mame Cooley, Status: Pen, Time: 10:30 AM [facility] Work Phone: Start: 06-05-2021 FUV, Provider: Harlan Swann, Status: Pen, Time: 11:00 AM [facility], Provider: Harlan Swann, Status: Pen, Time: 11:00 AM [facility] Work Phone: Start: 05-31-2021 End: 05-31-2021 Patient encounter procedure 05/31/2021 Office Visit Obstetrics and Gynecology Maximus Westbrook MD [facility] Michael Walter [address] [place] [address] [facility] Start: 04-11-2021 FUV, Provider: Harlan Swann, Status: Pen, Time: 8:00 AM [facility]UV, Provider: Harlan Swann, Status: Pen, Time: 8:00 AM [facility] [employer] Work Phone: Start: 04-11-2021 Patient encounter procedure [facility] Start: 04-07-2021 End: 04-07-2021 Office Visit 04/07/2021 Office Visit Primary Care Caroline Huston MD [address] [place] [address] [phone] [facility] Start: 04-01-2021 Screening for malign ant neoplasm of breast Mammogram [facility] Start: 03-18-2021 History and physical examination, annual for health maintenance Wellness Visit [facility] Start: 01-16-2021 FUV, Provider: Harlan Swann, Status: Pen, Time: 3:15 PM FUV, Provider: Harlan Swann, Status: Pen, Time: 3:15 PM [facility] Work Phone: Start: 07-17-2020 Administration of he rpes zoster vaccine Zoster Vaccines (2 of 2) [facility] Start: 06-30-2020 History of surgical procedure on mouth History of oral surgery Date: 30-Jun-2020 Comments: upper and lower implants in mouth to hold plates [facility] Comment on above: upper and lower impl ants in mouth to hold plates Start: 03-22-2020 Influenza vaccinatio n given Sequential Influenza Vaccine (#1) [facility] Start: 01-06-2020 Screening for malign ant neoplasm of breast Mammogram [facility] Start: 01-06-2020 Screening mammography Mammogram [facility] Start: 12-04-2019 End: 12-04-2019 Office Visit 12/04/2019 Office Visit Primary Care Caroline Huston MD [address] [place] [address] [phone] [facility] Start: 11-29-2019 History and physical examination, annual for health maintenance Wellness Visit [facility] Start: 06-19-2019 Microscopic observat ion Cyto stain Nom (Cvx) PAP SMEAR [facility] Work Phone: Start: 06-19-2019 Screening for malign ant neoplasm of cervix Pap Smear [facility] Start: 06-01-2019 End: 06-01-2019 Office Visit 06/01/2019 Office Visit Primary Care Caroline Huston MD [address] [place] [address] [phone] [facility] Start: 04-20-2019 Tetanus vaccination [facility] Work Phone: Start: 2019 RSV patient s and/or patients aged 60+ years (1 - 1-dose 60+ series) RSV patients and/or patients aged 60+ years (1 - 1-dose 60+ series) [facility] Start: 03-22-2019 Influenza vaccinatio n given SEQUENTIAL INFLUENZA VACCINE (Season Ended) [facility] Start: 07-12-[address] [facility] Work Phone: Start: 06-19-2018 Thyrotropin Qn TSH [facility] Work Phone: Start: 03-22-2018 Influenza vaccination INFLUENZA VACC INE (#1) [facility] Work Phone: Start: 2009 Administration of he rpes zoster vaccine Zoster Vaccines (1 of 2) [facility] Start: 2009 Screening for malign ant neoplasm of colon [facility] Start: 1980 Screening for malign ant neoplasm of cervix [facility] Start: 1977 Hepatitis C antibody , confirmatory test Hepatitis C Screening [facility] Start: 1977 Hepatitis C screening Hepatitis C Sc reening [facility] Start: 1975 COVID-19 Vaccine (1 of 2) COVID-19 Vaccine (1 of 2) [facility] Start: 1974 HIV screening HIV Screening [facility] Start: 1971 COVID-19 Vaccine (1) COVID-19 Vaccin e (1) [facility] Start: 1964 COVID-19 Vaccine (#1) COVID-19 Vacci ne (#1) [facility] Start: 1964 COVID-19 Vaccine (1) COVID-19 Vaccin e (1) [facility] Start: 1960 MMR Vaccines (1 of 1 - Standard series) MMR Vaccines (1 of 1 - Standard series) [facility] Start: 1959 COVID-19 Vaccine (#1) COVID-19 Vacci ne (#1) [facility] Start: 1959 Hepatitis C antibody , confirmatory test Hepatitis C Screening [facility] Start: 1959 HIV screening HIV Screening [facility] Start: 1959 Screening for malign ant neoplasm of colon [facility] Start: 1959 Screening for osteoporosis Bone Density Scan [facility] Start: 1959 Screening mammography Mammogram [facility] Start: 1959 Yearly Adult Physical Yearly Adult P hycal [facility] CHEILECTOMY CHEILECTOMY [place] ux limitus of left foot Pes valgus of left foot [facility] End: 06-28-2024 Complete blood count with white cell differential, manual CBC and differential Lab Routine Hallux limitus of left foot Pes valgus of left foot 1 Occurrences starting 06/28/2023 until 06/28/2024 [facility] Work Phone: Comment on above: 1 Occurrences starti ng 06/28/2023 until 06/28/2024 End: 05-15-2022 Complete PFT with Pre and Post Bronchodilator Complete PFT with Pre and Post Bronchodilator PFT Routine Bilateral pulmonary embolism (HCC) 1 Occurrences starting 05/15/2021 until 05/15/2022 [facility] Comment on above: 1 Occurrences starti ng 05/15/2021 until 05/15/2022 End: 06-27-2022 Complete PFT with Pre and Post Bronchodilator Complete PFT with Pre and Post Bronchodilator PFT Routine Dyspnea on exertion 1 Occurrences starting 06/27/2021 until 06/27/2022 [facility] Work Phone: Comment on above: 1 Occurrences starti ng 06/27/2021 until 06/27/2022 End: 08-28-2021 Comprehensive metabolic 2000 panel Comprehensive Metabolic Panel Lab Routine Hypertension, essential, benign 1 Occurrences starting 03/18/2020 until 03/18/2021 [facility] Comment on above: 1 Occurrences starti ng 03/18/2020 until 03/18/2021 End: 11-29-2019 Comprehensive metabolic 2000 panel Comprehensive Metabolic Panel Routine Hypertension, essential, benign 1 Occurrences starting 11/28/2018 until 11/29/2019 [facility] Comment on above: 1 Occurrences starti ng 11/28/2018 until 11/29/2019 End: 03-18-2021 Free T4 [Mass/Vol] T4, Free Lab Routine Hypothyroidism, unspecified type 1 Occurrences starting 03/18/2020 until 03/18/2021 [facility] Comment on above: 1 Occurrences starti ng 03/18/2020 until 03/18/2021 H/O: surgery H/O neck surgery [facility] History of mastectomy Status pos t breast lumpectomy [facility] End: 03-18-2021 Lipid 1996 panel Lipid Panel Lab Routine Hypertension, essential, benign 1 Occurrences starting 03/18/2020 until 03/18/2021 [facility] Comment on above: 1 Occurrences starti ng 03/18/2020 until 03/18/2021 End: 05-18-2021 MG Breast - bilateral screening Mammography Screening Bilateral Imaging Routine Annual physical exam 1 Occurrences starting 03/18/2020 until 05/18/2021 [facility] Comment on above: 1 Occurrences starti ng 03/18/2020 until 05/18/2021 End: 01-29-2020 MG Breast - bilateral screening Mammography Screening Bilateral Routine Annual physical exam 1 Occurrences starting 11/28/2018 until 01/29/2020 [facility] Comment on above: 1 Occurrences starti ng 11/28/2018 until 01/29/2020 Microscopic examinat ion of vaginal Papanicolaou smear Thinprep Pap Smear Pathology and Cytology Routine Annual physical exam Ordered: 03/18/2020 [facility] Comment on above: Ordered: 03/18/2020 End: 01-12-2024 MR Foot Left Without Contrast MR Foot Left Without Contrast Imaging Routine Hallux limitus of left foot Left foot pain Primary osteoarthritis of left foot 1 Occurrences starting 01/11/2023 until 01/12/2024 [facility] Work Phone: Comment on above: 1 Occurrences starti ng 01/11/2023 until 01/12/2024 End: 05-15-2022 Natriuretic peptide.B prohormone N-Terminal [Mass/volume] in Serum or Plasma NT Pro BNP Lab Routine Bilateral pulmonary embolism (HCC) 1 Occurrences starting 05/15/2021 until 05/15/2022 [facility] Comment on above: 1 Occurrences starti ng 05/15/2021 until 05/15/2022 Natriuretic peptide. B prohormone N-Terminal [Mass/volume] in Serum or Plasma NT Pro BNP Lab Routine Bilateral pulmonary embolism (HCC) 05/15/2021 2:04 PM EDT [facility] End: 05-15-2022 Nocturnal pulse oximetry Nocturnal pulse oximetry [facility] Routine Bilateral pulmonary embolism (HCC) 1 Occurrences starting 05/15/2021 until 05/15/2022 [facility] Work Phone: Comment on above: 1 Occurrences starti ng 05/15/2021 until 05/15/2022 End: 09-26-2022 Nocturnal pulse oximetry Nocturnal pulse oximetry [facility] Routine Pulmonary embolism, unspecified chronicity, unspecified pulmonary embolism type, unspecified whether acute cor pulmonale present (HCC) 1 Occurrences starting 09/26/2021 until 09/26/2022 [facility] Work Phone: Comment on above: 1 Occurrences starti ng 09/26/2021 until 09/26/2022 OSTEOTOMY METATARSAL OSTEOTOMY M ETATARSAL Hallux limitus of left foot Pes valgus of left foot [facility] End: 06-12-2022 Thyrotropin [Units/volume] in Serum or Plasma TSH Lab Routine Hypothyroidism, unspecified type 1 Occurrences starting 06/12/2021 until 06/12/2022 [facility] Comment on above: 1 Occurrences starti ng 06/12/2021 until 06/12/2022 End: 06-12-2022 Thyroxine (T4) free [Mass/volume] in Serum or Plasma T4, Free Lab Routine Hypothyroidism, unspecified type 1 Occurrences starting 06/12/2021 until 06/12/2022 [facility] Work Phone: Comment on above: 1 Occurrences starti ng 06/12/2021 until 06/12/2022 End: 03-18-2021 TSH Qn TSH Lab Routine Hypothyroidism, unspecified type 1 Occurrences starting 03/18/2020 until 03/18/2021 [facility] Comment on above: 1 Occurrences starti ng 03/18/2020 until 03/18/2021 End: 11-29-2019 TSH Qn TSH with Reflex Free T4 Routine Hypothyroidism, unspecified type 1 Occurrences starting 11/28/2018 until 11/29/2019 [facility] Comment on above: 1 Occurrences starti ng 11/28/2018 until 11/29/2019 End: 03-18-2021 Vitamin D, 25-hydroxy measurement Vitamin D, Total, 25-OH Lab Routine Vitamin D deficiency 1 Occurrences starting 03/18/2020 until 03/18/2021 [facility] Comment on above: 1 Occurrences starti ng 03/18/2020 until 03/18/2021 End: 11-29-2019 Vitamin D, 25-hydroxy measurement Vitamin D, Total, 25-OH Routine Vitamin D deficiency 1 Occurrences starting 11/28/2018 until 11/29/2019 [facility] Comment on above: 1 Occurrences starti ng 11/28/2018 until 11/29/2019 End: 05-06-2024 XR Ankle - left 3 Views [facility] Service Are a Work Phone: Comment on above: Once for 1 Occurrenc es starting 05/06/2024 until 05/06/2024 Immunizations Immunization Date Immunization Notes Care Provider Fa [facility] 12-11-2021 zoster vaccine recombinant Caroline Huston MD Work Phone: [facility] 12-11-2021 varicella-zoster gE, diluent + powder, (SHINGRIX KIT) 50 mcg/0.5 mL injection Caroline Huston MD Work Phone: [facility] 09-16-2020 zoster vaccine recombinant Mame Gray Work Phone: [facility] Work Phone: 05-22-2020 zoster vaccine recombinant Benjamin Benton MD Work Phone: [facility] 06-04-2019 tetanus toxoid, reduced diphtheria toxoid, and acellular pertussis vaccine, adsorbed Caroline Huston [facility] 05-18-2019 influenza virus vaccine, unspecified formulation Felipe Yates Jr., DPM Work Phone: [facility] 03-05-2017 influenza virus vaccine, whole virus Caroline Huston [facility] Work Phone: 03-05-2017 influenza virus vaccine, unspecified formulation Caroline Huston [facility] Work Phone: 04-20-2009 tetanus toxoid, reduced diphtheria toxoid, and acellular pertussis vaccine, adsorbed Caroline Huston [facility] Work Phone: Payers Date Payer Category Payer [employer] [facility] [id number] 2021 Unknown [id number] 2020 Unknown 2020 Unknown [facility] [id number] 2020- [phone] [address] [place] [id number]. [id number] 2020 Unknown [id number] 2020 Unknown [id number] 2011 Unknown LATHAEM MICHELLE [employer]HE[employer]/PREF/HMO/PPO xxxxxxxxxxxx 2011-Present [id number]. [id number] 2011 Unknown LATHAEM MICHELLE [employer]HE[employer]/PREF/HMO/PPO [id number] 2011-Present [id number] [id number]. 7.3.031478.315 1959 Unknown [id number] 2.16.840.1.720207.3.579.2. 903 1959 Unknown [id number] 2.16.840.1.373161.3.579.2. 1959 Unknown [id number] 2.16.840.1.219799.3.579.2. 903 1959 Unknown [id number] 2.16.840.1.023666.3.579.2. 1959 Unknown [id number] 2.16.840.1.779599.3.579.2. 356 1959 Unknown [id number] 2.16.840.1.435034.3.579.2. 900 1959 Unknown [id number] 2.16.840.1.586922.3.579.2. 900 1959 Unknown [id number] 2.16.840.1.105480.3.579.2. 1068 1959 Unknown [id number] 2.16.840.1.559284.3.579.2. 1068 1959 Unknown [id number] 2.16.840.1.314641.3.579.2. 1068 1959 Unknown [id number] 2.16.840.1.652802.3.579.2. 1068 1959 Unknown [id number] 2.16.840.1.664639.3.579.2. 1068 1959 Unknown [id number] 2.16.840.1.606868.3.579.2. 1068 1959 Unknown [id number] 2.16.840.1.214033.3.579.2. 1068 1959 Unknown [id number] 2.16.840.1.995885.3.579.2. 1068 1959 Unknown [id number] 2.16.840.1.811771.3.579.2. 1068 1959 Unknown [id number] 2.16.840.1.243198.3.579.2. 1068 1959 Unknown [id number] 2.16.840.1.067577.3.579.2. 1068 1959 Unknown [id number] 2.16.840.1.452622.3.579.2. 1068 1959 Unknown [id number] 2.16.840.1.550907.3.579.2. 1068 1959 Unknown [id number] 2.840.1.882842.3.579.2. 1068 1959 Unknown [id number] 2.16.840.1.934857.3.579.2. 1068 1959 Unknown [id number] 2.16.840.1.936999.3.579.2. 1068 1959 Unknown [id number] 2.16.840.1.275389.3.579.2. 1959 Unknown [id number] 2.840.1.962167.3.579.2. 1959 Unknown [id number] 2.16.840.1.043010.3.579.2. 1959 Unknown [id number] 2.16.840.1.241251.3.579.2. 1959 Unknown [id number] 2.16.840.1.443287.3.579.2. 1959 Unknown [id number] 2.16.840.1.868672.3.579.2 1959 Unknown [id number] 2.16.840.1.407961.3.579.2. 3 1959 Unknown [id number] 2.16.840.1.977422.3.579.2. 1959 Unknown [id number] 2.16.840.1.793208.3.579.2. 1959 Unknown [id number] 2.16.840.1.775625.3.579.2. 1959 Unknown [id number] 2.16.840.1.772258.3.579.2. 1959 Unknown [id number] 2.16.840.1.689035.3.579.2. 1243 1959 Unknown [id number] 2.16.840.1.093504.3.579.2. 1243 1959 Unknown [id number] 2.16.840.1.953838.3.579.2. 1243 1959 Unknown [id number] 2.16.840.1.276149.3.579.2. 1243 1959 Unknown [id number] 2.16.840.1.427203.3.579.2. 1243 1959 Unknown [id number] 2.16.840.1.654031.3.579.2. 1242 1959 Unknown [id number] 2.16.840.1.864064.3.579.2. 1242 1959 Unknown [id number] 2.16.840.1.327926.3.579.2. 1242 1959 Unknown [id number] 2.16.840.1.021253.3.579.2. 1242 1959 Unknown [id number] 2.16.840.1.339412.3.579.2. 1242 1959 Unknown [id number] 2.16.840.1.265977.3.579.2. 1242 1959 Unknown [id number] 2.16.840.1.826917.3.579.2. 1242 1959 Unknown [id number] [id number]. 1242 1959 Unknown [id number] 2.16.840.1.802323.3.579.2. 1242 1959 Unknown [id number] 2.16.840.1.289315.3.579.2. 1242 1959 Unknown [id number] 2.16.840.1.266953.3.579.2. 1242 1959 Unknown [id number] 2.16.840.1.380680.3.579.2. 1242 1959 Unknown [id number] 2.16.840.1.760979.3.579.2. 1242 1959 Unknown [id number] 2.16.840.1.058175.3.579.2. 1242 1959 Unknown [id number] 2.16.840.1.644992.3.579.2. 1242 1959 Unknown [id number] 2.16.840.1.839575.3.579.2. 1242 1959 Unknown [id number] 2.16.840.1.067142.3.579.2. 1242 1959 Unknown [id number] 2.16.840.1.476754.3.579.2. 1242 1959 Unknown [id number] 2.16.840.1.974317.3.579.2. 1242 1959 Unknown [id number] 2.16.840.1.708567.3.579.2. 1242 1959 Unknown [id number] 2.16.840.1.320249.3.579.2. 12441959 Unknown [id number] 2.16.840.1.836760.3.579.2. 1245 Social History Date Type Detail Facility Start: 11-20-2017 End: 11-06-2022 Tobacco smoking status NHIS Never smoker [facility] Work Phone: Start: 1960 Sex Assigned At Not on file O [facility] Work Phone: Start: 10-05-2019 End: 06-12-2021 Alcohol intake Current non-drinker of alcohol (finding) [facility] Start: 03-18-2020 End: 11-06-2022 Tobacco use and exposure Never used [facility] Start: 09-16-2021 End: 05-07-2024 Exposure to SARS-CoV-2 (event) Not sure [facility] Start: 12-11-2021 End: 10-01-2023 No advance directives No advance directives [facility] Tobacco smoking consumption unknown [facility] Start: 06-27-2021 End: 05-06-2024 Alcohol intake Current drinker of alcohol (finding) [facility] Start: 06-27-2021 History SDOH Alcohol Comment occ [facility] Start: 11-09-2022 End: 10-01-2023 Tobacco use panel [facility] Adult Depression Screening Assessment 7 [facility] Start: 04-09-2018 Gender identity Identifies as female gender (finding) [facility] Start: 04-09-2018 Sexual orientation Heterosexual (fin ding) [facility] Start: 05-06-2023 Alcohol Comment Occasionally [facility] Work Phone: NEGATED: Highlighted row - - [facility] Work Phone: Functional Status Date Assessment Result Facility Functional observable [facility] NEGATED: Highlighted row Functional performance Functional status health issues are not documented Disease [facility] Work Phone: Mental Status Date Assessment Result Facility 04-10-2021 Cognitive functi ons [id number] [facility] NEGATED: Highlighted row Cognitive function [Interpretation] Cognitive status health issues are not documented Disease [facility] Work Phone: Clinical Notes 01-11-2016 to 05-06-2024 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, [employer] - 05/06/2024 4:30 PM Josey Carey, ESPINO[employer] - 05/06/2024 10:10 AM Felipe Matt Jr., BETTE - 01/15/2024 9:47 AM Andreia Rizvi PA-C - 12/24/2023 8:15 AM EDT Note Date & Type Note Facility 05-06-2024 History of Present illness Narrative Subjective Patient ID: Geovanna Jin is a 64 y.o. female. Chief Complaint: Follow-up and Fracture of the Left Ankle (DATE OF INJURY 04/11/2024/LAST XRAY-TODAY) Left Ankle Geovanna is a 64-year-old female presenting for FUV left ankle injury and fracture Fell off ladder 04/11/2024, and also fell 1 1/2 months ago tripped over skid stopper and landed on R knee Lateral L ankle pain Wrapped with kym wrap last couple dys Sx aggravated with walking on it, step use, no sx aggravation with motion On light duty and not currently lifting No prior injury or surgery Mild swelling remains No oral OTC meds attempted No ice or heat, elevated over weekend Sx improve with rest and elevation Review of Systems Constitutional: Negative. HENT: Negative. Respiratory: Negative. Cardiovascular: Negative. Endocrine: Negative. Musculoskeletal: Positive for arthralgias. Skin: Negative. Neurological: Negative. Hematological: Negative. Psychiatric/Behavioral: Negative. Objective Left Ankle Exam Tenderness The patient is experiencing tenderness in the ATF and lateral malleolus. Swelling: mild Range of Motion The patient has normal left ankle ROM. Tests Anterior drawer: negative Varus tilt: negative Other Erythema: absent Sensation: normal Pulse: present Comments: Mild symptom aggravation with eversion greater than inversion Mild swelling at the lateral ankle, over ATFL Full range of motion of foot and toes with distal motor or sensory intact, cap refill at 2 seconds Denies any medial or navicular pain, no swelling Ankle joint is stable No pain over the Achilles tendon, Delgado test negative Image Results: XR ankle left 3+ views Narrative: Interpreted By: Justyn Mary, STUDY: XR ANKLE LEFT 3+ VIEWS; ; 04/16/2024 4:42 pm INDICATION: Signs/Symptoms:s/p fall. left foot pain. ,W19.XXXA Unspecified fall, initial encounter,Y92.[address] in unspecified non-institutional (private) residence as the place of occurrence of the external cause COMPARISON: None. ACCESSION NUMBER(S): [id number] ORDERING CLINICIAN: AMY RIZVI FINDINGS: Left ankle, three views There is a small avulsion fracture at the medial aspect of the talus likely arising from the talar dome. Remote avulsion injury at the tip of the lateral malleolus as well. No other fracture seen. Mild degenerative changes in the ankle. Bimalleolar soft tissue edema. Impression: Small avulsion fracture at the medial aspect of the talus adjacent to the talar dome. This is of unknown chronicity. Remote avulsion injury of the tip of the lateral malleolus. Mild degenerative changes in the ankle. MACRO: Critical Finding: See findings. Notification was initiated on 04/17/2024 at 7:10 pm by Justyn Mary. (-YCF-) Signed by: Justyn Mary 04/17/2024 7:10 PM Dictation workstation: [id number] XR foot left 3+ views Narrative: Interpreted By: Justyn Mary, STUDY: XR FOOT LEFT 3+ VIEWS; ; 04/16/2024 4:41 pm INDICATION: Signs/Symptoms:s/p fall. left foot pain. ,W19.XXXA Unspecified fall, initial encounter,Y92.[address] in unspecified non-institutional (private) residence as the place of occurrence of the external cause COMPARISON: 11/06/2022 ACCESSION NUMBER(S): [id number] ORDERING CLINICIAN: AMY RIZVI FINDINGS: Left foot, three views There is severe joint space narrowing with advanced 1st MTP joint. The remaining articulations are within normal limits. There is a remote healed fracture through the 2nd and 3rd metatarsal diaphysis. 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 No acute abnormality seen. MACRO: None Signed by: Justyn Mary 04/17/2024 7:07 PM Dictation workstation: [id number] XR thoracic spine 3 views Narrative: Interpreted By: Justyn Mary, STUDY: XR THORACIC SPINE 3 VIEWS; ; 04/16/2024 4:41 pm INDICATION: Signs/Symptoms:S/P fall. upper back pain. ,W19.XXXA Unspecified fall, initial encounter,Y92.[address] in unspecified non-institutional (private) residence as the place of occurrence of the external cause COMPARISON: None. ACCESSION NUMBER(S): [id number] ORDERING CLINICIAN: AMY RIZVI FINDINGS: Thoracic spine, three views There is mild scoliosis of the thoracolumbar spine. There is no fracture. There is no spondylolisthesis. There is no disc space narrowing or osteophytosis. The prevertebral soft tissues are within normal limits. Impression: Mild scoliosis. No other abnormality MACRO: None Signed by: Justyn Mary 04/17/2024 7:02 PM Dictation workstation: [id number] Assessment/Plan Encounter Diagnoses: documented in this encounter [facility] Work Phone: 05-06-2024 History of Present illness Narrative Subjective Patient ID: Geovanna Jin is a 64 y.o. female who presents for Flu Symptoms, Diarrhea, and Back Pain. HPI Here today for fever and chills and diarrhea, reports some back pain especially when she lays down, it is thoracic level. Reports 2-3 weeks ago she fell off a ladder and landed on her back, she did have a thoracic xray and chest xray that were negative. She is nervous because this pain reminds her of her pain from her PE in 2019, Diarrhea is 3-4 times a day, reports she has fevers and chills, no n/v, cough, SOB or chest pain. Denies any urinary symptoms. Review of Systems Constitutional: Positive for chills and fever. Negative for fatigue. Respiratory: Negative for cough and shortness of breath. Cardiovascular: Negative for chest pain, palpitations and leg swelling. Gastrointestinal: Positive for abdominal pain and diarrhea. Negative for constipation, nausea and vomiting. Genitourinary: Negative for dysuria. Neurological: Negative for light-headedness and headaches. Objective BP 136/88 (Patient Position: Sitting) Pulse 66 Temp 36.4 C (97.5 F) Ht 1.702 m (5' 7 ) Wt 85.3 kg (188 lb) BMI 29.44 kg/m Physical Exam Cardiovascular: Rate and Rhythm: Normal rate and regular rhythm. Heart sounds: Normal heart sounds. Pulmonary: Breath sounds: Normal breath sounds. Abdominal: General: Bowel sounds are normal. Neurological: Mental Status: She is alert and oriented to person, place, and time. Assessment/Plan Problem List Items Addressed This Visit None Visit Diagnoses Codes Intercostal pain - Primary R07.[address] angio chest w and wo IV contrast History of pulmonary embolus (PE) Z86.[address] angio chest w and wo IV contrast CTA chest -Low suspicion for PE, however, does have a history of PE Gastroenteritis -Recommend to stay hydrated -Eat a bland diet -Call if symptoms worsened -Pt denied wanting a stool pathogen test documented in this encounter [facility] Work Phone: 01-15-2024 Note Left foot giving out Patient is a pleasant 63-year-old female who comes in today stating that for the last months she felt like her left ankle is giving out or perhaps landing awkwardly. States that when she is walking on flat surfaces normally things are pretty well or quite well. Occasionally feels odd like she needs to fall down. She does not fall however she normally catches herself this is exaggerated if she is turning: Twisting. Additionally states that steps going up are pretty good however descending the stairs is a bit sore and. In light of her previous fractures to her metatarsals, she comes in today just to make sure nothing is worse and that still things are right. Physical Vascular: DP PT pulses are easily palpable 2-4. CFT is fair no edema. Derm: No erythema no open wounds no ulcers no rashes no deep nodules. Neuro: Light touch is normal. Musculoskeletal: Muscle strength is 5 out of 5 fair tone. Today there is no pain to the ankle itself or fibula. Ankle range of motion is generally full and pain-free, there is no heart mechanical clicking or stopping as is the subtalar. Additionally no pain with compression to the second third and fourth metatarsal shaft at the previous stress fracture locations. Radiographs reviewed: Does have a degree of anterior ankle joint space loss consistent with early osteoarthritis however no fractures dislocations or subluxations seen. Additionally still with the now resolved stress fractures despite the dorsiflexion and dorsal dislocation of the first met shaft. Assessment plan: Patient is a pleasant 63-year-old female with arthritis style pain. -This is technically separate than her foot trauma from previously with the fracturing present though it does contribute. Did go over option including adding PT for general strength training to help with fall prevention though she is not interested. Additionally did briefly discuss a custom AFO though likely this is going to be poorly tolerated in a young adult that is still working full-time. Therefore can continue to see how things go and follow-up as needed for this or any new issues. AUTHENTICATED BY FELIPE YATES JR., ON 01/15/2024 09:50:19 [facility] 01-15-2024 History of Present illness Narrative Left foot giving out Patient is a pleasant 63-year-old female who comes in today stating that for the last months she felt like her left ankle is giving out or perhaps landing awkwardly. States that when she is walking on flat surfaces normally things are pretty well or quite well. Occasionally feels odd like she needs to fall down. She does not fall however she normally catches herself this is exaggerated if she is turning: Twisting. Additionally states that steps going up are pretty good however descending the stairs is a bit sore and. In light of her previous fractures to her metatarsals, she comes in today just to make sure nothing is worse and that still things are right. Physical Vascular: DP PT pulses are easily palpable 2-4. CFT is fair no edema. Derm: No erythema no open wounds no ulcers no rashes no deep nodules. Neuro: Light touch is normal. Musculoskeletal: Muscle strength is 5 out of 5 fair tone. Today there is no pain to the ankle itself or fibula. Ankle range of motion is generally full and pain-free, there is no heart mechanical clicking or stopping as is the subtalar. Additionally no pain with compression to the second third and fourth metatarsal shaft at the previous stress fracture locations. Radiographs reviewed: Does have a degree of anterior ankle joint space loss consistent with early osteoarthritis however no fractures dislocations or subluxations seen. Additionally still with the now resolved stress fractures despite the dorsiflexion and dorsal dislocation of the first met shaft. Assessment plan: Patient is a pleasant 63-year-old female with arthritis style pain. -This is technically separate than her foot trauma from previously with the fracturing present though it does contribute. Did go over option including adding PT for general strength training to help with fall prevention though she is not interested. Additionally did briefly discuss a custom AFO though likely this is going to be poorly tolerated in a young adult that is still working full-time. Therefore can continue to see how things go and follow-up as needed for this or any new issues. documented in this encounter [facility] 12-24-2023 History of Present illness Narrative Subjective Patient ID: Palmer Austin is a 63 y.o. female who presents for Back Pain (FUV baclofen increase at last OV she did not notice a change with this. Today reports having pain in bilat lower back occasionally in to her rt leg, rates her pain score 4/10 now and 8/10 at worst with activity, describes as sharp, stabbing. She takes Baclofen, Lyrica, tylenol and Zonegran this helps her pain some but she is still having a lot of pain, she is considering surgery but trying to hold off until she can retire later this year. /) MAYI score 28, Alcohol screen negative, SOAPP score 0, COMM score 3 She will need RF on baclofen, Lyrica and zonegran send to [facility]. Estephania Cornelius RN 12/24/23 8:00 AM Patient is a 63-year-old female. She has a past medical history significant for lumbar stenosis, lumbar neuritis, lumbar spondylosis, lumbar spondylolisthesis and lumbar spondylolisthesis. She has previously seen a surgeon who has talked to her about surgery. She is hoping to try to hold off until the end of the year as she is thinking she might retire. She presents today for follow-up for medication management. she is using baclofen 20 mg 3 times a day, pregabalin 200 mg 3 times a day and Zonegran 100 mg twice daily. She underwent previous L4-5 epidural steroid injection. This was done on 03/08/2023 and gave her 75% relief. Unfortunately, it did not give her any significant long-term relief. She is here today to just get a refill of her medications. She rates her discomfort a 4-8/10. It is worse with certain activities but at this time, she does not have any more injections. She is wants to continue on her medication. She is just trying to make it through that year to then retire and have surgery. Review of Systems Constitutional: Negative. HENT: Negative. Eyes: Negative. Respiratory: Negative. Cardiovascular: Negative. Gastrointestinal: Negative. Endocrine: Negative. Genitourinary: Negative. Musculoskeletal: Positive for arthralgias, back pain, gait problem and myalgias. Skin: Negative. Allergic/Immunologic: Negative. Neurological: Positive for weakness and numbness. Hematological: Negative. Psychiatric/Behavioral: Negative. Objective Physical Exam Vitals and nursing note reviewed. Constitutional: Appearance: Normal appearance. HENT: Head: Normocephalic and atraumatic. Right Ear: External ear normal. Left Ear: External ear normal. Nose: Nose normal. Mouth/Throat: Pharynx: Oropharynx is clear. Eyes: Conjunctiva/sclera: Conjunctivae normal. Cardiovascular: Rate and Rhythm: Normal rate and regular rhythm. Pulses: Normal pulses. Pulmonary: Effort: Pulmonary effort is normal. Musculoskeletal: General: Normal range of motion. Cervical back: Normal range of motion. Comments: 5/5 strength Skin: General: Skin is warm and dry. Neurological: General: No focal deficit present. Mental Status: She is alert and oriented to person, place, and time. Mental status is at baseline. Psychiatric: Mood and Affect: Mood normal. Behavior: Behavior normal. Thought Content: Thought content normal. Judgment: Judgment normal. MR lumbar spine wo IV contrast Status: Final result PACS Images Show images for MR lumbar spine wo IV contrast Signed by Signed Time Phone Pager Gloria Barbour DO 02/12/2023 09:42 [id number] Exam Information Status Exam Begun Exam Ended Final 02/11/2023 18:50 Study Result Narrative Interpreted By: MARLENEGLORIA GUTHRIE DO Patient Name: PALMER JIN STUDY: MRI L-SPINE WO; 02/11/2023 6:50 pm INDICATION: pain M48.07: Foraminal stenosis of lumbosacral region M43.17: Spondylolisthesis, lumbosacral region M43.07: Lumbosacral spondylolysis. COMPARISON: 03/21/2020 ACCESSION NUMBER(S): [id number] ORDERING CLINICIAN: HARLAN SWANN TECHNIQUE: Sagittal T1, T2, STIR, axial T1 and T2 weighted images of the lumbar spine were acquired. FINDINGS: Alignment: There is again grade 1 anterolisthesis of L5 on S1. There is also again grade 1 retrolisthesis of L1 on L2 and to a lesser extent of L2 on L3. Vertebrae/Intervertebral Discs: There are again Schmorl's nodes along the endplates most prominent at L3 and L4, similar from the previous examination. The lumbar vertebral body heights are otherwise preserved. There is again loss of disc height and endplate spurring most severe at L5-S1 and L1-2. There is multilevel disc desiccation and degenerative endplate signal change. Conus: The lower thoracic cord appears unremarkable. The conus terminates at L2. T12-L1: Minimal disc bulging and degenerative facet arthropathy do not narrow the central canal or neuroforamina. L1-2: There is again circumferential disc bulging and endplate spurring asymmetrically worse to the left with flattening of the ventral thecal sac and narrowing of the left lateral recess. There is mild, left greater than right facet and ligamentum flavum hypertrophy. Small amount of fluid in the facets, left greater than right is nonspecific but favored to be degenerative in nature. There is no significant overall central canal stenosis. There is at least moderate left and minimal right-sided neuroforaminal stenosis due to asymmetric endplate spurring and disc on the left. These findings are similar from the prior exam. L2-3: Facet and ligamentum flavum hypertrophy and mildly prominent posterior epidural fat are again seen impressing on the dorsal thecal sac. There is circumferential disc bulging and endplate spurring with new superimposed central inferior disc extrusion measuring approximately 5 mm in AP dimension by 2 cm in craniocaudal dimension. There is mass effect on the ventral thecal sac with narrowing of the lateral recesses. There is at least moderate overall narrowing of the thecal sac with crowding of nerve roots of the cauda equina. There is mild neuroforaminal narrowing, left greater than right. L3-4: Facet and ligamentum flavum hypertrophy and mildly prominent posterior epidural fat are again seen impressing on the dorsal thecal sac. There is circumferential disc bulging and endplate spurring with superimposed central disc protrusion which is more pronounced than seen previously currently measuring 7 mm in AP dimension. There is mass effect on the ventral thecal sac and effacement of the lateral recesses. There is at least moderate narrowing of the spinal canal and crowding of nerve roots of the cauda equina. There is at most minimal neuroforaminal encroachment. L4-5: Facet and ligamentum flavum hypertrophy are again demonstrated, right greater than left. There is circumferential disc bulging and endplate spurring with small superimposed central disc protrusion contributing to effacement of the lateral recesses and impression on the ventral thecal sac with mild overall narrowing of the spinal canal. There is moderate right and mild left-sided neuroforaminal stenosis. The findings are relatively similar from the previous exam. L5-S1: There is again left greater than right degenerative facet arthropathy. Circumferential disc bulging and endplate spurring remain and contribute to narrowing of the lateral recesses, left greater than right with flattening of the ventral thecal sac but no significant overall central canal stenosis. There is severe right and moderate left-sided neuroforaminal stenosis with mass effect on the exiting L5 nerve roots. These findings are similar from the previous examination. There is again abnormal linear hypointense signal projecting across the pars interarticularis of L5 suggestive of spondylolysis. There are degenerative changes of the sacroiliac joints. There is again a lesion arising from the upper pole of the right kidney which is incompletely evaluated but favored to represent a cyst, similar from the previous exam. Impression 1. New inferior disc extrusion at L2-3 contributing to at least moderate spinal canal stenosis and crowding of nerve roots of the cauda equina within the thecal sac. 2. Interval increase in size of central disc protrusion at L3-4 with increased central canal stenosis and mass effect on the thecal sac. 3. Grade 1 anterolisthesis of L5 on S1 with suspected spondylolysis of L5, similar from the previous study. Degenerative changes and associated neuroforaminal and lateral recess stenosis at this level are similar from the previous exam. 4. Multilevel degenerative changes of the lumbar spine. Assessment/Plan Diagnoses and all orders for this visit: Neurogenic claudication due to lumbar spinal stenosis - baclofen (Lioresal) 20 mg tablet; Take 1 tablet (20 mg) by mouth 3 times a day as needed for muscle spasms. - pregabalin (Lyrica) 200 mg capsule; Take 1 capsule (200 mg) by mouth 3 times a day. - zonisamide (Zonegran) 50 mg capsule; Take 2 capsules (100 mg) by mouth 2 times a day. Chronic bilateral low back pain without sciatica Spondylolisthesis, lumbosacral region - baclofen (Lioresal) 20 mg tablet; Take 1 tablet (20 mg) by mouth 3 times a day as needed for muscle spasms. - pregabalin (Lyrica) 200 mg capsule; Take 1 capsule (200 mg) by mouth 3 times a day. - zonisamide (Zonegran) 50 mg capsule; Take 2 capsules (100 mg) by mouth 2 times a day. Lumbosacral radiculitis - baclofen (Lioresal) 20 mg tablet; Take 1 tablet (20 mg) by mouth 3 times a day as needed for muscle spasms. - pregabalin (Lyrica) 200 mg capsule; Take 1 capsule (200 mg) by mouth 3 times a day. - zonisamide (Zonegran) 50 mg capsule; Take 2 capsules (100 mg) by mouth 2 times a day. Intervertebral disc disorders with radiculopathy, lumbosacral region - baclofen (Lioresal) 20 mg tablet; Take 1 tablet (20 mg) by mouth 3 times a day as needed for muscle spasms. - pregabalin (Lyrica) 200 mg capsule; Take 1 capsule (200 mg) by mouth 3 times a day. - zonisamide (Zonegran) 50 mg capsule; Take 2 capsules (100 mg) by mouth 2 times a day. Patient is a 63-year-old female with the above-mentioned medical diagnoses. We once again discussed injection options. We discussed transforaminal epidural. She declines. She is to try to make it through the end of the year. She is then planning to retire and have surgery. At this time she would like to discontinue on her medications. Baclofen 20 mg 3 times a day as needed, Lyrica 200 mg 3 times a day and Zonegran 100 mg twice daily. OARRS reviewed. Refill sent. She is due to follow-up in 3 months for medication management. Call the clinic in the interim should she require anything from our services. documented in this encounter [facility] Work Phone: 11-05-2023 History of Present illness Narrative Subjective Patient ID: Palmer Austin is a 63 y.o. female who presents for Follow-up (6 month). HPI Patient is here today for 6 mo follow up Review of Systems Constitutional: Negative for activity change, appetite change, chills and fatigue. HENT: Negative for congestion, postnasal drip, sinus pressure, sinus pain and sore throat. Respiratory: Negative for cough, shortness of breath and wheezing. Cardiovascular: Negative for chest pain and leg swelling. Gastrointestinal: Negative for abdominal distention, diarrhea, nausea and vomiting. Musculoskeletal: Negative for back pain. Neurological: Negative for weakness and numbness. Objective Ht 1.689 m (5' 6.5 ) Wt 88 kg (194 lb) BMI 30.84 kg/m Physical Exam Constitutional: General: She is not in acute distress. Appearance: Normal appearance. HENT: Head: Normocephalic. Nose: Nose normal. Mouth/Throat: Mouth: Mucous membranes are dry. Pharynx: No oropharyngeal exudate. Eyes: General: Right eye: No discharge. Left eye: No discharge. Extraocular Movements: Extraocular movements intact. Pupils: Pupils are equal, round, and reactive to light. Cardiovascular: Rate and Rhythm: Normal rate and regular rhythm. Heart sounds: No murmur heard. No gallop. Pulmonary: Effort: Pulmonary effort is normal. No respiratory distress. Breath sounds: Normal breath sounds. No wheezing. Musculoskeletal: General: No swelling. Normal range of motion. Skin: General: Skin is warm and dry. Coloration: Skin is not jaundiced. Neurological: General: No focal deficit present. Mental Status: She is alert and oriented to person, place, and time. Cranial Nerves: No cranial nerve deficit. Psychiatric: Mood and Affect: Mood normal. Behavior: Behavior normal. Immunizations Flu 2021, did not get this year COVID declines PNA -- Shingles received RSV recommended Mammo 04/13 DEXA -- Pap 2019 Colonoscopy 2020 Assessment/Plan Problem List Items Addressed This Visit RLS (restless legs syndrome) Hypothyroid GERD (gastroesophageal reflux disease) HTN (hypertension) 1. HTN , controlled - continue Norvasc 5mg po daily 2. Chronic back pain - follows with pain mgmt - on Lyrica 200mg po tid - on diclofenac 25mg 5x a day - on baclofen 10mg po tid 3. Depression, stable - continue Lexapro 20mg po daily - continue trazodone 100mg po daily 4. RLS - continue Requip prn Final diagnoses: [E03.9] Acquired hypothyroidism [I10] Primary hypertension [K21.9] Gastroesophageal reflux disease without esophagitis [G25.81] RLS (restless legs syndrome) documented in this encounter [facility] Work Phone: 10-01-2023 History of Present illness Narrative Subjective Patient ID: Palmer Austin is a 63 y.o. female who presents for Back Pain (FUV3 months for Meds. Today reports having very little back pain as she has not been active yet, when she has pain in is Bilat lower back and rt thigh is numb rate pain score 1/10 now and 7/10 at worst with activity and working, describes as stabbing and tightness. She takes Baclofen, Lyrica, and Zonegran these help her pain a little she tried taking tylenol every 6 hours since her last visit and has not seen any change in her pain, she completed PT and is doing HEP daily. ) She is not sure about surgery yet as the recovery time is an issue of concern for her. MAYI score 32% Falls N/A for age, depression and smoking negative. She will need RF on Baclofen, Lyrica and Zonegran send to [facility]. Estephania Cornelius RN 03/12/24 8:17 AM Patient is a 63-year-old female. She has a past medical history significant for lumbar stenosis, lumbar neuritis, lumbar spondylosis, lumbar spondylolisthesis and lumbar spondylolisthesis. She presents today for follow-up for medication management. she is using baclofen 10 mg 1 to 2 tablets 3 times a day, pregabalin 200 mg 3 times a day and Zonegran 100 mg twice daily. She is no longer using an anti-inflammatory due to her high kidney function. She underwent previous L4-5 epidural steroid injection. This was done on 03/08/2023 and gave her 75% relief. Unfortunately, it did not give her any significant long-term relief. She saw a surgeon. Surgery was recommended. She has to do therapy for so she is currently doing this. She does not want to have another injection at this time but she states that she is worried about the recovery time from surgery. At this time, she is requesting refills. She also wonders about getting a handicap lipogranuloma. Review of Systems Constitutional: Negative. HENT: Negative. Eyes: Negative. Respiratory: Negative. Cardiovascular: Negative. Gastrointestinal: Negative. Endocrine: Negative. Genitourinary: Negative. Musculoskeletal: Positive for arthralgias, back pain, gait problem and myalgias. Skin: Negative. Allergic/Immunologic: Negative. Neurological: Positive for weakness and numbness. Hematological: Negative. Psychiatric/Behavioral: Negative. Objective Physical Exam Vitals and nursing note reviewed. Constitutional: Appearance: Normal appearance. HENT: Head: Normocephalic and atraumatic. Right Ear: External ear normal. Left Ear: External ear normal. Nose: Nose normal. Mouth/Throat: Pharynx: Oropharynx is clear. Eyes: Conjunctiva/sclera: Conjunctivae normal. Cardiovascular: Rate and Rhythm: Normal rate and regular rhythm. Pulses: Normal pulses. Pulmonary: Effort: Pulmonary effort is normal. Musculoskeletal: General: Normal range of motion. Cervical back: Normal range of motion. Comments: 5/5 strength Skin: General: Skin is warm and dry. Neurological: General: No focal deficit present. Mental Status: She is alert and oriented to person, place, and time. Mental status is at baseline. Psychiatric: Mood and Affect: Mood normal. Behavior: Behavior normal. Thought Content: Thought content normal. Judgment: Judgment normal. MR lumbar spine wo IV contrast Status: Final result PACS Images Show images for MR lumbar spine wo IV contrast Signed by Signed Time Phone Pager Gloria Barbour DO 02/12/2023 09:42 [phone] Exam Information Status Exam Begun Exam Ended Final 02/11/2023 18:50 Study Result Narrative Interpreted By: GLORIA BARBOUR DO Patient Name: PALMER JIN STUDY: MRI L-SPINE WO; 02/11/2023 6:50 pm INDICATION: pain M48.07: Foraminal stenosis of lumbosacral region M43.17: Spondylolisthesis, lumbosacral region M43.07: Lumbosacral spondylolysis. COMPARISON: 03/21/2020 ACCESSION NUMBER(S): [id number] ORDERING CLINICIAN: HARLAN SWANN TECHNIQUE: Sagittal T1, T2, STIR, axial T1 and T2 weighted images of the lumbar spine were acquired. FINDINGS: Alignment: There is again grade 1 anterolisthesis of L5 on S1. There is also again grade 1 retrolisthesis of L1 on L2 and to a lesser extent of L2 on L3. Vertebrae/Intervertebral Discs: There are again Schmorl's nodes along the endplates most prominent at L3 and L4, similar from the previous examination. The lumbar vertebral body heights are otherwise preserved. There is again loss of disc height and endplate spurring most severe at L5-S1 and L1-2. There is multilevel disc desiccation and degenerative endplate signal change. Conus: The lower thoracic cord appears unremarkable. The conus terminates at L2. T12-L1: Minimal disc bulging and degenerative facet arthropathy do not narrow the central canal or neuroforamina. L1-2: There is again circumferential disc bulging and endplate spurring asymmetrically worse to the left with flattening of the ventral thecal sac and narrowing of the left lateral recess. There is mild, left greater than right facet and ligamentum flavum hypertrophy. Small amount of fluid in the facets, left greater than right is nonspecific but favored to be degenerative in nature. There is no significant overall central canal stenosis. There is at least moderate left and minimal right-sided neuroforaminal stenosis due to asymmetric endplate spurring and disc on the left. These findings are similar from the prior exam. L2-3: Facet and ligamentum flavum hypertrophy and mildly prominent posterior epidural fat are again seen impressing on the dorsal thecal sac. There is circumferential disc bulging and endplate spurring with new superimposed central inferior disc extrusion measuring approximately 5 mm in AP dimension by 2 cm in craniocaudal dimension. There is mass effect on the ventral thecal sac with narrowing of the lateral recesses. There is at least moderate overall narrowing of the thecal sac with crowding of nerve roots of the cauda equina. There is mild neuroforaminal narrowing, left greater than right. L3-4: Facet and ligamentum flavum hypertrophy and mildly prominent posterior epidural fat are again seen impressing on the dorsal thecal sac. There is circumferential disc bulging and endplate spurring with superimposed central disc protrusion which is more pronounced than seen previously currently measuring 7 mm in AP dimension. There is mass effect on the ventral thecal sac and effacement of the lateral recesses. There is at least moderate narrowing of the spinal canal and crowding of nerve roots of the cauda equina. There is at most minimal neuroforaminal encroachment. L4-5: Facet and ligamentum flavum hypertrophy are again demonstrated, right greater than left. There is circumferential disc bulging and endplate spurring with small superimposed central disc protrusion contributing to effacement of the lateral recesses and impression on the ventral thecal sac with mild overall narrowing of the spinal canal. There is moderate right and mild left-sided neuroforaminal stenosis. The findings are relatively similar from the previous exam. L5-S1: There is again left greater than right degenerative facet arthropathy. Circumferential disc bulging and endplate spurring remain and contribute to narrowing of the lateral recesses, left greater than right with flattening of the ventral thecal sac but no significant overall central canal stenosis. There is severe right and moderate left-sided neuroforaminal stenosis with mass effect on the exiting L5 nerve roots. These findings are similar from the previous examination. There is again abnormal linear hypointense signal projecting across the pars interarticularis of L5 suggestive of spondylolysis. There are degenerative changes of the sacroiliac joints. There is again a lesion arising from the upper pole of the right kidney which is incompletely evaluated but favored to represent a cyst, similar from the previous exam. Impression 1. New inferior disc extrusion at L2-3 contributing to at least moderate spinal canal stenosis and crowding of nerve roots of the cauda equina within the thecal sac. 2. Interval increase in size of central disc protrusion at L3-4 with increased central canal stenosis and mass effect on the thecal sac. 3. Grade 1 anterolisthesis of L5 on S1 with suspected spondylolysis of L5, similar from the previous study. Degenerative changes and associated neuroforaminal and lateral recess stenosis at this level are similar from the previous exam. 4. Multilevel degenerative changes of the lumbar spine. Assessment/Plan Diagnoses and all orders for this visit: Neurogenic claudication due to lumbar spinal stenosis - pregabalin (Lyrica) 200 mg capsule; Take 1 capsule (200 mg) by mouth 3 times a day. - zonisamide (Zonegran) 50 mg capsule; Take 2 capsules (100 mg) by mouth 2 times a day. - baclofen (Lioresal) 20 mg tablet; Take 1 tablet (20 mg) by mouth 3 times a day as needed for muscle spasms. - Disability Placard Spondylolisthesis, lumbosacral region - pregabalin (Lyrica) 200 mg capsule; Take 1 capsule (200 mg) by mouth 3 times a day. - zonisamide (Zonegran) 50 mg capsule; Take 2 capsules (100 mg) by mouth 2 times a day. - baclofen (Lioresal) 20 mg tablet; Take 1 tablet (20 mg) by mouth 3 times a day as needed for muscle spasms. - Disability Placard Intervertebral disc disorders with radiculopathy, lumbosacral region - pregabalin (Lyrica) 200 mg capsule; Take 1 capsule (200 mg) by mouth 3 times a day. - zonisamide (Zonegran) 50 mg capsule; Take 2 capsules (100 mg) by mouth 2 times a day. - baclofen (Lioresal) 20 mg tablet; Take 1 tablet (20 mg) by mouth 3 times a day as needed for muscle spasms. - Disability Placard Lumbosacral radiculitis - pregabalin (Lyrica) 200 mg capsule; Take 1 capsule (200 mg) by mouth 3 times a day. - zonisamide (Zonegran) 50 mg capsule; Take 2 capsules (100 mg) by mouth 2 times a day. - baclofen (Lioresal) 20 mg tablet; Take 1 tablet (20 mg) by mouth 3 times a day as needed for muscle spasms. - Disability Justyna Patient is a 63-year-old female with a past medical history significant for lumbar stenosis, lumbar neuritis, lumbar spondylosis, lumbar spondylolisthesis, and lumbar spondylolysis. She saw surgeon and surgery was discussed. She is doing therapy and considering having surgery but she is worried about recovery At this time she is using baclofen 10 mg 1 tablet 3 times a day as needed pain, pregabalin 200 mg 3 times a day and Zonegran 100 mg twice daily she tolerates these well. They help her. She is requesting refills. OARRS was reviewed and is appropriate. We will increase her baclofen to 20 mg 3 times a day, we will keep her Lyrica and Zonegran the same. She is going to follow-up in 3 months for medication management. She is going to consider her surgical options. documented in this encounter [facility] Work Phone: 06-28-2023 History of Present illness Narrative Patient is a pleasant 63-year-old female following up today for moderate to severe left foot pain. She states she has been compliantly wearing her boot the last month and her foot pain is quite a bit better much less tender just still a bit achy and sore. Physical Vascular: DP PT pulses are easily palpable 2 out of 4. CFT is fair no edema. Derm: No open wounds no ulcers no rashes no deep nodules. Neuro: Light touch is normal Babinski's is normal. Musculoskeletal: Muscle strength is 5 out of 5 with fair tone, can easily wiggle toes that any clicking or catching. Ankle subtalar is full and pain-free. Today there is no pain on palpation to the third metatarsal but does have global midfoot pain soreness and tenderness. MPJ #1 is tight and stiff especially with dorsiflexion consistent with her radiographs. Radiographs updated Assessment and plan: Patient is a pleasant 63-year-old female with improved third metatarsal stress fracture. At this time she can down titrate her boot to 50% next week and by the 18 be full-time back to her traditional work shoes. For her medium and long-term in light of her dorsiflexed first ray, she is interested in proceeding with a plantarflexed ray osteotomy and cheilectomy of her first MPJ. She would like to in a way coordinate this with her back surgery which is also substantially deteriorated. Her tentative plan is to proceed with foot surgery and then 8 to 12 weeks later proceed with her back surgery. Therefore case request was put in today for her left foot plantar flexor osteotomy and cheilectomy first MPJ. CBC with differential and PAT. Tentative date is for August or September. documented in this encounter [facility] 05-24-2023 History of Present illness Narrative Acute on chronic left midfoot pain. She states that since the fall she has been having worsening pain in her left midfoot. She points to the middle of her foot. No new trauma states it really just came out of nowhere. Physical Vascular: DP PT pulses are easily palpable. CFT is normal very minimal edema nonpitting in nature left midfoot. Derm: No erythema no open wounds no rashes noted nodules. Neuro: Light touch is normal Babinski's is normal. Musculoskeletal: Today there is no pain to the first metatarsal shaft none to the second metatarsal shaft but does have pain to the third. None to the fourth and fifth. Ankle subtalar is full and pain-free. Still with some joint space loss present to the first MPJ with limited range of motion. Radiographs reviewed. Assessment and plan: Patient is a pleasant 63-year-old female with a nail left third metatarsal stress fracture. -Fortunately her first and second have healed however slightly dorsiflexed regarding her first. -Did spend a lot of time today with her going over the short-term options and long-term options. -In the short-term, for her third, does require immobilization therefore needs for the next 5 weeks to wear her cam boot at work. -Regarding the long-term this really is based on penitentiary and her goals. Option this really could be a plantarflexed right first ray osteotomy and a cheilectomy of her first MPJ. She would need off 6 weeks of work to make this happen. Really depends on her goals of penitentiary. -If she retires at 64 and that is her plan could do this afterwards if she has continued pain however there is a good chance that once she retires and slows down this morning continue to bother her however she plans to work till 69-year-old for many years, may need to consider doing this prior to penitentiary. Follow-up 1 month for updated x-rays for stress fracture left foot. documented in this encounter [facility] 05-24-2023 Instructions Felipe Yates Jr., DPM - 05/24/2023 9:27 AM EDT NEEDS to wear boot at work until jun 28 documented in this encounter [facility] 05-02-2023 History of Present illness Narrative Subjective Patient ID: Palmer Jin is a 63 y.o. female who presents for Follow-up (6 month/Pt not feeling well today/States she has tried everything and cannot get symptoms under control /Head cold present for 2-3 weeks/UC on Saturday told her it was just a virus /Pt leaving next Saturday out of the country for a vacation ). HPI Patient is here today for 6 mo follow up Patient reports that she has has had head cold symptoms for 2-3 weeks now, was seen at urgent care and told they thought she just had a virus, was precribed amox which she has not taken, now having ear pain. Patient is leaving next week for vacation in the [place] with her daughter. Review of Systems Constitutional: Negative for activity change, appetite change, chills and fatigue. HENT: Negative for congestion, postnasal drip, sinus pressure, sinus pain and sore throat. Respiratory: Negative for cough, shortness of breath and wheezing. Cardiovascular: Negative for chest pain and leg swelling. Gastrointestinal: Negative for abdominal distention, diarrhea, nausea and vomiting. Musculoskeletal: Negative for back pain. Neurological: Negative for weakness and numbness. Objective BP 139/84 Pulse 67 Ht 1.701 m (5' 6.97 ) Wt 93.4 kg (206 lb) BMI 32.29 kg/m Physical Exam Constitutional: General: She is not in acute distress. Appearance: Normal appearance. HENT: Head: Normocephalic. Left Ear: Ear canal and external ear normal. Ears: Comments: Right ear TM erythematous and loss of red light reflex Fluid in left ear Nose: Nose normal. Mouth/Throat: Pharynx: No oropharyngeal exudate. Eyes: General: Right eye: No discharge. Left eye: No discharge. Extraocular Movements: Extraocular movements intact. Pupils: Pupils are equal, round, and reactive to light. Cardiovascular: Rate and Rhythm: Normal rate and regular rhythm. Heart sounds: No murmur heard. No gallop. Pulmonary: Effort: Pulmonary effort is normal. No respiratory distress. Breath sounds: Normal breath sounds. No wheezing. Musculoskeletal: General: No swelling. Normal range of motion. Skin: General: Skin is warm and dry. Coloration: Skin is not jaundiced. Neurological: General: No focal deficit present. Mental Status: She is alert and oriented to person, place, and time. Cranial Nerves: No cranial nerve deficit. Psychiatric: Mood and Affect: Mood normal. Behavior: Behavior normal. Mammo 04/2021 Assessment/Plan Problem List Items Addressed This Visit RLS (restless legs syndrome) Relevant Medications rOPINIRole (Requip) 0.5 mg tablet GERD (gastroesophageal reflux disease) - Primary Relevant Medications omeprazole (PriLOSEC) [address] capsule HTN (hypertension) Relevant Medications amLODIPine (Norvasc) 5 mg tablet Other Visit Diagnoses Non-recurrent acute serous otitis media of right ear Relevant Medications amoxicillin-pot clavulanate (Augmentin) 875-125 mg tablet Vitamin D deficiency Relevant Medications cholecalciferol (Vitamin D3) 1,250 mcg (50,000 unit) tablet Diarrhea of infectious origin Relevant Medications diphenoxylate-atropine (Lomotil) 2.5-0.025 mg tablet Screening mammogram for breast cancer Relevant Orders BI mammo bilateral screening tomosynthesis Influenza Vaccine: 2020 Prevnar 13 Vaccine -- Pneumovax 23 Vaccine -- Shingrix Vaccine: received COVID: declines Health Maintenance: Breast Cancer screenin04/2021, will order Bone Density: -- Cervical Cancer Screenin Colon Cancer Screening 2012, will be due to in 2022 1. HTN , controlled - continue Norvasc 5mg po daily 2. Chronic back pain - follows with Dr swann, gets injections - on Lyrica 200mg po tid - on diclofenac 25mg 5x a day - on baclofen 10mg po tid 3. Depression, stable - continue Lexapro 20mg po daily - continue trazodone 100mg po daily 4. Otitis media - sent antibiotic 5. Diarrhea likely part of viral infection - immodium not helping Sent lomotil Final diagnoses: [K21.9] Gastroesophageal reflux disease without esophagitis [G25.81] RLS (restless legs syndrome) [I10] Primary hypertension [H65.01] Non-recurrent acute serous otitis media of right ear [E55.9] Vitamin D deficiency [A09] Diarrhea of infectious origin [Z12.31] Screening mammogram for breast cancer documented in this encounter [facility] Work Phone: 04-25-2023 History of Present illness Narrative Error. documented in this encounter [facility] 04-02-2023 History of Present illness Narrative On a scale of 0 to 10, the patient rates the pain at 3.Pain Location: Low Back Pain.Pain Quality: Aching.Sensory/ Motor: Numbness, Pins and [place] and R upper leg;.Timing/Duration: Constant and > 12 weeks duration.Goals for Pain Management:Oswestry Disability Index = 20.Patient is a 62-year-old female. She has a past medical history significant for lumbar stenosis, lumbar neuritis, lumbar spondylosis, lumbar spondylolisthesis and lumbar spondylolisthesis. She presents today for follow-up after undergoing an L4-5 epidural steroid injection. This was done on 03/08/2023 that has given her 75% relief. At this time, she feels that this has helped her but she is still noticing lower back pain with some leg discomfort that she rates a 3/10. In regards to her medications she is using baclofen 10 mg 1 to 2 tablets 3 times a day, diclofenac 25 mg 1 tablet up to 5 times daily as needed pain, pregabalin 200 mg 3 times a day and Zonegran 50 mg twice daily. She is tolerating these well. She did share with me that she had recent blood work through work that showed a high kidney function and upon review of her records she had 1 done in December that showed a high kidney function.Otherwise, she tolerates the medications well. No side effects when she takes as prescribed. She is requesting refills. She would like 90-day supplies to be sent to her pharmacy. [facility] Work Phone: 03-22-2023 History of Present illness Narrative Left foot pain Patient is a pleasant 62-year-old female following up today for globalized left foot pain. Since the last 7 weeks of being off work, she states that her pain is improved. Physical Vascular: DP PT pulses are easily palpable 2 out of 4. CFT is fair mild edema. Derm: No open wounds no ulcers no rashes no deep nodules. Neuro: Light touch is normal Babinski's is normal. Musculoskeletal: Muscle strength is 5 out of 5 with fair tone. Radiographs reviewed Assessment and plan: Patient is a pleasant 62-year-old female with subacute first metatarsal stress fracture and acute second metatarsal stress fracture. -Overall patient is healing well optimistically looking like she will not need surgery given her improvement in the last 7 weeks. -We will have her this week and transition into tennis shoes starting today. Okay to work on March 26, the day after holiday at her job. -If for some reason she back pedals while at work of course she can return and we can discuss again Tylenol for pain at this time she really should be optimized. Additionally given her substantial clinical improvement and radiographic improvement with trabeculation, we will hold off on delayed ORIF. Follow-up in 6 weeks for long-term visit. documented in this encounter [facility] 03-22-2023 Instructions Felipe Yates Jr., DPM - 03/22/2023 8:57 AM EDT Ok to return to work on mar 26 documented in this encounter [facility] 03-09-2023 Note PROCEDURE DETAILS Preoperative Diagnosis: Spinal stenosis of lumbar region with neurogenic claudication, M48.062 Postoperative Diagnosis: Spinal stenosis of lumbar region with neurogenic claudication, M48.062 Surgeon: Harlan wSann Resident/Fellow/Other Rn Referral: None of these were associated with this case Procedure: 1. L4-L5 DEMI Anesthesia: No anesthesiologist associated with this case Estimated Blood Loss: 0 Findings: NA Additional Details: She cannot walk 1/2 mile due to the pain. Her imaging is notable for central spinal stenosis at L3-L4 and a right-sided herniation at L1-L2 resulting in recess stenosis. The patient has a greater than 2-month history of severe low back and leg pain. The patient has previously had 6 weeks of conservative management with exercise therapy and medications. The patient is compliant with home exercises for this issue. The pain significantly interrupts the patient's physical function. The patient does not desire spine surgery. Operative Report: Procedure: Interlaminar lumbar epidural steroid injection under fluoroscopic guidance at the L4-5 interspace Diagnosis: Lumbar stenosis with neurogenic claudication Solution: 1 mL of Kenalog 40 mg, 2 mL of lidocaine 2%, 5 mL normal saline, 8 mL total volume Total contrast: 2 mL Omnipaque Anesthesia: Local Complications: None After informed consent was obtained, the patient was brought to the OR and placed in the prone position. The area in question was prepped and draped in sterile fashion. An AP fluoroscopic view of the lumbar spine was obtained and after 5 mL of lidocaine 1% was injected into the skin, a 17-gauge Touhy needle was inserted into the skin and advanced toward the L4-L5 interspace under intermittent fluoroscopic guidance. The epidural space was identified via loss of resistance to air. Proper needle position was confirmed by AP and lateral fluoroscopy. Contrast was administered under live fluoroscopy and demonstrated appropriate epidural uptake and the absence of any intravascular or intrathecal spread. The local anesthetic steroid solution was then injected incrementally. The needle was removed. Bleeding was minimal. The patient tolerated the procedure well and was transferred to the recovery room in good condition. Attestation: Note Completion: Attending AttestationI performed the procedure without a resident Electronic Signatures: Harlan Swann) (Signed 08-Mar-2023 22:03) Authored: Post-Operative Note, Chart Review, Note Completion Last Updated: 08-Mar-2023 22:03 by Harlan Swann) [facility] 03-08-2023 Miscellaneous Notes PROCEDURE DETAILS Preoperative Diagnosis: Spinal stenosis of lumbar region with neurogenic claudication, M48.062 Postoperative Diagnosis: Spinal stenosis of lumbar region with neurogenic claudication, M48.062 Surgeon: Harlan Swann Resident/Fellow/Other Rn Referral: None of these were associated with this case Procedure: 1. L4-L5 DEMI Anesthesia: No anesthesiologist associated with this case Estimated Blood Loss: 0 Findings: NA Additional Details: She cannot walk 1/2 mile due to the pain. Her imaging is notable for central spinal stenosis at L3-L4 and a right-sided herniation at L1-L2 resulting in recess stenosis. The patient has a greater than 2-month history of severe low back and leg pain. The patient has previously had 6 weeks of conservative management with exercise therapy and medications. The patient is compliant with home exercises for this issue. The pain significantly interrupts the patient's physical function. The patient does not desire spine surgery. Operative Report: Procedure: Interlaminar lumbar epidural steroid injection under fluoroscopic guidance at the L4-5 interspace Diagnosis: Lumbar stenosis with neurogenic claudication Solution: 1 mL of Kenalog 40 mg, 2 mL of lidocaine 2%, 5 mL normal saline, 8 mL total volume Total contrast: 2 mL Omnipaque Anesthesia: Local Complications: None After informed consent was obtained, the patient was brought to the OR and placed in the prone position. The area in question was prepped and draped in sterile fashion. An AP fluoroscopic view of the lumbar spine was obtained and after 5 mL of lidocaine 1% was injected into the skin, a 17-gauge Touhy needle was inserted into the skin and advanced toward the L4-L5 interspace under intermittent fluoroscopic guidance. The epidural space was identified via loss of resistance to air. Proper needle position was confirmed by AP and lateral fluoroscopy. Contrast was administered under live fluoroscopy and demonstrated appropriate epidural uptake and the absence of any intravascular or intrathecal spread. The local anesthetic steroid solution was then injected incrementally. The needle was removed. Bleeding was minimal. The patient tolerated the procedure well and was transferred to the recovery room in good condition. Attestation: Note Completion: Attending Attestation I performed the procedure without a resident Electronic Signatures: Harlan Swann) (Signed 08-Mar-2023 22:03) Authored: Post-Operative Note, Chart Review, Note Completion Last Updated: 08-Mar-2023 22:03 by Harlan Swann) documented in this encounter [facility] Work Phone: 03-08-2023 Note Formatting of this n ote is different from the original. PROCEDURE DETAILS Preoperative Diagnosis: Spinal stenosis of lumbar region with neurogenic claudication, M48.062 Postoperative Diagnosis: Spinal stenosis of lumbar region with neurogenic claudication, M48.062 Surgeon: Harlan Swann Resident/Fellow/Other Rn Referral: None of these were associated with this case Procedure: 1. L4-L5 DEMI Anesthesia: No anesthesiologist associated with this case Estimated Blood Loss: 0 Findings: NA Additional Details: She cannot walk 1/2 mile due to the pain. Her imaging is notable for central spinal stenosis at L3-L4 and a right-sided herniation at L1-L2 resulting in recess stenosis. The patient has a greater than 2-month history of severe low back and leg pain. The patient has previously had 6 weeks of conservative management with exercise therapy and medications. The patient is compliant with home exercises for this issue. The pain significantly interrupts the patient's physical function. The patient does not desire spine surgery. Operative Report: Procedure: Interlaminar lumbar epidural steroid injection under fluoroscopic guidance at the L4-5 interspace Diagnosis: Lumbar stenosis with neurogenic claudication Solution: 1 mL of Kenalog 40 mg, 2 mL of lidocaine 2%, 5 mL normal saline, 8 mL total volume Total contrast: 2 mL Omnipaque Anesthesia: Local Complications: None After informed consent was obtained, the patient was brought to the OR and placed in the prone position. The area in question was prepped and draped in sterile fashion. An AP fluoroscopic view of the lumbar spine was obtained and after 5 mL of lidocaine 1% was injected into the skin, a 17-gauge Touhy needle was inserted into the skin and advanced toward the L4-L5 interspace under intermittent fluoroscopic guidance. The epidural space was identified via loss of resistance to air. Proper needle position was confirmed by AP and lateral fluoroscopy. Contrast was administered under live fluoroscopy and demonstrated appropriate epidural uptake and the absence of any intravascular or intrathecal spread. The local anesthetic steroid solution was then injected incrementally. The needle was removed. Bleeding was minimal. The patient tolerated the procedure well and was transferred to the recovery room in good condition. Attestation: Note Completion: Attending Attestation I performed the procedure without a resident Electronic Signatures: Harlan Swann) (Signed 08-Mar-2023 22:03) Authored: Post-Operative Note, Chart Review, Note Completion Last Updated: 08-Mar-2023 22:03 by Harlan Swann) [facility] Work Phone: 03-01-2023 History of Present illness Narrative Left foot pain Patient is a pleasant 62-year-old female following up today for globalized left foot pain. Since the last 4 weeks of being off work, she states that her pain is quite a bit improved. She states that she is at least 60% better in terms of pain still does have mild complaints of swelling but she is optimistic that things are looking up. She is better off of work healing resting taking it easy. Physical Vascular: DP PT pulses are easily palpable 2 out of 4. CFT is fair mild edema. Derm: No open wounds no ulcers no rashes no deep nodules. Neuro: Light touch is normal Babinski's is normal. Musculoskeletal: Muscle strength is 5 out of 5 with fair tone.. Radiographs reviewed Assessment and plan: Patient is a pleasant 62-year-old female with subacute first metatarsal stress fracture and acute second metatarsal stress fracture. -Overall patient is healing well optimistically looking like she will not need surgery given her improvement in the last 4 weeks. -However due to her job being physically demanding, I did asked that she take off another 4 weeks. After some negotiation, we settled on taking 3 extra weeks off therefore can try to return to work on March 25. Would like to see her right before this that she will not set of x-rays and make sure she is still improving and healing well. -For some reason if she back pedals, will need a delayed ORIF. documented in this encounter [facility] 03-01-2023 Instructions Felipe Yates Jr., DPM - 03/01/2023 3:50 PM EDT Back to work mar 25 documented in this encounter [facility] 03-01-2023 History of Present illness Narrative On a scale of 0 to 10, the patient rates the pain atnot bad today yesterday 12/29.Pain Location: Low Back Pain and bilat lower back.Pain Quality: Sharp and Stabbing.Sensory/ Motor: Numbness and rt lateral thigh front and back.Timing/Duration: Constant and > 12 weeks duration.Controlled Substance:I have personally reviewed the [place] report for PALMER JIN. I have considered the risks of abuse, dependence, addiction and diversion.Exacerbating Factors: motion, lifting, repetitive motion, sitting, standing, stairs, walking and benign over .Alleviating Factors: Exercise, Medications, Repositioning. [facility] Work Phone: 02-26-2023 History of Present illness Narrative On a scale of 0 to 10, the patient rates the pain atnot bad today yesterday 12/29.Pain Location: Low Back Pain and bilat lower back.Pain Quality: Sharp and Stabbing.Sensory/ Motor: Numbness and rt lateral thigh front and back.Timing/Duration: Constant and > 12 weeks duration.Controlled Substance:I have personally reviewed the [place] report for PALMER JIN. I have considered the risks of abuse, dependence, addiction and diversion.Exacerbating Factors: motion, lifting, repetitive motion, sitting, standing, stairs, walking and benign over .Alleviating Factors: Exercise, Medications, Repositioning. [facility] Work Phone: 02-01-2023 History of Present illness Narrative Left foot pain Patient is a pleasant 62-year-old female following up today for globalized left foot pain. She states that overall since the end of October and November she is really not feeling much better her swelling is still present it still sore and it still painful. Comes in today to review her MRI. Physical Vascular: DP PT pulses are easily palpable 2 out of 4. CFT is fair mild edema. Derm: No open wounds no ulcers no rashes no deep nodules. Neuro: Light touch is normal Babinski's is normal. Musculoskeletal: Muscle strength is 5 out of 5 with fair tone.. MRI reviewed with her in the room: She is with an obvious subacute first metatarsal shaft stress fracture with some trabeculation and that more acute second metatarsal fracture with no malalignment. The first does have bone callus present. Assessment and plan: Patient is a pleasant 62-year-old female with subacute first metatarsal stress fracture and acute second metatarsal stress fracture. -At this time, did additionally look back to her radiographs in October which were benign other than her obvious osteoarthritis of the first MPJ. -Based on her stress fractures to 1 and 2, did uptitrate care adding back her immobilization with her cam boot and fracture boot. -If possible at work, do recommend she take light duty for the next 30 days to allow this better to heal though this is impossible could either work or consider taking off 30 days. -We will see her back in 1 month to reevaluate. If she fails to improve in the next month may need to consider a delayed ORIF to the first metatarsal shaft. Follow-up to reevaluate. documented in this encounter [facility] 02-01-2023 Instructions Felipe Yates Jr., DPM - 02/01/2023 3:50 PM EDT Light duty at work from to 03/01 documented in this encounter [facility] 01-28-2023 History of Present illness Narrative Subjective Patient ID: Palmer Jin is a 63 y.o. female who presents for Back Pain (FUV for meds. Today reports having pain in her bilat lower back that radiates into her rt lateral hip , rt thigh down to her knee, rates 7/10, describes as stabbing, aching, burning, tightness she has numbness in her rt thigh. She reports the pain affects her ADLs including lifting, sitting, sleeping, traveling, standing for 1 hour and walking 0.5 mile all causes increased pain. ) She is taking baclofen, Lyrica, and zonegran, PT for the pain it is helping take the edge off of her pain. She is in PT right now so she can be scheduled for surgery she reports it is not helping her pain at this time. MAYI score 30% ORT score 0, Alcohol screen negative. She would like to discuss going back on Voltaren PO. She will need a RF on Baclofen, lexapro, Lyrica, zonegran send to [facility]. Patient is a 63-year-old female. She has a past medical history significant for lumbar stenosis, lumbar neuritis, lumbar spondylosis, lumbar spondylolisthesis and lumbar spondylolisthesis. She presents today for follow-up for medication management. She underwent previous L4-5 epidural steroid injection. This was done on 03/08/2023 and gave her 75% relief. Unfortunately, it did not give her any significant long-term relief. She saw a surgeon. Surgery was recommended. She has to do therapy for so she is currently doing this. At this time, she is using baclofen 10 mg 1 to 2 tablets 3 times a day, pregabalin 200 mg 3 times a day and Zonegran 100 mg twice daily. She is no longer using an anti-inflammatory due to her high kidney function. She wonders if there is anything else that she can possibly take. She tolerates the medications well. No side effects when she takes as prescribed. She is requesting refills. She would like 90-day supplies to be sent to her pharmacy. Review of Systems Constitutional: Negative. HENT: Negative. Eyes: Negative. Respiratory: Negative. Cardiovascular: Negative. Gastrointestinal: Negative. Endocrine: Negative. Genitourinary: Negative. Musculoskeletal: Positive for arthralgias, back pain, gait problem and myalgias. Skin: Negative. Allergic/Immunologic: Negative. Hematological: Negative. Psychiatric/Behavioral: Negative. Objective Physical Exam Vitals and nursing note reviewed. Constitutional: Appearance: Normal appearance. She is obese. HENT: Head: Normocephalic and atraumatic. Right Ear: External ear normal. Left Ear: External ear normal. Nose: Nose normal. Mouth/Throat: Pharynx: Oropharynx is clear. Eyes: Pupils: Pupils are equal, round, and reactive to light. Cardiovascular: Rate and Rhythm: Normal rate and regular rhythm. Pulses: Normal pulses. Pulmonary: Effort: Pulmonary effort is normal. Breath sounds: Normal breath sounds. Musculoskeletal: General: Normal range of motion. Cervical back: Normal range of motion. Comments: 5/5 lower extremity strength Skin: General: Skin is warm and dry. Neurological: General: No focal deficit present. Mental Status: She is alert and oriented to person, place, and time. Mental status is at baseline. Psychiatric: Mood and Affect: Mood normal. Behavior: Behavior normal. Thought Content: Thought content normal. Judgment: Judgment normal. Assessment/Plan Diagnoses and all orders for this visit: Neurogenic claudication due to lumbar spinal stenosis - baclofen (Lioresal) 10 mg tablet; Take 1 tablet (10 mg) by mouth 3 times a day. PRN spasm - pregabalin (Lyrica) 200 mg capsule; Take 1 capsule (200 mg) by mouth 3 times a day. - zonisamide (Zonegran) 50 mg capsule; Take 2 capsules (100 mg) by mouth 2 times a day. Spondylolisthesis, lumbosacral region - baclofen (Lioresal) 10 mg tablet; Take 1 tablet (10 mg) by mouth 3 times a day. PRN spasm - pregabalin (Lyrica) 200 mg capsule; Take 1 capsule (200 mg) by mouth 3 times a day. - zonisamide (Zonegran) 50 mg capsule; Take 2 capsules (100 mg) by mouth 2 times a day. Intervertebral disc disorders with radiculopathy, lumbosacral region - baclofen (Lioresal) 10 mg tablet; Take 1 tablet (10 mg) by mouth 3 times a day. PRN spasm - pregabalin (Lyrica) 200 mg capsule; Take 1 capsule (200 mg) by mouth 3 times a day. - zonisamide (Zonegran) 50 mg capsule; Take 2 capsules (100 mg) by mouth 2 times a day. Lumbosacral radiculitis - baclofen (Lioresal) 10 mg tablet; Take 1 tablet (10 mg) by mouth 3 times a day. PRN spasm - pregabalin (Lyrica) 200 mg capsule; Take 1 capsule (200 mg) by mouth 3 times a day. - zonisamide (Zonegran) 50 mg capsule; Take 2 capsules (100 mg) by mouth 2 times a day. Patient is a 63-year-old female with a past medical history significant for lumbar stenosis, lumbar neuritis, lumbar spondylosis, lumbar spondylolisthesis, and lumbar spondylolysis. She saw surgeon and surgery was discussed. She needs to do therapy for so she is doing this. At this time, she continues on baclofen 10 mg 1 to 2 tablets 3 times a day as needed pain, pregabalin 200 mg 3 times a day and Zonegran 100 mg twice daily she tolerates these well. They help her. She is requesting refills. OARRS was reviewed and is appropriate. 90-day prescriptions were sent to her pharmacy. We discussed other OTC medications to trial. She is going to trial Tylenol. At this time, she will follow-up in 3 months for medication management. Call clinic sooner if necessary. Estephania Cornelius RN 07/02/23 12:49 PM documented in this encounter [facility] Work Phone: 01-11-2023 History of Present illness Narrative Continued left foot pain. Patient is a pleasant 62-year-old female who comes in today with continued left foot pain. States is still quite sore painful and uncomfortable. She has been taking meloxicam for quite a while home therapy. She additionally and very recently got a spinal injection by her pain doctor and back doctor but states it did not help her foot at all. Physical Vascular: DP PT pulses are easily palpable 2 out of 4. CFT is fair minimal edema. Derm: No open wounds no ulcers no rashes noted nodules. Neuro: Light touch is normal Babinski's is normal. Musculoskeletal: Muscle strength is 5 out of 5 with fair tone. Can easily wiggle toes any clicking or catching. First MPJ range of motion is quite limited and painful with compression and palpation especially dorsally and dorsal laterally. Still though has pain to the third metatarsal shaft. Still with substantial pain to the first MPJ and still pain across the third and fourth metatarsal shafts. Assessment and plan: Patient is a pleasant 62-year-old female with continued first MPJ hallux limitus and concern for stress fracture third fourth metatarsal shaft with pain. -Today she has tried and failed much conservative therapy including NSAIDs immobilization and therapy all with no avail with daily pain. -Therefore did order an MRI without contrast to better work-up differential. Pending outcome can consider surgical intervention based. This is for mapping staging and planning. Previous radiographs are nondiagnostic for soft tissue injuries. Follow-up to review imaging. documented in this encounter [facility] 01-05-2023 Note PROCEDURE DETAILS Preoperative Diagnosis: Radiculopathy, lumbosacral region, M54.17 Postoperative Diagnosis: Radiculopathy, lumbosacral region, M54.17 Surgeon: Harlan Swann Resident/Fellow/Other Rn Referral: None of these were associated with this case Procedure: 1. BILAT L5 TFESI Anesthesia: No anesthesiologist associated with this case Estimated Blood Loss: 0 Findings: NA Additional Details: The patient has a greater than 2-month history of severe low back and leg pain. The patient has previously had 6 weeks of conservative management with exercise therapy and medications. The patient is compliant with home exercises for this issue. The pain significantly interrupts the patient's physical function. The patient does not desire spine surgery. The patient had undergone a previous epidural injection at the same levels and obtained greater than 60% pain relief and functional improvement for at least 3 months. Her imaging is notable for severe bilateral neuroforaminal stenosis at L5-S1. This correlates with her symptoms so the procedure was performed at those 2 levels. She cannot sleep longer than 6 hours due to the pain. She cannot sit for 5 minutes without severe pain. She cannot walk 1/4 mile due to the pain. Operative Report: Procedure: Bilateral lumbar transforaminal epidural steroid injection under fluoroscopic guidance of the left L5 nerve root at the left L5-S1 foramen and the right L5 nerve root at the right L5-S1 foramen Diagnosis: Lumbosacral radiculopathy Solution used: 1 ml of Kenalog 40mg, 3 ml normal saline, 1 ml lidocaine 2%, 5ml total. 2.5 mL per site Anesthesia: Local Complications: None After informed consent was obtained, the patient was brought to the OR and placed in the prone position. The area in question was prepped and draped in sterile fashion. An ipsilateral oblique fluoroscopic view of the lumbar spine was obtained and after 3ml of lidocaine 1% was injected into the skin at each site, a 22-gauge Chiba needle was inserted into the skin and advanced to the 6 clock position beneath the left and right L5 pedicles under intermittent fluoroscopic guidance. Proper needle position was confirmed via both AP and lateral fluoroscopy. 1 mL Omnipaque was injected under live fluoroscopy at each site which demonstrated appropriate epidural and nerve root uptake and the absence of any intravascular or intrathecal spread. The local anesthetic steroid solution was then injected incrementally at each site. The 2 needles were removed. Bleeding was nil. The patient tolerated the procedure well and was transferred to the recovery room in good condition. Attestation: Note Completion: Attending AttestationI performed the procedure without a resident Electronic Signatures: Harlan Swann) (Signed 04-Jan-2023 22:08) Authored: Post-Operative Note, Chart Review, Note Completion Last Updated: 04-Jan-2023 22:08 by Harlan Swann) [facility] 01-04-2023 Miscellaneous Notes PROCEDURE DETAILS Preoperative Diagnosis: Radiculopathy, lumbosacral region, M54.17 Postoperative Diagnosis: Radiculopathy, lumbosacral region, M54.17 Surgeon: Harlan Swann Resident/Fellow/Other Rn Referral: None of these were associated with this case Procedure: 1. BILAT L5 TFESI Anesthesia: No anesthesiologist associated with this case Estimated Blood Loss: 0 Findings: NA Additional Details: The patient has a greater than 2-month history of severe low back and leg pain. The patient has previously had 6 weeks of conservative management with exercise therapy and medications. The patient is compliant with home exercises for this issue. The pain significantly interrupts the patient's physical function. The patient does not desire spine surgery. The patient had undergone a previous epidural injection at the same levels and obtained greater than 60% pain relief and functional improvement for at least 3 months. Her imaging is notable for severe bilateral neuroforaminal stenosis at L5-S1. This correlates with her symptoms so the procedure was performed at those 2 levels. She cannot sleep longer than 6 hours due to the pain. She cannot sit for 5 minutes without severe pain. She cannot walk 1/4 mile due to the pain. Operative Report: Procedure: Bilateral lumbar transforaminal epidural steroid injection under fluoroscopic guidance of the left L5 nerve root at the left L5-S1 foramen and the right L5 nerve root at the right L5-S1 foramen Diagnosis: Lumbosacral radiculopathy Solution used: 1 ml of Kenalog 40mg, 3 ml normal saline, 1 ml lidocaine 2%, 5ml total. 2.5 mL per site Anesthesia: Local Complications: None After informed consent was obtained, the patient was brought to the OR and placed in the prone position. The area in question was prepped and draped in sterile fashion. An ipsilateral oblique fluoroscopic view of the lumbar spine was obtained and after 3ml of lidocaine 1% was injected into the skin at each site, a 22-gauge Chiba needle was inserted into the skin and advanced to the 6 clock position beneath the left and right L5 pedicles under intermittent fluoroscopic guidance. Proper needle position was confirmed via both AP and lateral fluoroscopy. 1 mL Omnipaque was injected under live fluoroscopy at each site which demonstrated appropriate epidural and nerve root uptake and the absence of any intravascular or intrathecal spread. The local anesthetic steroid solution was then injected incrementally at each site. The 2 needles were removed. Bleeding was nil. The patient tolerated the procedure well and was transferred to the recovery room in good condition. Attestation: Note Completion: Attending Attestation I performed the procedure without a resident Electronic Signatures: Harlan Swann) (Signed 04-Jan-2023 22:08) Authored: Post-Operative Note, Chart Review, Note Completion Last Updated: 04-Jan-2023 22:08 by Harlan Swann) documented in this encounter [facility] Work Phone: 01-04-2023 Note Formatting of this n ote is different from the original. PROCEDURE DETAILS Preoperative Diagnosis: Radiculopathy, lumbosacral region, M54.17 Postoperative Diagnosis: Radiculopathy, lumbosacral region, M54.17 Surgeon: Harlan Swann Resident/Fellow/Other Rn Referral: None of these were associated with this case Procedure: 1. BILAT L5 TFESI Anesthesia: No anesthesiologist associated with this case Estimated Blood Loss: 0 Findings: NA Additional Details: The patient has a greater than 2-month history of severe low back and leg pain. The patient has previously had 6 weeks of conservative management with exercise therapy and medications. The patient is compliant with home exercises for this issue. The pain significantly interrupts the patient's physical function. The patient does not desire spine surgery. The patient had undergone a previous epidural injection at the same levels and obtained greater than 60% pain relief and functional improvement for at least 3 months. Her imaging is notable for severe bilateral neuroforaminal stenosis at L5-S1. This correlates with her symptoms so the procedure was performed at those 2 levels. She cannot sleep longer than 6 hours due to the pain. She cannot sit for 5 minutes without severe pain. She cannot walk 1/4 mile due to the pain. Operative Report: Procedure: Bilateral lumbar transforaminal epidural steroid injection under fluoroscopic guidance of the left L5 nerve root at the left L5-S1 foramen and the right L5 nerve root at the right L5-S1 foramen Diagnosis: Lumbosacral radiculopathy Solution used: 1 ml of Kenalog 40mg, 3 ml normal saline, 1 ml lidocaine 2%, 5ml total. 2.5 mL per site Anesthesia: Local Complications: None After informed consent was obtained, the patient was brought to the OR and placed in the prone position. The area in question was prepped and draped in sterile fashion. An ipsilateral oblique fluoroscopic view of the lumbar spine was obtained and after 3ml of lidocaine 1% was injected into the skin at each site, a 22-gauge Chiba needle was inserted into the skin and advanced to the 6 clock position beneath the left and right L5 pedicles under intermittent fluoroscopic guidance. Proper needle position was confirmed via both AP and lateral fluoroscopy. 1 mL Omnipaque was injected under live fluoroscopy at each site which demonstrated appropriate epidural and nerve root uptake and the absence of any intravascular or intrathecal spread. The local anesthetic steroid solution was then injected incrementally at each site. The 2 needles were removed. Bleeding was nil. The patient tolerated the procedure well and was transferred to the recovery room in good condition. Attestation: Note Completion: Attending Attestation I performed the procedure without a resident Electronic Signatures: Harlan Swann) (Signed 04-Jan-2023 22:08) Authored: Post-Operative Note, Chart Review, Note Completion Last Updated: 04-Jan-2023 22:08 by Harlan Swann) [facility] Work Phone: 11-09-2022 History of Present illness Narrative HPI Chief Complaint Patient presents with Foot Pain L foot pain x 1-2 mos - pt states that the pain is in the 1st MPJ -top and bottom and swelling - pt did miss a couple of steps recently but the pain started before that Patient is a pleasant 62-year-old female who comes in today with severe left first MPJ pain. She states that her pain was so bad this last couple days she missed work due to pain. States that she has had pain in her great toe for quite a while and been tolerating it however the last month noticed got out of hand. She has that she additionally missed a couple steps injuring it even worse but her pain is poor. Past Medical History: Diagnosis Date 10 year risk of IN or stroke < 7.5% 04/13/2020 4.7% Anxiety Bilateral pulmonary embolism (HCC) 04/10/2021 assoc with Covid pneumonia Chickenpox DDD (degenerative disc disease), lumbar Depression GERD (gastroesophageal reflux disease) H/O bone density study 06/2013 H/O mammogram 06/25/2016 Hypertension benign Hypothyroidism Insomnia Intervertebral disc disorder with radiculopathy of lumbosacral region /[facility] Lumbar spinal stenosis Migraine Moderate obstructive sleep apnea no CPAP per DR Ellie Zheng prn was OK, however. Papanicolaou smear 06/19/2016 Pneumonia due to COVID-19 virus 04/10/2021 Prediabetes 04/28/2021 Hemoglobin A1c 5.9 Pulmonary embolism (HCC) 03/2021 [facility] Past Surgical History: Procedure Laterality Date BREAST BIOPSY COLONOSCOPY 05/27/2013 diagnostic dental implants 09/11/2021 LUMBAR TRANSFORAMINAL EPIDURAL INJECTION Right 07/14/2018 [facility]Dr. Swann-Right Lumbar Transforaminal Epidural Steroid Injection under fluoroscopic guidance OTHER SURGICAL HISTORY 2007 lump in throat OTHER SURGICAL HISTORY Left 11/30/2016 OTHER SURGICAL HISTORY Left 07/13/2016 SKIN LESION EXCISION 2004 neck, scalp Social History Socioeconomic History Marital status: Tobacco Use Smoking status: Never Smokeless tobacco: Never Vaping Use Vaping status: Never Used Substance and Sexual Activity Alcohol use: Yes Comment: occ Drug use: No Sexual activity: Yes Partners: Male Review of Systems Physical Exam Is AOx3. Linear and appropriate humor and thought process. Vascular: DP PT pulse easily palpable 2 out of 4. CFT is fair no edema. Derm: No wounds no ulcers no rashes noted nodules. Neuro: Light touch is normal Babinski's is normal. Musculoskeletal: Muscle strength is 5 out of 5 with fair tone. Can easily wiggle toes and clicking or catching. Left first MPJ range of motion is approximately 5 degrees of dorsiflexion and but substantial pain. Additionally moderate surrounding edema pain with compression MPJ is full and pain-free. I did review her x-rays from [facility]: She is with substantial first MP joint space loss and enthesophytes. Impression/Plan Problem List Items Addressed This Visit None Visit Diagnoses Hallux limitus of left foot - Primary Left foot pain Primary osteoarthritis of left foot Patient is a pleasant 62-year-old female with moderate to severe left first MPJ osteoarthritis and hallux limitus with pain. -At this time, since versus steroids. Together decided on steroid specifically injectable. This is to reduce the localized inflammation. -Long-term board, could consider first MPJ replacement however she is not interested in this at this time. Additionally tried NSAIDs these last couple days and states have not irritating her substantially. Procedure: After timeout consent was performed, and alcohol prep, injected classical fashion from a dorsal to plantar approach to the first MPJ combination 1 cc 0.2 Marcaine plain 1 cc of dexamethasone 4 mg/mL. Postop bandage applied. Additionally prescribed dispensed and fitted today with a boot to immobilize the joint. She can do at work for the next few weeks. This is medically necessary. Patient was ambulatory prior to this incident and is expected to regain ambulatory status after complete healing of injury. -Follow-up 1 month for long-term visit. documented in this encounter [facility] 11-09-2022 Gem Ramires, TECHNOLOGIST - 11/09/2022 4:18 PM EDT Ok to be off work yesterday and today. -ok to work With [employer] ABOUT YOUR INJECTION: You have been given an injection of a combination of local anesthetics (Bupivicaine HCL/ Marcaine and Lidocaine) and a steroid solution (Methylprednisolone acetate/ Depo-Medrol). The steroid solution is designed to decrease the inflammation in the tissues after a couple of days, while the local anesthesia shouldshould give you some measure of immediate pain relief. The combination of medications is used for diagnostic purposes. You may expect the area to be numb for a period of one to several hours. However, after the numbness wears off, you will experience one of the following three sensations: You will continue to have relief of the pain you experienced prior to the injection. Your pre-existing pain will return, and no change will take place. You may, in fact, have more pain than you did prior to the injection, after the local anesthetic wears off. If you have more pain, DON'T PANIC! This pain is an irritation from the cortisone preparation which will resolve as soon as the steroids are absorbed into the tissue. Unfortunately, there is no way for us to predict how quickly or slowly your body will absorb the steroid. Everyone's body absorbs medication at a different rate. On the average, however, most people will get good relief in 48-72 hours. For relief, use ice comresses, and some sort of anti-inflammatory medication such as: Aspirin, Motrin, Nuprin or Advil to relieve the pain. Tylenol, however, is not and anti- inflammatory medication and may be less effective. You should apply ice to the area for approximately 15-20 minutes at a time. You may repeat this as often as necessary. If the increased pain, swelling, or redness persists for more than 5 days after the injection, or if you have any questions, please don't hesitate to call us. This injection may raise your blood sugar if you have diabetes. You must monitor your blood sugar 4 times a day and adjust your insulin as needed. If you do not take insulin and if yout blood sugar elevates to over 250, you must contact your primary care doctor or go to the emergency room. Please do not hesitate to call us with any questions or concerns. documented in this encounter [facility] 08-03-2022 Note PROCEDURE DETAILS Preoperative Diagnosis: Radiculopathy, lumbosacral region, M54.17 Postoperative Diagnosis: Radiculopathy, lumbosacral region, M54.17 Surgeon: Harlan Swann Resident/Fellow/Other Rn Referral: None of these were associated with this case Procedure: 1. BILAT L5 TFESI Anesthesia: No anesthesiologist associated with this case Estimated Blood Loss: 0 Findings: NA Operative Report: Procedure: Bilateral lumbar transforaminal epidural steroid injection under fluoroscopic guidance of the left L5 nerve root at the left L5-S1 foramen and the right L5 nerve root at the right L5-S1 foramen Diagnosis: Lumbosacral radiculopathy Solution used: 1 ml of Kenalog 40mg, 3 ml normal saline, 1 ml lidocaine 2%, 5ml total. 2.5 mL per site Anesthesia: Local Complications: None After informed consent was obtained, the patient was brought to the OR and placed in the prone position. The area in question was prepped and draped in sterile fashion. An ipsilateral oblique fluoroscopic view of the lumbar spine was obtained and after 3ml of lidocaine 1% was injected into the skin at each site, a 22-gauge Chiba needle was inserted into the skin and advanced to the 6 clock position beneath the left and right L5 pedicles under intermittent fluoroscopic guidance. Proper needle position was confirmed via both AP and lateral fluoroscopy. 1 mL Omnipaque was injected under live fluoroscopy at each site which demonstrated appropriate epidural and nerve root uptake and the absence of any intravascular or intrathecal spread. The local anesthetic steroid solution was then injected incrementally at each site. The 2 needles were removed. Bleeding was nil. The patient tolerated the procedure well and was transferred to the recovery room in good condition. Attestation: Note Completion: Attending AttestationI performed the procedure without a resident Electronic Signatures: Harlan Swann) (Signed 03-Aug-2022 16:02) Authored: Post-Operative Note, Chart Review, Note Completion Last Updated: 03-Aug-2022 16:02 by Harlan Swann) [facility] 07-06-2022 Note PROCEDURE DETAILS Preoperative Diagnosis: Sacroiliitis, M46.1 Postoperative Diagnosis: Sacroiliitis, M46.1 Surgeon: Harlan Swann Resident/Fellow/Other Rn Referral: None of these were associated with this case Procedure: 1. BILAT SIJ Anesthesia: No anesthesiologist associated with this case Estimated Blood Loss: 0 Findings: NA Operative Report: Procedure: Intra-articular steroid injection into the left and right sacroiliac joints under fluoroscopic guidance Diagnosis: Sacroiliitis Solution used: 1 mL of Kenalog 40 mg and 4 mL of 0.25% bupivacaine. 5 mL total 2.5 mL per joint Total contrast: 1 mL Omnipaque per side Local: 2 mL lidocaine 1% per side Anesthesia: Local Complications: None After informed consent was obtained the patient was brought to the OR and placed in prone position. The area in question was prepped and draped in sterile fashion. An AP fluoroscopic view of the sacrum was obtained and after local anesthetic was administered into the skin, a 22-gauge quincke needle was inserted into the skin and advanced into the left sacroiliac joint under intermittent fluoroscopic guidance. Contrast was administered and demonstrated appropriate intra-articular spread. Proper needle position was confirmed via AP and contralateral oblique fluoroscopic views. The local anesthetic steroid solution was injected incrementally. The needle was removed. Bleeding was minimal. The procedure was repeated in the same manner on the opposite side. The patient tolerated the procedure well was transferred to the recovery room in good condition. Attestation: Note Completion: Attending AttestationI performed the procedure without a resident Electronic Signatures: Harlan Swann) (Signed 06-Jul-2022 09:01) Authored: Post-Operative Note, Chart Review, Note Completion Last Updated: 06-Jul-2022 09:01 by Harlan Swann) [facility] 01-01-2022 History of Present illness Narrative On a scale of 0 to 10, the patient rates the pain at 3.Pain Location: Low Back Pain.Pain Quality: Aching and Sharp. ImprovedControlled Substance:I have personally reviewed the [place] report for PALMER JIN. I have considered the risks of abuse, dependence, addiction and diversion.Exacerbating Factors: repetitive motion and BENDING / TWISTING.Alleviating Factors: Exercise, Medications, Moist Heat.24 Hour Behavior:Symptoms are worse in the am.Symptoms are the same as the day progresses. ACTIVITY.Symptoms are the same in the pm. ACTIVITY.Symptoms are the same when lying down. [facility] Work Phone: 12-11-2021 History of Present illness Narrative Hypothyroid Pt presents for follow up of hypothyroidism. Onset of hypothyroidism was several years. Pt is currently doing well. Current dose of levothyroxine is 125 mcg daily. Recent changes in this dose no. Last labs noted include Lab Results Component Value Date TSH 1.37 07/10/2021 , Current thyroid related symptoms include none. She denies bowel changes, dry skin or skin changes. Images from the original note were not included. Subjective Patient ID: Palmer Jin is a 61 y.o. female. Chief Complaint Patient presents with Hypothyroidism HPI Hypothyroid Pt presents for follow up of hypothyroidism. Onset of hypothyroidism was several years. Pt is currently doing well. Current dose of levothyroxine is 125 mcg daily. Recent changes in this dose no. Last labs noted include Lab Results Component Value Date TSH 1.37 07/10/2021 , Current thyroid related symptoms include none. She denies bowel changes, dry skin or skin changes. Hypertension She presents for follow-up of hypertension. HTN has been present for approximately several years years.she indicates that she is feeling well and denies any symptoms referable to her elevated blood pressure. Specifically denies chest pain or dyspnea Current medication regimen is as listed in this record. she is currently experiencing the following side effects from her medication:no medication side effects noted . Blood pressure readings taken since the last visit are: BP Readings from Last 3 Encounters: BP Readings from Last 3 Encounters: 12/11/21 134/84 09/26/21 (!) 149/82 07/18/21 (!) 156/93 Use of agents associated with hypertension: thyroid hormones History of renal disease: No. Lab Draw on 07/10/2021 Component Date Value Ref Range Status D-Dimer 07/10/2021 0.41 0.27 - 0.49 mcg/mL FEU Final T4, Free 07/10/2021 1.0 0.7 - 1.7 ng/dL Final TSH 07/10/2021 1.37 0.27 - 4.20 mcIU/mL Final Hospital Outpatient Visit on 06/29/2021 Component Date Value Ref Range Status FEV1/FVC Predicted 06/29/2021 78 % Final FEV1/FVC Pre 06/29/2021 76 % Final FEV1/FVC %Pre Predicted 06/29/2021 98 % Final FEV1/FVC Post 06/29/2021 83 % Final FEV1/FVC %Post Predicted 06/29/2021 107 % Final FEV1/FVC %Change 06/29/2021 9 % Final FVC Predicted 06/29/2021 3.37 Liters Final FVC Pre 06/29/2021 2.59 Liters Final FVC %Pre Predicted 06/29/2021 77 % Final FVC Post 06/29/2021 2.71 Liters Final FVC %Post Predicted 06/29/2021 81 % Final FVC %Change 06/29/2021 5 % Final FEV1 Predicted 06/29/2021 2.59 Liters Final FEV1 Pre 06/29/2021 1.97 Liters Final FEV1 %Pre Predicted 06/29/2021 76 % Final FEV1 Post 06/29/2021 2.25 Liters Final FEV1 %Post Predicted 06/29/2021 87 % Final FEV1 %Change 06/29/2021 14 % Final DLCO Predicted 06/29/2021 25.3 mL/mmHg/min Final DLCO Pre 06/29/2021 21.7 mL/mmHg/min Final DLCO %Pre Predicted 06/29/2021 86 % Final DLCO/VA Predicted 06/29/2021 3.66 mL/mmHg/min/L Final DLCO/VA Pre 06/29/2021 5.30 mL/mmHg/min/L Final DLCO/VA %Pre Predicted 06/29/2021 145 % Final VC Predicted 06/29/2021 3.37 Liters Final VC Pre 06/29/2021 2.59 Liters Final VC %Pre Predicted 06/29/2021 77 % Final TLC Predicted 06/29/2021 5.08 Liters Final TLC Pre 06/29/2021 4.23 Liters Final TLC %Pre Predicted 06/29/2021 83 % Final RV Predicted 06/29/2021 1.94 Liters Final RV Pre 06/29/2021 1.64 Liters Final RV %Pre Predicted 06/29/2021 84 % Final ERV Pre 06/29/2021 [address] Predicted 06/29/2021 2[address] Pre 06/29/[address]21 [address] %Pre Predicted 06/29/2021 92 % Final Lab Draw on 06/27/2021 Component Date Value Ref Range Status SARS-CoV-2 06/27/2021 Not Detected Not Detected Final Patient feels that Lexapro is working well for her depression. She denies SE. Does not report SI. The following portions of the patient's history were reviewed and updated as appropriate: allergies, current medications, past family history, past medical history, past social history, past surgical history and problem list. Review of Systems Constitutional: Negative for activity change, appetite change, chills, diaphoresis, fatigue, fever and unexpected weight change. Respiratory: Negative for cough, chest tightness and shortness of breath. Cardiovascular: Negative for chest pain, palpitations and leg swelling. Neurological: Negative for dizziness, syncope, weakness and light-headedness. Hematological: Does not bruise/bleed easily. Psychiatric/Behavioral: Negative for confusion, decreased concentration and sleep disturbance. The patient is not nervous/anxious. Past Medical History: Diagnosis Date 10 year risk of IN or stroke < 7.5% 04/13/2020 4.7% Anxiety Bilateral pulmonary embolism (HCC) 04/10/2021 assoc with Covid pneumonia Chickenpox DDD (degenerative disc disease), lumbar Depression GERD (gastroesophageal reflux disease) H/O bone density study 06/2013 H/O mammogram 06/25/2016 Hypertension benign Hypothyroidism Insomnia Intervertebral disc disorder with radiculopathy of lumbosacral region /Harlan Roth MD Lumbar spinal stenosis Migraine Moderate obstructive sleep apnea no CPAP per DR Ellie Zheng prn was OK, however. Papanicolaou smear 06/19/2016 Pneumonia due to COVID-19 virus 04/10/2021 Prediabetes 04/28/2021 Hemoglobin A1c 5.9 Pulmonary embolism (HCC) 03/2021 [facility] Past Surgical History: Procedure Laterality Date BREAST BIOPSY COLONOSCOPY 05/27/2013 diagnostic dental implants 09/11/2021 LUMBAR TRANSFORAMINAL EPIDURAL INJECTION Right 07/14/2018 Bertha Swann-Right Lumbar Transforaminal Epidural Steroid Injection under fluoroscopic guidance OTHER SURGICAL HISTORY 2008 lump in throat OTHER SURGICAL HISTORY Left 11/30/2016 OTHER SURGICAL HISTORY Left 07/13/2016 SKIN LESION EXCISION 2004 neck, scalp Family History Problem Relation Age of Onset Arrhythmia Mother Asthma Mother COPD Mother cause of Heart disease Father Asthma Brother Hypertension Brother Diabetes Maternal Grandmother Cancer Maternal Grandfather colon Heart disease Paternal Grandfather Hypertension Brother Social History Socioeconomic History Marital status: Tobacco Use Smoking status: Never Smokeless tobacco: Never Vaping Use Vaping Use: Never used Substance and Sexual Activity Alcohol use: Yes Comment: occ Drug use: No Sexual activity: Yes Partners: Male No Known Allergies Current Outpatient Medications: amLODIPine (NORVASC) 5 MG tablet, Take 1 (one) tablet (5 mg total) by mouth daily ., Disp: 90 tablet, Rfl: 3 baclofen (LIORESAL) 20 MG tablet, Take 20 mg by mouth 3 (three) times a day ., Disp: , Rfl: calcium carbonate (OS-AANTOLY) 600 mg calcium (1,500 mg) tablet, Take 600 mg by mouth daily ., Disp: , Rfl: chlorhexidine (PERIDEX) 0.12 % solution, RINSE WITH ONE HALF OUNCE (15ML) TWICE DAILY, Disp: , Rfl: 99 cholecalciferol, vitamin D3, 3,000 unit Tab, Take 6,000 Units by mouth daily ., Disp: , Rfl: cyanocobalamin (B-12) 100 MCG tablet, Take by mouth daily ., Disp: , Rfl: diclofenac (VOLTAREN) 25 MG EC tablet, Take 25 mg by mouth every 6 (six) hours as needed ., Disp: , Rfl: escitalopram oxalate (LEXAPRO) 20 MG tablet, Take 1 (one) tablet (20 mg total) by mouth daily ., Disp: 30 tablet, Rfl: 11 fluticasone propion-salmeteroL (ADVAIR DISKUS) 100-50 mcg/dose diskus inhaler, INHALE 1 DOSE BY MOUTH TWICE DAILY, Disp: , Rfl: levothyroxine (Synthroid) 125 MCG tablet, Take 1 (one) tablet (125 mcg total) by mouth once daily ., Disp: 90 tablet, Rfl: 3 magnesium oxide 200 mg magnesium Tab, Take 400 mg by mouth daily ., Disp: , Rfl: nabumetone (RELAFEN) 500 MG tablet, Take 500 mg by mouth 3 (three) times a day as needed ., Disp: , Rfl: omeprazole (PRILOSEC) 20 MG capsule, Take 1 (one) capsule (20 mg total) by mouth daily ., Disp: 90 capsule, Rfl: 3 pregabalin (LYRICA) 200 MG capsule, Take 200 mg by mouth 3 (three) times a day ., Disp: , Rfl: rOPINIRole (REQUIP) 0.5 MG tablet, Take 1 (one) tablet (0.5 mg total) by mouth 3 (three) times a day ., Disp: 270 tablet, Rfl: 3 traZODone (DESYREL) 100 MG tablet, Take 1 (one) tablet (100 mg total) by mouth nightly as needed ., Disp: 90 tablet, Rfl: 3 diclofenac epolamine (FLECTOR) 1.3 % PT12, Place 1 patch on the skin 2 (two) times a day ., Disp: , Rfl: Objective Vitals: 12/11/21 0711 BP: 134/84 BP Location: Left arm Patient Position: Sitting BP Cuff Size: X-large Adult Pulse: 64 Resp: 16 Temp: 97.3 F (36.3 C) TempSrc: Temporal SpO2: 95% Weight: 102.6 kg (226 lb 1.6 oz) Height: 5' 6.25 Physical Exam Vitals and nursing note reviewed. Constitutional: General: She is not in acute distress. Appearance: She is well-developed. She is not diaphoretic. HENT: Head: Normocephalic. Neck: Thyroid: No thyroid mass, thyromegaly or thyroid tenderness. Cardiovascular: Rate and Rhythm: Normal rate and regular rhythm. Heart sounds: Normal heart sounds. No murmur heard. No friction rub. No gallop. Pulmonary: Effort: Pulmonary effort is normal. No respiratory distress. Breath sounds: Normal breath sounds. No wheezing or rales. Musculoskeletal: General: No tenderness. Skin: General: Skin is warm and dry. Neurological: Mental Status: She is alert. Psychiatric: Behavior: Behavior normal. Thought Content: Thought content normal. Judgment: Judgment normal. Assessment/Plan: 1. Hypothyroidism, unspecified type Chronic problem, controlled. Continue levothyroxine as prescribed. Labs reviewed. 2. Depression, unspecified depression type Chronic problem, controlled. Continue Lexapro 20 mg daily. - escitalopram oxalate (LEXAPRO) 20 MG tablet; Take 1 (one) tablet (20 mg total) by mouth daily . Dispense: 30 tablet; Refill: 5 3. Hypertension, essential, benign Chronic problem, controlled. Continue current medications. RECOMMEND avoid licorice in diet, avoid pseudoephedrine or other stimulants/decongestants in common cold remedies, avoid NSAIDS such as Advil, ibuprofen, Motrin, Aleve; decrease consumption of alcohol, perform routine monitoring of blood pressure with home blood pressure cuff, exercise, reduction of dietary salt intake, and take medication as prescribed, try not to miss doses. - amLODIPine (NORVASC) 5 MG tablet; Take 1 (one) tablet (5 mg total) by mouth daily . Dispense: 90 tablet; Refill: 1 4. Encounter for administration of vaccine - Varicella-zoster vaccine (Shingrix) IM vaccine For any new medications prescribed today, patient was educated about indications for the medication, how to take the medication and potential side effects of the medications. Electronically signed by: Dr Caroline Huston 7:17 AM 12/11/21 documented in this encounter [facility] 10-02-2021 History of Present illness Narrative On a scale of 0 to 10, the patient rates the pain at 5.now and 8/10 at work today.Pain Location: Low Back Pain and bilat sides.Pain Quality: Aching, Sharp and Stabbing.Sensory/ Motor: Numbness, Pins and [place] and [place] c/o bilat feet top of foot and ankle , and still losing balance a little.Timing/Duration: Constant and > 12 weeks duration.Controlled Substance:I have personally reviewed the OARRS report for PALMER JIN. I have considered the risks of abuse, dependence, addiction and diversion.Exacerbating Factors: squatting, standing, stairs, walking and weightbearing. [facility] Work Phone: 09-26-2021 History of Present illness Narrative [facility] [address] [facility] [address] [place] [address] Name: Palmer Jin Age: 61 y.o. : 1960 Today's date: 09/26/21 Outpatient Pulmonary Consult Note Chief Complaint Patient presents with Follow-up 3 month f/u on [facility] Palmer Jin is a 61 y.o. female who presents to Pulmonary clinic for evaluation of shortness of breath and fatigue. They were referred by Dr. Thomas HPI: The patient is a 61-year-old female with past medical history notable for significant back pain but otherwise no other significant respiratory medical history. She was recently admitted to the hospital for COVID-19 pneumonia. She never required noninvasive or invasive mechanical ventilation. She was treated with steroids and oxygen eventually improved. A CT obtained there did show bilateral small subsegmental Pes. She was discharged on 2 L of oxygen. In the interim time she has noted that although her breathing has slightly improved she continues to have significant fatigue and no energy. She is able to walk around but it is difficult to play with her granddaughter and is difficult to climb up the stairs with a moderate which would not a problem before COVID-19. 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 Has not returned to work since COVID-19. Reports she has been tested for sleep apnea and does have it but it was mild and does not have a machine. At home she does have a cat and a dog but denies any allergies. Her symptoms do not seem to correlate with location. She does note some foggy thinking, but denies any syncope or palpitations. She denies any numbness or tingling. She has been placed on Advair which she has used religiously has not been having any side effects but has not been having any improvement either. In regards to her pulmonary embolism she is currently on Xarelto and is currently planning a 3-month course release. Interval History 06/27: Doing well still using O2 at night could not get PFT due to scheduling issue 09/26: Doing well able to walk around OK, still using her nocturnal oxygen. Daughter weding last Saturday able to walk around OK. Past Medical History: Diagnosis Date 10 year risk of IN or stroke < 7.5% 04/13/2020 4.7% Anxiety Bilateral pulmonary embolism (HCC) 04/10/2021 assoc with Covid pneumonia Chickenpox DDD (degenerative disc disease), lumbar Depression GERD (gastroesophageal reflux disease) H/O bone density study 06/2013 H/O mammogram 06/25/2016 Hypertension benign Hypothyroidism Insomnia Intervertebral disc disorder with radiculopathy of lumbosacral region /Harlan Roth MD Lumbar spinal stenosis Migraine Moderate obstructive sleep apnea no CPAP per DR Ellie Zheng prn was OK, however. Papanicolaou smear 06/19/2016 Pneumonia due to COVID-19 virus 04/10/2021 Prediabetes 04/28/2021 Hemoglobin A1c 5.9 Pulmonary embolism (HCC) 03/2021 [facility] Past Surgical History: Procedure Laterality Date BREAST BIOPSY COLONOSCOPY 05/27/2013 diagnostic dental implants 09/11/2021 LUMBAR TRANSFORAMINAL EPIDURAL INJECTION Right 07/14/2018 [facility]Dr[facility] Swann-Right Lumbar Transforaminal Epidural Steroid Injection under fluoroscopic guidance OTHER SURGICAL HISTORY 2007 lump in throat OTHER SURGICAL HISTORY Left 11/30/2016 OTHER SURGICAL HISTORY Left 07/13/2016 SKIN LESION EXCISION 2004 neck, scalp Family History Problem Relation Age of Onset Arrhythmia Mother Asthma Mother COPD Mother cause of Heart disease Father Asthma Brother Hypertension Brother Diabetes Maternal Grandmother Cancer Maternal Grandfather colon Heart disease Paternal Grandfather Hypertension Brother Other pulmonary history: None Social History Socioeconomic History Marital status: Tobacco Use Smoking status: Never Smoker Smokeless tobacco: Never Used Vaping Use Vaping Use: Never used Substance and Sexual Activity Alcohol use: Yes Comment: occ Drug use: No Sexual activity: Yes Partners: Male Review of Systems Constitutional: Negative. HENT: Negative. Eyes: Negative. Respiratory: Negative. Cardiovascular: Negative. Gastrointestinal: Negative. Endocrine: Negative. Genitourinary: Negative. Musculoskeletal: Negative. Skin: Negative. Allergic/Immunologic: Negative. Neurological: Negative. Hematological: Negative. Psychiatric/Behavioral: Negative. Neuro as noted above no numbness tingling has some foggy sensation Cardiovascular other than HPI no other symptoms Pulmonary other than HPI no other symptoms GI no abdominal pain no diarrhea Endocrine no hot or cold changes no significant weight loss or weight gain Heme-onc no bleeding noted Skin no new rashes Psych no new depression or suicidal ideation Objective: Outpatient Medications as of 09/26/2021 Medication Sig amLODIPine (NORVASC) 5 MG tablet Take 1 (one) tablet (5 mg total) by mouth daily . baclofen (LIORESAL) 20 MG tablet Take 20 mg by mouth 3 (three) times a day . calcium carbonate (OS-ANATOLY) 600 mg calcium (1,500 mg) tablet Take 600 mg by mouth daily . chlorhexidine (PERIDEX) 0.12 % solution RINSE WITH ONE HALF OUNCE (15ML) TWICE DAILY cholecalciferol, vitamin D3, 3,000 unit Tab Take 6,000 Units by mouth daily . cyanocobalamin (B-12) 100 MCG tablet Take by mouth daily . diclofenac epolamine (FLECTOR) 1.3 % PT12 Place 1 patch on the skin 2 (two) times a day . escitalopram oxalate (LEXAPRO) 20 MG tablet Take 1 (one) tablet (20 mg total) by mouth daily . levothyroxine (Synthroid) 125 MCG tablet Take 1 (one) tablet (125 mcg total) by mouth once daily . magnesium oxide 200 mg magnesium Tab Take 400 mg by mouth daily . nabumetone (RELAFEN) 500 MG tablet Take 500 mg by mouth 3 (three) times a day as needed . omeprazole (PRILOSEC) 20 MG capsule Take 1 (one) capsule (20 mg total) by mouth daily . pregabalin (LYRICA) 200 MG capsule Take 200 mg by mouth 3 (three) times a day . rOPINIRole (REQUIP) 0.5 MG tablet Take 1 (one) tablet (0.5 mg total) by mouth 3 (three) times a day . traZODone (DESYREL) 100 MG tablet Take 1 (one) tablet (100 mg total) by mouth nightly as needed . fluticasone propion-salmeteroL (ADVAIR DISKUS) 100-50 mcg/dose diskus inhaler INHALE 1 DOSE BY MOUTH TWICE DAILY rivaroxaban (Xarelto) 20 mg Tab Take 1 (one) tablet (20 mg total) by mouth daily . (Patient not taking: Reported on 09/26/2021 .) No Known Allergies BP (!) 149/82 (BP Location: Right arm) Pulse 67 Temp (!) 96.3 F (35.7 C) (Temporal) Wt 105.1 kg (231 lb 12.8 oz) SpO2 95% Comment: with rest on room air BMI 37.13 kg/m from Vitals Flowsheet Date/Time Weight 05/15/21 1252 101.6 Physical Exam: Vitals reviewed Gen: Alert and oriented x 3, In no apparent distress HEENT: Head: Normocephalic, no lesions, without obvious abnormality. Pharynx: Dental Hygiene adequate. Normal buccal mucosa. Normal pharynx. Neck: nontender, full range of motion, no mass, no focal lymphadenopathy Cardio: regular rate and rhythm, no murmur, brisk capillary refill Resp: clear to auscultation bilaterally, no wheezes or crackles, no tachypnea or accessory muscle use Abd: soft, nontender, nondistended, no hepatosplenomegaly, no mass, normal bowel sounds MSK: Moves all four extremities spontaneously. Neuro: Grossly normal without focal findings Skin: no rashes, no jaundice PFT Results PFT Pre-bronchodilator 06/29/21 1207 FVC 2.59 (% predicted) 77 FEV1 1.97 (% predicted) 76 FEV1/FVC 76 VC 2.59 (% predicted) 77 PFT Post-bronchodilator 06/29/21 1207 FVC 2.71 (% predicted) 81 (% change) 5 FEV1 2.25 (% predicted) 87 (% change) 14 FEV1/FVC 83 PFT Lung Volumes 06/29/21 1207 TLC 4.23 (% predicted) 83 RV 1.64 (% predicted) 84 PFT Diffusion 06/29/21 1207 DLCO 21.7 (% predicted) 86 DLCO/VA 5.30 (% predicted) 145 Interpretation: PFT's with nonspecific ventilatory defect Imaging: Notes and Ancillary Testing Reports: Personally reviewed notes and reports from care everywhere Assessment and Plan: Palmer was seen today for follow-up. Diagnoses and all orders for this visit: PE (physical exam), annual Pulmonary embolism, unspecified chronicity, unspecified pulmonary embolism type, unspecified whether acute cor pulmonale present (HCC) - Nocturnal pulse oximetry; Future Problems 1. COVID-19 pneumonia 2. Bilateral pulmonary embolism 3. Fatigue 4. Shortness of breath on exertion 5. GERD Plan: Overall stable therapy symptoms related to her recent hospitalization and PE doubt any significant long-term respiratory issue. Repeat nocturnal oximetry. Can return to work on 10/02 with 4 our restriction RTC in 12 months Benjamin Benton MD documented in this encounter [facility] 08-30-2021 History of Present illness Narrative Chart reviewed and paperwork filled out for patient at the request of Steve Crisostomo DDS, [place] for proposed dental implant surgery documented in this encounter [facility] 07-18-2021 History of Present illness Narrative Hematology/Oncology Note Chief Complaint/Reason for Consult: Bilateral PE in association with COVID-19 Referring Physician/PCP: Caroline Huston MD Interval Hx: Pt presents for planned f/u visit. Since her last appt she reports feeling much better, no longer requiring continuous supplemental O2 but still uses nocturnal oxygen. Report significant improvement in her dyspnea exertion and denies any shortness of breath at rest. She still does not feel completely back to her baseline but continues to feel better each day. She remains on anticoagulation therapy with Xarelto, takes medication exactly as prescribed and denies missing any doses. Review systems is negative for any abnormal bleeding or bruising. History of Present Illness: Palmer Jin is a 61 y.o. female with a past medical history of prediabetes, hypertension, hypothyroidism, insomnia, migraine headaches, GERD who is being seen by hematology/oncology for recently diagnosed bilateral pulmonary embolism in association with COVID-19 pneumonia. Patient states that she developed significant pain in the left lower back during the first week of March 2021. She reports this pain as constant, unrelenting and made it very difficult for her to sleep. The pain was persistent and denies worsening with deep breath. Per review of prior records pt admitted to [facility] 04/07/21 for COVID [address] PE which showed bilateral tiny subsegmental pulmonary emboli. She also had an echocardiogram which showed normal left ventricular ejection fraction, however there was evidence of right ventricular dilation. Patient was initially treated with heparin drip and was transitioned to Xarelto 15 mg p.o. twice daily. Since her discharge from hospital patient continues to have significant pulmonary symptoms including the left lower back pain, shortness of breath, dyspnea exertion and she remains on 2 L supplemental O2 with activity and 1 L at rest. She is religiously taking the Xarelto 20 mg p.o. daily now and denies missing any doses. She also denies any abnormal bleeding or bruising since taking this medication Prior to this incident, patient denies any personal history of VTE and there is no family history of DVTs or long-term anticoagulation use. She also denies personal history of recurrent miscarriages or malignancies. Past Medical History: Diagnosis Date 10 year risk of IN or stroke < 7.5% 04/13/2020 4.7% Anxiety Bilateral pulmonary embolism (HCC) 04/10/2021 assoc with Covid pneumonia Chickenpox DDD (degenerative disc disease), lumbar Depression GERD (gastroesophageal reflux disease) H/O bone density study 06/2013 H/O mammogram 06/25/2016 Hypertension benign Hypothyroidism Insomnia Intervertebral disc disorder with radiculopathy of lumbosacral region /[facility] MD Lumbar spinal stenosis Migraine Moderate obstructive sleep apnea no CPAP per DR Ellie Zheng prn was OK, however. Papanicolaou smear 06/19/2016 Pneumonia due to COVID-19 virus 04/10/2021 Prediabetes 04/28/2021 Hemoglobin A1c 5.9 Pulmonary embolism (HCC) 03/2021 [facility] Past Surgical History: Procedure Laterality Date BREAST BIOPSY COLONOSCOPY 05/27/2013 diagnostic LUMBAR TRANSFORAMINAL EPIDURAL INJECTION Right 07/14/2018 [facility]Dr[facility] Swann-Right Lumbar Transforaminal Epidural Steroid Injection under fluoroscopic guidance OTHER SURGICAL HISTORY 2007 lump in throat OTHER SURGICAL HISTORY Left 11/30/2016 OTHER SURGICAL HISTORY Left 07/13/2016 SKIN LESION EXCISION 2004 neck, scalp Family History Problem Relation Age of Onset Arrhythmia Mother Asthma Mother COPD Mother cause of Heart disease Father Asthma Brother Hypertension Brother Diabetes Maternal Grandmother Cancer Maternal Grandfather colon Heart disease Paternal Grandfather Hypertension Brother Social History Socioeconomic History Marital status: Tobacco Use Smoking status: Never Smoker Smokeless tobacco: Never Used Vaping Use Vaping Use: Never used Substance and Sexual Activity Alcohol use: Yes Comment: occ Drug use: No Sexual activity: Yes Partners: Male No Known Allergies Current Outpatient Medications Medication Sig Dispense Refill amLODIPine (NORVASC) 5 MG tablet Take 1 (one) tablet (5 mg total) by mouth daily . 90 tablet 3 baclofen (LIORESAL) 20 MG tablet Take 20 mg by mouth 2 (two) times a day . calcium carbonate (OS-ANATOLY) 600 mg calcium (1,500 mg) tablet Take 600 mg by mouth daily . chlorhexidine (PERIDEX) 0.12 % solution RINSE WITH ONE HALF OUNCE (15ML) TWICE DAILY 99 cholecalciferol, vitamin D3, 3,000 unit Tab Take 6,000 Units by mouth daily . cyanocobalamin (vitamin B-12) 100 MCG tablet Take by mouth daily . diclofenac epolamine (FLECTOR) 1.3 % PT12 Place 1 patch on the skin 2 (two) times a day . escitalopram oxalate (LEXAPRO) 20 MG tablet Take 1 (one) tablet (20 mg total) by mouth daily . 30 tablet 11 levothyroxine (Synthroid) 125 MCG tablet Take 1 (one) tablet (125 mcg total) by mouth once daily . 90 tablet 3 magnesium oxide 200 mg magnesium Tab Take 400 mg by mouth daily . omeprazole (PRILOSEC) 20 MG capsule Take 1 (one) capsule (20 mg total) by mouth daily . 90 capsule 3 pregabalin (LYRICA) 200 MG capsule Take 200 mg by mouth 3 (three) times a day . rivaroxaban (Xarelto) 20 mg Tab Take 1 (one) tablet (20 mg total) by mouth daily . 30 tablet 5 rOPINIRole (REQUIP) 0.5 MG tablet Take 1 (one) tablet (0.5 mg total) by mouth 3 (three) times a day . 270 tablet 3 traZODone (DESYREL) 100 MG tablet Take 1 (one) tablet (100 mg total) by mouth nightly as needed . 90 tablet 3 No current facility-administered medications for this visit. Review of Systems: A Complete review of systems was performed and is negative except for what is listed in the HPI Physical Exam: PACU Vitals 07/18/21 1041 BP: (!) 156/93 Pulse: 65 Temp: 98.3 F (36.8 C) SpO2: 94% ECOG 1 Gen: pleasant female, NAD, resting comfortably in chair HEENT: NCAT, no temporal wasting, anicteric sclerae, mmm, no op lesions Neck: supple, no thyromegaly or LAD Lymphatics: no cervical, axillary, or inguinal adenopathy Chest: Clear breath sounds bilaterally, no w/r/r, no respiratory distress CV: RRR, no m/r/g, normal S1, S2 Abd: soft, nontender, nondistended, +BS, no hepatosplenomegaly Ext: wwp, no c/c/e Skin: no rashes or lesions Neuro: Alert and oriented x4, no focal deficits, moves all four extremities, strength and sensation intact throughout Psych: Mood normal, affect normal. Labs: Lab Results Component Value Date WBC 8.33 05/15/2021 HGB 11.2 (L) 05/15/2021 HCT 35.5 (L) 05/15/2021 MCV 92.4 05/15/2021 EXTMCV 89.4 04/10/2018 PLT 264 05/15/2021 RBC 3.84 (L) 05/15/2021 Lab Results Component Value Date GLUCOSE 93 04/27/2021 CALCIUM 9.1 04/27/2021 NA 142 04/27/2021 K 3.6 04/27/2021 CL 109 (H) 04/27/2021 BUN 13 04/27/2021 CREATININE 0.91 04/27/2021 Lab Results Component Value Date ALT 34 04/27/2021 AST 17 04/27/2021 ALKPHOS 91 04/27/2021 BILITOT 0.6 04/27/2021 Assessment & Recommendations: Palmer Jin is a 61 y.o. female with a past medical history of prediabetes, hypertension, hypothyroidism, insomnia, migraine headaches, GERD who is being seen by hematology/oncology for recently diagnosed bilateral pulmonary embolism in association with COVID-19 pneumonia. 1. Bilateral pulmonary embolism (HCC) -Small subsegmental pulmonary emboli noted in conjunction with COVID-19 pneumonia in March 2021 -Patient initially started therapy with Xarelto 15 mg p.o. twice daily and is currently doing well on Xarelto 20 mg p.o. daily -She initially had significant persistent respiratory symptoms including shortness of breath, dyspnea exertion, lower back pain and requires 2 L supplemental O2 with exertion -I explained to the patient that there is no standard of care or consensus in terms of duration of anticoagulation therapy and her specific clinical situation -Since her initial presentation the patient has completed 3 months of anticoagulation with Xarelto. She had D-dimer drawn on 07/10/2021 which was not elevated. Explained to the patient that when the D-dimer is not elevated, there is little evidence of ongoing clotting process. -Based on her improvement in symptoms, low D-dimer I recommend discontinuation of Xarelto in the next 3 to 4 weeks. -Patient will need to remain vigilant about signs and symptoms of recurrent VTE including new shortness of breath, worsening dyspnea exertion, tachycardia, hemoptysis or asymmetrical lower extremity pain or swelling 2. Recent history of COVID-19 pneumonia -Patient reports significant improvement from her symptoms. She recently underwent PFTs and will follow up with pulmonology in 3 months from now. RTC as needed but patient will need to follow-up closely with the rest of her providers. Education Provided Education/Instructions given to: (x) Patient (_) Spouse (_) Parent (_) Other Barriers to Learning: (x) None (_) Yes (identify):_ Content: (x) Refer to note above (_)Other (identify):_ Evaluation/Outcome: (x) Verbalized understanding (_) Demonstrated understanding (_) Other:_ Rose Thomas MD documented in this encounter [facility] 07-05-2021 History of Present illness Narrative On a scale of 0 to 10, the patient rates the pain at 5.now and 9/10 at its worst with activity.Pain Location: Low Back Pain and bilat Lower back.Pain Quality: Aching, Stabbing and intensity is better.Timing/Duration: Constant and > 12 weeks duration.Controlled Substance:I have personally reviewed the OARRS report for PALMER JIN. I have considered the risks of abuse, dependence, addiction and diversion.Exacerbating Factors: motion, standing, stairs, walking and getting up out of a chair. [facility] Work Phone: 07-04-2021 History of Present illness Narrative On a scale of 0 to 10, the patient rates the pain at 5.now and 9/10 at its worst with activity.Pain Location: Low Back Pain and bilat Lower back.Pain Quality: Aching, Stabbing and intensity is better.Timing/Duration: Constant and > 12 weeks duration.Exacerbating Factors: motion, standing, stairs, walking and getting up out of a chair. [facility] Work Phone: 06-27-2021 History of Present illness Narrative [facility] [address] [facility] [address] [facility] [id number] Name: Palmer Jin Age: 61 y.o. : 1960 Today's date: 06/27/21 Outpatient Pulmonary Consult Note Chief Complaint Patient presents with Follow-up 6 week f/u Palmer Jin is a 61 y.o. female who presents to Pulmonary clinic for evaluation of shortness of breath and fatigue. They were referred by Dr. Thomas HPI: The patient is a 61-year-old female with past medical history notable for significant back pain but otherwise no other significant respiratory medical history. She was recently admitted to the hospital for COVID-19 pneumonia. She never required noninvasive or invasive mechanical ventilation. She was treated with steroids and oxygen eventually improved. A CT obtained there did show bilateral small subsegmental Pes. She was discharged on 2 L of oxygen. In the interim time she has noted that although her breathing has slightly improved she continues to have significant fatigue and no energy. She is able to walk around but it is difficult to play with her granddaughter and is difficult to climb up the stairs with a moderate which would not a problem before COVID-19. 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 Has not returned to work since COVID-19. Reports she has been tested for sleep apnea and does have it but it was mild and does not have a machine. At home she does have a cat and a dog but denies any allergies. Her symptoms do not seem to correlate with location. She does note some foggy thinking, but denies any syncope or palpitations. She denies any numbness or tingling. She has been placed on Advair which she has used religiously has not been having any side effects but has not been having any improvement either. In regards to her pulmonary embolism she is currently on Xarelto and is currently planning a 3-month course release. Interval History 06/27: Doing well still using O2 at night could not get PFT due to scheduling issue Past Medical History: Diagnosis Date 10 year risk of IN or stroke < 7.5% 04/13/2020 4.7% Anxiety Bilateral pulmonary embolism (HCC) 04/10/2021 assoc with Covid pneumonia Chickenpox DDD (degenerative disc disease), lumbar Depression GERD (gastroesophageal reflux disease) H/O bone density study 06/2013 H/O mammogram 06/25/2016 Hypertension benign Hypothyroidism Insomnia Intervertebral disc disorder with radiculopathy of lumbosacral region /Harlan Roth MD Lumbar spinal stenosis Migraine Moderate obstructive sleep apnea no CPAP per DR Ellie Zheng prn was OK, however. Papanicolaou smear 06/19/2016 Pneumonia due to COVID-19 virus 04/10/2021 Prediabetes 04/28/2021 Hemoglobin A1c 5.9 Pulmonary embolism (HCC) 03/2021 [facility] Past Surgical History: Procedure Laterality Date BREAST BIOPSY COLONOSCOPY 05/27/2013 diagnostic LUMBAR TRANSFORAMINAL EPIDURAL INJECTION Right 07/14/2018 [facility] Swann-Right Lumbar Transforaminal Epidural Steroid Injection under fluoroscopic guidance OTHER SURGICAL HISTORY 2008 lump in throat OTHER SURGICAL HISTORY Left 11/30/2016 OTHER SURGICAL HISTORY Left 07/13/2016 SKIN LESION EXCISION 2004 neck, scalp Family History Problem Relation Age of Onset Arrhythmia Mother Asthma Mother COPD Mother cause of Heart disease Father Asthma Brother Hypertension Brother Diabetes Maternal Grandmother Cancer Maternal Grandfather colon Heart disease Paternal Grandfather Hypertension Brother Other pulmonary history: None Social History Socioeconomic History Marital status: Tobacco Use Smoking status: Never Smoker Smokeless tobacco: Never Used Vaping Use Vaping Use: Never used Substance and Sexual Activity Alcohol use: Yes Comment: occ Drug use: No Sexual activity: Yes Partners: Male Review of Systems Constitutional: Negative. HENT: Negative. Eyes: Negative. Respiratory: Negative. Cardiovascular: Negative. Gastrointestinal: Negative. Endocrine: Negative. Genitourinary: Negative. Musculoskeletal: Negative. Skin: Negative. Allergic/Immunologic: Negative. Neurological: Negative. Hematological: Negative. Psychiatric/Behavioral: Negative. Neuro as noted above no numbness tingling has some foggy sensation Cardiovascular other than HPI no other symptoms Pulmonary other than HPI no other symptoms GI no abdominal pain no diarrhea Endocrine no hot or cold changes no significant weight loss or weight gain Heme-onc no bleeding noted Skin no new rashes Psych no new depression or suicidal ideation Objective: Outpatient Medications as of 06/27/2021 Medication Sig amLODIPine (NORVASC) 5 MG tablet Take 1 (one) tablet (5 mg total) by mouth daily . baclofen (LIORESAL) 20 MG tablet Take 20 mg by mouth 2 (two) times a day . calcium carbonate (OS-ANATOLY) 600 mg calcium (1,500 mg) tablet Take 600 mg by mouth daily . chlorhexidine (PERIDEX) 0.12 % solution RINSE WITH ONE HALF OUNCE (15ML) TWICE DAILY cholecalciferol, vitamin D3, 3,000 unit Tab Take 6,000 Units by mouth daily . cyanocobalamin (vitamin B-12) 100 MCG tablet Take by mouth daily . diclofenac epolamine (FLECTOR) 1.3 % PT12 Place 1 patch on the skin 2 (two) times a day . escitalopram oxalate (LEXAPRO) 20 MG tablet Take 1 (one) tablet (20 mg total) by mouth daily . levothyroxine (Synthroid) 125 MCG tablet Take 1 (one) tablet (125 mcg total) by mouth once daily . magnesium oxide 200 mg magnesium Tab Take 400 mg by mouth daily . omeprazole (PRILOSEC) 20 MG capsule Take 1 (one) capsule (20 mg total) by mouth daily . pregabalin (LYRICA) 200 MG capsule Take 200 mg by mouth 3 (three) times a day . rivaroxaban (Xarelto) 20 mg Tab Take 1 (one) tablet (20 mg total) by mouth daily . rOPINIRole (REQUIP) 0.5 MG tablet Take 1 (one) tablet (0.5 mg total) by mouth 3 (three) times a day . traZODone (DESYREL) 100 MG tablet Take 1 (one) tablet (100 mg total) by mouth nightly as needed . No Known Allergies BP 126/78 (BP Location: Left arm) Pulse 71 Temp 98.2 F (36.8 C) (Temporal) Wt 98.8 kg (217 lb 14.4 oz) SpO2 98% Comment: room air BMI 34.91 kg/m from IP Vitals Flowsheet Date/Time Weight 05/15/21 1252 101.6 Physical Exam: Vitals reviewed Gen: Alert and oriented x 3, In no apparent distress HEENT: Head: Normocephalic, no lesions, without obvious abnormality. Pharynx: Dental Hygiene adequate. Normal buccal mucosa. Normal pharynx. Neck: nontender, full range of motion, no mass, no focal lymphadenopathy Cardio: regular rate and rhythm, no murmur, brisk capillary refill Resp: clear to auscultation bilaterally, no wheezes or crackles, no tachypnea or accessory muscle use Abd: soft, nontender, nondistended, no hepatosplenomegaly, no mass, normal bowel sounds MSK: Moves all four extremities spontaneously. Neuro: Grossly normal without focal findings Skin: no rashes, no jaundice PFT Results PFT Pre-bronchodilator None PFT Post-bronchodilator None PFT Lung Volumes None PFT Diffusion None Interpretation: Imaging: Notes and Ancillary Testing Reports: Personally reviewed notes and reports from care everywhere Assessment and Plan: Palmer was seen today for follow-up. Diagnoses and all orders for this visit: Dyspnea on exertion - Complete PFT with Pre and Post Bronchodilator; Future Problems 1. COVID-19 pneumonia 2. Bilateral pulmonary embolism 3. Fatigue 4. Shortness of breath on exertion 5. GERD Plan: Overall stable therapy symptoms related to her recent hospitalization and PE doubt any significant long-term respiratory issue. Planning to get PFT and will discuss results. Continue home nocturnal O2 and will see again in 3-6 months RTC in 3-6 months Bejnamin Benton MD documented in this encounter [facility] 06-12-2021 History of Present illness Narrative Images from the original note were not included. Subjective Patient ID: Palmer Jin is a 61 y.o. female. Chief Complaint Patient presents with Insomnia Incontinence HPI 05/03/21 Insomnia Patient reports the following difficulty with sleep -going to sleep and getting up in the middle of the night due to going to the restroom and the oxygen cord is wrapped around her, she then starts thinking again . This has been present for the last month. Symptoms of depression -No. Evidence of other mental illness - No. Lifestyle issues effecting sleep: A change in sleeping environment - No, Jet lag -No, Changes in work shift - No, Excessive noise - No, Unpleasant room temperature - No, , Stressful life events - Yes, Acute medical/surgical illness - Yes pt dx with coivd/ PE and on oxygen. Sometimes feels rested in the morning. Does snore- occ loud per . No witnessed apnea.. Pt previously using Ambien with no relief. Pt notes she struggles with urinary incontinence. Pt notes she has to get up at least 2 times a night. Has tried cutting out fluids after 5 PM. Staying on her usual work schedule. Medications that effect sleep quality or architecture of normal sleep Benzodiazepine, melatonin receptor agonist, antiepileptics, antidepressants (SSRI, TCAs, SARIs), analgesics (codiene, morphine, NSAIDs), S[employer] AUD[employer] stimulants (pseudophed, amphetamines), beta blockers (metoprolol, atenolol, propranalol, sotalol), Centrally acting alpha adrenergic agonist (clonidine), Theophylline, corticosteroids, thyroxine, bronchodilator, alcohol withdrawal, Cigarettes Today 06/12/21 Pt presents to follow up on insomnia since starting trazodone. Trazodone is improving sleep. Denies SE. Incontinence Pt followed up with Dr. Harrington for incontinence. Notes this is nothing to be done at this time. The following portions of the patient's history were reviewed and updated as appropriate: allergies, current medications, past family history, past medical history, past social history, past surgical history and problem list. Review of Systems Constitutional: Negative for activity change, appetite change, chills, diaphoresis, fatigue, fever and unexpected weight change. Respiratory: Negative for cough, chest tightness and shortness of breath. Cardiovascular: Negative for chest pain, palpitations and leg swelling. Neurological: Negative for dizziness, syncope, weakness and light-headedness. Hematological: Does not bruise/bleed easily. Psychiatric/Behavioral: Positive for sleep disturbance. Negative for confusion and decreased concentration. The patient is not nervous/anxious. Past Medical History: Diagnosis Date 10 year risk of IN or stroke < 7.5% 04/13/2020 4.7% Anxiety Bilateral pulmonary embolism (HCC) 04/10/2021 assoc with Covid pneumonia Chickenpox DDD (degenerative disc disease), lumbar Depression GERD (gastroesophageal reflux disease) H/O bone density study 06/2013 H/O mammogram 06/25/2016 Hypertension benign Hypothyroidism Insomnia Intervertebral disc disorder with radiculopathy of lumbosacral region /Harlan Roth MD Lumbar spinal stenosis Migraine Moderate obstructive sleep apnea no CPAP per DR Ellie Zheng prn was OK, however. Papanicolaou smear 06/19/2016 Pneumonia due to COVID-19 virus 04/10/2021 Prediabetes 04/28/2021 Hemoglobin A1c 5.9 Pulmonary embolism (HCC) 03/2021 [facility] Past Surgical History: Procedure Laterality Date BREAST BIOPSY COLONOSCOPY 05/27/2013 diagnostic LUMBAR TRANSFORAMINAL EPIDURAL INJECTION Right 07/14/2018 [facility] Swann-Right Lumbar Transforaminal Epidural Steroid Injection under fluoroscopic guidance OTHER SURGICAL HISTORY 2007 lump in throat OTHER SURGICAL HISTORY Left 11/30/2016 OTHER SURGICAL HISTORY Left 07/13/2016 SKIN LESION EXCISION 2004 neck, scalp Family History Problem Relation Age of Onset Arrhythmia Mother Asthma Mother COPD Mother cause of Heart disease Father Asthma Brother Hypertension Brother Diabetes Maternal Grandmother Cancer Maternal Grandfather colon Heart disease Paternal Grandfather Hypertension Brother Social History Socioeconomic History Marital status: Tobacco Use Smoking status: Never Smoker Smokeless tobacco: Never Used Vaping Use Vaping Use: Never used Substance and Sexual Activity Alcohol use: No Drug use: No Sexual activity: Yes Partners: Male No Known Allergies Current Outpatient Medications: amLODIPine (NORVASC) 5 MG tablet, Take 1 (one) tablet (5 mg total) by mouth daily ., Disp: 90 tablet, Rfl: 3 baclofen (LIORESAL) 20 MG tablet, Take 20 mg by mouth 2 (two) times a day ., Disp: , Rfl: calcium carbonate (OS-ANATOLY) 600 mg calcium (1,500 mg) tablet, Take 600 mg by mouth daily ., Disp: , Rfl: chlorhexidine (PERIDEX) 0.12 % solution, RINSE WITH ONE HALF OUNCE (15ML) TWICE DAILY, Disp: , Rfl: 99 cholecalciferol, vitamin D3, 3,000 unit Tab, Take 6,000 Units by mouth daily ., Disp: , Rfl: cyanocobalamin (vitamin B-12) 100 MCG tablet, Take by mouth daily ., Disp: , Rfl: diclofenac epolamine (FLECTOR) 1.3 % PT12, Place 1 patch on the skin 2 (two) times a day ., Disp: , Rfl: escitalopram oxalate (LEXAPRO) 20 MG tablet, Take 1 (one) tablet (20 mg total) by mouth daily ., Disp: 30 tablet, Rfl: 11 levothyroxine (Synthroid) 125 MCG tablet, Take 1 (one) tablet (125 mcg total) by mouth once daily ., Disp: 90 tablet, Rfl: 3 magnesium oxide 200 mg magnesium Tab, Take 400 mg by mouth daily ., Disp: , Rfl: pregabalin (LYRICA) 200 MG capsule, Take 200 mg by mouth 3 (three) times a day ., Disp: , Rfl: rivaroxaban (Xarelto) 20 mg Tab, Take 1 (one) tablet (20 mg total) by mouth daily ., Disp: 30 tablet, Rfl: 5 rOPINIRole (REQUIP) 0.5 MG tablet, Take 1 (one) tablet (0.5 mg total) by mouth 3 (three) times a day ., Disp: 270 tablet, Rfl: 3 omeprazole (PRILOSEC) 20 MG capsule, Take 1 (one) capsule (20 mg total) by mouth daily ., Disp: 90 capsule, Rfl: 3 traZODone (DESYREL) 100 MG tablet, Take 1 (one) tablet (100 mg total) by mouth nightly as needed ., Disp: 90 tablet, Rfl: 3 Objective Vitals: 06/12/21 1504 BP: 137/85 BP Location: Left arm Patient Position: Sitting BP Cuff Size: Adult Pulse: 63 Resp: 16 Temp: 97.1 F (36.2 C) TempSrc: Temporal SpO2: 95% Weight: 100.7 kg (222 lb) Height: 5' 6.25 Physical Exam Vitals and nursing note reviewed. Constitutional: General: She is not in acute distress. Appearance: She is well-developed and well-nourished. HENT: Head: Normocephalic. Pulmonary: Effort: Pulmonary effort is normal. No respiratory distress. Neurological: Mental Status: She is alert. Psychiatric: Mood and Affect: Mood and affect normal. Behavior: Behavior normal. Thought Content: Thought content normal. Judgment: Judgment normal. Assessment/Plan: 1. Gastroesophageal reflux disease Chronic problem controlled. Continue current medications. - omeprazole (PRILOSEC) 20 MG capsule; Take 1 (one) capsule (20 mg total) by mouth daily . Dispense: 90 capsule; Refill: 3 2. Sleep difficulties Chronic problem improved but not resolved. Increase trazodone to 100 mg nightly as needed insomnia. If not improved in the next 1 to 2 weeks, please contact the office. - traZODone (DESYREL) 100 MG tablet; Take 1 (one) tablet (100 mg total) by mouth nightly as needed . Dispense: 90 tablet; Refill: 3 3. Hypothyroidism, unspecified type Reviewed last thyroid labs. Uncontrolled. Patient is not experiencing any symptoms that she would relate to her thyroid. Further recommendations pending repeat labs. - T4, Free; Future - TSH; Future Patient asks about going off her blood thinners due to the fact that she is unable to use her anti-inflammatories and she has a colonoscopy coming up. She started the blood thinners in March 2021 after pulmonary emboli due to Covid. She was advised by hematology to continue for at least 3 months and then as long as she was not having symptoms and her D-dimer was not elevated they may try stopping the blood thinners. Patient was not happy to hear this but will continue Xarelto as prescribed. She will follow up with hematology as well as pulmonary as scheduled. For any new medications prescribed today, patient was educated about indications for the medication, how to take the medication and potential side effects of the medications. Electronically signed by: Dr Caroline Huston 3:27 PM 06/12/21 05/03/21 Insomnia Patient reports the following difficulty with sleep -going to sleep and getting up in the middle of the night due to going to the restroom and the oxygen cord is wrapped around her, she then starts thinking again . This has been present for the last month. Symptoms of depression -No. Evidence of other mental illness - No. Lifestyle issues effecting sleep: A change in sleeping environment - No, Jet lag -No, Changes in work shift - No, Excessive noise - No, Unpleasant room temperature - No, , Stressful life events - Yes, Acute medical/surgical illness - Yes pt dx with coivd/ PE and on oxygen. Sometimes feels rested in the morning. Does snore- occ loud per . No witnessed apnea.. Pt previously using Ambien with no relief. Pt notes she struggles with urinary incontinence. Pt notes she has to get up at least 2 times a night. Has tried cutting out fluids after 5 PM. Staying on her usual work schedule. Medications that effect sleep quality or architecture of normal sleep Benzodiazepine, melatonin receptor agonist, antiepileptics, antidepressants (SSRI, TCAs, SARIs), analgesics (codiene, morphine, NSAIDs), S[employer] AUD[employer] stimulants (pseudophed, amphetamines), beta blockers (metoprolol, atenolol, propranalol, sotalol), Centrally acting alpha adrenergic agonist (clonidine), Theophylline, corticosteroids, thyroxine, bronchodilator, alcohol withdrawal, Cigarettes Today 06/12/21 Pt presents to follow up on insomnia since starting trazodone. Trazodone is improving sleep. Denies SE. Incontinence Pt followed up with Dr. Harrington for incontinence. Notes this is nothing to be done at this time. documented in this encounter [facility] 06-06-2021 History of Present illness Narrative On a scale of 0 to 10, the patient rates the pain at 5.Pain Location: Low Back Pain and daniel.Pain Quality: Aching, Stabbing, nagging and stabbing pain when rising from a siting position.Sensory/ Motor: Numbness, Pins and [place] and occasionally in buttocks, legs, feet; more on the R side.Timing/Duration: Constant and > 12 weeks duration.Controlled Substance:I have personally reviewed the [place] report for PALMER JIN. I have considered the risks of abuse, dependence, addiction and diversion.Patient Education:Inj. education completed written and verbally. [facility] [employer] Work Phone: 06-05-2021 History of Present illness Narrative On a scale of 0 to 10, the patient rates the pain at 5.Pain Location: Low Back Pain and daniel.Pain Quality: Aching, Stabbing, nagging and stabbing pain when rising from a siting position.Sensory/ Motor: Numbness, Pins and [place] and occasionally in buttocks, legs, feet; more on the R side.Timing/Duration: Constant and > 12 weeks duration. [facility] [employer] Work Phone: 06-05-2021 History of Present illness Narrative On a scale of 0 to 10, the patient rates the pain at 5.Pain Location: Low Back Pain and daniel.Pain Quality: Aching, Stabbing, nagging and stabbing pain when rising from a siting position.Sensory/ Motor: Numbness, Pins and [place] and occasionally in buttocks, legs, feet; more on the R side.Timing/Duration: Constant and > 12 weeks duration.Controlled Substance:I have personally reviewed the [place] report for PALMER JIN. I have considered the risks of abuse, dependence, addiction and diversion. [facility] [employer] Work Phone: 05-31-2021 History of Present illness Narrative Subjective Patient ID: Palmer Jin is a 61 y.o. female. Patient here to discuss results of recent urodynamic testing. The following portions of the patient's history were reviewed and updated as appropriate: allergies, current medications, past family history, past medical history, past social history, past surgical history and problem list. Review of Systems Constitutional: Negative for appetite change and fever. HENT: Negative for nosebleeds. Eyes: Negative for photophobia. Respiratory: Negative for cough and shortness of breath. Cardiovascular: Negative for chest pain and leg swelling. Gastrointestinal: Negative for abdominal pain, constipation, diarrhea, nausea and vomiting. Endocrine: Negative for cold intolerance and polydipsia. Genitourinary: Negative for difficulty urinating, dysuria, frequency and urgency. Urinary incontinence Musculoskeletal: Negative for joint swelling. Skin: Negative for rash. Neurological: Negative for dizziness. Hematological: Does not bruise/bleed easily. Psychiatric/Behavioral: Negative for suicidal ideas. All other systems reviewed and are negative. Objective Physical Exam Constitutional: Appearance: She is well-developed. Pulmonary: Effort: Pulmonary effort is normal. Musculoskeletal: General: Normal range of motion. Skin: General: Skin is warm and dry. Neurological: Mental Status: She is alert and oriented to person, place, and time. Psychiatric: Behavior: Behavior normal. Thought Content: Thought content normal. Judgment: Judgment normal. Assessment/Plan: Diagnoses and all orders for this visit: Female stress incontinence We reviewed the uridynamic testing that does show she leaks with valsalva, coughing and is consistent with genuine SHAUN without obstruction. She had a large bladder capacity and took almost the entire liter bag of fluid with little sensation or need to urinate. Her voiding curve was normal but she had an abnormal post void residual at 150 ml. She states she has always been able to hold her urine all day, only urinates once or twice a day usually. She states she has done this since childhood. We discussed she does have SHAUN but I also believe she has overflow incontinence as well. Given her large bladder volume and high post void residual I cautioned about the TOT. This would reduce her SHAUN but I cautioned it could make her overflow worse. We discussed bladder health again, emphasizing normal voiding patterns. I suggested timed voidings, try to retrain her bladder. We briefly discussed biofeedback. I will try to see if this is an option in the area. She wishes to wait on the TOT at present, try to get in better habit of bladder function. She will let us know when she is ready to proceed. I will investigate and see if biofeedback is an option in this area. documented in this encounter [facility] 05-30-2021 History of Present illness Narrative Pt advised of Urodynamic results and recommendations. Pt scheduled appt for 05-31-21. Pt voiced understanding. documented in this encounter [facility] 05-25-2021 History of Present illness Narrative Subjective Patient ID: Palmer Jin is a 61 y.o. female. New patient referred here for evaluation of stress urinary incontinence. She was recently admitted with COVID 19 and had bilateral pulmonary embolism. She states her breathing has improved. She still coughs on occasion every day. This has exacerbated her SHAUN symptoms. She states she wears a pad daily, will have to change the pad and occasionally clothing. She does relate the incontinence has started recently. . She also complains of occasional urgency. She states she tries to hold her urine as much as possible and tries to only urinate a couple times a day. The following portions of the patient's history were reviewed and updated as appropriate: allergies, current medications, past family history, past medical history, past social history, past surgical history and problem list. Review of Systems Constitutional: Negative for appetite change and fever. HENT: Negative for nosebleeds. Eyes: Negative for photophobia. Respiratory: Negative for cough and shortness of breath. Cardiovascular: Negative for chest pain and leg swelling. Gastrointestinal: Negative for abdominal pain, constipation, diarrhea, nausea and vomiting. Endocrine: Negative for cold intolerance and polydipsia. Genitourinary: Negative for difficulty urinating, dysuria, frequency and urgency. Urinary incontinence Musculoskeletal: Negative for joint swelling. Skin: Negative for rash. Neurological: Negative for dizziness. Hematological: Does not bruise/bleed easily. Psychiatric/Behavioral: Negative for suicidal ideas. All other systems reviewed and are negative. Objective Physical Exam Constitutional: Appearance: She is well-developed. Cardiovascular: Rate and Rhythm: Normal rate. Pulmonary: Effort: Pulmonary effort is normal. Abdominal: Palpations: Abdomen is soft. Musculoskeletal: General: Normal range of motion. Skin: General: Skin is warm and dry. Neurological: Mental Status: She is alert and oriented to person, place, and time. Psychiatric: Behavior: Behavior normal. Thought Content: Thought content normal. Judgment: Judgment normal. Assessment/Plan: Diagnoses and all orders for this visit: Stress incontinence in female - Ambulatory referral to Obstetrics / Gynecology - We discussed bladder health, types of incontinence and evaluation and treatment options for incontinence. - She states she has done her Kegels for many years, but also will try to hold her urine for as long as possible. We discussed that this is not helping her bladder function. - She does have some occasional urgency but majority of her symptoms seem related to SHAUN or even has elements of an overflow incontinence. With her habit of holding her urine we did discuss a dysfunctional bladder and overflow incontinence. She does have some lower back issues and disc problems in the past but not significant enough to affect her bladder function. We discussed scheduling urodynamics. She is agreeable to the plan. We will schedule testing and recheck after the results are available. documented in this encounter [facility] 05-15-2021 History of Present illness Narrative .[facility] [address] [facility] [address] [place] [id number] Name: Palmer Jin Age: 61 y.o. : 1960 Today's date: 05/15/21 Outpatient Pulmonary Consult Note Chief Complaint Patient presents with Consult Post COVID hospitalization with bilateral pulmonary embolism. Still using o2 but not continous. States she gets dyspnea with almost any exertion, but that it is slowly improving. Palmer Jin is a 61 y.o. female who presents to Pulmonary clinic for evaluation of shortness of breath and fatigue. They were referred by Dr. Thomas HPI: The patient is a 61-year-old female with past medical history notable for significant back pain but otherwise no other significant respiratory medical history. She was recently admitted to the hospital for COVID-19 pneumonia. She never required noninvasive or invasive mechanical ventilation. She was treated with steroids and oxygen eventually improved. A CT obtained there did show bilateral small subsegmental Pes. She was discharged on 2 L of oxygen. In the interim time she has noted that although her breathing has slightly improved she continues to have significant fatigue and no energy. She is able to walk around but it is difficult to play with her granddaughter and is difficult to climb up the stairs with a moderate which would not a problem before COVID-19. 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 Has not returned to work since COVID-19. Reports she has been tested for sleep apnea and does have it but it was mild and does not have a machine. At home she does have a cat and a dog but denies any allergies. Her symptoms do not seem to correlate with location. She does note some foggy thinking, but denies any syncope or palpitations. She denies any numbness or tingling. She has been placed on Advair which she has used religiously has not been having any side effects but has not been having any improvement either. In regards to her pulmonary embolism she is currently on Xarelto and is currently planning a 3-month course release. Past Medical History: Diagnosis Date 10 year risk of IN or stroke < 7.5% 04/13/2020 4.7% Anxiety Bilateral pulmonary embolism (HCC) 04/10/2021 assoc with Covid pneumonia Chickenpox DDD (degenerative disc disease), lumbar Depression GERD (gastroesophageal reflux disease) H/O bone density study 06/2013 H/O mammogram 06/25/2016 Hypertension benign Hypothyroidism Insomnia Intervertebral disc disorder with radiculopathy of lumbosacral region /Harlan Roth MD Lumbar spinal stenosis Migraine Moderate obstructive sleep apnea no CPAP per DR Ellie Zheng prn was OK, however. Papanicolaou smear 06/19/2016 Pneumonia due to COVID-19 virus 04/10/2021 Prediabetes 04/28/2021 Hemoglobin A1c 5.9 Pulmonary embolism (HCC) 03/2021 [facility] Past Surgical History: Procedure Laterality Date BREAST BIOPSY COLONOSCOPY 05/27/2013 diagnostic LUMBAR TRANSFORAMINAL EPIDURAL INJECTION Right 07/14/2018 Bertha Swann-Right Lumbar Transforaminal Epidural Steroid Injection under fluoroscopic guidance OTHER SURGICAL HISTORY 2007 lump in throat OTHER SURGICAL HISTORY Left 11/30/2016 OTHER SURGICAL HISTORY Left 07/13/2016 SKIN LESION EXCISION 2004 neck, scalp Family History Problem Relation Age of Onset Arrhythmia Mother Asthma Mother COPD Mother cause of Heart disease Father Asthma Brother Hypertension Brother Diabetes Maternal Grandmother Cancer Maternal Grandfather colon Heart disease Paternal Grandfather Hypertension Brother Other pulmonary history: None Social History Socioeconomic History Marital status: Spouse name: Not on file Number of children: Not on file Years of education: Not on file Highest education level: Not on file Occupational History Not on file Tobacco Use Smoking status: Never Smoker Smokeless tobacco: Never Used Vaping Use Vaping Use: Never used Substance and Sexual Activity Alcohol use: No Drug use: No Sexual activity: Yes Partners: Male Other Topics Concern Not on file Social History Narrative Not on file Social Determinants of Health Financial Resource Strain: Difficulty of Paying Living Expenses: Not on file Food Insecurity: Worried About Running Out of Food in the Last Year: Not on file Ran Out of Food in the Last Year: Not on file Transportation Needs: Lack of Transportation (Medical): Not on file Lack of Transportation (Non-Medical): Not on file Physical Activity: Days of Exercise per Week: Not on file Minutes of Exercise per Session: Not on file Stress: Feeling of Stress : Not on file Social Connections: Frequency of Communication with Friends and Family: Not on file Frequency of Social Gatherings with Friends and Family: Not on file Attends Yarsanism Services: Not on file Active Member of Clubs or Organizations: Not on file Attends Club or Organization Meetings: Not on file Marital Status: Not on file Housing Stability: Unable to Pay for Housing in the Last Year: Not on file Number of Places Lived in the Last Year: Not on file Unstable Housing in the Last Year: Not on file Review of Systems Neuro as noted above no numbness tingling has some foggy sensation Cardiovascular other than HPI no other symptoms Pulmonary other than HPI no other symptoms GI no abdominal pain no diarrhea Endocrine no hot or cold changes no significant weight loss or weight gain Heme-onc no bleeding noted Skin no new rashes Psych no new depression or suicidal ideation Objective: Outpatient Medications as of 05/15/2021 Medication Sig amLODIPine (NORVASC) 5 MG tablet Take 1 (one) tablet (5 mg total) by mouth daily . baclofen (LIORESAL) 20 MG tablet Take 20 mg by mouth 3 (three) times a day . calcium carbonate (OS-ANATOLY) 600 mg calcium (1,500 mg) tablet Take 600 mg by mouth daily . chlorhexidine (PERIDEX) 0.12 % solution RINSE WITH ONE HALF OUNCE (15ML) TWICE DAILY cholecalciferol, vitamin D3, 3,000 unit Tab Take 6,000 Units by mouth daily . cyanocobalamin (vitamin B-12) 100 MCG tablet Take by mouth daily . diclofenac epolamine (FLECTOR) 1.3 % PT12 Place 1 patch on the skin 2 (two) times a day . escitalopram oxalate (LEXAPRO) 20 MG tablet Take 1 (one) tablet (20 mg total) by mouth daily . fluticasone propion-salmeteroL (ADVAIR DISKUS) 100-50 mcg/dose diskus inhaler Inhale 1 (one) puff 2 (two) times a day . levothyroxine (Synthroid) 125 MCG tablet Take 1 (one) tablet (125 mcg total) by mouth once daily . magnesium oxide 200 mg magnesium Tab Take 400 mg by mouth daily . omeprazole (PRILOSEC) 20 MG capsule Take 1 (one) capsule (20 mg total) by mouth daily . pregabalin (LYRICA) 200 MG capsule Take 200 mg by mouth 3 (three) times a day . rivaroxaban (Xarelto) 20 mg Tab Take 1 (one) tablet (20 mg total) by mouth daily . rOPINIRole (REQUIP) 0.5 MG tablet Take 1 (one) tablet (0.5 mg total) by mouth 3 (three) times a day . (Patient taking differently: Take 1.5 mg by mouth 3 (three) times a day .) traZODone (DESYREL) 50 MG tablet Take 1 (one) tablet (50 mg total) by mouth nightly as needed . No Known Allergies BP 127/82 (BP Location: Right arm, Patient Position: Sitting, BP Cuff Size: Adult) Pulse 72 Temp 98.9 F (37.2 C) (Temporal) Ht 5' 6.25 Wt 101.6 kg (224 lb) SpO2 94% BMI 35.88 kg/m from IP Vitals Flowsheet Date/Time Weight 05/15/21 1252 101.6 Physical Exam: Vitals reviewed Gen: Alert and oriented x 3, In no apparent distress HEENT: Head: Normocephalic, no lesions, without obvious abnormality. Pharynx: Dental Hygiene adequate. Normal buccal mucosa. Normal pharynx. Neck: nontender, full range of motion, no mass, no focal lymphadenopathy Cardio: regular rate and rhythm, no murmur, brisk capillary refill Resp: clear to auscultation bilaterally, no wheezes or crackles, no tachypnea or accessory muscle use Abd: soft, nontender, nondistended, no hepatosplenomegaly, no mass, normal bowel sounds MSK: Moves all four extremities spontaneously. Neuro: Grossly normal without focal findings Skin: no rashes, no jaundice PFT Results PFT Pre-bronchodilator None PFT Post-bronchodilator None PFT Lung Volumes None PFT Diffusion None Interpretation: Imaging: Notes and Ancillary Testing Reports: Personally reviewed notes and reports from care everywhere Assessment and Plan: Palmer was seen today for consult. Diagnoses and all orders for this visit: Bilateral pulmonary embolism (HCC) - Ambulatory referral to Pulmonology - 6 minute walk; Future - Nocturnal pulse oximetry; Future - NT Pro BNP; Future - CBC and Differential; Future - Complete PFT with Pre and Post Bronchodilator; Future - 6 minute walk Problems 1. COVID-19 pneumonia 2. Bilateral pulmonary embolism 3. Fatigue 4. Shortness of breath on exertion 5. GERD Plan: Overall stable therapy symptoms related to her recent hospitalization and PE doubt any significant long-term respiratory issue. In the interval time would recommend that she obtain a pulmonary function testing, nocturnal oximetry to see if she requires nocturnal oxygen, lab work including BMP and a CBC. We will hold off on adding any other therapy for her other than staying active. RTC in 2 months Benjamin Benton MD documented in this encounter [facility] 04-24-2021 History of Present illness Narrative On a scale of 0 to 10, the patient rates the pain at 9.Pain Location: Low Back Pain.Pain Quality: Aching and Tightness.Sensory/ Motor: Weakness and ALL OVER.Timing/Duration: Constant and < 6 weeks duration.Controlled Substance:I have personally reviewed the OARRS report for PALMER JIN. I have considered the risks of abuse, dependence, addiction and diversion.Exacerbating Factors: rest, motion, repetitive motion, standing, stairs and walking.Alleviating Factors: Medications, Repositioning.24 Hour Behavior:Symptoms are the same in the am.Symptoms are the same as the day progresses.Symptoms are the same in the pm.Symptoms are the same when lying down. [facility] Work Phone: 01-28-2016 History of Present illness Narrative 60-year-old female presents my office with intractable back and leg pain. This is been ongoing for the past 5 years. She has been attempting conservative care including pain management with physical therapy medications and injections. The pain begins in her back and occasionally radiates into her legs. The more she does the more she hurts. Injections recently had begun not working and she is suffering from further pain. Denies any weakness.14/14 systems reviewed and negative other than what is listed in the history of present illnessShe does not smoke she does not have diabetes she has never had back surgery. [facility] [employer] Work Phone: 01-11-2016 History of Present illness Narrative 60-year-old female presents my office with intractable back and leg pain. This is been ongoing for the past 5 years. She has been attempting conservative care including pain management with physical therapy medications and injections. The pain begins in her back and occasionally radiates into her legs. The more she does the more she hurts. Injections recently had begun not working and she is suffering from further pain. Denies any weakness.14/14 systems reviewed and negative other than what is listed in the history of present illnessShe does not smoke she does not have diabetes she has never had back surgery. [facility] [address] Work Phone: Chief complaint Narrative - Reported Patient is being seen for an initial Neurosurgical evaluation and Low back pain. [facility] [address] Work Phone: Chief complaint Narrative - Reported Patient is being seen for an initial Neurosurgical evaluation and Low back pain. [facility] Work Phone: Chief complaint Narrative - Reported Patient is being seen for an initial Neurosurgical evaluation and Low back pain. [facility]: Evaluation note ENMT: normal hearing , mucous membranes moist, no pharyngeal erythema or exudates,Eyes: PERRL, EOMI, clear scleraSkin: Warm, no rashesConstitutional: awake/alert/oriented x3, not in acute distress, Obese,Extremities: no edemaGastrointestinal: Abdomen distended from obesity., positive bowel sounds, soft, non-tender, no rebound tenderness or guarding, no masses palpable, no organomegalyCardiovascular: Regular, rate and rhythm, no murmurs, 2+ equal pulses of the extremities,Respiratory/Thorax: Diminished air entry at the lower lobes with bilateral lower lobes fine crackles. No wheezing or rhonchi.Head/Neck: Neck supple, no apparent injury, no JVD, no lymphadenopathy, trachea midlinePsychological: Appropriate mood and behavior [facility] Evaluation note Diagnosis Bilateral pulmonary embolism (HCC) Other pulmonary embolism and [facility] Stress incontinence in female [facility] Diagnosis Female stress incontinence- Primary [facility] Diagnosis Hypothyroidism, unspecified type- Primary Gastroesophageal reflux disease Esophageal reflux Sleep difficulties [facility] Diagnosis Dyspnea on exertion- Primary Other dyspnea and respiratory abnormality [facility] Diagnosis Bilateral pulmonary embolism (HCC)- Primary Other pulmonary embolism and infarction 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 [facility] Diagnosis Dental anomaly- Primary [facility] Diagnosis PE (physical exam), annual- Primary Pulmonary embolism, unspecified chronicity, unspecified pulmonary embolism type, unspecified whether acute cor pulmonale present (HCC) [facility] Diagnosis Hypothyroidism, unspecified type- Primary Depression, unspecified depression type Hypertension, essential, benign Essential hypertension, benign Encounter for administration of vaccine [facility] Diagnosis Hallux limitus of left foot- Primary Left foot pain Pain in soft tissues of limb Primary osteoarthritis of left foot [facility] Diagnosis Hallux limitus of left foot- Primary Left foot pain Pain in soft tissues of limb Primary osteoarthritis of left foot [facility] Diagnosis Closed nondisplaced fracture of first metatarsal bone of left foot, initial encounter- Primary Closed nondisplaced fracture of second metatarsal bone of left foot, initial encounter [facility] Diagnosis Closed nondisplaced fracture of first metatarsal bone of left foot, initial encounter- Primary Closed nondisplaced fracture of second metatarsal bone of left foot, initial encounter [facility] Diagnosis Gastroesophageal reflux disease without esophagitis- Primary Esophageal reflux RLS (restless legs syndrome) Restless legs syndrome (RLS) Primary hypertension Unspecified essential hypertension Non-recurrent acute serous otitis media of right ear Vitamin D deficiency Diarrhea of infectious origin Diarrhea of presumed infectious origin Screening mammogram for breast cancer documented in this encounter [facility] Work Phone: Evaluation note* Diagnosis Hallux limitus of left foot- Primary Stress fracture of left foot, initial encounter [facility] Diagnosis Radiculopathy, lumbosacral region Thoracic or lumbosacral neuritis or radiculitis, unspecified Spinal stenosis, lumbosacral region documented in this encounter [facility] Work Phone: Evaluation note* Diagnosis Spinal stenosis, lumbar region with neurogenic claudication documented in this encounter [facility] Work Phone: Evaluation note* Diagnosis Hallux limitus of left foot- Primary Pes valgus of left foot [facility] Diagnosis Neurogenic claudication due to lumbar spinal stenosis- Primary Spinal stenosis of lumbar region Spondylolisthesis, lumbosacral region Intervertebral disc disorders with radiculopathy, lumbosacral region Lumbosacral radiculitis Thoracic or lumbosacral neuritis or radiculitis, unspecified documented in this encounter [facility] Work Phone: Evaluation note* Diagnosis Neurogenic claudication due to lumbar spinal stenosis Spinal stenosis of lumbar region Spondylolisthesis, lumbosacral region Intervertebral disc disorders with radiculopathy, lumbosacral region Lumbosacral radiculitis Thoracic or lumbosacral neuritis or radiculitis, unspecified documented in this encounter [facility] Work Phone: Evaluation note* Diagnosis B12 deficiency- Primary Acquired hypothyroidism Unspecified hypothyroidism Primary hypertension Unspecified essential hypertension Gastroesophageal reflux disease without esophagitis Esophageal reflux RLS (restless legs syndrome) Restless legs syndrome (RLS) Elevated blood sugar Other abnormal glucose documented in this encounter [facility] Work Phone: Evaluation note* Diagnosis Neurogenic claudication due to lumbar spinal stenosis- Primary Spinal stenosis of lumbar region Chronic bilateral low back pain without sciatica Spondylolisthesis, lumbosacral region Lumbosacral radiculitis Thoracic or lumbosacral neuritis or radiculitis, unspecified Intervertebral disc disorders with radiculopathy, lumbosacral region documented in this encounter [facility] Work Phone: Evaluation note* Diagnosis Primary osteoarthritis of left foot- Primary [facility] Diagnosis Foot pain, left- Primary Pain in soft tissues of limb Ankle injury, left, initial encounter- Primary Ankle injury, left, sequela Intercostal pain- Primary History of pulmonary embolus (PE) documented in this encounter [facility] Work Phone: Evaluation note* Diagnosis Foot pain, left- Primary Pain in soft tissues of limb Ankle injury, left, initial encounter- Primary Ankle injury, left, sequela documented in this encounter [facility] Work Phone: Evaluation note* Diagnosis Foot pain, left- Primary Pain in soft tissues of limb Ankle injury, left, initial encounter- Primary History of pulmonary embolus (PE) documented in this encounter [facility] Work Phone: Evaluation note* Diagnosis Foot pain, left- Primary Pain in soft tissues of limb Ankle injury, left, initial encounter- Primary Ankle injury, left, sequela Neurogenic claudication due to lumbar spinal stenosis Spinal stenosis of lumbar region Ankle injury, left, sequela documented in this encounter [facility] Work Phone: History of Present illness NarrativeMsSwapnil Jin is a 61yo female seen at the request of Dr. Caroline Huston for evaluation of colon cancer screening. Her last colonoscopy was in 2012. She had no polyps at that time. She has a family historyof colon cancer (maternal grandfather). She has occasionally seen blood in the stool, but none recently. She has daily bowel movements. She has no change in bowel movements. She is not on any stool so fteners, fiber supplements or laxatives. She denies any abdominal pain. She is mildly anemic with hemoglobin 11.3. She has sleep apnea. She also recently had Covid in March. She had a DVT associated with her Covid infection. This was diagnosed 04/07/2021. She has been on Xarelto since. She has an appointment next week with her physician to evaluate whether or not she can come off of the Xarelto.[facility] Work Phone: History of Present illness NarrativeMs. Jin is a 61yo female seen at the request of Dr. Caroline Huston for evaluation of colon cancer screening. Her last colonoscopy was in 2012. She had no polyps at that time. She has a family historyof colon cancer (maternal grandfather). She has occasionally seen blood in the stool, but none recently. She has daily bowel movements. She has no change in bowel movements. She is not on any stool so fteners, fiber supplements or laxatives. She denies any abdominal pain. She is mildly anemic with hemoglobin 11.3. She has sleep apnea. She also recently had Covid in March. She had a DVT associated with her Covid infection. This was diagnosed 04/07/2021. She has been on Xarelto since. She has an appointment next week with her physician to evaluate whether or not she can come off of the Xarelto.[facility] Work Phone: History of Present illness Narrative* On a scale of 0 to 10, the patient rates the pain at 2. * Pain Location: Low Back Pain and bilat lower back. * Pain Quality: stiffness. * Timing/Duration: Constant and > 12 weeks duration. * Controlled Substance: * I have personally reviewed the OARRS report for PALMER JIN. I have considered the risks of abuse, dependence, addiction and diversion. * Exacerbating Factors: rest, lifting, repetitive motion, sitting and working bending and pulling . * Alleviating Factors: Exercise, Medications, Repositioning. * Goals for Pain Management: * Opioid Risk score 1. [facility] Work Phone: History of Present illness Narrative* Patient is a 62 y.o. female Patient who is here to today to establish care. * Patient has a PMHx of of htn, depression, RLS, chronic back pain, hypothyroidism, gerd. * Chronic back pain, sees Dr Swann, gets injections, has once scheduled for this Saturday, on Lyrica 200mg po tid, diclofenac 25mg po 5x daily. * HTN -on Norvasc * Depression - stable on Lexapro, trazodone * GERD - on omeprazole daily [facility] Work Phone: History of Present illness Narrative* Patient Education: * Inj. education completed written and verbally. [facility] Work Phone: History of Present illness Narrative* On a scale of 0 to 10, the patient rates the pain at 6. * Pain Location: Low Back Pain. * Pain Quality: Burning and Throbbing. * Sensory/ Motor: RIGHT LEG. * Timing/Duration: Intermittent and > 12 weeks duration. * Exacerbating Factors: motion, standing, stairs, walking and ADL. * Alleviating Factors: Exercise, Medications, Repositioning. * 24 Hour Behavior: * Symptoms are the same in the am. * Symptoms are worse as the day progresses. * Symptoms are worse in the pm. * Symptoms are better lying down. * Patient Education: * Inj. education completed written and verbally. [facility] Work Phone: History of Present illness Narrative* On a scale of 0 to 10, the patient rates the pain at 7. * Controlled Substance: * I have personally reviewed the OARRS report for PALMER JIN. I have considered the risks of abuse, dependence, addiction and diversion. [facility] Work Phone: Hospital Discharge instructions* Home Care Face to Face Certification:Home Care Services Needed: yesFace to Face Encounter Completed: yesDate of Encounter: [id number] Necessity for Homecare (based on clinical findings): I have examined the patient as a face to face encounter and have discussed the need for home oxygen therapy with the patient.Indications for home oxygen include: Diagnosis for oxygen use: ( x ) Portable O2 as the patient is mobile in the home( ) O2 saturation less than or equal to 88% at rest.( ) ABG with O2 saturation at or below 88% or PO2 at 55 or below( x) O2 with activity on room air with O2 saturation less than or equal to 88% and measured with O2 increasing liter flow until reaching a stable O2 level( ) O2 liters of 4 or higher with saturation at 88% or lower( ) O2 saturation > or = to 89% or PO2 of 56-59 with diagnoses of CHF with dependent edema, Pulmonary Hypertension, Cor Pulmonale, Erythrocythemia (Hct >56) Oxygen OrdersDevice Type:(X) Portable concentrator or tanks with conse rving device Liter Flow via nasal canula continuous:( ) 1( ) 1.5( ) 2( ) 3( ) 4( )Liter Flow via nasal canula during night:( ) 1( ) 1.5( ) 2( ) 3( ) 4( )Liter Flow via nasal canula with exertion:( ) 1( ) 1.5( ) 2(x ) 3( ) 4( )Length of Need:(x ) 1 month( ) 3 months( ) 99 months Provider Homebound Status: homeboundHomebound Due to: covidFace to Face Completed and Home Care Orders Reviewed: I certify that this patient is under my care. I have reviewed the information included in the face to face and certify that the home care services ordered are medically necessary for this patient. * Follow Up Appointment 1:Physician/Dept/Service: Caroline Bills for Referral: Hospital Follow-upCall to Schedule in: 1 weekLocation: [address] [address]Phone Number: [phone]: Please update your MY Cart to schedule a virtual [facility]ment [facility] Consultation (Routine) - Authorized Specialty Diagnoses / Procedures Referred By Nichole sandhu Referred To Contact Primary Care Procedures Follow Up In Primary Care - Established Mame Gray DO [address] [facility] [place] [address] Referral ID Status Reason Start Date Expiration Date V isits Requested Visits Authorized [id number] Authorized 05/02/2023 10/29/2023 1 1 * Imaging (Routine) - Authorized Specialty Diagnoses / Procedures Referred By Contac t Referred To Contact Radiology Diagnoses Screening mammogram for breast cancer Procedures BI mammo bilateral screening tomosynthesis Mame Gray DO 53 [facility] Physician [place] [phone] Referral ID Status Reason Start Date Expiration Date Visits Requested Visits Authorized [id number] Authorized Perform Procedure 10/29/2023 1 1 [facility] Work Phone: reason for referral (narrative)* Consultation (Routine) - Authorized Specialty Diagnoses / Procedures Referred By Contac t Referred To Contact Primary Care Procedures Follow Up In Primary Care - Established Mame Gray DO 53 [facility] Physician [place] [phone] Referral ID Status Reason Start Date Expiration Date V isits Requested Visits Authorized [id number] Authorized 11/05/2023 11/04/2024 1 1 [facility] Work Phone: Reycbm for visit Narrative* Imaging (Routine) - Authorized Specialty Diagnoses / Procedures Referred By Contac t Referred To Contact Radiology Diagnoses Ankle injury, left, sequela Procedures XR ankle left 3+ views 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, 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 [employer] [address] [facility], [facility] [address] [place] [address] Phone: tel: fax: [facility] [address] [place] [address] Referral ID Status Reason Start Date Expiration Date Visits Requested Visits Authorized [id number] Authorized Perform Procedure 4 05/01/2025 1 1 [facility] Work Phone: Reason for visit Narrative* Imaging (Routine) - Authorized Specialty Diagnoses / Procedures Referred By Nichole sandhu Referred To Contact Radiology Diagnoses History of pulmonary embolus (PE) Procedures CT angio chest for pulmonary embolism Ariella Carey, 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 [employer] [address] [facility] [place] [address] Phone: tel: fax: Referral ID Status Reason Start Date Expiration Date Visits Requested Visits Authorized [id number] Authorized Perform Procedure 4 05/07/2025 1 1 [facility] Work Phone: Summary Purpose Family History Unknown Family Member Name Dates Details Family history of hypertensi on: Mother, Brother(V17.49, Z82.49) Status:Active Family history of cardiac di sorder: Father(V17.49, Z82.49) Status:Active Family history of thyroid di sease: Mother(V18.19, Z83.49) Status:Active Family history of malignant neoplasm of colon: Grandfather(V16.0, Z80.0) Status:Active Unknown Family Member Name Dates Details Family history of hypertensi on: Mother, Brother(V17.49, Z82.49) Status:Active Family history of cardiac di sorder: Father(V17.49, Z82.49) Status:Active Family history of thyroid di sease: Mother(V18.19, Z83.49) Status:Active Family history of malignant neoplasm of colon: Grandfather(V16.0, Z80.0) Status:Active Unknown Family Member Name Dates Details Family history of hypertensi on: Mother, Brother(V17.49, Z82.49) Status:Active Family history of cardiac di sorder: Father(V17.49, Z82.49) Status:Active Family history of thyroid di sease: Mother(V18.19, Z83.49) Status:Active Family history of malignant neoplasm of colon: Grandfather(V16.0, Z80.0) Status:Active Unknown Family Member Name Dates Details Family history of hypertensi on: Mother, Brother(V17.49, Z82.49) Status:Active Family history of cardiac di sorder: Father(V17.49, Z82.49) Status:Active Family history of thyroid di sease: Mother(V18.19, Z83.49) Status:Active Family history of malignant neoplasm of colon: Grandfather(V16.0, Z80.0) Status:Active Unknown Family Member Name Dates Details Family history of malignant neoplasm of colon: Grandfather(V16.0, Z80.0) Status:Active Family history of thyroid di sease: Mother(V18.19, Z83.49) Status:Active Family history of cardiac di sorder: Father(V17.49, Z82.49) Status:Active Family history of hypertensi on: Mother, Brother(V17.49, Z82.49) Status:Active Unknown Family Member Name Dates Details Family history of hypertensi on: Mother, Brother(V17.49, Z82.49) Status:Active Family history of cardiac di sorder: Father(V17.49, Z82.49) Status:Active Family history of thyroid di sease: Mother(V18.19, Z83.49) Status:Active Family history of malignant neoplasm of colon: Grandfather(V16.0, Z80.0) Status:Active Unknown Family Member Name Dates Details Family history of hypertensi on: Mother, Brother(V17.49, Z82.49) Status:Active Family history of cardiac di sorder: Father(V17.49, Z82.49) Status:Active Family history of thyroid di sease: Mother(V18.19, Z83.49) Status:Active Family history of malignant neoplasm of colon: Grandfather(V16.0, Z80.0) Status:Active Unknown Family Member Name Dates Details Family history of hypertensi on: Mother, Brother(V17.49, Z82.49) Status:Active Family history of cardiac di sorder: Father(V17.49, Z82.49) Status:Active Family history of thyroid di sease: Mother(V18.19, Z83.49) Status:Active Family history of malignant neoplasm of colon: Grandfather(V16.0, Z80.0) Status:Active Unknown Family Member Name Dates Details Family history of hypertensi on: Mother, Brother(V17.49, Z82.49) Status:Active Family history of cardiac di sorder: Father(V17.49, Z82.49) Status:Active Family history of thyroid di sease: Mother(V18.19, Z83.49) Status:Active Family history of malignant neoplasm of colon: Grandfather(V16.0, Z80.0) Status:Active Unknown Family Member Name Dates Details Family history of hypertensi on: Mother, Brother(V17.49, Z82.49) Status:Active Family history of cardiac di sorder: Father(V17.49, Z82.49) Status:Active Family history of thyroid di sease: Mother(V18.19, Z83.49) Status:Active Family history of malignant neoplasm of colon: Grandfather(V16.0, Z80.0) Status:Active Unknown Family Member Name Dates Details Family history of hypertensi on: Mother, Brother(V17.49, Z82.49) Status:Active Family history of cardiac di sorder: Father(V17.49, Z82.49) Status:Active Family history of thyroid di sease: Mother(V18.19, Z83.49) Status:Active Family history of malignant neoplasm of colon: Grandfather(V16.0, Z80.0) Status:Active Unknown Family Member Name Dates Details Family history of hypertensi on: Mother, Brother(V17.49, Z82.49) Status:Active Family history of cardiac di sorder: Father(V17.49, Z82.49) Status:Active Family history of thyroid di sease: Mother(V18.19, Z83.49) Status:Active Family history of malignant neoplasm of colon: Grandfather(V16.0, Z80.0) Status:Active Unknown Family Member Name Dates Details Family history of malignant neoplasm of colon: Grandfather(V16.0, Z80.0) Status:Active Family history of thyroid di sease: Mother(V18.19, Z83.49) Status:Active Family history of cardiac di sorder: Father(V17.49, Z82.49) Status:Active Family history of hypertensi on: Mother, Brother(V17.49, Z82.49) Status:Active Unknown Family Member Name Dates Details Family history of hypertensi on: Mother, Brother(V17.49, Z82.49) Status:Active Family history of thyroid di sease: Mother(V18.19, Z83.49) Status:Active Family history of malignant neoplasm of colon: Grandfather(V16.0, Z80.0) Status:Active Family history of cardiac di sorder: Father, Brother(V17.49, Z82.49) Status:Active Family history of chronic ob structive pulmonary disease: Mother(V17.6, Z82.5) Status:Active Unknown Family Member Name Dates Details Family history of malignant neoplasm of colon: Grandfather(V16.0, Z80.0) Status:Active Family history of thyroid di sease: Mother(V18.19, Z83.49) Status:Active Family history of hypertensi on: Mother, Brother(V17.49, Z82.49) Status:Active Family history of chronic ob structive pulmonary disease: Mother(V17.6, Z82.5) Status:Active Family history of cardiac di sorder: Father, Brother(V17.49, Z82.49) Status:Active Unknown Family Member Name Dates Details Family history of hypertensi on: Mother, Brother(V17.49, Z82.49) Status:Active Family history of thyroid di sease: Mother(V18.19, Z83.49) Status:Active Family history of malignant neoplasm of colon: Grandfather(V16.0, Z80.0) Status:Active Family history of cardiac di sorder: Father, Brother(V17.49, Z82.49) Status:Active Family history of chronic ob structive pulmonary disease: Mother(V17.6, Z82.5) Status:Active Unknown Family Member Name Dates Details Family history of hypertensi on: Mother, Brother(V17.49, Z82.49) Status:Active Family history of thyroid di sease: Mother(V18.19, Z83.49) Status:Active Family history of malignant neoplasm of colon: Grandfather(V16.0, Z80.0) Status:Active Family history of cardiac di sorder: Father, Brother(V17.49, Z82.49) Status:Active Family history of chronic ob structive pulmonary disease: Mother(V17.6, Z82.5) Status:Active Unknown Family Member Name Dates Details Family history of hypertensi on: Mother, Brother(V17.49, Z82.49) Status:Active Family history of thyroid di sease: Mother(V18.19, Z83.49) Status:Active Family history of malignant neoplasm of colon: Grandfather(V16.0, Z80.0) Status:Active Family history of cardiac di sorder: Father, Brother(V17.49, Z82.49) Status:Active Family history of chronic ob structive pulmonary disease: Mother(V17.6, Z82.5) Status:Active Unknown Family Member Name Dates Details Family history of hypertensi on: Mother, Brother(V17.49, Z82.49) Status:Active Family history of thyroid di sease: Mother(V18.19, Z83.49) Status:Active Family history of malignant neoplasm of colon: Grandfather(V16.0, Z80.0) Status:Active Family history of cardiac di sorder: Father, Brother(V17.49, Z82.49) Status:Active Family history of chronic ob structive pulmonary disease: Mother(V17.6, Z82.5) Status:Active Unknown Family Member Name Dates Details Family history of cardiac di sorder: Father, Brother(V17.49, Z82.49) Status:Active Family history of chronic ob structive pulmonary disease: Mother(V17.6, Z82.5) Status:Active Family history of malignant neoplasm of colon: Grandfather(V16.0, Z80.0) Status:Active Family history of thyroid di sease: Mother(V18.19, Z83.49) Status:Active Family history of hypertensi on: Mother, Brother(V17.49, Z82.49) Status:Active Unknown Family Member Name Dates Details Family history of hypertensi on: Mother, Brother(V17.49, Z82.49) Status:Active Family history of thyroid di sease: Mother(V18.19, Z83.49) Status:Active Family history of malignant neoplasm of colon: Grandfather(V16.0, Z80.0) Status:Active Family history of cardiac di sorder: Father, Brother(V17.49, Z82.49) Status:Active Family history of chronic ob structive pulmonary disease: Mother(V17.6, Z82.5) Status:Active Unknown Family Member Name Dates Details Family history of cardiac di sorder: Father, Brother(V17.49, Z82.49) Status:Active Family history of chronic ob structive pulmonary disease: Mother(V17.6, Z82.5) Status:Active Family history of malignant neoplasm of colon: Grandfather(V16.0, Z80.0) Status:Active Family history of thyroid di sease: Mother(V18.19, Z83.49) Status:Active Family history of hypertensi on: Mother, Brother(V17.49, Z82.49) Status:Active Unknown Family Member Name Dates Details Family history of hypertensi on: Mother, Brother(V17.49, Z82.49) Status:Active Family history of thyroid di sease: Mother(V18.19, Z83.49) Status:Active Family history of malignant neoplasm of colon: Grandfather(V16.0, Z80.0) Status:Active Family history of cardiac di sorder: Father, Brother(V17.49, Z82.49) Status:Active Family history of chronic ob structive pulmonary disease: Mother(V17.6, Z82.5) Status:Active Advance Directives Documents on File Type Date Recorded Patient Director Business Development Expl anation Advance Directives and Living Will Documents on File Type Date Recorded Patient Director Business Development Expl anation Advance Directives and Living Will Documents on File Type Date Recorded Patient Director Business Development Expl anation Advance Directives and Livin g Will 06/29/2021 11:19 AM Documents on File Type Date Recorded Patient Director Business Development Expl anation Advance Directives and Livin g Will 06/29/2021 11:19 AM History of Present Illness * Caroline Huston MD - 10/05/2019 2:28 PM EDT Subjective Patient ID: Palmer Jin is a 59 y.o. female. Chief Complaint Patient presents with Animal Bite HPI Cat Bite Onset- 10/04/19 Location-left hand Duration- constant Symptoms Reported- warmth, redness and swelling Improved with-nothing Worsened by-nothing Medications for this issue-none Other comments-patient was bitten by a feral cat at her house yesterday. She is not treated the area with anything. Her tetanus status is reviewed and up-to-date. The following portions of the patient's history were reviewed and updated as appropriate: allergies, current medications, past family history, past medical history, past social history, past surgicalhistory and problem list. Review of Systems Constitutional: Negative for activity change, appetite change, chills, diaphoresis, fatigue, fever and unexpected weight change. Respiratory: Negative for cough, chest tightness and shortness of breath. Cardiovascular: Negative for chest pain, palpitations and leg swelling. Skin: Positive for color change. Neurological: Negative for dizziness, syncope, weakness and light-headedness. Hematological: Does not bruise/bleed easily. Psychiatric/Behavioral: Negative for confusion, decreased concentration and sleep disturbance. The patient is not nervous/anxious. Past Medical History: Diagnosis Date Anxiety Chickenpox DDD (degenerative disc disease), lumbar Depression GERD (gastroesophageal reflux disease) H/O bone density study 06/2013 H/O mammogram 06/25/2016 Hypertension benign Hypothyroidism Insomnia Intervertebral disc disorder with radiculopathy of lumbosacral region /Harlan Roth MD Lumbar spinal stenosis Migraine Moderate obstructive sleep apnea no CPAP per DR Self- Norm prn was OK, however. Papanicolaou smear 06/19/2016 Past Surgical History: Procedure Laterality Date BREAST BIOPSY COLONOSCOPY 05/27/2013 diagnostic LUMBAR TRANSFORAMINAL EPIDURAL INJECTION Right 07/14/2018 [facility]-Dr. Swann-Right Lumbar Transforaminal Epidural Steroid Injection under fluoroscopic guidance OTHER SURGICAL HISTORY 2008 lump in throat OTHER SURGICAL HISTORY Left 11/30/2016 OTHER SURGICAL HISTORY Left 07/13/2016 SKIN LESION EXCISION 2004 neck, scalp Family History Problem Relation Age of Onset Arrhythmia Mother Asthma Mother COPD Mother cause of Heart disease Father Asthma Brother Hypertension Brother Diabetes Maternal Grandmother Cancer Maternal Grandfather colon Heart disease Paternal Grandfather Hypertension Brother Social History Socioeconomic History Marital status: Spouse name: Not on file Number of children: Not on file Years of education: Not on file Highest education level: Not on file Occupational History Not on file Social Needs Financial resource strain: Not on file Food insecurity Worry: Not on file Inability: Not on file Transportation needs Medical: Not on file Non-medical: Not on file Tobacco Use Smoking status: Never Smoker Smokeless tobacco: Never Used Substance and Sexual Activity Alcohol use: No Drug use: No Sexual activity: Yes Partners: Male Lifestyle Physical activity Days per week: Not on file Minutes per session: Not on file Stress: Not on file Relationships Social connections Talks on phone: Not on file Gets together: Not on file Attends anabaptist service: Not on file Active member of club or organization: Not on file Attends meetings of clubs or organizations: Not on file Relationship status: Not on file Other Topics Concern Not on file Social History Narrative Not on file No Known Allergies Current Outpatient Medications: amLODIPine (NORVASC) 5 MG tablet, Take 1 (one) tablet (5 mg total) by mouth daily ., Disp: 90 tablet, Rfl: 3 chlorhexidine (PERIDEX) 0.12 % solution, RINSE WITH ONE HALF OUNCE (15ML) TWICE DAILY, Disp: , Rfl:99 cholecalciferol, vitamin D3, 3,000 unit Tab, Take 6,000 Units by mouth daily ., Disp: , Rfl: escitalopram oxalate (LEXAPRO) 10 MG tablet, Take 1 (one) tablet (10 mg total) by mouth daily ., Disp: 90 tablet, Rfl: 3 escitalopram oxalate (LEXAPRO) 5 MG tablet, Take 1 (one) tablet (5 mg total) by mouth daily ., Disp: 90 tablet, Rfl: 3 etodolac (LODINE) 300 MG capsule, TAKE 1 CAPSULE BY MOUTH THREE TIMES DAILY NEEDED FOR BREAKTHROUGH PAIN, Disp: , Rfl: 0 gabapentin (NEURONTIN) 800 MG tablet, Take by mouth 4 (four) times a day ., Disp: , Rfl: levothyroxine (Synthroid) 125 MCG tablet, Take 1 (one) tablet (125 mcg total) by mouth once daily ., Disp: 90 tablet, Rfl: 3 omeprazole (PRILOSEC) 20 MG capsule, Take 1 (one) capsule (20 mg total) by mouth daily ., Disp: 90 capsule, Rfl: 3 rOPINIRole (REQUIP) 0.5 MG tablet, Take 1 (one) tablet (0.5 mg total) by mouth 3 (three) times a day ., Disp: 270 tablet, Rfl: 3 zolpidem (AMBIEN) 5 MG tablet, Take 1 (one) tablet (5 mg total) by mouth nightly as needed ., Disp:90 tablet, Rfl: 1 etodolac (LODINE) 400 MG tablet, Take 400 mg by mouth 2 (two) times a day ., Disp: , Rfl: HYDROcodone-acetaminophen (NORCO) 5-325 mg per tablet, Take 1 tablet by mouth every 4 to 6 hours asneeded ., Disp: , Rfl: 0 LIDOCAINE 2 % solution, , Disp: , Rfl: Objective Vitals: 10/05/19 1356 BP: (!) 150/81 BP Location: Left arm Patient Position: Sitting BP Cuff Size: X-large Adult Pulse: 64 Resp: 16 Temp: 97.8 F (36.6 C) TempSrc: Oral SpO2: 98% Weight: 101.2 kg (223 lb) Height: 5' 6.25 Physical Exam Constitutional: She appears well-developed and well-nourished. No distress. HENT: Head: Normocephalic. Pulmonary/Chest: Effort normal. No respiratory distress. Neurological: She is alert. Skin: Skin is warm and dry. There is erythema. Left hand in the area of index and middle finger MCP joints with erythema, edema. Decreased abilityto make fist due to swelling. There are no red streaks. Psychiatric: She has a normal mood and affect. Her behavior is normal. Judgment and thought contentnormal. Nursing note and vitals reviewed. Assessment/Plan: 1. Cat bite of hand, left, initial encounter New problem. Tetanus status is up-to-date. Wound care discussed. Patient was advised should she note red streaks up her arm or if she develops a fever she should call the office or go to the emergency room for treatment. - amoxicillin-clavulanate (AUGMENTIN) 875-125 mg per tablet; Take 1 (one) tablet by mouth 2 (two) times a day for 10 days . Dispense: 20 tablet; Refill: 0 For any new medications prescribed today, patient was educated about indications for the medication, how to take the medication and potential side effects of the medications. Electronically signed by: Dr Caroline Huston 2:28 PM 10/05/19 * Qing Siddiqui LPN - 10/05/2019 1:59 PM EDT Cat Bite Onset- 10/04/19 Location-left hand Duration- constant Symptoms Reported- warmth, redness and swelling Improved with-nothing Worsened by-nothing Medications for this issue-none Other comments- None documented in this encounter* Caroline Huston MD - 03/18/2020 7:04 AM EDT Palmer Jin is a 59 y.o. female that has a past medical history of Anxiety, Chickenpox, DDD (degenerative disc disease), lumbar, Depression, GERD (gastroesophageal reflux disease), H/O bone density study (06/2013), H/O mammogram (06/25/2016), Hypertension, Hypothyroidism, Insomnia, Intervertebral disc disorder with radiculopathy of lumbosacral region, Lumbar spinal stenosis, Migraine, Moderate obstructive sleep apnea, and Papanicolaou smear (06/19/2016). that is here today for well woman exam. SUBJECTIVE: HPI Gynecologic History No LMP recorded. Patient is postmenopausal. Contraception: post menopausal status Last Pap: 06/19/2016. Results were: normal Last mammogram: 01/05/2019. Results were: normal Menstrual history:menopausal Concerns: denies vaginal bleeding. Remote h/o abnormal pap(38 years ago) All normal since that time. Obstetric History OB History No obstetric history on file. PMH: Past Medical History: Diagnosis Date Anxiety Chickenpox DDD (degenerative disc disease), lumbar Depression GERD (gastroesophageal reflux disease) H/O bone density study 06/2013 H/O mammogram 06/25/2016 Hypertension benign Hypothyroidism Insomnia Intervertebral disc disorder with radiculopathy of lumbosacral region /Harlan Roth MD Lumbar spinal stenosis Migraine Moderate obstructive sleep apnea no CPAP per DR Ellie Zheng prn was OK, however. Papanicolaou smear 06/19/2016 PSH: has a past surgical history that includes Breast biopsy; Skin lesion excision (2003); Colonoscopy (05/27/2013); OTHER SURGICAL HISTORY (2007); OTHER SURGICAL HISTORY (Left, 11/30/2016); OTHER SURGICAL HISTORY (Left, 07/13/2016); and Pain Lumb Inj Epidural (Local) (Right, 07/14/2018). Medications: reviewed medication list in the chart Allergies: reviewed allergy section in the chart Family history: family history includes Arrhythmia in her mother; Asthma in her brother and mother; COPD in her mother; Cancer in her maternal grandfather; Diabetes in her maternal grandmother; Heart disease in her father and paternal grandfather; Hypertension in her brother and brother. Social history: reports that she has never smoked. She has never used smokeless tobacco. She reports that she does not drink alcohol or use drugs. Review of Systems Constitutional: Negative for activity change, appetite change, chills, diaphoresis, fatigue, fever and unexpected weight change. Respiratory: Negative for cough, chest tightness and shortness of breath. Cardiovascular: Negative for chest pain, palpitations and leg swelling. Neurological: Negative for dizziness, syncope, weakness and light-headedness. Hematological: Does not bruise/bleed easily. Psychiatric/Behavioral: Negative for confusion, decreased concentration and sleep disturbance. The patient is not nervous/anxious. OBJECTIVE: BP 128/84 (BP Location: Left arm, Patient Position: Sitting, BP Cuff Size: X- large Adult) Pulse 61 Temp 97.8 F (36.6 C) (Oral) Resp 14 Ht 5' 6.25 Wt 96.2 kg (212 lb) SpO2 97% BMI 33.96kg/m Physical Exam Constitutional: She is oriented to person, place, and time. She appears well- developed and well-nourished. HENT: Head: Normocephalic and atraumatic. Right Ear: External ear normal. Left Ear: External ear normal. Mouth/Throat: Oropharynx is clear and moist. No oropharyngeal exudate. Eyes: Pupils are equal, round, and reactive to light. Conjunctivae and EOM are normal. Neck: Normal range of motion. Neck supple. Cardiovascular: Normal rate, regular rhythm and normal heart sounds. Exam reveals no gallop and no friction rub. No murmur heard. Pulmonary/Chest: Effort normal and breath sounds normal. No respiratory distress. She has no wheezes. She has no rales. Right breast exhibits no inverted nipple, no mass, no nipple discharge, no skinchange and no tenderness. Left breast exhibits no inverted nipple, no mass, no nipple discharge, noskin change and no tenderness. No breast swelling, tenderness, discharge or bleeding. Breasts are symmetrical. Genitourinary: No labial fusion. There is no rash, tenderness, lesion or injury on the right labia.There is no rash, tenderness, lesion or injury on the left labia. Uterus is not deviated, not enlarged, not fixed and not tender. Cervix exhibits no motion tenderness, no discharge and no friability.Right adnexum displays no mass, no tenderness and no fullness. Left adnexum displays no mass, no tenderness and no fullness. No vaginal discharge, erythema, tenderness or bleeding. No erythema, tenderness or bleeding in the vagina. No foreign body in the vagina. No signs of injury in the vagina. Musculoskeletal: Normal range of motion. General: No edema. Lymphadenopathy: She has no cervical adenopathy. Neurological: She is alert and oriented to person, place, and time. Skin: Skin is warm and dry. No rash noted. No erythema. Psychiatric: She has a normal mood and affect. Her behavior is normal. Judgment and thought contentnormal. Nursing note and vitals reviewed. ASSESSMENT/PLAN: Healthy female exam. Education reviewed: calcium supplements and self breast exams. Mammogram ordered. Follow up in: 1 year. Problem List Items Addressed This Visit Digestive GERD (gastroesophageal reflux disease) Endocrine Hypothyroidism Cardiovascular and Mediastinum Hypertension, essential, benign Other Depression Insomnia Other Visit Diagnoses Annual physical exam - Primary 1. Annual physical exam - Thinprep Pap Smear - Mammography Screening Bilateral; Future 2. Hypothyroidism, unspecified type - TSH; Future - T4, Free; Future 3. Hypertension, essential, benign - Comprehensive Metabolic Panel; Future - Lipid Panel; Future - amLODIPine (NORVASC) 5 MG tablet; Take 1 (one) tablet (5 mg total) by mouth daily . Dispense: 90 tablet; Refill: 3 4. Insomnia, unspecified type Oars report reviewed.OARRS/NARxCHECK Report Received and Assessed: 03/18/2020 Date controlled substance agreement signed: No data found Date of last drug screen: No data found Functional Assessment: working well for insomnia with no reported SE - zolpidem (AMBIEN) 5 MG tablet; Take 1 (one) tablet (5 mg total) by mouth nightly as needed . Dispense: 90 tablet; Refill: 1 5. 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 She requests an increase in her Lexapro. Discussed counseling with patient. She refuses. She states she has no time for this. Offered follow-up in 1 to 2 months. Patientstates she will let us know if she feels the medication is not working. She refuses appointment. - escitalopram oxalate (LEXAPRO) 20 MG tablet; Take 1 (one) tablet (20 mg total) by mouth daily . Dispense: 30 tablet; Refill: 11 6. Gastroesophageal reflux disease, esophagitis presence not specified - omeprazole (PRILOSEC) 20 MG capsule; Take 1 (one) capsule (20 mg total) by mouth daily . Dispense: 90 capsule; Refill: 3 7. Vitamin D deficiency - Vitamin D, Total, 25-OH; Future documented in this encounter* Qing Siddiqui LPN - 11/28/2018 7:51 AM EDT Last colonoscopy: 05/2013 Dr. Sandoval Last [facility]: [facility] Last Mammogram: 2017 * Caroline Huston MD - 11/28/2018 7:45 AM EDT Chief Complaint Patient presents for: Physical History of Present Illness: Palmer is a 58 y.o. female who comes in for a physical and with the following complaint(s): None. Requests refills Health Maintenance See Assessment/Plan summary below Active Problem List She has Patient Active Problem List Diagnosis SNOMED CT(R) Date Noted Paresthesia of right foot PARESTHESIA OF FOOT 04/09/2018 Chickenpox VARICELLA 04/09/2018 Depression DEPRESSIVE DISORDER 04/09/2018 Hypertension, essential, benign BENIGN ESSENTIAL HYPERTENSION 04/09/2018 GERD (gastroesophageal reflux disease) GASTROESOPHAGEAL REFLUX DISEASE 04/09/2018 Hypothyroidism HYPOTHYROIDISM 04/09/2018 Insomnia INSOMNIA 04/09/2018 Lumbar spinal stenosis SPINAL STENOSIS OF LUMBAR REGION 04/09/2018 Migraine MIGRAINE 04/09/2018 Anxiety ANXIETY 08/14/2017 Moderate obstructive sleep apnea OBSTRUCTIVE SLEEP APNEA SYNDROME 01/17/2016 DDD (degenerative disc disease), lumbar DEGENERATION OF LUMBAR INTERVERTEBRAL DISC 07/22/2009 Past Medical History: Diagnosis Date Anxiety Chickenpox DDD (degenerative disc disease), lumbar Depression GERD (gastroesophageal reflux disease) H/O bone density study 06/2013 H/O mammogram 06/25/2016 Hypertension benign Hypothyroidism Insomnia Intervertebral disc disorder with radiculopathy of lumbosacral region /Harlan Roth MD Lumbar spinal stenosis Migraine Moderate obstructive sleep apnea no CPAP per DR Ellie Zheng prn was OK, however. Papanicolaou smear 06/19/2016 Past Surgical History: Procedure Laterality Date BREAST BIOPSY COLONOSCOPY 05/27/2013 diagnostic LUMBAR TRANSFORAMINAL EPIDURAL INJECTION Right 07/14/2018 Bertha Swann-Right Lumbar Transforaminal Epidural Steroid Injection under fluoroscopic guidance OTHER SURGICAL HISTORY 2007 lump in throat OTHER SURGICAL HISTORY Left 11/30/2016 OTHER SURGICAL HISTORY Left 07/13/2016 SKIN LESION EXCISION 2003 neck, scalp Current Outpatient Medications on File Prior to Visit Medication Sig Dispense Refill amLODIPine (NORVASC) 5 MG tablet Take 1 (one) tablet (5 mg total) by mouth daily. 90 tablet 3 cholecalciferol, vitamin D3, 3,000 unit Tab Take 6,000 Units by mouth daily . etodolac (LODINE) 400 MG tablet Take 400 mg by mouth 2 (two) times a day . gabapentin (NEURONTIN) 800 MG tablet Take by mouth 4 (four) times a day . levothyroxine (SYNTHROID) 125 MCG tablet Take 1 (one) tablet (125 mcg total) by mouth once daily . 90 tablet 3 omeprazole (PRILOSEC) 20 MG capsule Take 1 (one) capsule (20 mg total) by mouth daily. 90 capsule 3 [DISCONTINUED] escitalopram oxalate (LEXAPRO) 10 MG tablet Take 1 (one) tablet (10 mg total) by mouth daily. 90 tablet 3 [DISCONTINUED] escitalopram oxalate (LEXAPRO) 5 MG tablet Take 1 (one) tablet (5 mg total) by mouthdaily. 90 tablet 3 [DISCONTINUED] rOPINIRole (REQUIP) 0.5 MG tablet Take by mouth 3 (three) times a day . [DISCONTINUED] zolpidem (AMBIEN) 5 MG tablet Take 5 mg by mouth nightly as needed . [DISCONTINUED] biotin 10,000 mcg ODT Dissolve 10,000 mcg on top of tongue daily . [DISCONTINUED] magnesium oxide 200 mg magnesium Tab Take by mouth daily. [DISCONTINUED] vitamin B complex (B COMPLEX VITAMINS ORAL) Take by mouth daily . No current facility-administered medications on file prior to visit. No Known Allergies Family History Problem Relation Age of Onset Arrhythmia Mother Asthma Mother COPD Mother cause of Heart disease Father Asthma Brother Hypertension Brother Diabetes Maternal Grandmother Cancer Maternal Grandfather colon Heart disease Paternal Grandfather Hypertension Brother Social History Socioeconomic History Marital status: Spouse name: Not on file Number of children: Not on file Years of education: Not on file Highest education level: Not on file Social Needs Financial resource strain: Not on file Food insecurity - worry: Not on file Food insecurity - inability: Not on file Transportation needs - medical: Not on file Transportation needs - non-medical: Not on file Occupational History Not on file Tobacco Use Smoking status: Never Smoker Smokeless tobacco: Never Used Substance and Sexual Activity Alcohol use: No Drug use: No Sexual activity: Yes Partners: Male Other Topics Concern Not on file Social History Narrative Not on file Immunization History Administered Date(s) Administered Influenza Whole 03/05/2017 Tdap 04/20/2009 Review of Systems - History obtained from the patient General ROS: negative Psychological ROS: negative Breast ROS: negative for breast lumps Respiratory ROS: no cough, shortness of breath, or wheezing Cardiovascular ROS: no chest pain or dyspnea on exertion Gastrointestinal ROS: no abdominal pain, change in bowel habits, or black or bloody stools Genito-Urinary ROS: no dysuria, trouble voiding, or hematuria Musculoskeletal ROS: negative Neurological ROS: no TIA or stroke symptoms Dermatological ROS: negative Vitals: 11/28/18 0747 BP: 123/80 BP Location: Left arm Patient Position: Sitting BP Cuff Size: Adult Pulse: 67 Resp: 16 Temp: 97.9 F (36.6 C) TempSrc: Oral SpO2: 93% Weight: 100.9 kg (222 lb 6.4 oz) Height: 5' 6.25 Physical Exam Constitutional: She is oriented to person, place, and time and well-developed, well-nourished, and in no distress. HENT: Head: Normocephalic and atraumatic. Right Ear: External ear normal. Left Ear: External ear normal. Mouth/Throat: Oropharynx is clear and moist. Eyes: Pupils are equal, round, and reactive to light. Conjunctivae and EOM are normal. Neck: Normal range of motion. Neck supple. No thyromegaly present. Cardiovascular: Normal rate, regular rhythm and normal heart sounds. Exam reveals no gallop and no friction rub. No murmur heard. Pulmonary/Chest: Effort normal and breath sounds normal. No respiratory distress. She has no wheezes. She has no rales. Right breast exhibits no inverted nipple, no mass, no nipple discharge, no skinchange and no tenderness. Left breast exhibits no inverted nipple, no mass, no nipple discharge, noskin change and no tenderness. Breasts are symmetrical. Musculoskeletal: Normal range of motion. Lymphadenopathy: She has no cervical adenopathy. Neurological: She is alert and oriented to person, place, and time. Gait normal. Skin: Skin is warm and dry. Psychiatric: Mood, memory, affect and judgment normal. Nursing note and vitals reviewed. 1) Health Maintenance Current BMI: Body mass index is 35.63 kg/m . Last BP: BP: 123/80 Last Cholesterol: 01/2017- she also just had labs done at work with lipids Reviewed labs with patient No visits with results within 6 Month(s) from this visit. Latest known visit with results is: Abstract on 04/11/2018 Component Date Value Ref Range Status Sodium 04/10/2018 140 136 - 145 mmol/L Final Potassium 04/10/2018 4.0 3.5 - 5.1 mmol/L Final Chloride 04/10/2018 103 98 - 107 mmol/L Final Bicarbonate 04/10/2018 26 24.0 - 30.0 mmol/L Final Glucose 04/10/2018 101 70 - 99 mg/dL Final BUN 04/10/2018 12 7 - 18 mg/dL Final Creatinine 04/10/2018 0.70 0.6 - 1.3 mg/dL Final eGFR 04/10/2018 >60 Final eGFR 04/10/2018 >60 Final Total Protein 04/10/2018 6.8 6.4 - 8.3 Final Albumin 04/10/2018 3.6 3.2 - 5.0 g/dL Final Calcium 04/10/2018 8.9 8.4 - 10.2 mg/dL Final Alkaline Phosphatase 04/10/2018 83 42 - 121 U/L Final AST 04/10/2018 27 10 - 42 U/L Final ALT 04/10/2018 25 10 - 40 U/L Final Total Bilirubin 04/10/2018 0.9 0.2 - 1.0 mg/dL Final BUN/Creatinine Ratio 04/10/2018 17.1 5.4 - 30.0 Final Globulin 04/10/2018 3.2 2.0 - 4.0 Final Albumin/Globulin Ratio 04/10/2018 1.1 1.1 - 1.9 Final T4, Free 04/10/2018 1.0 0.58 - 1.64 ng/mL Final TSH 04/10/2018 0.63 0.30 - 5.60 mcIU/mL Final Vitamin B12 04/10/2018 654 180 - 914 pg/mL Final Folate 04/10/2018 15.9 >=5.00 ng/mL Final Vitamin D, 25-Hydroxy, Total 04/10/2018 46 30.0 - 100.0 ng/mL Final WBC 04/10/2018 8.30 3.6 - 11.0 K/mcL Final RBC 04/10/2018 4.64 3.90 - 5.40 Final Hemoglobin 04/10/2018 13.7 12.0 - 16.0 g/dL Final Hematocrit 04/10/2018 41.5 136.0 - 48.0 % Final Platelets 04/10/2018 340 130 - 400 K/mcL Final MCV 04/10/2018 89.4 78.0 - 100.0 Final MCH 04/10/2018 29.4 27.0 - 31.0 Final MCHC 04/10/2018 32.9 33.0 - 37.0 Final MPV 04/10/2018 9.4 7.4 - 11.0 Final RDW 04/10/2018 13.4 11.5 - 14.5 Final Neutrophils 04/10/2018 66.9 37.0 - 75.0 Final Lymphocytes 04/10/2018 19.9 20.0 - 55.0 Final Monocytes 04/10/2018 9.0 0.0 - 10.0 Final Eosinophils 04/10/2018 3.0 0.0 - 11.0 Final Basophils 04/10/2018 1.2 0.0 - 2.0 Final Absolute Neutrophils 04/10/2018 5.5 1.4 - 6.5 Final Absolute Lymphocytes 04/10/2018 1.6 1.2 - 3.4 Final Absolute Monocytes 04/10/2018 0.7 0.0 - 0.7 Final Absolute Eosinophils 04/10/2018 0.2 0.0 - 0.7 Final Absolute Basophils 04/10/2018 0.1 0.0 - 0.2 Final Last Pap Smear and Breast Exam: PAP-06/19/2016; CBE today Self Breast Exam: . I encouraged her to do this monthly and to notify us of any suspicous lumps, skin changes, or nipple discharge. Last Mammogram: 07/12/2017 Last Bone Density: 06/2013- WNL Calcium and vitamin D Intake discussed Last Colonoscopy: 05/27/13-WNL- 10 year repeat Annual flu shot recommended. - Mammography Screening Bilateral; Future 2. Hypertension, essential, benign - Comprehensive Metabolic Panel; Future 3. Hypothyroidism, unspecified type - TSH with Reflex Free T4; Future 4. Vitamin D deficiency - Vitamin D, Total, 25-OH; Future 5. Depression, unspecified depression type - escitalopram oxalate (LEXAPRO) 10 MG tablet; Take 1 (one) tablet (10 mg total) by mouth daily . Dispense: 90 tablet; Refill: 3 - escitalopram oxalate (LEXAPRO) 5 MG tablet; Take 1 (one) tablet (5 mg total) by mouth daily . Dispense: 90 tablet; Refill: 3 6. Insomnia, unspecified type OARRS report reviewed. Patient is tolerating medication well without side effects and it is effective on an as needed basis - zolpidem (AMBIEN) 5 MG tablet; Take 1 (one) tablet (5 mg total) by mouth nightly as needed . Dispense: 90 tablet; Refill: 1 OARRS/NARxCHECK Report Received and Assessed: 11/28/18 documented in this encounter Assessments Diagnosis Cat bite of hand, left, initial encounter Diagnosis Annual physical exam- Primary Routine general medical examination at a health care facility Hypothyroidism, unspecified type Hypertension, essential, benign Essential hypertension, benign Insomnia, unspecified type Depression, unspecified depression type Gastroesophageal reflux disease, esophagitis presence not specified Vitamin D deficiency Diagnosis Annual physical exam- Primary Routine general medical examination at a health care facility Hypertension, essential, benign Essential hypertension, benign Hypothyroidism, unspecified type Vitamin D deficiency Depression, unspecified depression type Insomnia, unspecified type Reason for Referral Status Reason Specialty Diagnoses / Procedures Referred By Contact Referred To Contact Authorized Radiology Diagnoses Annual physical exam Procedures Mammography Screening Bilateral Caroline Huston MD [address] [place] [address] Status Reason Specialty Diagnoses / Procedures Referred By Contact Referred To Contact Pending Review Radiology Diagnoses Annual physical exam Procedures Mammography Screening Bilateral HustonCaroline MD [address] [place] [address] Specialty Diagnoses / Procedures Referred By Contac t Referred To Contact Sleep Medicine Diagnoses Bilateral pulmonary embolism (HCC) Procedures Nocturnal pulse oximetry Benjamin Benton MD [address] [place] [id number] Referral ID Status Reason Start Date Expiration Date V isits Requested Visits Authorized [id number] Authorized 05/15/2021 05/15/2022 1 1 Specialty Diagnoses / Procedures Referred By Contac t Referred To Contact Pulmonology Diagnoses Dyspnea on exertion Procedures Complete PFT with Pre and Post Bronchodilator Benjamin Benton MD [address] [place] [id number] Referral ID Status Reason Start Date Expiration Date V isits Requested Visits Authorized [id number] Authorized 06/27/2021 06/27/2022 1 1 Specialty Diagnoses / Procedures Referred By Contac t Referred To Contact Sleep Medicine Diagnoses Pulmonary embolism, unspecified chronicity, unspecified pulmonary embolism type, unspecified whether acute cor pulmonale present (HCC) Procedures Nocturnal pulse oximetry Benjamin Benton MD [address] [place] [address] Referral ID Status Reason Start Date Expiration Date V isits Requested Visits Authorized [id number] Pending Review 09/26/2021 09/26/2022 1 1 Specialty Diagnoses / Procedures Referred By Nichole sandhu Referred To Contact Diagnoses Hallux limitus of left foot Left foot pain Primary osteoarthritis of left foot Procedures MR Foot Left Without Contrast Felipe Yates Jr., DPM [address] [place] [address] [address] [place] [address] Phone: [phone] Referral ID Status Reason Start Date Expiration Date Visits Requested Visits Authorized [id number] New Request Patient Preference 01/11/2023 01/11/2024 1 1 Chief Complaint * F/U MEDICATIONS ADJUSTMENTS FOR ONGOING LOWER BACK PAIN AND ACHING TIGHTNESS, MORE PAIN WITH GOING FROM SITTING TO STANDING, STAIRS, SHE GETS STUCK, REPOSITIONS FOR RELIEF, WHEN SHE AMBULATES SHE GRABS ONTO FURNITURE FOR STABILITY,SHE HAS TRIED TAKING TYLENOL FOR PAIN BUT NO RELIEF, SHE HAS WEAKNESS ALL OVER, SHE PRESENTS ON OXYGEN FROM BILATERAL PE, PAIN IS ALWAYS AROUND 10/10, SCORE TODAY 9/10 * This is a 61-year-old female here for a follow-up appointment for chief complaint of low back and leg pain. Since her last visit she ended up with Covid and had pulmonary embolisms as a result. She is now on oxygen. She is also on Xarelto and will continue on it for at least another 2 months. She had to stop the nabumetone and reports the pain is a lot worse since then. I tried her on Zonegran but she has not noticed much benefit. She does think the baclofen and Neurontin helped to an extent but without the anti-inflammatory she is having a lot more pain. She denies new neurologic symptoms orissues with bladder or bowel control. * The patient's past medical, social, and family history along with medications and allergies are available and were reviewed. FUV for daniel low back pain; no radiation at this time; 5/10 today. Patient states pain increases when rising from a seated position. Refill for baclofen, diclofenac, and pregabalin.* FUV for daniel low back pain; no radiation at this time; 5/10 today. Patient states pain increases when rising from a seated position. Refill for baclofen, diclofenac, and pregabalin. * This is a 61-year-old female here for a follow-up appointment for chief complaint of low back hip and leg pain. She reports that since her last visit her symptoms have remained persistent and severe.She states the pain is constant but worse when she rises from a seated position. Her breathing has i mproved but her back pain is still significantly low in her function. She has not able to do what she needs to do physically to get back to work. She is still on Xarelto but will hopefully come off that next week. She thinks the baclofen diclofenac patches and Lyrica do help to a mild to moderate extent. She has done stretching at home which helps minimally. She asks if injections could be done and she is even willing to consider surgery. She denies additional neurologic symptoms or issues withbladder or bowel control. * The patient's past medical, social, and family history along with medications and allergies are available and were reviewed. * FUV for daniel low back pain; no radiation at this time; 11/28 today. Patient states pain increases when rising from a seated position. Refill for baclofen, diclofenac, and pregabalin. * This is a 61-year-old female here for a follow-up appointment for chief complaint of low back hip and leg pain. She reports that since her last visit her symptoms have remained persistent and severe.She states the pain is constant but worse when she rises from a seated position. Her breathing has i mproved but her back pain is still significantly low in her function. She has not able to do what she needs to do physically to get back to work. She is still on Xarelto but will hopefully come off that next week. She thinks the baclofen diclofenac patches and Lyrica do help to a mild to moderate extent. She has done stretching at home which helps minimally. She asks if injections could be done and she is even willing to consider surgery. She denies additional neurologic symptoms or issues withbladder or bowel control. * The patient's past medical, social, and family history along with medications and allergies are available and were reviewed. Colon cancer screeningColon cancer screeningFUV bilat SIJ on 06/19/21 reports 60% relief in her pain and it is still working. Today she is having bilat lower back pain rates 5/10 now and 9/10 with activity she reports the pain is controlled fairly well but she is having more pain around the time she is due for medication and she may need some tweaking with her medications she would like to discuss this with Dr. Swann. she will need RF on Baclofen, Diclofenac patches and Lyrica send to [facility]. She will be seeing her [employer] Setter at the end of the month to see if she can come off the Xarelto and still has Home o2 at night. Opioid Risk score = 1* FUV mohamud SIJ on 06/19/21 reports 60% relief in her pain and it is still working. Today she is having bilat lower back pain rates 5/10 now and 9/10 with activity she reports the pain is controlled fairly well but she is having more pain around the time she is due for medication and she may need some tweaking with her medications she would like to discuss this with Dr. Swann. she will need RF on Baclofen, Diclofenac patches and Lyrica send to [facility]. She will be seeing her Lock[employer] Collar Setter at the end of the month to see if she can come off the Xarelto and still has Home o2 at night. Opioid Risk score = 1 * This is a 61-year-old female here for a follow-up appointment for chief complaint of low back and leg pain. At her last visit she underwent a bilateral sacroiliac injection. She reports 60% relief both in terms of improved pain but also improved function. She is going to see her residential nurse in 2 weeks and will hopefully come off of the blood thinner. She reports the Lyrica baclofen and diclofenac patches are helping to an extent. She states that she still has a gap where there is increased pain just prior to taking her next dose of medication. She denies new neurologic symptoms or issues with bladder or bowel control. * The patient's past medical, social, and family history along with medications and allergies are available and were reviewed. * FUV Bilat lower back pain rates 5/10 now and 8/10 when she was at work today 1st day back describesas aching and stabbing constant. She is having new sensation of pins and needles in top of her footand ankle, and still having balance issues. She is noticing some ankle swelling she will tell her PCP at her next FUV . She will need RF on Pregabalin, Nabumetone, Baclofen and Diclofenac patches send to [facility]. * This is a 61-year-old female here for a follow-up appointment for chief complaint of low back hip and leg pain. Since her last visit she reports that her back pain has remained persistent but stable.She just started back to work yesterday. She is no longer on oxygen. She has been having some more pain along with radiation into the feet and ankles. She reports that it is not any different than what she experienced in the past. So far she is able to function. She reports the Lyrica baclofen nabumetone and patches help but she asked if there is any more room for adjustment. In particular she states the nabumetone helps but does not seem to get her through the day. She denies new neurologic symptoms or issues with bladder or bowel control. * The patient's past medical, social, and family history along with medications and allergies are available and were reviewed. * F/U BILATERAL SIJ 80% RELIEF, DEPENDING ON ACTIVITY SHE GETS SHARP, ACHING PAINS TO THE LOWER BACK,SHE IS WORSE IN THE MORNING WITH TIGHT FEELING THE LOWER BACK, SHE HAS MORE DISCOMFORT WITH BENDINGAND TWISTING, REP MOTION, SHE DOES USE HEAT PRN, MEDICATIONS DIRECTED, HOME STRETCHES, SCORE TODAY 3/10 * MEDICATION REFILLS NEEDED * This is a 61-year-old female here for a follow-up appointment for chief complaint of low back hip and leg pain. At her last visit 2 months ago she underwent a bilateral sacroiliac injection. She reports 80% relief in terms of improved pain and improved function. Her only complaint is that the diclof enac only seems to last for about 5 hours at a time. If she could have 1 more tab she thinks she can make it throughout the day without any problems at all. She reports her other medications have been helpful and she denies side effects. She denies additional neurologic symptoms or issues with bladder or bowel control. * The patient's past medical, social, and family history along with medications and allergies are available and were reviewed. * FUV meds and xray. today reports she is having stiffness across her lower back both sides rates 2/10 now. she needs a RF on Lyrica 200mg TID, Diclofenac 25mg, Baclofen 10mg 1-2 tabs send to [facility]. * This is a 62-year-old female here for a follow-up appointment for chief complaint of low back and leg pain. She reports that since her last visit her symptoms have been more intense. The combination of baclofen, diclofenac, and Lyrica has remained helpful and she denies side effects, but she reports that her back and bilateral hip pain has gotten worse over the past 2 months and is impacting her function. The 2 sides are equal. She underwent bilateral sacroiliac injection 7 months ago and had 5months of greater than 60% pain relief and functional improvement. She would like to repeat that procedure. She has maintain her home exercises and stretching. She still has some right knee pain but its been intermittent and typically not that bothersome. The back pain is what impacts her function at work. She denies radicular pain down the legs. She denies new neurologic symptoms or issues with bladder or bowel control. * The patient's past medical, social, and family history along with medications and allergies are available and were reviewed. 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 She reports that following the last injection in July she continued to do well up until about a month ago. Around that time she started having more severe pain starting in the middle of her lumbar spine that would radiate outward and go down the outside of both legs. She states that will go down all the way to the outsides of the feet but on the right side she notices more pain proximally and on the left side the distal leg is the more painful issue. She states the pain is constant to an extent but it is worst with prolonged sitting. She can sit less than 5 minutes before she gets significant pain and cannot sit for 60 minutes before she has to get up. She also reports that she cannot walk 1/4 mile or stand for an hour due to the pain. The pain also keeps her from sleeping longer than 6 hours.. She reports that she had followed with Dr. Yates and he did a cortisone injection in her left foot which helped part of the issue but not all of it. She has been wearing a boot on the foot as well and wonders if her abnormal gait is setting things off. She has maintained the home exercises for her spine and they do help to an extent. She still using Lyrica, diclofenac, and baclofen. She reports Dr. Yates also put her on meloxicam. She denies new neurologic symptoms or issues with bladder or bowel control. * The patient denies any additional numbness, tingling, weakness, or any loss of bladder or bowel control. The patient's past medical, social, and family history along with medications and allergies are available and were reviewed. * F/U BILATERAL L5 TFESI 50%, SHE HASN'T HAD PAIN DOWN HER LEGS, PAIN ACROSS THE LOWER BACK BURNING, STABBING, ACHING, ALL THE TIME FOR THE PAST WEEKS, SITTING, STANDING, WALKING, BENDING, REST, ADL, SHE IS ON A MEDROL DOSE PACK FOR HER LEFT FOOT SHE WOULD LIKE TO DISCUSS WHAT MEDICATIONS SHE SHOULD BE TAKING, SHE CANNOT DUE VERY MUCH ACTIVITY DUE TO WEARING THE CAMWALKER ON HER LEFT FOOT, SCORE 7/10 * OSWESETRY DISABILITY INDEX=18% * This is a 62-year-old female here for a follow-up appointment for chief complaint of low back and bilateral leg pain. At her last visit she underwent a bilateral L5 transforaminal epidural steroid injection. She reports about 50% symptom relief overall. In particular the pain going down her legs has improved substantially but she still has significant back pain that limits her function. She is also having weakness in the legs. She states the left is worse than the right. She does have a fracture in a few of the metatarsals on her left foot so she wonders if that might be part of it but her proximal legs do feel weak as well. She denies any arm weakness. She is using Lyrica, diclofenac, and baclofen which have been helpful. She denies side effects. She denies additional neurologic symptomsor issues. * The patient denies any additional numbness, tingling, weakness, or any loss of bladder or bowel control. The patient's past medical, social, and family history along with medications and allergies are available and were reviewed. * FUV MRI results. Today she reports her back pain is not too bad but yesterday her bilat lower back rated 6/10 with bending and standing too long, describes as sharp and stabbing and numbness in her rt lateral thigh front and back. She reports the pain affects her ADLs including lifting, sleeping, sex and social life, traveling, sitting, she can stand as long as she wants and walking 1/2 mile all cause increased pain. * Oswestry Disability Index evaluation tool completed by patient score 22/100 * This is a 62-year-old female here for a follow-up appointment for chief complaint of right-sided low back and leg pain. She reports that since her last visit her symptoms have been persistent and largely unchanged. She reports that it will start in the right side of her lower back and radiate into the right thigh. The pain does not go past her knee. She denies any significant left-sided pain. Sheis using Lyrica, baclofen, and diclofenac. She reports medications are helpful to an extent but thepain is limiting her function at home and at work. Her right leg still feels weak. She denies any new neurologic symptoms. She got the imaging we had ordered and is here to go over the results. * The patient denies any additional numbness, tingling, weakness, or any loss of bladder or bowel control. The patient's past medical, social, and family history along with medications and allergies are available and were reviewed. * FUV MRI results. Today she reports her back pain is not too bad but yesterday her bilat lower back rated 6/10 with bending and standing too long, describes as sharp and stabbing and numbness in her rt lateral thigh front and back. She reports the pain affects her ADLs including lifting, sleeping, sex and social life, traveling, sitting, she can stand as long as she wants and walking 1/2 mile all cause increased pain. * Oswestry Disability Index evaluation tool completed by patient score 22/100 * This is a 62-year-old female here for a follow-up appointment for chief complaint of right-sided low back and leg pain. She reports that since her last visit her symptoms have been persistent and largely unchanged. She reports that it will start in the right side of her lower back and radiate into the right thigh. The pain does not go past her knee. She denies any significant left-sided pain. Sheis using Lyrica, baclofen, and diclofenac. She reports medications are helpful to an extent but thepain is limiting her function at home and at work. Her right leg still feels weak. She denies any new neurologic symptoms. She got the imaging we had ordered and is here to go over the results. * The patient denies any additional numbness, tingling, weakness, or any loss of bladder or bowel control. The patient's past medical, social, and family history along with medications and allergies are available and were reviewed. * FUV for L4-5 DEIM 03-08-2023; 75% relief. Patient states the numbness in R upper leg has improved. daniel low back pain / today. Refill for baclofen, diclofenac, pregabalin needed. Patient would like to know if she can get a 90 day refill of the zonisamide. * Depression, smoking screening negative; BMI education provided; 04-02-23 Additional Source Comments Reason for Visit (unrecogniz ed section and content) Reason Comments Medication Refill Reason Comments Animal Bite Reason Comments Annual Exam Reason Comments Annual Exam Medication Refill lexapro, ambien, rop inirole Reason Comments Consult [facility] with bilateral pulmonary embolism. Still using o2 but not continous. States she gets dyspnea with almost any exertion, but that it is slowly improving. 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 Reason Comments Insomnia Incontinence Reason Comments Follow-up 6 week f/u Reason Comments Pulmonary embolism F/u Reason Comments Follow-up 3 month f/u on [facility] Reason Comments Hypothyroidism Reason Comments Foot Pain L foot pain x 1-2 mo s - pt states that the pain is in the 1st MPJ -top and bottom and swelling - pt did miss a couple of steps recently but the pain started before that Reason Comments Follow-up Follow up left foot pain. Patient has two meloxicam left. He inflammation is down but pain still in foot radiating into ankle. States she did get an injection in her back in hopes it would help her foot. Reason Comments Follow-up Review MRI L foot Reason Comments Foot Fracture F/u left fx of 1st m etatarsal, pt states doing better. Reason Comments Follow-up Follow up x-rays lef t foot fracture. States her ankle is sore from wearing the boot. Reason Comments Follow-up 6 monthPt not feelin g well todayStates she has tried everything and cannot get symptoms under control Head cold present for 2-3 weeksUC on Saturday told her it was just a virus Pt leaving next [place] the [place] Specialty Diagnoses / Procedures Referred By Nichole sandhu Referred To Contact Primary Care Procedures Follow Up In Primary Care Mame Gray, DO [address] [facility] [place] [address] Referral ID Status Reason Start Date Expiration Date V isits Requested Visits Authorized [id number] Authorized 11/06/2022 05/05/2023 1 1 Reason Comments Follow-up Follow up x-rays lef t first metatarsal fracture. Reason Comments Other M54.17 Reason Comments Other M48.062 Reason Comments Follow-up L foot fx - repeat x rays - pt pt states that she still has tenderness Reason Comments Back Pain FUV for meds. Today reports having pain in her bilat lower back that radiates into her rt lateral hip , rt thigh down to her knee, rates 7/10, describes as stabbing, aching, burning, tightness she has numbness in her rt thigh. She reports the pain affects her ADLs including lifting, sitting, sleeping, traveling, standing for 1 hour and walking 0.5 mile all causes increased pain. Reason Comments Back Pain FUV3 months for Meds . Today reports having very little back pain as she has not been active yet, when she has pain in is Bilat lower back and rt thigh is numb rate pain score 1/10 now and 7/10 at worst with activity and working, describes as stabbing and tightness. She takes Baclofen, Lyrica, and Zonegran these help her pain a little she tried taking tylenol every 6 hours since her last visit and has not seen any change in her pain, she completed PT and is doing HEP daily. Reason Comments Follow-up 6 month Specialty Diagnoses / Procedures Referred By Nichole sandhu Referred To Contact Primary Care Procedures Follow Up In Primary Care - Established Mame Gray DO [address] [facility] [place] [address] Referral ID Status Reason Start Date Expiration Date Visits Re quested Visits Authorized [id number] Closed 05/02/2023 10/29/2023 1 1 Reason Comments Back Pain FUV baclofen increas e at last OV she did not notice a change with this. Today reports having pain in bilat lower back occasionally in to her rt leg, rates her pain score 4/10 now and 8/10 at worst with activity, describes as sharp, stabbing. She takes Baclofen, Lyrica, tylenol and Zonegran this helps her pain some but she is still having a lot of pain, she is considering surgery but trying to hold off until she can retire later this year. Reason Comments Ankle Injury Patient presents for possible ankle injury, left. Duration months. Patient states ankle is giving out on her, possibly landing on outside ankle. Patient has three broken toes in left foot. Occasional limping, gait feels off. Reason Comments Flu Symptoms Diarrhea Back Pain Reason Comments Follow-up DATE OF INJURY 04/11LAST XRAY-TODAY Fracture DATE OF INJURY 04/11LAST XRAY-TODAY Specialty Diagnoses / Procedures Referred By Contac t Referred To Contact Orthopaedic Surgery / Orthopedic Surgery Diagnoses Neurogenic claudication due to lumbar spinal stenosis Amy Rizvi PA-C [address] [place] [address] Phone: tel: fax: Referral ID Status Reason Start Date Expiration Date Visits Requested Visits Authorized [id number] Authorized Specialty Services Required 04/20/2024 04/20/2025 1 1 INFORMATION SOURCE (unrecogn ized section and content) DATE CREATED AUTHOR 03/31/2019 [facility] DATE CREATED AUTHOR AUTHOR'S ORGANIZ ATION 03/18/2020 [facility] DATE CREATED AUTHOR AUTHOR'S ORGANIZ ATION 01/11/2021 [facility] DATE CREATED AUTHOR AUTHOR'S ORGANIZ ATION 08/18/2021 [facility] DATE CREATED AUTHOR AUTHOR'S ORGANIZ ATION 01/05/2023 [facility] DATE CREATED AUTHOR AUTHOR'S ORGANIZ ATION 02/07/2023 [facility] DATE CREATED AUTHOR AUTHOR'S ORGANIZ ATION 2023 [employer] DATE CREATED AUTHOR AUTHOR'S ORGANIZ ATION 05/16/2023 [facility] DATE CREATED AUTHOR AUTHOR'S ORGANIZ ATION 01/20/2024 [facility] DATE CREATED AUTHOR AUTHOR'S ORGANIZ ATION 05/08/2024 [facility] DATE CREATED AUTHOR AUTHOR'S ORGANIZ ATION 05/11/2024 [facility] DATE CREATED AUTHOR AUTHOR'S ORGANIZ ATION 05/12/2024 [facility] <item><item> Privacy Markings (unrecogniz ed section and content) Section Author: Brenda Doran PROHIBITION ON REDISCLOSURE OF CONFIDENTIAL INFORMATION This notice accompanies a disclosure of information concerning a client made to you with the consent of such client. Section Author: Brenda Doran PROHIBITION ON REDISCLOSURE OF CONFIDENTIAL INFORMATION This notice accompanies a disclosure of information concerning a client made to you with the consent of such client. Care Teams (unrecognized sec tion and content) Field Map Editor Relationship Specialty Start Date End Date Caroline Huston MD PCP - General Family Medicine 03/25/18 Field Map Editor Relationship Specialty Start Date End Date Caroline Huston MD PCP - General Family Medicine 03/25/18 Field Map Editor Relationship Specialty Start Date End Date Caroline Huston MD PCP - General Family Medicine 03/25/18 Field Map Editor Relationship Specialty Start Date End Date Caroline Huston MD PCP - General Family Medicine 03/25/18 Field Map Editor Relationship Specialty Start Date End Date Caroline Huston MD PCP - General Family Medicine 03/25/18 Field Map Editor Relationship Specialty Start Date End Date Caroline Huston MD PCP - General Family Medicine 03/25/18 Benjamin Benton MD [address] [place] [address] [place] [address] Pulmonary Disease 06/27/21 Field Map Editor Relationship Specialty Start Date End Date No, Physician [facility] PCP - General 06/28/21 Benjamin Benton MD [address] [place] [address] Pulmonary Disease 06/27/21 Field Map Editor Relationship Specialty Start Date End Date Caroline Huston MD [address] [place] [address] PCP - General Family Medicine 08/29/21 Benjamin Benton MD [address] [place] [address] Pulmonary Disease 06/27/21 Field Map Editor Relationship Specialty Start Date End Date Caroline Huston MD [address] [id number] PCP - General Family Medicine 08/29/21 Benjamin Benton MD [address] [place] [address] Pulmonary Disease 06/27/21 Field Map Editor Relationship Specialty Start Date End Date Caroline Huston MD [address] [place] [address] PCP - General Family Medicine 08/29/21 Benjamin Benton MD [address] [place] [address] Pulmonary Disease 06/27/21 Field Map Editor Relationship Specialty Start Date End Date Mame Gray DO [address] [place] [address] PCP - General Internal Medicine 11/09/22 Benjamin Benton MD [address] [place] [address] Pulmonary Disease 06/27/21 Field Map Editor Relationship Specialty Start Date End Date Mame Gray DO [address] [place] [address] PCP - General Internal Medicine 11/09/22 Benjamin Benton MD [address] [place] [address] Pulmonary Disease 06/27/21 Field Map Editor Relationship Specialty Start Date End Date Mame Gray DO [address] [place] [address] PCP - General Internal Medicine 11/09/22 Benjamin Benton MD [address] [place] [address] Pulmonary Disease 06/27/21 Field Map Editor Relationship Specialty Start Date End Date Mame Gray DO [address] [place] [address] PCP - General Internal Medicine 11/09/22 Benjamin Benton MD [address] [place] [address] Pulmonary Disease 06/27/21 Field Map Editor Relationship Specialty Start Date End Date Mame Gray DO [address] [place] [address] PCP - General Internal Medicine 11/09/22 Benjamin Benton MD [address] [place] [address] Pulmonary Disease 06/27/21 Field Map Editor Relationship Specialty Start Date End Date Mame Gray DO [address] [place] [address] PCP - General 07/03/22 Mame Gray, DO [address] [facility] [place] [address] PCP - [place] PCP 09/19/22 Field Map Editor Relationship Specialty Start Date End Date Mame Gray, [address] [facility] [place] [address] PCP - General 07/03/22 Mame Gray, DO [address] [facility] Physician [facility] [place] [address] PCP - [place] [facility] PCP 09/19/22 Field Map Editor Relationship Specialty Start Date End Date Mame Gray, DO [address] [place] [address] PCP - General 07/03/22 Mame Gray, DO [address] [facility] [place] [address] PCP - [place] [facility] PCP 09/19/22 Field Map Editor Relationship Specialty Start Date End Date Mame Gray, DO [address] [place] [address] PCP - General 07/03/22 Mame Gray, DO [address] [facility] [place] [address] PCP - [place] [facility] PCP 09/19/22 Field Map Editor Relationship Specialty Start Date End Date Mame Gray DO [address] [place] [address] PCP - General 07/03/22 Mame Gray, DO [address] [facility] [place] [address] PCP - [place] [facility] PCP 09/19/22 Field Map Editor Relationship Specialty Start Date End Date Mame Gray DO [address] [facility] [place] [address] PCP - General 07/03/22 Mame Gray DO [address] [facility] [place] [address] PCP - [place] [facility] PCP 09/19/22 Field Map Editor Relationship Specialty Start Date End Date Mame Gray, [address] [facility] [place] [address] PCP - General 07/03/22 Mame Gray DO [address] [facility] [place] [address] PCP - [place] [facility] PCP 09/19/22 Field Map Editor Relationship Specialty Start Date End Date Mame Gray, [address] [place] [address] PCP - General Internal Medicine 11/09/22 Benjamin Benton MD [address] [place] [address] [place] [address] Pulmonary Disease 06/27/21 Field Map Editor Relationship Specialty Start Date End Date Mame Gray, DO [address] [facility] [place] [address] PCP - General 07/03/22 Mame Gray, DO [address] [facility] [place] [address] PCP - [place] [facility] PCP 09/19/22 Field Map Editor Relationship Specialty Start Date End Date Mame Gray, DO [address] [facility] [place] [address] PCP - General 07/03/22 Mame Gray, DO [address] [place] [address] PCP - [place] [facility] PCP 09/19/22 Field Map Editor Relationship Specialty Start Date End Date Mame Gray, DO [address] [facility] [place] [address] PCP - General 07/03/22 Mame Gray, DO [address] [facility] [place] [address] PCP - [place] [facility] PCP 09/19/22 Field Map Editor Relationship Specialty Start Date End Date Mame Gray [address] [facility] [place] [address] PCP - General 07/03/22 Mame Gray DO [address] [facility] [place] [address] PCP - [place] [facility] PCP 09/19/22 FOR RECORDS PERTAINING TO PATIENTS WHO ARE OR HAVE BEEN ENROLLED IN A CHEMICAL DEPENDENCY/SUBSTANCEABUSE PROGRAM, SOME INFORMATION MAY BE OMITTED. This clinical summary was aggregated from multiple sources. Caution should be exercised in using it in the provision of clinical care. This summary normalizes information from multiple sources, and as a consequence, information in this document may materially change the coding, format and clinical context of patient data. In addition, data may be omitted in some cases. CLINICAL DECISIONS SHOULD BE BASED ON THE PRIMARY CLINICAL RECORDS. [facility] [employer] [facility]. provides no warranty or guarantee of the accuracy or completeness of information in this document.
--- NOTE | 2024-05-16 08:40 | MRI_ITS ---
EXAM: MR RIGHT LOWER EXTREMITY WITHOUT INTRAVENOUS CONTRAST, KNEE CLINICAL INDICATION: right knee pain, intermittent locking TECHNIQUE: Multiplanar and multisequence MR images of the right knee without intravenous contrast. COMPARISON: February 26, 2024 FINDINGS: ARTIFACTS: Motion artifact limits assessment. BONES/JOINTS: Edema anterior to the patella. Focal signal alterations suspicious for high-grade full-thickness fissures (couple) at the medial patellar facet without subchondral marrow signal alteration. EXTENSOR MECHANISM: Unremarkable. MEDIAL MENISCUS: Complex tear of the posterior horn of the medial meniscus. LATERAL MENISCUS: Unremarkable. MEDIAL CAPSULE/SUPPORTING STRUCTURES: Unremarkable. Intact. LATERAL CAPSULE/SUPPORTING STRUCTURES: Unremarkable. Lateral collateral ligamentous complex, inclusive of the popliteal tendon, are intact. ANTERIOR CRUCIATE LIGAMENT: Unremarkable. Intact. POSTERIOR CRUCIATE LIGAMENT: Unremarkable. Intact. MUSCLES: Unremarkable. CARTILAGE: Edema both sides of the medial patellofemoral articulation reflecting overlying chondral loss which is fairly diffuse and high-grade to full-thickness in areas. Adjacent prominent peripheral marginal osteophytes reflect a moderate osteoarthrosis. FLUID: Unremarkable. No joint effusion. No Ladd''s cyst. No other organized fluid collections. MRI/Lower Ext Joint Only (Routine) IMPRESSION: 1. Complex tear of the posterior horn of the medial meniscus. 2. 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 Electronically Signed: Rubio Cárdenas MD at 15:45 EDT ,
== END | disposition home or self-care (01) ==
LOC: MRI 08:31
PROVIDERS: PCP Internal Medicine; Referring Provider Physician Assistant; Visit Provider Physician Assistant
DX: S86.911A Strain of unspecified muscle(s) and tendon(s) at lower leg level, right leg, initial encounter (principal); S80.01XA Contusion of right knee, initial encounter
CPT/HCPCS: 73721